=== PATIENT | male | born 1945 | race Caucasian/White ===

== ENCOUNTER 2016-09-07 13:23 | Inpatient (IN) | payer MEDICARE ==
[~2016-09-07] VITALS: Ht 188 cm; Wt 87.0 kg
[~2016-09-07 13:23] MED LIST: ADVAIR HFA [SP]12 GM INH; ASPIRIN325 MG PO; ATENOLOL25 MG PO; AXIRON30 MG/1.5 INJ; BENADRYL25 MG PO; CORDARONE200 MG PO; ENULOSE10 G/15 ML PO; FLAGYL500 MG PO; FORADIL12 MCG INH; HYTRIN1 MG PO; K-DUR20 MEQ PO; LASIX20 MG PO; LEVAQUIN500 MG PO; MORPHINE SULFAT30 MG PO; MS CONTIN100 MG PO; MUCINEX600 MG PO; MUCUS RELIEF400 MG PO; MULTI-DAY VITAM1 TAB PO; NEO-POLYCIN EY3.5 GM; NEURONTIN 300300 MG PO; PROAIR HFA8.5 GM INH; PROVENTIL/2.5 MG/3 M NEB; PROZAC20 MG PO; ROXICODONE5 MG PO; SPIRIVA18 MCG INH; STOOL SOFTENER240 MG PO; SYMBICORT 16010.2 GM INH; SYNTHROID88 MCG PO; TEGRETOL 200 M200 MG PO; TYLENOL 8 HOUR650 MG; XANAX1 MG PO; ZANTAC300 MG PO; ZOCOR40 MG PO
[2016-09-07 15:25] LABS: BASOPHILS 0.3 % (0.0-2.0); EOSINOPHILS 5.5 % (0-7); HEMATOCRIT 37.4 % (42.0-54.0); HEMOGLOBIN 12.4 g/dL (13.5-17.5); LYMPHOCYTES 24.2 % (15-50); MCH 33.9 pg (26.0-34.0); MCHC 33.2 g/dL (31.0-37.0); MCV 102.2 fL (80.0-100.0); MEAN PLATELET VOLUME 9.6 fL (7.4-10.4); MONOCYTES 14.6 % (2-11); NEUTROPHILS 55.4 % (40-80); PLATELET COUNT 199 10x3/uL (130-400); RBC 3.66 10x6/uL (4.20-6.10); RDW 15.1 % (11.5-14.5); WBC 3.4 10x3/uL (4.8-10.8)
[2016-09-07 16:06] LABS: TROPONIN-I 0.016 ng/mL (0.000-0.060)
[2016-09-07 18:08] LABS: % SATURATION 8 % (15-55); IRON 20 ug/dl (35-150); TOTAL IRON BIND CAPACITY 223 ug/dl (260-445); UNSAT IRON BIND CAPACITY 203 ug/dl (150-375)
[2016-09-07 19:00] VITALS: BP 144/84
[2016-09-07 19:30] LABS: CKMB 2.3 U/L (0.0-3.6); CREATINE KINASE 95 UL (21-232)
[2016-09-07 19:33] LABS: TROPONIN-I < 0.017 ng/mL (0.000-0.060)
--- NOTE | 2016-09-07 19:45 | NUR ---
PT RECIEVED TO UNIT, ADMISSION ASSESSMENT AND HX COMPLETE, PLEASE SEE FLOW SHEETS FOR DETAILS. VSS AT THIS TIME, WILL ATTACH TO TELEMETRY. COMPLAINING OF SEVERE PAIN, STATES IT IS CHRONIC AND IN EXTREMETIES. VISUAL SIGNS OF PAIN PRESENT, REDENNED FACE AND GRIMACING UPON MOVEMENT, AND GRUNTING OR CRYING OUT. BED LOW AND LOCKED, CALL LIGHT IN REACH. ARRIVED WITH HIS OWN WHITE TSHIRT, PAJAMA BOTTOMS AND UNDERPANTS, SOCKS AND BROWN LEATHER HOUSE SHOES. WILL CONTINUE TO MONITOR.
[2016-09-07 21:46] VITALS: BP 114/84; BMI 25.6
--- NOTE | 2016-09-07 23:36 | NUR ---
SPOKE WITH AMELIE DESAI AND RECIEVED NEW ORDERS.
[2016-09-07] MEDS ORDERED: CYMBALTA60 MG PO (23:50)
[2016-09-07] MEDS ORDERED: SYNTHROID100 MCG PO (23:51)
[2016-09-07] MEDS ORDERED: ZANAFLEX4 MG PO (23:52)
[2016-09-07] MEDS ORDERED: TENORMIN25 MG PO (23:52)
[2016-09-07] MEDS ORDERED: LYRICA75 MG PO (23:53)
[2016-09-08] VITALS: BP 147/80
[2016-09-08 00:14] LABS: CKMB 1.8 U/L (0.0-3.6); CREATINE KINASE 91 UL (21-232)
--- NOTE | 2016-09-08 00:17 | NUR ---
PT SLEEPING COMFORTABLEY, BED LOW AND LOCKED, CALL LIGHT IN REACH, WILL CONTINUE TO MONITOR.
[2016-09-08 00:21] LABS: TROPONIN-I < 0.017 ng/mL (0.000-0.060)
--- NOTE | 2016-09-08 02:50 | NUR ---
PT HR ON TELEMETRY AT 160, WENT TO CHECK ON PT. HE WAS AWAKE IN BED AND COMPLAINING OF PAIN AND NAUSEA. GAVE OXYCODONE AND ZOFRAN ORDERED. UPON REASSESSMENT HR DOWN TO 115, AND PT STATED HE WAS MORE COMFORTABLE. WILL CONTINUE TO MONITOR.
[2016-09-08 04:00] VITALS: BP 141/84
[2016-09-08 06:06] LABS: HEMATOCRIT 42.7 % (42.0-54.0); MCH 32.9 pg (26.0-34.0); MCHC 32.8 g/dL (31.0-37.0); MCV 100.5 fL (80.0-100.0); MEAN PLATELET VOLUME 9.8 fL (7.4-10.4); RBC 4.25 10x6/uL (4.20-6.10); RDW 14.9 % (11.5-14.5)
[2016-09-08 06:07] LABS: PLATELET COUNT 260 10x3/uL (130-400); WBC 1.9 10x3/uL (4.8-10.8)
[2016-09-08 06:21] LABS: CALC OSMOLALITY 279 mosm/kg (275-300); CALCIUM 8.8 mg/dL (8.5-10.1); CARBON DIOXIDE 34.4 mmol/L (21.0-32.0); CHLORIDE - SERUM 101 mmol/L (98-107); CKMB 1.5 U/L (0.0-3.6); CREATINE KINASE 71 UL (21-232); CREATININE - SERUM 0.9 mg/dL (0.6-1.3); GLUCOSE 127 mg/dL (74-106); POTASSIUM - SERUM 4.1 mmol/L (3.5-5.1); SODIUM 140 mmol/L (136-145); UREA NITROGEN 9 mg/dL (7-18); eGFR NON AFRICAN AMERICAN 88 mL/min (90-120)
[2016-09-08 06:23] LABS: TROPONIN-I < 0.017 ng/mL (0.000-0.060)
[2016-09-08 06:36] LABS: LYMPHOCYTES 14 % (15-50); MONOCYTES 4 % (2-11); NEUTROPHILS 82 % (40-80); PLATELET ESTIMATE NORMAL; ROULEAUX OCC
[2016-09-08 06:37] LABS: ANISOCYTOSIS OCC
[2016-09-08 07:39] VITALS: BP 131/83
[2016-09-08] MEDS ORDERED: MS CONTIN30 MG PO (09:04)
[2016-09-08 11:38] VITALS: BP 119/73
[2016-09-08 13:42] VITALS: Ht 188 cm; Wt 87.0 kg
[2016-09-08 15:25] VITALS: BP 136/85
--- NOTE | 2016-09-08 19:03 | NUR ---
SITTING UP IN BED, AAOX3, SKIN WARM AND DRY, RESP UNLABORED, IV PATENT TO LEFT FOREARM, O2@2LNC, MOOD PLEASANT, DENIES NEEDS
--- NOTE | 2016-09-08 19:06 | NUR ---
ALERT AND ORIENTED X4. SITTING UP IN BED. FAMILY AT BEDSIDE. PAIN MANAGEMENT CONTINUED FOR CHRONIC PAIN. O2 @ 2L FOR SOB. NO CHANGE. IV ANTIBIOTIC INFUSING ORDERED. CONTINUE PLAN OF CARE AND SAFETY PRECAUTION. PREPARE SHIFT CHANGE REPORT.
[2016-09-08 19:56] VITALS: BP 135/82
[2016-09-09] VITALS: BP 133/80
--- NOTE | 2016-09-09 01:31 | NUR ---
LYING IN BED, CALL LIGHT IN REACH. WILL CONTINUE WITH PLAN OF CARE.
[2016-09-09 04:00] VITALS: BP 135/90
--- NOTE | 2016-09-09 05:40 | NUR ---
RESTING QUIETLY IN BED, NO DISTRESS NOTED
[2016-09-09 05:59] LABS: BASOPHILS 0 % (0.0-2.0); EOSINOPHILS 0 % (0-7); HEMATOCRIT 40.6 % (42.0-54.0); HEMOGLOBIN 13.4 g/dL (13.5-17.5); IMMATURE GRANULOCYTES 0.1 % (0-5); LYMPHOCYTES 10.1 % (15-50); MCH 33.1 pg (26.0-34.0); MCV 100.2 fL (80.0-100.0); MONOCYTES 4.1 % (2-11); NEUTROPHILS 85.7 % (40-80); PLATELET COUNT 257 10x3/uL (130-400); RBC 4.05 10x6/uL (4.20-6.10)
[2016-09-09 06:02] LABS: WBC 6.8 10x3/uL (4.8-10.8)
[2016-09-09 06:32] LABS: CALC OSMOLALITY 283 mosm/kg (275-300); CARBON DIOXIDE 33.9 mmol/L (21.0-32.0); CHLORIDE - SERUM 102 mmol/L (98-107); CREATININE - SERUM 0.9 mg/dL (0.6-1.3); GLUCOSE 131 mg/dL (74-106); POTASSIUM - SERUM 4.1 mmol/L (3.5-5.1); SODIUM 141 mmol/L (136-145); UREA NITROGEN 15 mg/dL (7-18); eGFR NON AFRICAN AMERICAN 88 mL/min (90-120)
--- NOTE | 2016-09-09 07:18 | NUR ---
PT SITTING UP IN BED RECEIVING BREATHING TX. PT DENIES NEEDS WILL CONTINUE TO MONITOR.
[2016-09-09 08:00] VITALS: BP 137/77
[2016-09-09 09:19] LABS: FOLATE (FOLIC ACID) - SERUM 13.2 ng/mL (>3.0)
[2016-09-09 12:00] VITALS: BP 133/76
--- NOTE | 2016-09-09 12:41 | NUR ---
Patient Name: TREV JERRY Admission Status: ER Accout number: [id number] Admission Date: 09-07-2016 : 1945 Admission Diagnosis: Attending: OSCAR Current LOS: 2 Anticipated DC Date: 09-13-2016 Planned Disposition: Home Primary Insurance: [employer] MEDICARE ADV Discharge Planning Comments: CM MET WITH PATIENT REGARDING D/C NEEDS AND PLANS. PATIENT STATED HIS DAUGHTER (LOUISE) AND SON IN LAW LIVE WITH HIM AND THEY WILL DRIVE HIM HOME AT DISCHARGE. PATIENT STATED THERE ARE NO STEPS OR STAIRS AT HIS HOME. PATIENT STATED HE IS INDEPENDENT WITH HIS CARE WITH THE EXCEPTION OF MEDICATION MANAGEMENT. PATIENT HAS A WALKER, CANE, SHOWER CHAIR, BS COMMODE, O2, PORTABLE O2, AND NEBULIZER. OXYGEN IS SUPPLIED BY [employer]. PATIENTS PCP IS DR. OLIVIA ROCKWELL AND PHARMACY IS [facility]. PATIENT HAS NOT HAD HOME HEALTH BEFORE AND IS REFUSING IT AT THIS TIME. CM WILL CONTINUE TO FOLLOW PATIENT WITH D/C NEEDS AND PLANS. PCP DR. OLIVIA ROCKWELL [facility]- [phone] BIANCA JERRY (SON) [phone] LOUISE (DAUGHTER) DID NOT HAVE NUMBER Visitor Services Specialist: Janny Chávez Is the patient Alert and Oriented? Yes 0 * How many steps to enter\exit or inside your home? 0 0 * PCP DR. OLIVIA ROCKWELL 0 * Pharm[facility] 0 * Preadmission Environment Home with Family 0 * ADLs Partial Dependent 0 * Partial ADLs (Assistance needed) Medication Management 0 * Equipment Bedside Commode Cane Nebulizer Oxygen Shower Chair Walker 0 * Other Equipment PORTABLE O2 ([facility]) 0 * List name and contact numbers for known caregivers / representatives who currently or will assist patient after discharge: BIANCA JERRY (SON) [phone] 0 * Community resources currently utilized None 0 * Additional services required to return to the preadmission environment? Yes 0 * Can the patient safely return to the preadmission environment? Yes 0 * Has this patient been hospitalized within the prior 30 days at any hospital? No 0 Grand Total: 0
--- NOTE | 2016-09-09 12:41 | NUR ---
PYXIS IS BROKEN NEW ORDERS NOT GOING TO [facility]. HAD TO OVERRIDE CARDIZEM DRIP TO BE ABLE TO PULL MEDICATION.
--- NOTE | 2016-09-09 13:39 | NUR ---
PT SITTING UP IN BED DENIES NEEDS AT THIS TIME WILL CONT TO MONITOR.
[2016-09-09 16:00] VITALS: BP 120/84
--- NOTE | 2016-09-09 17:46 | NUR ---
PT SITTING UP IN BED DENIES NEEDS AT THIS TIME WILL CONTINUE TO MONITOR.
--- NOTE | 2016-09-09 20:00 | NUR ---
PT RESTING IN BED. REVIEWED THAT CURRENT BP IS RUNNING 97/49. PT IS A CHRONIC PAIN PT AND IS USED TO TAKING XANAX AND MS CONTIN. HE IS ALSO ON A CARDIZEM DRIP FOR HIS AFIB, WHICH IS CURRENTLY CONTROLLED. WILL ADMINISTER NORMAL HOME MEDS, MONITOR BP AND HOLD DRIP IF BP BECOMES TOO LOW. REVIEWED PLAN OF CARE WITH PT AND HE IS IN AGREEMENT BECAUSE HE DOES NOT WANT TO MISS HIS SCHEDULED PAIN MEDS. O2 @ 2L/NC. WILL MONITOR CLOSELY.
[2016-09-09 21:18] VITALS: BP 97/49
--- NOTE | 2016-09-09 23:52 | NUR ---
HS MEDS HAVE BEEN GIVEN. PT IS RESTING. BP MANUAL 132/60 SO HS PAIN MEDS GIVEN. CURRENTLY 94 CAF PER TELEMETRY. CARDIZEM AT 10ML/HR INFUSING. CPOC.
[2016-09-10 01:12] VITALS: BP 98/55
[2016-09-10 05:01] VITALS: BP 122/55
[2016-09-10 06:00] LABS: CALC OSMOLALITY 282 mosm/kg (275-300); CALCIUM 8.8 mg/dL (8.5-10.1); CARBON DIOXIDE 34.9 mmol/L (21.0-32.0); CHLORIDE - SERUM 100 mmol/L (98-107); GLUCOSE 129 mg/dL (74-106); MAGNESIUM - SERUM 2.2 mg/dL (1.8-2.4); PHOSPHOROUS 3.1 mg/dL (2.5-4.9); POTASSIUM - SERUM 4.5 mmol/L (3.5-5.1); SODIUM 140 mmol/L (136-145); UREA NITROGEN 17 mg/dL (7-18); eGFR NON AFRICAN AMERICAN 78 mL/min (90-120)
[2016-09-10 06:08] LABS: BASOPHILS 0 % (0.0-2.0); EOSINOPHILS 0 % (0-7); HEMATOCRIT 42.5 % (42.0-54.0); HEMOGLOBIN 13.8 g/dL (13.5-17.5); IMMATURE GRANULOCYTES 0.2 % (0-5); LYMPHOCYTES 10.9 % (15-50); MCH 32.9 pg (26.0-34.0); MCHC 32.5 g/dL (31.0-37.0); MCV 101.4 fL (80.0-100.0); MEAN PLATELET VOLUME 10.3 fL (7.4-10.4); MONOCYTES 2.2 % (2-11); NEUTROPHILS 86.7 % (40-80); PLATELET COUNT 270 10x3/uL (130-400); RBC 4.19 10x6/uL (4.20-6.10); RDW 15.3 % (11.5-14.5); WBC 5.4 10x3/uL (4.8-10.8)
--- NOTE | 2016-09-10 07:00 | NUR ---
PT SITTING UP IN BED WATCHING TV DENIES NEEDS WILL CONT TO MONITOR.
[2016-09-10 08:00] VITALS: BP 104/74
--- NOTE | 2016-09-10 10:19 | NUR ---
PT PIV INFILTRATED DC WITH CATHETER TIP INTACT. I ATTEMPTED TO RESITE PT X3 NO SUCCESS. JEANINE SITED PT TO LEFT HAND 22G X3 STICKS.
[2016-09-10 12:00] VITALS: BP 119/85
--- NOTE | 2016-09-10 13:58 | NUR ---
Nutrition follow-up: Diet: Low sodium PO intake 100% of meals Labs reviewed +BM Wt: 196# RDN following.
--- NOTE | 2016-09-10 14:57 | NUR ---
PT SITTING UP IN BED WATCHING TV DENIES NEEDS AT THIS TIME WILL CONT TO MONITOR.
[2016-09-10 16:00] VITALS: BP 109/65
[2016-09-10 20:25] VITALS: BP 118/67
[2016-09-11 00:45] VITALS: BP 126/70
[2016-09-11 05:48] VITALS: BP 120/70
[2016-09-11 06:34] LABS: BASOPHILS 0 % (0.0-2.0); EOSINOPHILS 0 % (0-7); HEMATOCRIT 40.8 % (42.0-54.0); HEMOGLOBIN 13.2 g/dL (13.5-17.5); IMMATURE GRANULOCYTES 0.1 % (0-5); LYMPHOCYTES 7.4 % (15-50); MCH 32.8 pg (26.0-34.0); MCHC 32.4 g/dL (31.0-37.0); MCV 101.5 fL (80.0-100.0); MEAN PLATELET VOLUME 10.3 fL (7.4-10.4); MONOCYTES 4.5 % (2-11); PLATELET COUNT 263 10x3/uL (130-400); RBC 4.02 10x6/uL (4.20-6.10); RDW 15.2 % (11.5-14.5); WBC 7.8 10x3/uL (4.8-10.8)
--- NOTE | 2016-09-11 07:00 | NUR ---
RECEIVED REPORT. ASSUMED CARE OF PATIENT. CALL LIGHT WITHIN REACH. ALERT/ORIENTED, SITTING UP IN BED WITH ATTENTION TOWARD TELEVISON. DENIES NEEDS. NO DISTRESS. RESP EVEN AND UNLABORED.
[2016-09-11 07:05] LABS: CALC OSMOLALITY 280 mosm/kg (275-300); CALCIUM 8.6 mg/dL (8.5-10.1); CARBON DIOXIDE 34.6 mmol/L (21.0-32.0); CHLORIDE - SERUM 100 mmol/L (98-107); CREATININE - SERUM 0.9 mg/dL (0.6-1.3); GLUCOSE 139 mg/dL (74-106); POTASSIUM - SERUM 4.3 mmol/L (3.5-5.1); SODIUM 139 mmol/L (136-145); UREA NITROGEN 15 mg/dL (7-18); eGFR NON AFRICAN AMERICAN 88 mL/min (90-120)
[2016-09-11 08:00] VITALS: BP 134/74
--- NOTE | 2016-09-11 11:16 | NUR ---
NEW NON SKID SOCKS PROVIDED TO PATIENT AT THIS TIME. RESTING IN BED WITH EYES OPEN. NO DISTRESS.
[2016-09-11 12:00] VITALS: BP 108/57
--- NOTE | 2016-09-11 13:46 | NUR ---
Spoke with AND RECEIVED NEW ORDERS FOR CARDIZEM 120 PO DAILY, D/C CARDIZEM DRIP AND PATIENT MAY GO HOME TODAY.
--- NOTE | 2016-09-11 14:07 | NUR ---
PATIENT SITTING IN BED. CALL LIGHT WITHIN REACH. INFORMED PATIENT THAT DR.TAUTH QUINTANA'D PATIENT DISCHARGE. PATIENT EXCITED TO GO HOME TODAY AND ANXIOUSLY AWAITING DISCHARGE.
[2016-09-11] MEDS ORDERED: CORDARONE200 MG PO (14:44)
[2016-09-11] MEDS ORDERED: DOXYCYCLINE HY100 M2 PO (14:48)
[2016-09-11] MEDS ORDERED: PREDNISONE10 MG PO (14:49)
[2016-09-11] MEDS ORDERED: CARDIZEM CD120 MG PO (14:49)
[2016-09-11 16:27] VITALS: BP 111/60
--- NOTE | 2016-09-11 18:25 | NUR ---
PATIENT SITTING IN BED. CONTINUING TO WAIT FOR HIS DISCHARGE PAPERWORK. DENIES NEEDS. CALL LIGHT WITHIN REACH. FRESH ICE WATER PROVIDED. NO DISTRESS.
--- NOTE | 2016-09-13 14:16 | EC ---
PATIENT:TREV JERRY DATE OF SERVICE: 09/07/16 SEX: M MEDICAL RECORD: [id number] DATE OF : [birth year] LOCATION:D.M2 D.212 AGE OF PATIENT: 71 ADMISSION DATE: 09/07/16 REFERRING PHYSICIAN: INTERPRETING PHYSICIAN: NETTE ESPINO MD ECHOCARDIOGRAM REPORT ECHO CHARGES 4 ECHO COMPLETE CLINICAL DIAGNOSIS: SOB/DYSPNEA ECHOCARDIOGRAPHIC MEASUREMENTS (adult normal given) AC root (d.<3.7cm) 4.0 LV Septum d (<1.2 cm> 1.5 Valve Excursion 2.4 LV Septum (systole) 2.1 Left Atria (s.<4.0cm> 3.6 LVPW d(<1.2cm) 1.4 RV (d.<2.3cm) 2.4 LVPW (sytole) 2.0 LV diastole(<5.6CM) 5.0 MV E-F(>70mm/sec) LV systole 3.0 LVOT Diameter 2.1 MV exc.(>10mm) Est.ejection fraction (50-75%) Pericardial Effusion N DOPPLER: LVIT A E 101 LA RVSP 65.0 LVOT 108 AOP1/2T Asc. Ao 125 RVOT 72.0 RA PA 109 AV Gradient Peak 6.2 AV Mean 3.5 AV Area 2.4 MV Gradient Peak 4.5 MV Mean 1.7 MV Area COMMENTS: Campaign Manager: Efra CHÁVEZOE Printing Press Operator Apprentice:Efra Espino TAPE# PACS DATE OF SERVICE: 09/08/2016 Echocardiogram FINDINGS: 1. Left ventricular chamber size is within normal limits. Left ventricular systolic function is normal. Overall ejection fraction estimated at 55%. 2. Left atrium, right atrium, and right ventricle chamber sizes are within normal limits. 3. Valvular structures have normal structure and motion. ECHOCARDIOGRAM REPORT [id number] TREV JERRY 4. Doppler interrogation reveals moderate tricuspid regurgitation, no other valvular insufficiency or stenosis. Pulmonary systolic pressure is elevated estimated 65 mmHg. 5. No evidence of pericardial effusion or left ventricular thrombus. TRANSINT:[id number] Voice Confirmation ID: [id number] DOCUMENT ID: [id number] NETTE ESPINO MD at 1416 CC: [id number] DICTATION DATE: 09/08/16 1303 READING COACH: 09/08/16 1347 DIS IN 09/11/16 [facility] [address] [place] [address]
--- NOTE | 2016-09-13 14:16 | CN ---
PATIENT NAME:TREV JERRY MEDICAL RECORD: [id number] : 43 LOCATION:D. D.2128 ADMIT DATE: 09/07/16 ACCOUNT: [id number] CONSULTING PHYSICIAN: NETTE MCCULLOUGH MD REFERRING PHYSICIAN: ODALYS MONTOYA MD DATE OF CONSULTATION: 09/08/2016 Consultation note DIAGNOSES: 1. Shortness of breath. 2. Chronic obstructive pulmonary disease. 3. Hypertension. HISTORY OF PRESENT ILLNESS: Mr. Jerry presents with shortness of breath. There is question of pulmonary edema, possible congestive heart failure. He has no history of congestive heart failure. He has an echocardiogram in the past with a normal ejection fraction and normal valvular structures have normal pulmonary pressures. He has no history of coronary artery disease. His troponin is negative. He has not had any chest pain. PHYSICAL EXAMINATION: GENERAL APPEARANCE: Well-nourished, well-developed, appears stated age. Level of distress, comfortable. PSYCHIATRIC: Mental status, alert, normal affect. Orientation, oriented to time, place and person. EYES: Lids and conjunctiva, noninjected. No discharge, no pallor. ENT: Lips, teeth, gums, normal dentition. Oropharynx, no cyanosis, no pallor. NECK: Carotid arteries, bilateral normal upstroke, no bruits, no thrills. JUGULAR VEINS: No jugular venous pressure or distention. CERVICAL LYMPH NODES: Nontender, nonenlarged. THYROID: Not enlarged. Nontender. No nodules. LUNGS: Respiratory effort, unlabored. CHEST: Normal curvature. No thoracic deformity. No chest wall tenderness. Percussion, resonant. Auscultation, clear. No wheezes, no rales, no rhonchi. CARDIOVASCULAR: Precordial exam, nondisplaced. No heaves or pericardial thrills. Rate and rhythm, regular. Heart sounds, normal S1, normal S2. No S3, no gallop, no rub. Systolic murmur, not heard. Diastolic murmur, not heard. EXTREMITIES: No cyanosis, no edema. Peripheral pulses, full and equal in all extremities, except as noted. No bruits appreciated. ABDOMEN: Soft, nondistended. Normal aorta. No bruit. Nontender. No masses. Liver, nontender, no hepatomegaly. Spleen, nontender, no splenomegaly. MUSCULOSKELETAL: No joint tenderness. No joint swelling. No erythema. NEUROLOGICAL: Normal gait, normal strength, normal tone. SKIN: Warm and dry. REVIEW OF SYSTEMS: The patient reports easy bruising but reports no swollen glands. The patient reports no fever, no night sweats, no significant weight gain, no significant weight loss. No significant exercise tolerance. The patient reports no dry eyes, no irritation, no vision change. Patient reports no difficulty hearing and no ear pain. Patient reports no frequent nose bleeds or nose and sinus problems. Patient reports on arm pain on exertion. No shortness of breath while lying down. No history of heart murmur. Patient reports no cough, no wheezing or coughing up blood. Patient reports no abdominal pain, no vomiting. Normal appetite. No diarrhea and not vomiting CONSULT REPORT [id number] TERV JERRY blood. No nausea and no constipation. Patient reports no incontinence. No difficulty urinating. No hematuria. No increased frequency. Patient reports no muscle aches. No weakness, no arthralgias, no back pain. No swelling of the extremities. Patient reports no abnormal mole, no jaundice, no rashes. Reports no loss of consciousness. No weakness and no numbness. No seizures, dizziness, or headaches. The patient reports no depression, no sleep disturbance, feeling safe in a relationship and no alcohol abuse. Patient reports on fatigue. Reports no runny nose or sinus pressure. No itching, no hives, and no frequent sneezing. OVERALL IMPRESSION: Doubtful that this is congestive heart failure. We will repeat echocardiogram to reevaluate the ejection fraction, but most likely this is chronic obstructive pulmonary disease exacerbation and no other cardiac workup treatment will be necessary other than the echo. TRANSINT:[id number] Voice Confirmation ID: [id number] DOCUMENT ID: [id number] NETTE MCCULLOUGH MD at 1416 CC: [id number] DICTATION DATE: 09/08/16813 ORGANIC SEARCH LEAD: 09/08/16840 DIS IN 09/11/16 [place] [id number] [place] [id number]
--- NOTE | 2016-11-12 12:12 | DS ---
PATIENT:TREV JERRY :43 MEDICAL RECORD: [id number] DISCHARGE SUMMARY ADMISSION DATE: 09/07/16 DISCHARGE DATE: 09/11/16 DATE OF ADMISSION: 09/07/2016 DATE OF DISCHARGE: 09/11/2016 DIAGNOSES: 1. Chronic obstructive pulmonary disease exacerbation. 2. Congestive heart failure. 3. Chronic pain with neuropathy. 4. Paroxysmal atrial fibrillation. 5. Hypertension. 6. Coronary artery disease. 7. Leukopenia. CONSULTS: 1. ____. 2. Dr. Vick. HOSPITAL COURSE: The full H&P is listed elsewhere in the chart for this patient, who was admitted with shortness of breath with questionable or possible congestive heart failure due to an elevated proBNP. The patient's troponins were negative. EKG was within normal limits. The repeat echocardiogram did reveal a normal LV function of 55% with normal valvular integrity. The patient did not have congestive heart failure. The patient does have pulmonary hypertension per the echo with PA pressure of 65 mmHg. ____ that the patient's symptomatology was due to COPD exacerbation and pulmonary hypertension. Dr. Vick did follow the patient for some transient leukopenia. It did resolve prior to discharge home. So, the patient was placed on some IV steroids and antibiotic therapy and clinical condition improved and the patient was thought to be stable for discharge, to follow up in the outpatient setting. See med rec. TRANSINT:[id number] Voice Confirmation ID: [id number] DOCUMENT ID: [id number] Dictated By: BENITA RUBY I have interviewed/examined the above patient and agree with these documented findings. ODALYS MONTOYA MD at 1212 at 0811 CC: [id number] DICTATION DATE: 11/11/16 0905 ASSISTANCE COORDINATOR: 11/12/16 0150 DIS IN 09/11/16 [place] [id number] [place] [address]
== END 2016-09-11 20:00 | disposition home or self-care (01) | DRG 191 ==
LOC: D.ER 13:23 → D.M2 17:10
PROVIDERS: Emergency Medicine; ADMIT Family Medicine
DX: J44.1 Chronic obstructive pulmonary disease with (acute) exacerbation (principal); F17.203 Nicotine dependence unspecified, with withdrawal; I50.22 Chronic systolic (congestive) heart failure; I25.10 Atherosclerotic heart disease of native coronary artery without angina pectoris; I48.0 Paroxysmal atrial fibrillation; D64.9 Anemia, unspecified; E78.5 Hyperlipidemia, unspecified; Z95.5 Presence of coronary angioplasty implant and graft; I48.2 Chronic atrial fibrillation; I11.0 Hypertensive heart disease with heart failure

== ENCOUNTER 2016-09-19 05:08 | Emergency (ER) | payer MEDICARE ==
[2016-09-08 13:42] VITALS: BMI 25.5
[~2016-09-19 05:08] MED LIST changes: +CARDIZEM CD120 MG PO; +CYMBALTA60 MG PO; +DOXYCYCLINE HY100 M2 PO; +LYRICA75 MG PO; +MS CONTIN30 MG PO; +PREDNISONE10 MG PO; +SYNTHROID100 MCG PO; +TENORMIN25 MG PO; +ZANAFLEX4 MG PO
== END 2016-09-19 06:09 | disposition home or self-care (01) ==
LOC: D.ER 05:08
DX: G62.9 Polyneuropathy, unspecified (principal); J44.9 Chronic obstructive pulmonary disease, unspecified; I50.9 Heart failure, unspecified; F17.200 Nicotine dependence, unspecified, uncomplicated

== ENCOUNTER 2016-09-23 11:11 | Inpatient (IN) | payer MEDICARE ==
[2016-09-23 12:43] LABS: UDS - AMPHET NEGATIVE QUAL (NEGATIVE); UDS - BARB NEGATIVE QUAL (NEGATIVE); UDS - BENZO POSITIVE QUAL (NEGATIVE); UDS - COCAINE NEGATIVE QUAL (NEGATIVE); UDS - METH NEGATIVE QUAL (NEGATIVE); UDS - OPIATE NEGATIVE QUAL (NEGATIVE); UDS - PCP NEGATIVE QUAL (NEGATIVE); UDS - THC NEGATIVE QUAL (NEGATIVE)
[2016-09-23 12:48] LABS: ALKALINE PHOSPHATASE 79 U/L (46-116); ALT (SGPT) 31 U/L (10-68); BILIRUBIN - TOTAL 0.53 mg/dL (0.2-1.3); CALC OSMOLALITY 284 mosm/kg (275-300); CALCIUM 8.7 mg/dL (8.5-10.1); CARBON DIOXIDE 34.1 mmol/L (21.0-32.0); CHLORIDE - SERUM 103 mmol/L (98-107); CREATININE - SERUM 0.9 mg/dL (0.6-1.3); GLUCOSE 107 mg/dL (74-106); POTASSIUM - SERUM 4.3 mmol/L (3.5-5.1); PROTEIN - SERUM 6.8 g/dL (6.4-8.2); SODIUM 141 mmol/L (136-145); UREA NITROGEN 24 mg/dL (7-18); eGFR NON AFRICAN AMERICAN 88 mL/min (90-120)
[2016-09-23 12:55] LABS: APPEARANCE CLEAR (CLEAR); COLOR YELLOW (YELLOW); GLUCOSE NEGATIVE (NEGATIVE); KETONE NEGATIVE (NEGATIVE); LEUKOCYTE ESTERASE NEGATIVE (NEGATIVE); NITRITE NEGATIVE (NEGATIVE); PROTEIN NEGATIVE (NEGATIVE); UROBILINOGEN NORMAL (NORMAL)
[2016-09-23 12:56] LABS: BACTERIA FEW /hpf (NONE SEEN); BILIRUBIN NEGATIVE (NEGATIVE); EPITHELIAL CELLS OCC /hpf (0-5); RED CELLS - URINE RARE /hpf (0-5); WHITE CELLS - URINE OCC /hpf (0-5)
[2016-09-23 13:17] LABS: BASOPHILS 0.1 % (0.0-2.0); EOSINOPHILS 1.9 % (0-7); HEMOGLOBIN 14.2 g/dL (13.5-17.5); IMMATURE GRANULOCYTES 0.3 % (0-5); LYMPHOCYTES 13.1 % (15-50); MCH 32.8 pg (26.0-34.0); MCHC 32.3 g/dL (31.0-37.0); MCV 101.6 fL (80.0-100.0); MEAN PLATELET VOLUME 10.8 fL (7.4-10.4); MONOCYTES 11.5 % (2-11); NEUTROPHILS 73.1 % (40-80); RBC 4.33 10x6/uL (4.20-6.10); WBC 10.2 10x3/uL (4.8-10.8)
[2016-09-23 13:18] LABS: PLATELET COUNT 205 10x3/uL (130-400)
--- NOTE | 2016-09-23 16:26 | NUR ---
Staff spoke with pee Reyes and he is agreement that patient needs to be here on our unit involuntarily.
--- NOTE | 2016-09-23 17:00 | NUR ---
RECEIVED PATIENT FROM ER ACCOMPANIED BY PHOTOCOPY OPERATOR FROM ER. ADMITTED TO ROOM 1131 WITH DIAGNOSIS OF S.I. AND AGGRESSION. PATIENT IS ADMITTED INVOLUNTARY PER DR WALKER. PATIENT ATTACKED STAFF IN THE ED. CURRENTLY SEDATED AND UNABLE TO PROVIDE HISTORY.
[2016-09-23] MEDS ORDERED: PROZAC20 MG PO (17:11)
[2016-09-23] MEDS ORDERED: PACERONE200 MG (17:12)
[2016-09-23] MEDS ORDERED: REMERON15 MG PO (17:13)
[2016-09-23] MEDS ORDERED: VITAMIN B-1000 MCG/M IM (17:14)
[2016-09-23] MEDS ORDERED: ENULOSE10 G/15 ML PO (17:16)
[2016-09-23] MEDS ORDERED: ZANTAC300 MG PO (17:16)
[2016-09-23] MEDS ORDERED: ZOCOR80 MG PO (17:16)
[2016-09-23] MEDS ORDERED: MULTIPLE VITAMI1 TA1 PO (17:16)
[2016-09-23] MEDS ORDERED: TERAZOSIN HCL2 MG PO (17:17)
[2016-09-23] MEDS ORDERED: SPIRIVA18 MCG INH (17:18)
[2016-09-23] MEDS ORDERED: IPRAT-ALBUT 0.5-3 ML UPD (17:18)
[2016-09-23] MEDS ORDERED: FORADIL12 MCG INH (17:20)
[2016-09-23] MEDS ORDERED: PROAIR HFA8.5 GM INH (17:21)
[2016-09-23] MEDS ORDERED: TESTOSTERON200 MG/ML IM (17:21)
[2016-09-23] MEDS ORDERED: COMBIVENT RESPIM4 GM INH (17:22)
[2016-09-23] MEDS ORDERED: SYNTHROID75 MCG PO (17:22)
[2016-09-23] MEDS ORDERED: FUROSEMIDE20 MG PO (17:22)
[2016-09-23 17:55] VITALS: BP 108/58; BMI 24.3
[2016-09-23 18:27] LABS: HEMOGLOBIN A1C 5.9 % (4.8-6.0)
[2016-09-23 18:33] LABS: CHOL - HDL RATIO 3.3 ratio (2.3-4.9); LDL-HDL RATIO 2.1 ratio (1.5-3.5); THYROID STIMULATING HORMONE 1.34 uIU/mL (0.36-3.74)
--- NOTE | 2016-09-24 02:33 | NUR ---
B) Recieved sleeping in his bed, patient had recieved Haldol 10 mg in the E.D. for combative behavior, patient woke up at 1999 and needed to go to the restroom, I) Administered perscribed medications, assisted patient back to ed, R) Medication compliant, patient returned to sleep, resting quietly respirations even and unlabored, P) Con tinue plan of care, continue to monitor.
[2016-09-24 08:55] VITALS: BP 133/71
[2016-09-24 10:40] VITALS: Wt 87.4 kg
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
[2016-09-24 19:30] VITALS: BP 99/48
--- NOTE | 2016-09-25 02:30 | NUR ---
Patient resting in dayroom with eyes close. O2 at 2L/min. Patient calm, nice and oreinted to person and place. Cooperative with medication. Continue plan of care, continue to monitor.
[2016-09-25 07:21] LABS: RAPID PLASMA REAGIN Non Reactive (Non Reactive)
[2016-09-25 09:03] VITALS: BP 102/58
[2016-09-25 10:12] LABS: FOLATE (FOLIC ACID) - SERUM 15.3 ng/mL (>3.0)
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
--- NOTE | 2016-09-25 15:51 | NUR ---
RECEIVED THIS AM SITTING IN CHAIR IN HALLWAY AT [facility]ES [facility].IS COOPERATIVE WITH STAFF ,COMPLIANT WITH MEDS.FOUL LANGUAGE SPOKEN AT TIMES.AMB PER SELF WITH SOMEWHAT UNSTEADY GAIT.WILL CONTINUE WITH PLAN OF CARE ,MONITOR FOR CHANGES AND SAFETY.
[2016-09-25 19:30] VITALS: BP 106/63
--- NOTE | 2016-09-25 21:40 | NUR ---
B) Recieved sitting in the day room alert and oriented, sitting on couch watching TV, calm an quiet, no outburst or aggression noted, I) Administered persribed medications, redirected and oriented as needed, R) Medication compliant, social with staff, P) Continue plan of care, continue to monitor.
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
--- NOTE | 2016-09-26 13:34 | NUR ---
Patient has asked "Where's the Dr.?" He says he wants to leave, he denies ever saying he wanted to kill himself, although, he has mentioned how [employer] has taken away all of his pain medications. Patient has tols another patient to be quiet, but he was redirected to appropriate behavior as they both began yelling. Patient says Anyone that knows me knows I'd never kill myself". Patient is speaking to another patient now, he is trying to buy his care from him.
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
--- NOTE | 2016-09-26 16:47 | NUR ---
PT'S DAUGHTER CONTACT NUMBER IS [phone] HER NAME IS MI.
[2016-09-26 19:30] VITALS: BP 119/58
--- NOTE | 2016-09-26 20:21 | NUR ---
RECEIVED IN DAYROOM. SETTING ON SOFA WITH PEER AT HIS SIDE. SOCIALIZING AT TIMES. CALM AND COOPERATIVE WITH CARE AND ASSESSMENT. 02 @ 2L/MIN. ALERT AND ORIENTED X3. NO SIGNS OF AGGRESSION. CONTINUES TO REST QUIETLY. CONTINUE PLAN OF CARE
[2016-09-27 06:44] LABS: ANION GAP 11.2 mmol/L (8-16); CALCIUM 8.9 mg/dL (8.5-10.1); CREATININE - SERUM 1.2 mg/dL (0.6-1.3); POTASSIUM - SERUM 4.2 mmol/L (3.5-5.1)
[2016-09-27 09:09] LABS: VITAMIN D 25 HYDROXY 13.2 ng/mL (30.0-100.0)
[2016-09-27 10:31] VITALS: BP 109/66
[2016-09-27] MEDS ORDERED: VISTARIL25 MG PO (12:15)
[2016-09-27] MEDS ORDERED: ATIVAN1 MG PO (12:15)
--- NOTE | 2016-09-27 13:39 | NUR ---
PT REFUSES REFERRAL TO OUTPATIENT THERAPY.
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
[2016-09-27 20:00] VITALS: BP 111/51
--- NOTE | 2016-09-27 20:15 | NUR ---
RECEIVED IN DAYROOM. SETTING ON SOFA WITH A PEER AT HIS SIDE. SOCILAIZING AT TIMES. REFUSES O2 AT THIS TIME. CALM AND COOPERATIVE WITH CARE AND ASSESSMENT. NO SIGNS OF AGGRESSION. IN GOOD SPIRITS ABOUT HIS UP COMING DISCHARGE TOMORROW. REMAINS QUIET WATCHING TV. CONTINUE PLAN OF CARE
[2016-09-28 08:40] VITALS: BP 103/64
--- NOTE | 2016-09-28 10:26 | NUR ---
Prescriptions called in to [facility], pharmacist
--- NOTE | 2016-09-28 10:30 | NUR ---
Alert and oriented times four, pleasant and cooperative with care. No suicial ideations. " I was just mad at the time about something going on with my grandaughter, I wouldnt hurt myself, I cant even stand to stump my toe." Contracted for safety. Verbalized positive coping measures, has family support system. Patient is anxious regarding discharge today. Safety maintained. Follow up appointment made with PCP, prescriptions called in to [facility]. Discharge instructions given, patient verblaized understanding. Continue with plan for discharge today.
--- NOTE | 2016-09-28 10:42 | NUR ---
Nutrition Follow Up: Chart reviewed. Pt is eating 78% meal avg on a Cardiac diet. +BM 09/25/16. Wt gain of 3# since admit. Labs noted. Meds noted including MV, Lasix, Remeron, Lactulose. Pt with good po intake at this time. Rec continue current diet. Will continue to send selective menus and honor food preferences. RD following.
--- NOTE | 2016-09-28 11:40 | NUR ---
Discharged home, with no incident... Patient brother here to pick him up. All belongings released with patient.
--- NOTE | 2016-10-05 10:22 | PN ---
PATIENT:TREV JERRY MEDICAL RECORD: [id number] LOCATION:[facility] ADMISSION DATE: 09/23/16 PROGRESS NOTE DATE OF SERVICE: 09/27/2016 SUBJECTIVE: The patient states he is anxious to go home. OBJECTIVE: Over the weekend, the patient denied suicidal ideation several times. However, he is extremely vocal and makes impulsive statements. For example, the patient had stated earlier that if the doctor did not arrive soon, he would "take matters into my own hands." The patient can be redirected; however. We are awaiting communication from the patient's family regarding whether or not they wish to pursue an involuntary hold. The patient has been too cooperative regarding taking medications. On approach this morning, the patient was cooperative. Mood was for the most part euthymic, although slightly irritable at times. Affect somewhat brittle. The patient was rather argumentative from time to time, but not belligerent. Content of thought, negative for suicidal ideation. The patient denies homicidal intent. Sensorium unchanged. ASSESSMENT: No change in diagnosis. PLAN: 1. We will maintain current medication plan. 2. Await further input from family and case management regarding disposition. TRANSINT:[id number] Voice Confirmation ID: [id number] DOCUMENT ID: [id number] EBENEZER WALKER III, MD at 1022 CC: [id number] DICTATION DATE: 09/27/16 1132 AUTOMATIC BUFFER: 09/27/16 1332 DIS IN 09/28/16 [facility] [address] [place] [address]
--- NOTE | 2016-10-05 10:22 | DS ---
PATIENT:TREV JERRY :43 MEDICAL RECORD: [id number] DISCHARGE SUMMARY ADMISSION DATE: 09/23/16 DISCHARGE DATE: 09/28/16 DATE OF ADMISSION: 09/23/2016 DATE OF DISCHARGE: 09/28/2016 HISTORY OF PRESENT ILLNESS: A 71-year-old white male admitted through the Emergency Department because of extreme anxiety and possible depression. The patient had been making suicidal statements. He had been upset by family situation and had also reduced the amount of pain medication he had been taking lately. For further details, please see previously dictated history. COURSE IN THE HOSPITAL: The patient was seen by Dr. Hathaway in consultation. Current medical problems included chronic pain syndrome, peripheral neuropathy, atrial fibrillation, coronary artery disease, hypertension, congestive heart failure, hyperlipidemia, chronic obstructive pulmonary disease, gastroesophageal reflux disease, and hypothyroidism. The patient was treated conservatively from a medication standpoint. He was maintained on all of his home medications. He was started on Remeron 15 mg h.s. for treatment of his depression as well as routine Ativan 1 mg t.i.d. The patient showed a good resolution of his extreme agitation. He had initially been placed on a hold. By the time of discharge, he had made no further suicidal statements and was calm and cooperative. FINAL DIAGNOSES: AXIS I: Depression -- resolving. AXIS II: No diagnosis. AXIS III: Chronic obstructive pulmonary disease, congestive heart failure, coronary artery disease, atrial fibrillation, neuropathy, hypertension, and hyperlipidemia. AXIS IV: Moderate. AXIS V: 40. PLAN: 1. The patient is discharged on current medication. 2. Follow up with primary care physician. 3. Diet and activities as tolerated. TRANSINT:[id number] Voice Confirmation ID: [id number] DOCUMENT ID: [id number] EBENEZER WALKER III, MD at 1022 CC: [id number] DICTATION DATE: 09/28/16 1159 SENIOR RESEARCH ANALYST: 09/29/16 0627 DIS IN 09/28/16 [place] [id number]
== END 2016-09-28 11:40 | disposition home or self-care (01) | DRG 881 ==
LOC: D.ER 11:11 → D.PSYCH 15:30
PROVIDERS: Emergency Medicine; Family Medicine; ADMIT Psychiatry & Neurology Psychiatry
DX: F32.9 Major depressive disorder, single episode, unspecified (principal); J44.9 Chronic obstructive pulmonary disease, unspecified; I11.0 Hypertensive heart disease with heart failure; I50.9 Heart failure, unspecified; I25.10 Atherosclerotic heart disease of native coronary artery without angina pectoris; Z95.5 Presence of coronary angioplasty implant and graft; I48.0 Paroxysmal atrial fibrillation; G62.9 Polyneuropathy, unspecified; E78.5 Hyperlipidemia, unspecified; G89.4 Chronic pain syndrome; K21.9 Gastro-esophageal reflux disease without esophagitis; Z91.81 History of falling; Z72.0 Tobacco use

== ENCOUNTER 2017-07-14 15:52 | Emergency (ER) | payer MEDICARE ==
[2016-09-24 10:40] VITALS: BMI 24.2
[~2017-07-14 15:52] MED LIST changes: +ATIVAN1 MG PO; +COMBIVENT RESPIM4 GM INH; +FUROSEMIDE20 MG PO; +IPRAT-ALBUT 0.5-3 ML UPD; +MULTIPLE VITAMI1 TA1 PO; +PACERONE200 MG; +REMERON15 MG PO; +SYNTHROID75 MCG PO; +TERAZOSIN HCL2 MG PO; +TESTOSTERON200 MG/ML IM; +VISTARIL25 MG PO; +VITAMIN B-1000 MCG/M IM; +ZOCOR80 MG PO
[2017-07-14 17:05] LABS: BASOPHILS 0.2 % (0-2); EOSINOPHILS 4.1 % (0-7); HEMATOCRIT 43.2 % (42.0-54.0); HEMOGLOBIN 14.4 g/dL (13.5-17.5); IMMATURE GRANULOCYTES 0.2 % (0-5); MCH 32.7 pg (26.0-34.0); MCHC 33.3 g/dL (31.0-37.0); MCV 98.2 fL (80.0-100.0); NEUTROPHILS 59.5 % (40-80); PLATELET COUNT 148 10x3/uL (130-400); RDW 16.7 % (11.5-14.5); WBC 4.9 10x3/uL (4.8-10.8)
[2017-07-14 17:20] LABS: ALBUMIN 3.2 g/dL (3.4-5.0); ALKALINE PHOSPHATASE 105 U/L (46-116); ALT (SGPT) 31 U/L (10-68); BILIRUBIN - TOTAL 0.65 mg/dL (0.2-1.3); CALC OSMOLALITY 270 mosm/kg (275-300); CALCIUM 8.1 mg/dL (8.5-10.1); CARBON DIOXIDE 34.2 mmol/L (21.0-32.0); CHLORIDE - SERUM 98 mmol/L (98-107); GLUCOSE 91 mg/dL (74-106); POTASSIUM - SERUM 3.1 mmol/L (3.5-5.1); PROTEIN - SERUM 6.9 g/dL (6.4-8.2); SODIUM 136 mmol/L (136-145); UREA NITROGEN 10 mg/dL (7-18); eGFR NON AFRICAN AMERICAN 78 mL/min (90-120)
[2017-07-14 17:27] LABS: PRO BNP 1002 pg/mL (0-125); TROPONIN-I < 0.017 ng/mL (0.000-0.060)
== END 2017-07-14 18:34 | disposition home or self-care (01) ==
LOC: D.ER 15:52
PROVIDERS: Emergency Medicine
DX: R60.0 Localized edema (principal); F17.200 Nicotine dependence, unspecified, uncomplicated; I48.91 Unspecified atrial fibrillation

== ENCOUNTER 2017-12-25 11:27 | Inpatient (IN) | payer MEDICARE ==
[~2017-12-25] VITALS: Ht 189.2 cm; Wt 99.5 kg
--- NOTE | ~2017-12-25 | CN ---
PATIENT NAME:TREV JERRY MEDICAL RECORD: [id number] : 43 LOCATION:D.MS [facility] ADMIT DATE: 12/25/17 ACCOUNT: [id number] CONSULTING PHYSICIAN: MARY FREDERICK MD REFERRING PHYSICIAN: KVNG BUENO MD DATE OF CONSULTATION: 12/26/2017 CONSULT REQUESTING PHYSICIAN: Kvng Bueon MD REASON FOR CONSULTATION: Acute hypoxic hypercapnic respiratory failure. HISTORY OF PRESENT ILLNESS: Mr. Jerry is a 72-year-old gentleman who was brought in yesterday to the hospital with worsening shortness of breath, orthopnea. He was coughing with yellow-green color sputum production. He was also having some chills. On evaluation in the ER, we found out that his ABG showed pH of 7.28, pCO2 was 77.3, pO2 was 148 on 50% BiPAP. Now, the patient is more awake and alert. Denies any chest pain. REVIEW OF THE SYSTEMS: Mainly in the history of present illness. PAST MEDICAL HISTORY: 1. Hypothyroidism. 2. Hypertension. 3. COPD. 4. Chronic hypoxic respiratory failure. 5. Anxiety, depression. 6. Coronary artery disease. PAST SURGICAL HISTORY: Back surgery and tubes in the ear. ALLERGIES: No known drug allergies. MEDICATIONS: Hypereight reviewed. PERSONAL AND SOCIAL HISTORY: The patient still continues to smoke. He is nondrinker. FAMILY HISTORY: Noncontributory. PHYSICAL EXAMINATION: GENERAL: Now, the patient is lying comfortably in bed. He is not in acute distress. VITAL SIGNS: The blood pressure is 101/65, pulse is 101, respiration 20, temperature is 97.7, SpO2 is 96% to 100% on 3 liters nasal cannula. HEENT: Conjunctivae are pink. Sclerae not icteric. NECK: Neck is supple. No JVD. CHEST: There are bilateral crackles and wheezes on forceful expiration. HEART: Rhythm regular. Normal sound. No murmur. ABDOMEN: Abdomen is soft. Bowel sounds present. No hepatosplenomegaly. RECTAL: Deferred. EXTREMITIES: No cyanosis. No clubbing. No pedal edema. SKIN: The skin is warm. Normal turgor. CENTRAL NERVOUS SYSTEM: The patient is awake and alert. There are no obvious intracranial abnormalities. CONSULT REPORT [id number] TREV JERRY CHEST RADIOGRAPH: There is increased interstitial marking. No infiltrate. LAB DATA: CBC; WBC is 9.8, hemoglobin 12.5, hematocrit 38.8, and platelet count 311. Chemistry; sodium 139, potassium 4.4, BUN is 28, creatinine 1.1. ABG on admission; pH was 7.27, pCO2 of 77.3, pO2 was 148, bicarb of 36.3. IMPRESSION: 1. Qtnwv-xt-zuarjvy hypoxic hypercapnic respiratory failure. 2. Noncompensatory metabolic alkalosis. 3. Respiratory acidosis. 4. Acute exacerbation of COPD. 5. Tobacco dependence syndrome. 6. Tracheobronchitis. 7. Elevated cardiac enzyme. 8. Congestive heart failure with elevated proBNP. Possible chronic systolic dysfunction. RECOMMENDATION: 1. Start IV Lasix. Continue Zithromax IV, methylprednisolone IV, albuterol/ipratropium nebulizer, Brovana and budesonide nebulizer. 2. The patient will need outpatient BiPAP to prevent the recurrent hypercapnic respiratory failure. I will also start him on Diamox. Dr. Bueno, thank you for involving me in the care of Mr. Jerry. TRANSINT:[id number] Voice Confirmation ID: [id number] DOCUMENT ID: [id number] MARY FREDERICK MD at 1208 CC: LEONA TANG [id number] DICTATION DATE: 12/26/17 1639 SALES TEAM MANAGER: 12/26/17 193 ADM IN [facility] [address] [place] [id number]
[2017-12-25 12:01] LABS: BASOPHILS 0.1 % (0-2); EOSINOPHILS 0.9 % (0-7); HEMATOCRIT 38.8 % (42.0-54.0); HEMOGLOBIN 12.5 g/dL (13.5-17.5); IMMATURE GRANULOCYTES 0.4 % (0-5); MCH 33.6 pg (26.0-34.0); MCHC 32.2 g/dL (31.0-37.0); MCV 104.3 fL (80.0-100.0); MEAN PLATELET VOLUME 9.7 fL (7.4-10.4); MONOCYTES 10.4 % (2-11); NEUTROPHILS 69.2 % (40-80); RBC 3.72 10x6/uL (4.20-6.10); WBC 9.8 10x3/uL (4.8-10.8)
[2017-12-25 12:04] LABS: PLATELET COUNT 311 10x3/uL (130-400)
[2017-12-25 12:17] LABS: ALBUMIN 2.9 g/dL (3.4-5.0); ANION GAP 9.7 mmol/L (8-16); BILIRUBIN - TOTAL 0.2 mg/dL (0.2-1.3); CALCIUM 8.2 mg/dL (8.5-10.1); CARBON DIOXIDE 33.7 mmol/L (21.0-32.0); CREATININE - SERUM 1.3 mg/dL (0.6-1.3); POTASSIUM - SERUM 4.4 mmol/L (3.5-5.1)
[2017-12-25 12:35] LABS: TROPONIN-I 0.108 ng/mL (0.000-0.060)
[2017-12-25 13:05] LABS: APTT 34.6 SECONDS (22.8-39.4); INR 1.14 (0.85-1.17); PROTIME 14.2 SECONDS (11.6-15.0)
[2017-12-25 13:06] LABS: D-DIMER-QUANTITATIVE 0.47 ug/mLFEU (0.20-0.54)
[2017-12-25 22:00] VITALS: BP 100/61; BP 114/73; BMI 27.8
[2017-12-25 23:00] VITALS: BP 106/73
[2017-12-26] VITALS (18 sets, daily range): BP systolic 89–127; BP diastolic 63–95; Ht 189.2 cm; Wt 99.5 kg
[2017-12-26 03:26] LABS: BASOPHILS 0 % (0-2); EOSINOPHILS 0 % (0-7); HEMATOCRIT 38.8 % (42.0-54.0); HEMOGLOBIN 12.7 g/dL (13.5-17.5); IMMATURE GRANULOCYTES 0.3 % (0-5); LYMPHOCYTES 11.5 % (15-50); MCH 33.6 pg (26.0-34.0); MCHC 32.7 g/dL (31.0-37.0); MCV 102.6 fL (80.0-100.0); MONOCYTES 1.2 % (2-11); PLATELET COUNT 296 10x3/uL (130-400); RBC 3.78 10x6/uL (4.20-6.10); RDW 14.7 % (11.5-14.5)
[2017-12-26 03:35] LABS: ANION GAP 9.2 mmol/L (8-16); CALCIUM 8.6 mg/dL (8.5-10.1); CARBON DIOXIDE 35.2 mmol/L (21.0-32.0); CREATININE - SERUM 1.1 mg/dL (0.6-1.3); POTASSIUM - SERUM 4.4 mmol/L (3.5-5.1); WBC 6.8 10x3/uL (4.8-10.8)
[2017-12-27 04:06] VITALS: BP 105/59
[2017-12-27 06:04] LABS: BASOPHILS 0 % (0-2); EOSINOPHILS 0 % (0-7); HEMOGLOBIN 13.9 g/dL (13.5-17.5); IMMATURE GRANULOCYTES 0.4 % (0-5); LYMPHOCYTES 4.6 % (15-50); MCH 33.7 pg (26.0-34.0); MCHC 33.1 g/dL (31.0-37.0); MCV 101.7 fL (80.0-100.0); MEAN PLATELET VOLUME 10.4 fL (7.4-10.4); MONOCYTES 2.4 % (2-11); NEUTROPHILS 92.6 % (40-80); RBC 4.13 10x6/uL (4.20-6.10); RDW 14.6 % (11.5-14.5)
[2017-12-27 06:10] LABS: PLATELET COUNT 365 10x3/uL (130-400)
[2017-12-27 06:21] LABS: ANION GAP 13.3 mmol/L (8-16); CALCIUM 8.9 mg/dL (8.5-10.1); CARBON DIOXIDE 30.3 mmol/L (21.0-32.0); CREATININE - SERUM 1.2 mg/dL (0.6-1.3)
[2017-12-27 06:26] LABS: POTASSIUM - SERUM 3.6 mmol/L (3.5-5.1)
[2017-12-27 09:02] VITALS: BP 115/73
[2017-12-27] MEDS ORDERED: MEDROL DOSE PACK4 MG PO (09:50)
[2017-12-27] MEDS ORDERED: ZITHROMAX250 MG PO (09:50)
[2017-12-27 13:15] VITALS: BP 104/58
== END 2017-12-27 14:16 | disposition home or self-care (01) | DRG 291 ==
LOC: D.ER 11:27 → D.MS 16:43 → D.ICU 16:43 → D.EDHOLD 16:43 → D.ICU 17:07 → D.EDHOLD 18:00 → D.ICU 22:08 → D.MS 12-26 17:55
PROVIDERS: Family Medicine; Internal Medicine Nephrology; Nurse Practitioner Family
DX: I11.0 Hypertensive heart disease with heart failure (principal); J96.21 Acute and chronic respiratory failure with hypoxia; J96.22 Acute and chronic respiratory failure with hypercapnia; J44.1 Chronic obstructive pulmonary disease with (acute) exacerbation; F17.203 Nicotine dependence unspecified, with withdrawal; E87.4 Mixed disorder of acid-base balance; I50.33 Acute on chronic diastolic (congestive) heart failure; I48.0 Paroxysmal atrial fibrillation; D75.89 Other specified diseases of blood and blood-forming organs; G89.29 Other chronic pain; E03.9 Hypothyroidism, unspecified; F32.9 Major depressive disorder, single episode, unspecified; I51.7 Cardiomegaly

== ENCOUNTER 2018-06-26 15:55 | Inpatient (IN) | payer MEDICARE ==
[~2018-06-26] VITALS: Ht 189.2 cm; Wt 105.0 kg
--- NOTE | ~2018-06-26 | EC ---
PATIENT:TREV JERRY DATE OF SERVICE: 06/26/18 SEX: M MEDICAL RECORD: [id number] DATE OF : 43 LOCATION:D.M3 D.121 AGE OF PATIENT: 73 ADMISSION DATE: 06/26/18 REFERRING PHYSICIAN: INTERPRETING PHYSICIAN: NETTE ESPINO MD ECHOCARDIOGRAM REPORT ECHO CHARGES 4 ECHO COMPLETE Date: 06/27/18 CLINICAL DIAGNOSIS: CHF ECHOCARDIOGRAPHIC MEASUREMENTS (adult normal given) AC root (d.<3.7cm) cm LV Septum d (<1.2 cm> 0.8 cm Valve Excursion cm LV Septum (systole) 0.9 cm Left Atria (s.<4.0cm> 4.0 cm LVPW d(<1.2cm) 0.6 cm RV (d.<2.3cm) 3.4 cm LVPW (sytole) 0.9 cm LV diastole(<5.6CM) 4.8 cm MV E-F(>70mm/sec) cm LV systole 3.5 cm LVOT Diameter 1.5 cm MV exc.(>10mm) cm Est.ejection fraction (50-75%) % DOPPLER: LVIT cm/sec A 26 cm/sec E 78 cm/sec LA cm/sec RVSP 21.0 mmHg LVOT 100 cm/sec AOP1/2T m/s Asc. Ao 138 cm/sec RVOT cm/sec RA cm/sec PA cm/sec AV Gradient Peak 7.6 mmHg AV Mean 3.4 mmHg AV Area 1.3 cm MV Gradient Peak 3.2 mmHg MV Mean 1.7 mmHg MV Area cm COMMENTS: Skate Hop: Padmini GOODMAN Filtering Machine Tender Helper: 1 Dr. Espino TAPE# PACS Pericardial Effusion N DATE OF SERVICE: 06/27/2018 ECHOCARDIOGRAM DATE OF SERVICE: 06/27/2018 FINDINGS: 1. Left ventricular chamber size is within normal limits. Left ventricular systolic function is normal. Overall ejection fraction estimated at 60%. 2. Left atrium, right atrium, right ventricle chamber size is within normal ECHOCARDIOGRAM REPORT [id number] TREV JERRY limits. 3. Valvular structures have normal structure and motion. 4. Doppler interrogation reveals mild tricuspid regurgitation, no other valvular insufficiency or stenosis. Pulmonary systolic pressure is estimated at 21 mmHg. 5. No evidence of pericardial effusion or left ventricular thrombus. TRANSINT:[id number] Voice Confirmation ID: [id number] DOCUMENT ID: [id number] NETTE ESPINO MD at 1256 CC: [id number] DICTATION DATE: 06/27/18 1027 METALLURGICAL TESTER: 06/27/18 1110 ADM IN [place] [id number] [place] [id number]
--- NOTE | ~2018-06-26 | MORECARE ---
CASE MANAGEMENT DISCHARGE SUMMARY PATIENT: TREV JERRY UNIT: [id number] ADM DATE: 06/26/18 AGE: 73 : 43 SEX: M ROOM/BED: D.1212 AUTHOR: ANDRIY NGUYEN PHYSICIAN: REFERRING PHYSICIAN: JOSESITO DENIS MD DATE OF SERVICE: 06/27/18 Discharge Plan Patient Name: TREV JERRY [facility] [facility] 1945 Planned Disposition: Home Anticipated Discharge Date: Discharge Date: Expected LOS: Initial Reviewer: [email or web address] Initial Review Date: 06/26/2018 Generated: 06/27/18 6:42 pm DCPIA - Discharge Planning Initial Assessment Updated by [email or web address]: Carol Olivares on 06/27/18 5:39 pm * Is the patient Alert and Oriented? Yes * How many steps to enter\exit or inside your home? * PCP Reece Lipscomb / Josesito Denis * Pharmacy [facility] [place] * Preadmission Environment Home with Family * ADLs Independent * Other Equipment 02 and portable, nebulizer, walker, cane * List name and contact numbers for known caregivers / representatives who currently or will assist patient after discharge: Autumn Reynolds daughter [phone] Mynor Jerry [phone] son * Verbal permission to speak to the caregivers and representatives has been obtained from the patient. N/A * Community resources currently utilized None * Additional services required to return to the preadmission environment? No * Can the patient safely return to the preadmission environment? Yes * Has this patient been hospitalized within the prior 30 days at any hospital? No Last DP export: 06/27/18 10:03 Patient Name: TREV JERRY Page [id number] at 1742 All edits/amendments must be made on the electronic document DICTATION DATE: 06/27/181740 TECHNICIAN TELECOMMUNICATION SYSTEMS: FAVIAN 06/27/181740 RPT#: [id number] DC DATE: STATUS: ADM IN [facility] [address] [place] [address] END OF REPORT
--- NOTE | ~2018-06-26 | MORECARE ---
CASE MANAGEMENT DISCHARGE SUMMARY PATIENT: TREV JERRY UNIT: [id number] ADM DATE: 06/26/18 AGE: 73 : 44 SEX: M ROOM/BED: D.1212 AUTHOR: WENDY,DOC PHYSICIAN: REFERRING PHYSICIAN: JOSESITO DENIS MD DATE OF SERVICE: 06/30/18 Discharge Plan Patient Name: TREV JERRY Facility: [facility]:[place] : 1945 Planned Disposition: Home Anticipated Discharge Date: Discharge Date: 06/30/2018 Expected LOS: Initial Reviewer: [email or web address] Initial Review Date: 06/26/2018 Generated: 06/30/18 5:20 pm Comments DCP- Discharge Planning Updated by [email or web address]: Carol Olivares on 06/30/18 9:[address] IMM explained and served 06/30/18 @ [facility]. Patient denies any discharge needs at this time. CM will continue to follow and assist as needed with discharge planning/ needs. DCP- Discharge Planning Updated by [email or web address]: Carol Olivares on 06/27/18 4:[address] Patient Name: TREV JERRY Admission Status: ER Accout number: [id number] Admission Date: 06-26-2018 : 1945 Admission Diagnosis: Attending: JOSESITO DENIS Current LOS: 1 Anticipated DC Date: Planned Disposition: Home Primary Insurance: [facility] MEDIC[facility] ADV Discharge Planning Comments: CM met with patient at bedside after obtaining verbal consent. Patient states he plans on returning home after discharge with his daughter. Patient states he will have family transport him home via private vehicle. Patient denies any discharge needs at this time. CM will continue to follow and assist as needed for discharge planning / needs. Director Of Sleep: Carol Olivares DCPIA - Discharge Planning Initial Assessment Updated by [email or web address]: Carol Olivares on 06/27/18 5:39 pm * Is the patient Alert and Oriented? Yes * How many steps to enter\exit or inside your home? * PCP Reece Lipscomb / Josesito Denis * Pharmacy [facility] * Preadmission Environment Home with Family * ADLs Independent * Other Equipment 02 and portable, nebulizer, walker, cane * List name and contact numbers for known caregivers / representatives who currently or will assist patient after discharge: Autumn Reynolds daughter [phone] Mynor Jerry [phone] son * Verbal permission to speak to the caregivers and representatives has been obtained from the patient. N/A * Community resources currently utilized None * Additional services required to return to the preadmission environment? No * Can the patient safely return to the preadmission environment? Yes * Has this patient been hospitalized within the prior 30 days at any hospital? No Coverage Notice Reviewer: [email or web address] Diana Olivares Notice Issued Date-Time: 06/30/2018 10:34 Notice Type: IM Discharge Notice Notice Delivered To: Patient Relationship to Patient: Self Clerical And Administrative Workers Name: Delivery Method: HAND - Hand Delivered Rosibel Days: Prior Verbal Notification: Recipient Understood Notice: Yes Recipient Signature: Yes Med Rec Note Co-signed by Attending: Coverage Notice Comment: Last DP export: 06/30/18 10:03 Patient Name: TREV JERRY Page [id number] at 1620 All edits/amendments must be made on the electronic document DICTATION DATE: 06/30/181618 RETAIL MERCHANDISING MANAGER: FAVIAN 06/30/181618 RPT#: [id number] DC DATE:06/30/18 STATUS: DIS IN [facility] [address] [place] [address] END OF REPORT
--- NOTE | ~2018-06-26 | MORECARE ---
CASE MANAGEMENT DISCHARGE SUMMARY PATIENT: TREV JERRY UNIT: [id number] ADM DATE: 06/26/18 AGE: 73 : 44 SEX: M ROOM/BED: D.1212 AUTHOR: ANDRIY NGUYEN PHYSICIAN: REFERRING PHYSICIAN: JOSESITO DENIS MD DATE OF SERVICE: 06/27/18 Discharge Plan Patient Name: TREV JERRY Facility: [facility]:[place] : 1945 Planned Disposition: Home Anticipated Discharge Date: Discharge Date: Expected LOS: Initial Reviewer: [email or web address] Initial Review Date: 06/26/2018 Generated: 06/27/18 6:50 pm Comments DCP- Discharge Planning Updated by [email or web address]: Carol Olivares on 06/27/18 4:[address] Patient Name: TREV JERRY Admission Status: ER Accout number: [id number] Admission Date: 06-26-2018 : 1945 Admission Diagnosis: Attending: JOSESITO DENIS Current LOS: 1 Anticipated DC Date: Planned Disposition: Home Primary Insurance: [employer] MEDICARE ADV Discharge Planning Comments: CM met with patient at bedside after obtaining verbal consent. Patient states he plans on returning home after discharge with his daughter. Patient states he will have family transport him home via private vehicle. Patient denies any discharge needs at this time. CM will continue to follow and assist as needed for discharge planning / needs. Corrective Therapy Aide Teacher: Carol Olivares DCPIA - Discharge Planning Initial Assessment Updated by [email or web address]: Carol Olivares on 06/27/18 5:39 pm * Is the patient Alert and Oriented? Yes * How many steps to enter\exit or inside your home? * PCP Reece Lipscomb / Josesito Denis * Pharmacy [facility] * Preadmission Environment Home with Family * ADLs Independent * Other Equipment 02 and portable, nebulizer, walker, cane * List name and contact numbers for known caregivers / representatives who currently or will assist patient after discharge: Autumn Reynolds daughter [phone] Mynor Jerry [phone] son * Verbal permission to speak to the caregivers and representatives has been obtained from the patient. N/A * Community resources currently utilized None * Additional services required to return to the preadmission environment? No * Can the patient safely return to the preadmission environment? Yes * Has this patient been hospitalized within the prior 30 days at any hospital? No Last DP export: 06/27/18 4:42 Patient Name: TREV JERRY Page [id number] at 1750 All edits/amendments must be made on the electronic document DICTATION DATE: 06/27/181748 COMPOUND MIXER: FAVIAN 06/27/181748 RPT#: [id number] DC DATE: STATUS: ADM IN [facility] [address] [place] [address] END OF REPORT
--- NOTE | ~2018-06-26 | MORECARE ---
CASE MANAGEMENT DISCHARGE SUMMARY PATIENT: TREV JERRY UNIT: [id number] ADM DATE: 06/26/18 AGE: 73 : 44 SEX: M ROOM/BED: D.1212 AUTHOR: WENDY,DOC PHYSICIAN: REFERRING PHYSICIAN: JOSESITO DENIS MD DATE OF SERVICE: 06/30/18 Discharge Plan Patient Name: TREV JERRY Facility: [facility]:[place] : 1945 Planned Disposition: Home Anticipated Discharge Date: Discharge Date: Expected LOS: Initial Reviewer: [email or web address] Initial Review Date: 06/26/2018 Generated: 06/30/18 12:03 pm Comments DCP- Discharge Planning Updated by [email or web address]: Carol Olivares on 06/30/18 9:[address] IMM explained and served 06/30/18 @ 1034. Patient denies any discharge needs at this time. CM will continue to follow and assist as needed with discharge planning/ needs. DCP- Discharge Planning Updated by [email or web address]: Carol Olivares on 06/27/18 4:[address] Patient Name: TREV JERRY Admission Status: ER Accout number: [id number] Admission Date: 06-26-2018 : 1945 Admission Diagnosis: Attending: JOSESITO DENIS Current LOS: 1 Anticipated DC Date: Planned Disposition: Home [facility] Discharge Planning Comments: CM met with patient at bedside after obtaining verbal consent. Patient states he plans on returning home after discharge with his daughter. Patient states he will have family transport him home via private vehicle. Patient denies any discharge needs at this time. CM will continue to follow and assist as needed for discharge planning / needs. Electrical Instrument Technician: Carol Olivares DCPIA - Discharge Planning Initial Assessment Updated by [email or web address]: Carol Olivares on 06/27/18 5:39 pm * Is the patient Alert and Oriented? Yes * How many steps to enter\exit or inside your home? * PCP Reece Lipscomb / Josesito Denis * Pharmacy [facility] * Preadmission Environment Home with Family * ADLs Independent * Other Equipment 02 and portable, nebulizer, walker, cane * List name and contact numbers for known caregivers / representatives who currently or will assist patient after discharge: Autumn Reynolds daughter [phone] Mynor Jerry [phone] son * Verbal permission to speak to the caregivers and representatives has been obtained from the patient. N/A * Community resources currently utilized None * Additional services required to return to the preadmission environment? No * Can the patient safely return to the preadmission environment? Yes * Has this patient been hospitalized within the prior 30 days at any hospital? No Coverage Notice Reviewer: [email or web address] Diana Olivares Notice Issued Date-Time: 06/30/2018 10:34 Notice Type: IM Discharge Notice Notice Delivered To: Patient Relationship to Patient: Self Erector Operator Name: Delivery Method: HAND - Hand Delivered Rosibel Days: Prior Verbal Notification: Recipient Understood Notice: Yes Recipient Signature: Yes Med Rec Note Co-signed by Attending: Coverage Notice Comment: Last DP export: 06/27/18 4:50 Patient Name: TREV JERRY Page 17906 at 1103 All edits/amendments must be made on the electronic document DICTATION DATE: 06/30/18 110 GERIATRIC NURSE ASSISTANT: FAVIAN 06/30/181101 RPT#: [id number] DC DATE: STATUS: ADM IN [facility] [address] [place] [address] END OF REPORT
--- NOTE | ~2018-06-26 | MORECARE ---
CASE MANAGEMENT DISCHARGE SUMMARY PATIENT: TREV JERRY UNIT: [id number] ADM DATE: 06/26/18 AGE: 73 : 44 SEX: M ROOM/BED: D.1212 AUTHOR: ANDRIY NGUYEN PHYSICIAN: REFERRING PHYSICIAN: SAMUEL NAVARRO MD DATE OF SERVICE: 06/27/18 Discharge Plan Patient Name: TREV JERRY [facility] [facility] 1945 Planned Disposition: Anticipated Discharge Date: Discharge Date: Expected LOS: Initial Reviewer: [email or web address] Initial Review Date: 06/26/2018 Generated: 06/27/18 12:03 pm Patient Name: TREV JERRY Page 44225 at 1103 All edits/amendments must be made on the electronic document DICTATION DATE: 06/27/18 110 BROILER CHEF OR COOK: FAVIAN 06/27/18 1102 RPT#: [id number] DC DATE: STATUS: ADM IN [facility] [address] [place] [address] END OF REPORT
--- NOTE | ~2018-06-26 | CN ---
PATIENT NAME:TREV JERRY MEDICAL RECORD: [id number] : 43 LOCATION:D. D.1212 ADMIT DATE: 06/26/18 ACCOUNT: [id number] CONSULTING PHYSICIAN: MARY FREDERICK MD REFERRING PHYSICIAN: JOSESITO DENIS MD DATE OF CONSULTATION: 06/27/2018 CONSULT REQUESTING PHYSICIAN: Dr. Josesito Denis. REASON FOR CONSULTATION: Acute exacerbation of chronic obstructive pulmonary disease, pulmonary edema. HISTORY OF PRESENT ILLNESS: Mr. Jerry is a 73-year-old gentleman, very well known to me, on account of the patient's worsening shortness of breath for the last few days, he has orthopnea. He has a PND. The patient came into the ER with elevated proBNP and elevated CO2. He still continues to smoke. He has cough with very little sputum production. Denies any chest pain. REVIEW OF SYSTEMS: As in history of present illness. PAST MEDICAL HISTORY: 1. Congestive heart failure, possible systolic dysfunction. 2. Chronic obstructive pulmonary disease. 3. Continued smoking, nicotine dependent. 4. Anxiety, depression. 5. Hypothyroidism. 6. Hypertension. 7. Chronic hypoxic respiratory failure, home oxygen dependent. PAST SURGICAL HISTORY: 1. He has a back surgery. 2. He has tubes in the ear a long time ago. ALLERGIES: No known drug allergy. MEDICATIONS: On Behance is reviewed. PERSONAL AND SOCIAL HISTORY: The patient still continues to smoke. He is a nondrinker. FAMILY HISTORY: Noncontributory. PHYSICAL EXAMINATION: GENERAL: Now, the patient is lying comfortably, but he is not in acute distress. VITAL SIGNS: The blood pressure is 119/72, pulse is 100, respirations 20, temperature is 98.2, and SpO2 93% on 3 liters nasal cannula. HEENT: Conjunctivae are pink. Sclerae are not icteric. NECK: Supple, no JVD. HEART: Rhythm regular, normal sound, no murmur. ABDOMEN: Soft, bowel sounds present. No hepatosplenomegaly. RECTAL: Deferred. CHEST: There are bilateral crackles. There are wheeze on forceful expiration. CENTRAL NERVOUS SYSTEM: The patient is awake and alert. There are no obvious cranial nerve abnormality. The gait was not tested. CONSULT REPORT [id number] TREV JERRY CHEST RADIOGRAPH: There are increased interstitial marking. No consolidation. The proBNP is 1300. OTHER LABORATORY DATA: CBC: The WBC is 7.1, hemoglobin 15.2, hematocrit is 45.3, the platelet count is 253. Chemistry: Sodium 138, potassium is 4.6, BUN is 221, creatinine is 1. ABG: The pH is 7.38, pCO2 56.5, the pO2 is 56, and bicarbonate is 33.8. IMPRESSION: 1. Acute hypoxic hypercapnic respiratory failure. 2. Acute exacerbation of chronic obstructive pulmonary disease. 3. Compensated metabolic alkalosis. 4. Congestive heart failure, possible chronic systolic dysfunction. 5. Tracheobronchitis. 6. Tobacco dependence syndrome. 7. Coronary artery disease. RECOMMENDATION: 1. Continue albuterol and ipratropium nebulizer, add Brovana and budesonide nebulizer. 2. Continue empiric Levaquin. 3. IV Lasix. 4. I will add Diamox. 5. Follow up labs and chest radiograph. 6. The patient was counseled to quit smoking. 7. Nicotine patch. Dr. Denis, thank you for involving me in the care of Mr. Jerry. TRANSINT:[id number] Voice Confirmation ID: [id number] DOCUMENT ID: [id number] MARY FREDERICK MD at 1711 CC: [id number] DICTATION DATE: 06/27/18 162 ETHYLENE COMPRESSOR OPERATOR: 06/27/181925 DIS IN 06/30/18 [id number] [place] [address]
[~2018-06-26 15:55] MED LIST changes: +CHRONULAC30 ML PO; +MEDROL DOSE PACK4 MG PO; +ZITHROMAX250 MG PO
[2018-06-26 17:02] LABS: BASOPHILS 0.3 % (0-2); HEMATOCRIT 42.1 % (42.0-54.0); HEMOGLOBIN 14.1 g/dL (13.5-17.5); IMMATURE GRANULOCYTES 0.1 % (0-5); LYMPHOCYTES 19.8 % (15-50); MCH 34.6 pg (26.0-34.0); MCHC 33.5 g/dL (31.0-37.0); MCV 103.2 fL (80.0-100.0); MEAN PLATELET VOLUME 10.4 fL (7.4-10.4); MONOCYTES 6.6 % (2-11); NEUTROPHILS 71.2 % (40-80); RBC 4.08 10x6/uL (4.20-6.10); RDW 16.5 % (11.5-14.5); WBC 7.5 10x3/uL (4.8-10.8)
[2018-06-26 17:06] LABS: APTT 35.9 SECONDS (22.8-39.4); INR 1.08 (0.85-1.17); PROTIME 13.6 SECONDS (11.6-15.0)
[2018-06-26 17:07] LABS: D-DIMER-QUANTITATIVE 0.59 ug/mLFEU (0.20-0.54); PLATELET COUNT 230 10x3/uL (130-400)
[2018-06-26 17:14] LABS: ALBUMIN 3.2 g/dL (3.4-5.0); ALKALINE PHOSPHATASE 92 U/L (46-116); ALT (SGPT) 21 U/L (10-68); BILIRUBIN - TOTAL 0.69 mg/dL (0.2-1.3); CALC OSMOLALITY 279 mosm/kg (275-300); CALCIUM 8.6 mg/dL (8.5-10.1); CHLORIDE - SERUM 100 mmol/L (98-107); GLUCOSE 121 mg/dL (74-106); POTASSIUM - SERUM 4.4 mmol/L (3.5-5.1); PROTEIN - SERUM 7.1 g/dL (6.4-8.2); SODIUM 138 mmol/L (136-145); UREA NITROGEN 20 mg/dL (7-18); eGFR NON AFRICAN AMERICAN 78 mL/min (90-120)
[2018-06-26 17:28] LABS: CKMB 3.4 U/L (0.0-3.6); CREATINE KINASE 219 UL (21-232); PRO BNP 1335 pg/mL (0-125)
[2018-06-26 17:46] LABS: TROPONIN-I < 0.017 ng/mL (0.000-0.060)
[2018-06-26 18:50] VITALS: BP 143/97
[2018-06-26 19:01] VITALS: BP 140/90
[2018-06-26 20:11] VITALS: BP 157/84
[2018-06-26 21:52] VITALS: BP 140/70; BMI 29.9
[2018-06-26 21:59] VITALS: BP 140/70
[2018-06-27 00:54] VITALS: BP 133/71
[2018-06-27 04:55] VITALS: BP 154/84
[2018-06-27 06:06] LABS: BASOPHILS 0 % (0-2); EOSINOPHILS 0 % (0-7); HEMATOCRIT 45.3 % (42.0-54.0); HEMOGLOBIN 15.2 g/dL (13.5-17.5); IMMATURE GRANULOCYTES 0.1 % (0-5); LYMPHOCYTES 10.4 % (15-50); MCH 34.5 pg (26.0-34.0); MCHC 33.6 g/dL (31.0-37.0); MCV 102.7 fL (80.0-100.0); MEAN PLATELET VOLUME 10.3 fL (7.4-10.4); MONOCYTES 0.6 % (2-11); NEUTROPHILS 88.9 % (40-80); PLATELET COUNT 253 10x3/uL (130-400); RBC 4.41 10x6/uL (4.20-6.10); RDW 16.3 % (11.5-14.5); WBC 7.1 10x3/uL (4.8-10.8)
[2018-06-27 06:22] LABS: ALBUMIN 3.1 g/dL (3.4-5.0); ALKALINE PHOSPHATASE 99 U/L (46-116); ALT (SGPT) 22 U/L (10-68); BILIRUBIN - TOTAL 0.44 mg/dL (0.2-1.3); CALC OSMOLALITY 281 mosm/kg (275-300); CALCIUM 8.7 mg/dL (8.5-10.1); CARBON DIOXIDE 34.1 mmol/L (21.0-32.0); CHLORIDE - SERUM 98 mmol/L (98-107); GLUCOSE 160 mg/dL (74-106); POTASSIUM - SERUM 4.6 mmol/L (3.5-5.1); PROTEIN - SERUM 7.5 g/dL (6.4-8.2); SODIUM 138 mmol/L (136-145); UREA NITROGEN 21 mg/dL (7-18); eGFR NON AFRICAN AMERICAN 78 mL/min (90-120)
[2018-06-27 07:40] VITALS: BP 147/81
[2018-06-27] MEDS ORDERED: XANAX1 MG PO (09:26)
[2018-06-27] MEDS ORDERED: SYMBICORT 16010.2 GM INH (09:28)
[2018-06-27] MEDS ORDERED: ZOSTRIX HP 0.0730 GM TOPICAL (09:29)
[2018-06-27] MEDS ORDERED: CYMBALTA60 MG PO (09:30)
[2018-06-27] MEDS ORDERED: CARDIZEM120 MG PO (09:30)
[2018-06-27] MEDS ORDERED: MOBIC7.5 MG PO (09:35)
[2018-06-27] MEDS ORDERED: LIDOCAINE50 GM TOPICAL (09:35)
[2018-06-27] MEDS ORDERED: MS CONTIN15 MG PO (09:38)
[2018-06-27] MEDS ORDERED: REMERON15 MG PO (09:38)
[2018-06-27] MEDS ORDERED: LYRICA100 MG PO (09:39)
[2018-06-27] MEDS ORDERED: NICORETTE2 MG PO (09:39)
[2018-06-27] MEDS ORDERED: ZANAFLEX4 MG PO (09:41)
[2018-06-27] MEDS ORDERED: ULTRAM50 MG PO (09:42)
[2018-06-27] MEDS ORDERED: ASPIRIN325 MG PO (09:43)
[2018-06-27 11:07] VITALS: BP 135/79
[2018-06-27 14:16] VITALS: Ht 189.2 cm; Wt 105.0 kg
[2018-06-27 15:24] VITALS: BP 119/72
[2018-06-27 19:15] VITALS: BP 119/63
[2018-06-28] VITALS: BP 116/63
[2018-06-28 04:44] VITALS: BP 118/74
[2018-06-28 06:04] LABS: BASOPHILS 0 % (0-2); EOSINOPHILS 0 % (0-7); HEMATOCRIT 45.5 % (42.0-54.0); HEMOGLOBIN 15.2 g/dL (13.5-17.5); IMMATURE GRANULOCYTES 0.2 % (0-5); LYMPHOCYTES 5.8 % (15-50); MCH 34.8 pg (26.0-34.0); MCHC 33.4 g/dL (31.0-37.0); MCV 104.1 fL (80.0-100.0); MEAN PLATELET VOLUME 10.7 fL (7.4-10.4); MONOCYTES 1.6 % (2-11); NEUTROPHILS 92.4 % (40-80); PLATELET COUNT 291 10x3/uL (130-400); RBC 4.37 10x6/uL (4.20-6.10); RDW 16.8 % (11.5-14.5)
[2018-06-28 06:30] LABS: ALBUMIN 3.1 g/dL (3.4-5.0); ANION GAP 8.8 mmol/L (8-16); BILIRUBIN - TOTAL 0.33 mg/dL (0.2-1.3); CARBON DIOXIDE 36.3 mmol/L (21.0-32.0); MAGNESIUM - SERUM 2.2 mg/dL (1.8-2.4); POTASSIUM - SERUM 4.1 mmol/L (3.5-5.1); PROTEIN - SERUM 7.1 g/dL (6.4-8.2)
[2018-06-28 06:35] LABS: CREATININE - SERUM 1.4 mg/dL (0.6-1.3)
[2018-06-28 06:39] LABS: WBC 16.4 10x3/uL (4.8-10.8)
[2018-06-28 08:18] VITALS: BP 128/77
[2018-06-28 11:39] VITALS: BP 118/74
[2018-06-28 17:06] VITALS: BP 117/73
[2018-06-28 19:59] VITALS: BP 126/68
[2018-06-29 00:26] VITALS: BP 112/67
[2018-06-29 04:25] VITALS: BP 107/76
[2018-06-29 06:55] LABS: BASOPHILS 0 % (0-2); EOSINOPHILS 0 % (0-7); HEMOGLOBIN 15.5 g/dL (13.5-17.5); IMMATURE GRANULOCYTES 0.4 % (0-5); LYMPHOCYTES 5.2 % (15-50); MCH 34.5 pg (26.0-34.0); MCHC 33.7 g/dL (31.0-37.0); MCV 102.4 fL (80.0-100.0); MEAN PLATELET VOLUME 10.5 fL (7.4-10.4); MONOCYTES 1.5 % (2-11); NEUTROPHILS 92.9 % (40-80); PLATELET COUNT 309 10x3/uL (130-400); RBC 4.49 10x6/uL (4.20-6.10); RDW 16.7 % (11.5-14.5); WBC 14.9 10x3/uL (4.8-10.8)
[2018-06-29 07:20] LABS: BILIRUBIN - TOTAL 0.47 mg/dL (0.2-1.3); CALCIUM 8.5 mg/dL (8.5-10.1); CARBON DIOXIDE 33.2 mmol/L (21.0-32.0); CREATININE - SERUM 1.6 mg/dL (0.6-1.3); MAGNESIUM - SERUM 2.3 mg/dL (1.8-2.4)
[2018-06-29 07:23] LABS: ANION GAP 9.9 mmol/L (8-16); POTASSIUM - SERUM 3.1 mmol/L (3.5-5.1)
[2018-06-29 07:30] VITALS: BP 101/77
[2018-06-29 11:08] VITALS: BP 130/71
[2018-06-29 15:39] VITALS: BP 111/67
[2018-06-29 20:15] VITALS: BP 104/67
[2018-06-30 05:25] LABS: BASOPHILS 0 % (0-2); EOSINOPHILS 0 % (0-7); HEMATOCRIT 46.7 % (42.0-54.0); HEMOGLOBIN 15.7 g/dL (13.5-17.5); IMMATURE GRANULOCYTES 0.2 % (0-5); LYMPHOCYTES 6.6 % (15-50); MCH 34.5 pg (26.0-34.0); MCHC 33.6 g/dL (31.0-37.0); MCV 102.6 fL (80.0-100.0); MEAN PLATELET VOLUME 10.7 fL (7.4-10.4); NEUTROPHILS 91.2 % (40-80); PLATELET COUNT 323 10x3/uL (130-400); RBC 4.55 10x6/uL (4.20-6.10); RDW 16.7 % (11.5-14.5); WBC 11.9 10x3/uL (4.8-10.8)
[2018-06-30 05:47] LABS: ALBUMIN 2.9 g/dL (3.4-5.0); BILIRUBIN - TOTAL 0.47 mg/dL (0.2-1.3); CALCIUM 8.4 mg/dL (8.5-10.1); CARBON DIOXIDE 31.9 mmol/L (21.0-32.0); CREATININE - SERUM 1.6 mg/dL (0.6-1.3); MAGNESIUM - SERUM 2.4 mg/dL (1.8-2.4); PROTEIN - SERUM 6.5 g/dL (6.4-8.2)
[2018-06-30 05:53] LABS: ANION GAP 9.9 mmol/L (8-16); POTASSIUM - SERUM 3.8 mmol/L (3.5-5.1)
[2018-06-30 06:00] VITALS: BP 114/74
[2018-06-30 08:10] VITALS: BP 114/81
[2018-06-30] MEDS ORDERED: LEVAQUIN750 MG PO (11:21)
[2018-06-30] MEDS ORDERED: BETAPACE 80 MG80 MG PO (11:21)
[2018-06-30] MEDS ORDERED: PREDNISONE10 MG PO (11:21)
== END 2018-06-30 12:43 | disposition home or self-care (01) | DRG 189 ==
LOC: D.ER 15:55 → D.EDHOLD 19:31 → D.M3 19:31
PROVIDERS: Emergency Medicine; Family Medicine
DX: J96.01 Acute respiratory failure with hypoxia (principal); J44.1 Chronic obstructive pulmonary disease with (acute) exacerbation; I50.22 Chronic systolic (congestive) heart failure; F17.213 Nicotine dependence, cigarettes, with withdrawal; E87.3 Alkalosis; J96.02 Acute respiratory failure with hypercapnia; I11.0 Hypertensive heart disease with heart failure; I25.10 Atherosclerotic heart disease of native coronary artery without angina pectoris; E78.5 Hyperlipidemia, unspecified; I48.2 Chronic atrial fibrillation; J40 Bronchitis, not specified as acute or chronic

== ENCOUNTER 2018-07-04 11:40 | Inpatient (IN) | payer MEDICARE ==
[2018-07-04] VITALS (8 sets, daily range): BP systolic 121–152; BP diastolic 76–92
[~2018-07-04] VITALS: Ht 189.2 cm; Wt 101.4 kg
--- NOTE | ~2018-07-04 | MORECARE ---
CASE MANAGEMENT DISCHARGE SUMMARY PATIENT: TREV JERRY UNIT: [id number] ADM DATE: 07/04/18 AGE: 73 : 44 SEX: M ROOM/BED: D.2201 AUTHOR: ANDRIY NGUYEN PHYSICIAN: REFERRING PHYSICIAN: KVNG WHTIE MD DATE OF SERVICE: 07/10/18 Discharge Plan Patient Name: TREV JERRY Facility: [facility]:[place] : 1945 Planned Disposition: Home Anticipated Discharge Date: Discharge Date: Expected LOS: Initial Reviewer: [email or web address] Initial Review Date: 07/04/2018 Generated: 07/10/18 2:09 pm Comments DCP- Discharge Planning Updated by [id number]: Kassandra Wadetheresa on 07/10/18 12:[address] Patient Name: TREV JERRY Encounter No: [id number] : 1945 Primary Insurance: [employer] MEDICARE ADV Anticipated DC Date: Planned Disposition: Home External Planned Provider: : DCP follow-up note: Patient and family in agreement with discharge plan. His daughter is in the room and will take him home. She and the patient decline home health services. I instructed them to let the [place] know if he changes his mind and he can go through the [place] for HHS. She states they get the oxygen from [facility], [facility]. I informed her that Dr. Denis ordered the oxygen and at the time, the patient wanted to use Dr. Denis and Jayy. She states that she will let [facility] know that Dr. Denis was the ordering physician and she will try and have it changed to the [facility] doctor. No changes to plan. Case management will follow and assist as needed. Kassandra Emmy DCP- Discharge Planning Updated by [id number]: Kassandra Wadetheresa on 07/10/18 11:[address] Patient Name: TREV JERRY Encounter No: [id number] : 1945 Primary Insurance: [employer] MEDICARE ADV Anticipated DC Date: Planned Disposition: Home External Planned Provider: : DCP follow-up note: Patient in agreement with discharge plan. States his daughter is coming to pick him up. States he [facility]. States he is unsure of the [employer] company that he received his nebulizer from. States the [facility]. He does have a portable oxygen. No changes to plan. Case management will follow and assist as needed. Kassandra Booth DCP- Discharge Planning Updated by [id number]: Autumn Brown on 07/05/18 2:[address] Patient Name: TREV JERRY Admission Status: ER Accout number: [id number] Admission Date: 07-04-2018 : 1945 Admission Diagnosis: Attending: KVNG WHITE Current LOS: 1 Anticipated DC Date: Planned Disposition: Home Primary Insurance: [employer] MEDICARE ADV Discharge Planning Comments: CM met with patient to assess discharge planning needs. Patient lives with his daughter Autumn where he plans to return at discharge. He stated that his daughter will be the one to drive him home at discharge. He has a Crutch, Nebulizer, Oxygen, and shower chair, walker at home. He is not current with home health and did not think that they will need any when he is discharged. He stated that his daughter helps him at times with bathing. CM will continue to follow and assist with DC planning Mud Engineer: Autumn Brown DCPIA - Discharge Planning Initial Assessment Updated by [email or web address]: Autumn Brown on 07/05/18 3:13 pm * Is the patient Alert and Oriented? Yes * How many steps to enter\exit or inside your home? * PCP DR SAMUEL LOVE * Pharmacy [place] OR [facility] * Preadmission Environment Home with Family * ADLs Partial Dependent * Partial ADLs (Assistance needed) Bathing * Equipment Crutch Nebulizer Oxygen Rolling Walker Shower Chair Walker * List name and contact numbers for known caregivers / representatives who currently or will assist patient after discharge: AUTUMN PARIHS (DAUGHTER) [phone] * Verbal permission to speak to the caregivers and representatives has been obtained from the patient. N/A * Community resources currently utilized None * Additional services required to return to the preadmission environment? No * Can the patient safely return to the preadmission environment? Yes * Has this patient been hospitalized within the prior 30 days at any hospital? Yes Coverage Notice Reviewer: [id number] - Kassandra Booth Notice Issued Date-Time: 07/10/2018 13:03 Notice Type: IM Discharge Notice Notice Delivered To: Patient Relationship to Patient: Self Communications Specialist Name: Delivery Method: HAND - Hand Delivered Rosibel Days: Prior Verbal Notification: Recipient Understood Notice: Yes Recipient Signature: Yes Med Rec Note Co-signed by Attending: Coverage Notice Comment: IMM explained, signed by his daughter per request, copy given and original placed in Mr. Boyer DP export: 07/10/18 11:07 Patient Name: TREV JERRY Page 08778 at 1309 All edits/amendments must be made on the electronic document DICTATION DATE: 07/10/18 1309 ATHLETIC GEAR CUSTODIAN: FAVIAN 07/10/18 1309 RPT#: [id number] DC DATE: STATUS: ADM IN [facility] [address] [place] [address] END OF REPORT
--- NOTE | ~2018-07-04 | MORECARE ---
CASE MANAGEMENT DISCHARGE SUMMARY PATIENT: TREV JERRY UNIT: [id number] ADM DATE: 07/04/18 AGE: 73 : 44 SEX: M ROOM/BED: D.2201 AUTHOR: ANDRIY NGUYEN PHYSICIAN: REFERRING PHYSICIAN: KVNG WHITE MD DATE OF SERVICE: 07/05/18 Discharge Plan Patient Name: TREV JERRY Facility: [facility]:[place] : 1945 Planned Disposition: Home Anticipated Discharge Date: Discharge Date: Expected LOS: Initial Reviewer: [email or web address] Initial Review Date: 07/04/2018 Generated: 07/05/18 4:11 pm Patient Name: TREV JERRY Page 37495 at 1511 All edits/amendments must be made on the electronic document DICTATION DATE: 07/05/18 151 IT HELP DESK TECHNICIAN: FAVAIN 07/05/18 1511 RPT#: [id number] [place] DATE: STATUS: ADM IN [facility] [address] [place] [address] END OF REPORT
--- NOTE | ~2018-07-04 | MORECARE ---
CASE MANAGEMENT DISCHARGE SUMMARY PATIENT: TREV JERRY UNIT: [id number] ADM DATE: 07/04/18 AGE: 73 : 44 SEX: M ROOM/BED: D.2201 AUTHOR: ANDRIY NGUYEN PHYSICIAN: REFERRING PHYSICIAN: KVNG WHITE MD DATE OF SERVICE: 07/10/18 Discharge Plan Patient Name: TREV JERRY Facility: [facility]:[place] : 1945 Planned Disposition: Home Anticipated Discharge Date: Discharge Date: Expected LOS: Initial Reviewer: [email or web address] Initial Review Date: 07/04/2018 Generated: 07/10/18 1:07 pm Comments DCP- Discharge Planning Updated by [email or web address]: Kassandra Booth on 07/10/18 11:[address] Patient Name: TREV JERRY Encounter No: [id number] : 1945 Primary Insurance: [employer] MEDICARE ADV Anticipated DC Date: Planned Disposition: Home External Planned Provider: : DCP follow-up note: Patient in agreement with discharge plan. States his daughter is coming to pick him up. States he gets his nebulizer medication through the [place]. States he is unsure of the [employer] company that he received his nebulizer from. [facility]. He does have a portable oxygen. No changes to plan. Case management will follow and assist as needed. Kassandra Booth DCP- Discharge Planning Updated by [id number]: Autumn Brown on 07/05/18 2:[address] Patient Name: TRVE JERRY Admission Status: ER Accout number: [id number] Admission Date: 07-04-2018 : 1945 Admission Diagnosis: Attending: KVNG WHITE Current LOS: 1 Anticipated DC Date: Planned Disposition: Home Primary Insurance: [employer] MEDICARE ADV Discharge Planning Comments: CM met with patient to assess discharge planning needs. Patient lives with his daughter Autumn where he plans to return at discharge. He stated that his daughter will be the one to drive him home at discharge. He has a Crutch, Nebulizer, Oxygen, and shower chair, walker at home. He is not current with home health and did not think that they will need any when he is discharged. He stated that his daughter helps him at times with bathing. CM will continue to follow and assist with DC planning Eligibility Analyst: Autumn Brown DCPIA - Discharge Planning Initial Assessment Updated by [email or web address]: Autumn Brown on 07/05/18 3:13 pm * Is the patient Alert and Oriented? Yes * How many steps to enter\exit or inside your home? * PCP DR SAMUEL LOVE * Pharmacy [place] OR [facility] * Preadmission Environment Home with Family * ADLs Partial Dependent * Partial ADLs (Assistance needed) Bathing * Equipment Crutch Nebulizer Oxygen Rolling Walker Shower Chair Walker * List name and contact numbers for known caregivers / representatives who currently or will assist patient after discharge: AUTUMN PARISH (DAUGHTER) [phone] * Verbal permission to speak to the caregivers and representatives has been obtained from the patient. N/A * Community resources currently utilized None * Additional services required to return to the preadmission environment? No * Can the patient safely return to the preadmission environment? Yes * Has this patient been hospitalized within the prior 30 days at any hospital? Yes Last DP export: 07/05/18 2:21 Patient Name: TREV JERRY Page 10239 at 1207 All edits/amendments must be made on the electronic document DICTATION DATE: 07/10/181206 JACKHAMMER SPLITTER OPERATOR: FAVIAN 07/10/181206 RPT#: [id number] DC DATE: STATUS: ADM IN [facility] [address] [place] [address] END OF REPORT
--- NOTE | ~2018-07-04 | MORECARE ---
CASE MANAGEMENT DISCHARGE SUMMARY PATIENT: TREV JERRY UNIT: [id number] ADM DATE: 07/04/18 AGE: 73 : 44 SEX: M ROOM/BED: D.2201 AUTHOR: WENDYDOC PHYSICIAN: REFERRING PHYSICIAN: KVNG WHITE MD DATE OF SERVICE: 07/05/18 Discharge Plan Patient Name: TREV JERRY Facility: [facility]:[place] : 1945 Planned Disposition: Home Anticipated Discharge Date: Discharge Date: Expected LOS: Initial Reviewer: [email or web address] Initial Review Date: 07/04/2018 Generated: 07/05/18 4:21 pm Comments DCP- Discharge Planning Updated by [email or web address]: Autumn Brown on 07/05/18 2:[address] Patient Name: TREV JERRY Admission Status: ER Accout number: [id number] Admission Date: 07-04-2018 : 1945 Admission Diagnosis: Attending: KVNG WHITE Current LOS: 1 Anticipated DC Date: Planned Disposition: Home Primary Insurance: [employer] MEDICARE ADV Discharge Planning Comments: CM met with patient to assess discharge planning needs. Patient lives with his daughter Autumn where he plans to return at discharge. He stated that his daughter will be the one to drive him home at discharge. He has a Crutch, Nebulizer, Oxygen, and shower chair, walker at home. He is not current with home health and did not think that they will need any when he is discharged. He stated that his daughter helps him at times with bathing. CM will continue to follow and assist with DC planning Adoption Coordinator: Autumn Brown DCPIA - Discharge Planning Initial Assessment Updated by [email or web address]: Autumn Brown on 07/05/18 3:13 pm * Is the patient Alert and Oriented? Yes * How many steps to enter\exit or inside your home? * PCP DR SAMUEL LOVE * Pharmacy [place] [facility] * Preadmission Environment Home with Family * ADLs Partial Dependent * Partial ADLs (Assistance needed) Bathing * Equipment Crutch Nebulizer Oxygen Rolling Walker Shower Chair Walker * List name and contact numbers for known caregivers / representatives who currently or will assist patient after discharge: [place]UM[place] PARISH (DAUGHTER) [phone] * Verbal permission to speak to the caregivers and representatives has been obtained from the patient. N/A * Community resources currently utilized None * Additional services required to return to the preadmission environment? No * Can the patient safely return to the preadmission environment? Yes * Has this patient been hospitalized within the prior 30 days at any hospital? Yes Last DP export: 07/05/18 2:11 Patient Name: TREV JERRY Page 02517 at 1521 All edits/amendments must be made on the electronic document DICTATION DATE: 07/05/18 152 BAR HOSTESS: FAVIAN 07/05/181520 RPT#: [id number] DC DATE: STATUS: ADM IN [facility] [address] [place] [address] END OF REPORT
--- NOTE | ~2018-07-04 | MORECARE ---
CASE MANAGEMENT DISCHARGE SUMMARY PATIENT: TREV JERRY UNIT: [id number] ADM DATE: 07/04/18 AGE: 73 : 44 SEX: M ROOM/BED: D.2201 AUTHOR: ANDRIY NGUYEN PHYSICIAN: REFERRING PHYSICIAN: KVNG WHITE MD DATE OF SERVICE: 07/10/18 Discharge Plan Patient Name: TREV JERRY Facility: [facility]:[place] : 1945 Planned Disposition: Home Anticipated Discharge Date: Discharge Date: 07/10/2018 Expected LOS: 0 Initial Reviewer: [email or web address] Initial Review Date: 07/04/2018 Generated: 07/10/18 6:07 pm Comments DCP- Discharge Planning Updated by [id number]: Kassandramady Booth on 07/10/18 12:[address] Patient Name: TREV JERRY Encounter No: [id number] : 1945 Primary Insurance: [employer] MEDICARE ADV Anticipated DC Date: Planned Disposition: Home External Planned Provider: : DCP follow-up note: Patient and family in agreement with discharge plan. His daughter is in the room and will take him home. She and the patient decline home health services. I instructed them to let the [place] know if he changes his mind and he can go through the [place] for H[place]. She states they get the oxygen from [facility], but would like it changed to the [place]. I informed her that Dr. Denis ordered the oxygen and at the time, the patient wanted to use Dr. Denis and Jayy. She states that she will let [facility] know that Dr. Denis was the ordering physician and she will try and have it changed to the [facility] doctor. No changes to plan. Case management will follow and assist as needed. Kassandra Booth DCP- Discharge Planning Updated by [id number]: Kassandra Booth on 07/10/18 11:[address] Patient Name: TREV JERRY Encounter No: [id number] : 1945 Primary Insurance: [employer] MEDICARE ADV Anticipated DC Date: Planned Disposition: Home External Planned Provider: : DCP follow-up note: Patient in agreement with discharge plan. States his daughter is coming to pick him up. States he gets his [facility]. States he is unsure of the [employer] company that he received his nebulizer from. States the [facility]. He does have a portable oxygen. No changes to plan. Case management will follow and assist as needed. Kassandra Booth DCP- Discharge Planning Updated by [email or web address]: Autumn Brown on 07/05/18 2:[address] Patient Name: TREV JERRY Admission Status: ER Accout number: [id number] Admission Date: 07-04-2018 : 1945 Admission Diagnosis: Attending: KVNG WHITE Current LOS: 1 Anticipated DC Date: Planned Disposition: Home Primary Insurance: [employer] MEDICARE ADV Discharge Planning Comments: CM met with patient to assess discharge planning needs. Patient lives with his daughter Autumn where he plans to return at discharge. He stated that his daughter will be the one to drive him home at discharge. He has a Crutch, Nebulizer, Oxygen, and shower chair, walker at home. He is not current with home health and did not think that they will need any when he is discharged. He stated that his daughter helps him at times with bathing. CM will continue to follow and assist with DC planning [employer]ora Operations Consultant: Autumn Brown DCPIA - Discharge Planning Initial Assessment Updated by [email or web address]: Autumn Brown on 07/05/18 3:13 pm * Is the patient Alert and Oriented? Yes * How many steps to enter\exit or inside your home? * PCP DR SAMUEL LOVE * Pharmacy [place] OR [facility] * Preadmission Environment Home with Family * ADLs Partial Dependent * Partial ADLs (Assistance needed) Bathing * Equipment Crutch Nebulizer Oxygen Rolling Walker Shower Chair Walker * List name and contact numbers for known caregivers / representatives who currently or will assist patient after discharge: [place] PAR[place] (DAUGHTER) [phone] * Verbal permission to speak to the caregivers and representatives has been obtained from the patient. N/A * Community resources currently utilized None * Additional services required to return to the preadmission environment? No * Can the patient safely return to the preadmission environment? Yes * Has this patient been hospitalized within the prior 30 days at any hospital? Yes Coverage Notice Reviewer: [id number] - Kassandra Booth Notice Issued Date-Time: 07/10/2018 13:03 Notice Type: IM Discharge Notice Notice Delivered To: Patient Relationship to Patient: Self Sole Layer Name: Delivery Method: HAND - Hand Delivered Rosibel Days: Prior Verbal Notification: Recipient Understood Notice: Yes Recipient Signature: Yes Med Rec Note Co-signed by Attending: Coverage Notice Comment: IMM explained, signed by his daughter per request, copy given and original placed in MrJed Boyer DP export: 07/10/18 12:09 Patient Name: TREV JERRY Page 53268 at 1708 All edits/amendments must be made on the electronic document DICTATION DATE: 07/10/181706 SCHOOL YEAR NANNY: FAVIAN 07/10/181706 RPT#: [id number] DC DATE:07/10/18 STATUS: DIS IN [facility] [address] [place] [address] END OF REPORT
[~2018-07-04 11:40] MED LIST changes: +BETAPACE 80 MG80 MG PO; +CARDIZEM120 MG PO; +LEVAQUIN750 MG PO; +LIDOCAINE50 GM TOPICAL; +LYRICA100 MG PO; +MOBIC7.5 MG PO; +MS CONTIN15 MG PO; +NICORETTE2 MG PO; +ULTRAM50 MG PO; +ZOSTRIX HP 0.0730 GM TOPICAL
[2018-07-04] MEDS ORDERED: TRAMADOL HCL E100 M1 PO (12:29)
[2018-07-04 12:30] LABS: BASOPHILS 0.1 % (0-2); HEMATOCRIT 48.4 % (42.0-54.0); HEMOGLOBIN 16.4 g/dL (13.5-17.5); IMMATURE GRANULOCYTES 0.7 % (0-5); LYMPHOCYTES 12.5 % (15-50); MCH 34.8 pg (26.0-34.0); MCHC 33.9 g/dL (31.0-37.0); MCV 102.8 fL (80.0-100.0); MEAN PLATELET VOLUME 10.7 fL (7.4-10.4); NEUTROPHILS 77.7 % (40-80); PLATELET COUNT 279 10x3/uL (130-400); RBC 4.71 10x6/uL (4.20-6.10); RDW 16.4 % (11.5-14.5); WBC 13.1 10x3/uL (4.8-10.8)
[2018-07-04 12:47] LABS: APTT 28.5 SECONDS (22.8-39.4); INR 1.05 (0.85-1.17); PROTIME 13.4 SECONDS (11.6-15.0)
[2018-07-04 12:53] LABS: ALKALINE PHOSPHATASE 69 U/L (46-116); ALT (SGPT) 43 U/L (10-68); BILIRUBIN - TOTAL 0.55 mg/dL (0.2-1.3); CALC OSMOLALITY 288 mosm/kg (275-300); CARBON DIOXIDE 34.1 mmol/L (21.0-32.0); CHLORIDE - SERUM 104 mmol/L (98-107); CKMB 2.7 U/L (0.0-3.6); CREATINE KINASE 57 UL (21-232); CREATININE - SERUM 0.9 mg/dL (0.6-1.3); MAGNESIUM - SERUM 2.3 mg/dL (1.8-2.4); POTASSIUM - SERUM 3.3 mmol/L (3.5-5.1); PROTEIN - SERUM 6.7 g/dL (6.4-8.2); SODIUM 142 mmol/L (136-145); THYROID STIMULATING HORMONE 5.31 uIU/mL (0.36-3.74); TROPONIN-I < 0.017 ng/mL (0.000-0.060); UREA NITROGEN 31 mg/dL (7-18); eGFR NON AFRICAN AMERICAN 88 mL/min (90-120)
[2018-07-04 12:54] LABS: GLUCOSE 88 mg/dL (74-106)
[2018-07-05] VITALS (7 sets, daily range): BP systolic 113–177; BP diastolic 74–96; Ht 189.2 cm; Wt 101.4 kg
[2018-07-05 05:39] LABS: BASOPHILS 0 % (0-2); EOSINOPHILS 0.2 % (0-7); HEMATOCRIT 50.8 % (42.0-54.0); HEMOGLOBIN 16.8 g/dL (13.5-17.5); IMMATURE GRANULOCYTES 0.7 % (0-5); LYMPHOCYTES 4.2 % (15-50); MCH 34.6 pg (26.0-34.0); MCHC 33.1 g/dL (31.0-37.0); MCV 104.7 fL (80.0-100.0); MEAN PLATELET VOLUME 10.9 fL (7.4-10.4); MONOCYTES 1.3 % (2-11); NEUTROPHILS 93.6 % (40-80); PLATELET COUNT 296 10x3/uL (130-400); RBC 4.85 10x6/uL (4.20-6.10); RDW 16.7 % (11.5-14.5); WBC 12.8 10x3/uL (4.8-10.8)
[2018-07-05 06:03] LABS: ALBUMIN 3.2 g/dL (3.4-5.0); ALKALINE PHOSPHATASE 77 U/L (46-116); ALT (SGPT) 43 U/L (10-68); BILIRUBIN - TOTAL 0.75 mg/dL (0.2-1.3); CALC OSMOLALITY 290 mosm/kg (275-300); CALCIUM 8.2 mg/dL (8.5-10.1); CHLORIDE - SERUM 102 mmol/L (98-107); CREATININE - SERUM 0.9 mg/dL (0.6-1.3); GLUCOSE 122 mg/dL (74-106); PROTEIN - SERUM 6.7 g/dL (6.4-8.2); SODIUM 143 mmol/L (136-145); UREA NITROGEN 27 mg/dL (7-18); eGFR NON AFRICAN AMERICAN 88 mL/min (90-120)
[2018-07-05 06:49] LABS: POTASSIUM - SERUM 3.8 mmol/L (3.5-5.1)
[2018-07-05 14:04] LABS: UDS - AMPHET NEGATIVE QUAL (NEGATIVE); UDS - BARB NEGATIVE QUAL (NEGATIVE); UDS - BENZO POSITIVE QUAL (NEGATIVE); UDS - COCAINE NEGATIVE QUAL (NEGATIVE); UDS - OPIATE POSITIVE QUAL (NEGATIVE); UDS - PCP NEGATIVE QUAL (NEGATIVE); UDS - THC NEGATIVE QUAL (NEGATIVE)
[2018-07-05 14:27] LABS: APPEARANCE CLEAR (CLEAR); BILIRUBIN NEGATIVE (NEGATIVE); COLOR YELLOW (YELLOW); GLUCOSE 1000 mg/dL (NEGATIVE); KETONE NEGATIVE (NEGATIVE); NITRITE NEGATIVE (NEGATIVE); PROTEIN NEGATIVE (NEGATIVE); SPECIFIC GRAVITY 1.015 (1.005-1.020)
[2018-07-06] VITALS (8 sets, daily range): BP systolic 136–154; BP diastolic 76–106
[2018-07-06 05:21] LABS: BASOPHILS 0 % (0-2); EOSINOPHILS 0 % (0-7); HEMATOCRIT 43.7 % (42.0-54.0); HEMOGLOBIN 14.7 g/dL (13.5-17.5); IMMATURE GRANULOCYTES 0.5 % (0-5); LYMPHOCYTES 4.2 % (15-50); MCH 34.3 pg (26.0-34.0); MCHC 33.6 g/dL (31.0-37.0); MEAN PLATELET VOLUME 10.7 fL (7.4-10.4); MONOCYTES 1.7 % (2-11); NEUTROPHILS 93.6 % (40-80); PLATELET COUNT 270 10x3/uL (130-400); RBC 4.28 10x6/uL (4.20-6.10); RDW 16.4 % (11.5-14.5); WBC 14.3 10x3/uL (4.8-10.8)
[2018-07-06 05:37] LABS: MCV 102.1 fL (80.0-100.0)
[2018-07-06 05:44] LABS: CALC OSMOLALITY 289 mosm/kg (275-300); CALCIUM 7.9 mg/dL (8.5-10.1); CARBON DIOXIDE 37.3 mmol/L (21.0-32.0); CHLORIDE - SERUM 103 mmol/L (98-107); CREATININE - SERUM 0.9 mg/dL (0.6-1.3); GLUCOSE 151 mg/dL (74-106); POTASSIUM - SERUM 3.9 mmol/L (3.5-5.1); SODIUM 142 mmol/L (136-145); UREA NITROGEN 25 mg/dL (7-18); eGFR NON AFRICAN AMERICAN 88 mL/min (90-120)
[2018-07-07 04:00] VITALS: BP 99/54
[2018-07-07 04:12] LABS: BASOPHILS 0.1 % (0-2); EOSINOPHILS 0 % (0-7); HEMATOCRIT 45.5 % (42.0-54.0); HEMOGLOBIN 15.5 g/dL (13.5-17.5); IMMATURE GRANULOCYTES 0.6 % (0-5); LYMPHOCYTES 4.6 % (15-50); MCH 34.7 pg (26.0-34.0); MCHC 34.1 g/dL (31.0-37.0); MCV 101.8 fL (80.0-100.0); MEAN PLATELET VOLUME 10.6 fL (7.4-10.4); MONOCYTES 1.3 % (2-11); NEUTROPHILS 93.4 % (40-80); PLATELET COUNT 279 10x3/uL (130-400); RBC 4.47 10x6/uL (4.20-6.10); RDW 16.3 % (11.5-14.5); WBC 16.7 10x3/uL (4.8-10.8)
[2018-07-07 04:22] LABS: CALC OSMOLALITY 287 mosm/kg (275-300); CALCIUM 8.3 mg/dL (8.5-10.1); CARBON DIOXIDE 39.2 mmol/L (21.0-32.0); CHLORIDE - SERUM 102 mmol/L (98-107); GLUCOSE 150 mg/dL (74-106); POTASSIUM - SERUM 3.8 mmol/L (3.5-5.1); SODIUM 141 mmol/L (136-145); UREA NITROGEN 25 mg/dL (7-18); eGFR NON AFRICAN AMERICAN 78 mL/min (90-120)
[2018-07-07 08:27] VITALS: BP 163/100
[2018-07-07 12:36] VITALS: BP 150/93
[2018-07-07 16:32] VITALS: BP 146/103
[2018-07-07 19:55] VITALS: BP 142/88
[2018-07-08] VITALS: BP 136/84
[2018-07-08 04:00] VITALS: BP 162/86
[2018-07-08 05:39] LABS: BASOPHILS 0.1 % (0-2); EOSINOPHILS 0 % (0-7); HEMATOCRIT 46.1 % (42.0-54.0); HEMOGLOBIN 15.5 g/dL (13.5-17.5); IMMATURE GRANULOCYTES 0.5 % (0-5); LYMPHOCYTES 3.7 % (15-50); MCH 34.2 pg (26.0-34.0); MCHC 33.6 g/dL (31.0-37.0); MCV 101.8 fL (80.0-100.0); MEAN PLATELET VOLUME 10.8 fL (7.4-10.4); MONOCYTES 3.7 % (2-11); PLATELET COUNT 258 10x3/uL (130-400); RBC 4.53 10x6/uL (4.20-6.10); RDW 16.4 % (11.5-14.5); WBC 16.4 10x3/uL (4.8-10.8)
[2018-07-08 05:57] LABS: CALC OSMOLALITY 288 mosm/kg (275-300); CARBON DIOXIDE 38.7 mmol/L (21.0-32.0); CHLORIDE - SERUM 101 mmol/L (98-107); CREATININE - SERUM 0.9 mg/dL (0.6-1.3); GLUCOSE 189 mg/dL (74-106); POTASSIUM - SERUM 3.4 mmol/L (3.5-5.1); SODIUM 141 mmol/L (136-145); UREA NITROGEN 22 mg/dL (7-18); eGFR NON AFRICAN AMERICAN 88 mL/min (90-120)
[2018-07-08 08:48] VITALS: BP 159/100
[2018-07-08 13:06] VITALS: BP 153/95
[2018-07-08 16:00] VITALS: BP 133/85
[2018-07-08 20:30] VITALS: BP 125/73
[2018-07-09 00:30] VITALS: BP 157/87
[2018-07-09 04:30] VITALS: BP 142/87
[2018-07-09 05:55] LABS: BASOPHILS 0 % (0-2); EOSINOPHILS 0 % (0-7); HEMATOCRIT 45.9 % (42.0-54.0); HEMOGLOBIN 15.6 g/dL (13.5-17.5); IMMATURE GRANULOCYTES 0.5 % (0-5); LYMPHOCYTES 4.4 % (15-50); MCH 34.4 pg (26.0-34.0); MCV 101.3 fL (80.0-100.0); MEAN PLATELET VOLUME 10.7 fL (7.4-10.4); MONOCYTES 2.5 % (2-11); NEUTROPHILS 92.6 % (40-80); PLATELET COUNT 223 10x3/uL (130-400); RBC 4.53 10x6/uL (4.20-6.10); WBC 15.3 10x3/uL (4.8-10.8)
[2018-07-09 06:08] LABS: CALCIUM 7.7 mg/dL (8.5-10.1); CREATININE - SERUM 1.1 mg/dL (0.6-1.3)
[2018-07-09 06:09] LABS: ANION GAP -0.8 mmol/L (8-16); POTASSIUM - SERUM 4.1 mmol/L (3.5-5.1)
[2018-07-09 06:10] LABS: CARBON DIOXIDE 42.9 mmol/L (21.0-32.0)
[2018-07-09 08:35] VITALS: BP 146/106
[2018-07-09 15:05] VITALS: BP 140/95
[2018-07-09 16:06] VITALS: BP 165/98
[2018-07-09 20:00] VITALS: BP 136/67
[2018-07-10] VITALS: BP 127/81
[2018-07-10 04:30] LABS: BASOPHILS 0.1 % (0-2); EOSINOPHILS 0 % (0-7); HEMOGLOBIN 14.9 g/dL (13.5-17.5); IMMATURE GRANULOCYTES 0.5 % (0-5); LYMPHOCYTES 4.3 % (15-50); MCH 34.5 pg (26.0-34.0); MCHC 33.9 g/dL (31.0-37.0); MCV 101.9 fL (80.0-100.0); MEAN PLATELET VOLUME 10.5 fL (7.4-10.4); NEUTROPHILS 93.1 % (40-80); PLATELET COUNT 210 10x3/uL (130-400); RBC 4.32 10x6/uL (4.20-6.10); RDW 15.8 % (11.5-14.5); WBC 13.2 10x3/uL (4.8-10.8)
[2018-07-10 04:40] LABS: CALC OSMOLALITY 285 mosm/kg (275-300); CALCIUM 8.1 mg/dL (8.5-10.1); CHLORIDE - SERUM 101 mmol/L (98-107); GLUCOSE 161 mg/dL (74-106); POTASSIUM - SERUM 4.4 mmol/L (3.5-5.1); SODIUM 140 mmol/L (136-145); UREA NITROGEN 23 mg/dL (7-18); eGFR NON AFRICAN AMERICAN 78 mL/min (90-120)
[2018-07-10 04:41] LABS: CARBON DIOXIDE 42.7 mmol/L (21.0-32.0)
[2018-07-10 05:00] VITALS: BP 130/86
[2018-07-10 08:01] VITALS: BP 143/89
[2018-07-10 08:08] LABS: IMMUNOGLOBULIN E 18 IU/mL (0-100)
[2018-07-10] MEDS ORDERED: VIBRAMYCIN 100100 MG PO (11:28)
[2018-07-10] MEDS ORDERED: SINGULAIR10 MG PO (11:28)
[2018-07-10] MEDS ORDERED: MUCINEX DM ER1 EAC1 PO (11:28)
[2018-07-10] MEDS ORDERED: FLORAJEN3 CAPS460 MG PO (11:28)
[2018-07-10] MEDS ORDERED: PROTONIX40 MG PO (11:28)
[2018-07-10] MEDS ORDERED: PREDNISONE10 MG PO (11:30)
[2018-07-10] MEDS ORDERED: OMNICEF300 MG PO (11:30)
[2018-07-10] MEDS ORDERED: PULMICORT0.5 MG/21 UPD (11:31)
[2018-07-10] MEDS ORDERED: FLUTICASONE PRO16 GM NASAL (11:31)
[2018-07-10 12:32] VITALS: BP 151/96
== END 2018-07-10 13:25 | disposition home or self-care (01) | DRG 193 ==
LOC: D.ER 11:40 → D.MS 14:37 → D.EDHOLD 14:37 → D.MS 17:23
PROVIDERS: Family Medicine; Internal Medicine Nephrology; Internal Medicine Pulmonary Disease
DX: J18.9 Pneumonia, unspecified organism (principal); I50.31 Acute diastolic (congestive) heart failure; J96.22 Acute and chronic respiratory failure with hypercapnia; J96.21 Acute and chronic respiratory failure with hypoxia; J44.0 Chronic obstructive pulmonary disease with (acute) lower respiratory infection; I11.0 Hypertensive heart disease with heart failure; I48.91 Unspecified atrial fibrillation; E87.6 Hypokalemia; I25.10 Atherosclerotic heart disease of native coronary artery without angina pectoris; G62.9 Polyneuropathy, unspecified; F32.9 Major depressive disorder, single episode, unspecified

== ENCOUNTER 2019-01-03 15:28 | Inpatient (IN) | payer MEDICARE ==
[~2019-01-03 15:28] MED LIST changes: +ASPIRIN81 MG PO; +BROVANA15 MCG/2 M INH; +CARDIZEM CD180 MG PO; +CARDIZEM LA120 MG PO; +FLORAJEN3 CAPS460 MG PO; +FLUTICASONE PRO16 GM NASAL; +HYDROCODON-ACE1 EAC2 PO; +MECLIZINE HCL25 MG PO; +MORPHINE IMMEDI15 MG PO; +MUCINEX DM ER1 EAC1 PO; +OMNICEF300 MG PO; +PLAVIX75 MG PO; +PREDNISONE20 MG PO; +PROTONIX40 MG PO; +PULMICORT0.5 MG/21 INH; +PULMICORT0.5 MG/21 UPD; +SINGULAIR10 MG PO; +STERAPRED DS 1210 MG PO; +SULFAMETHOXAZOL1 TA3 PO; +TESSALON PERLE100 MG PO; +TIAZAC/CARDIZE240 M1 PO; +TRAMADOL HCL E100 M1 PO; +VIBRAMYCIN 100100 MG PO; +XARELTO10 MG PO
[2019-01-03 17:11] LABS: BASOPHILS 0.3 % (0-2); EOSINOPHILS 7.3 % (0-7); HEMATOCRIT 34.4 % (42.0-54.0); HEMOGLOBIN 11.2 g/dL (13.5-17.5); IMMATURE GRANULOCYTES 0.5 % (0-5); LYMPHOCYTES 19.8 % (15-50); MCH 33.1 pg (26.0-34.0); MCHC 32.6 g/dL (31.0-37.0); MCV 101.8 fL (80.0-100.0); MEAN PLATELET VOLUME 9.9 fL (7.4-10.4); MONOCYTES 10.8 % (2-11); NEUTROPHILS 61.3 % (40-80); RBC 3.38 10x6/uL (4.20-6.10); RDW 15.3 % (11.5-14.5); WBC 6.6 10x3/uL (4.8-10.8)
[2019-01-03 17:20] LABS: PLATELET COUNT 303 10x3/uL (130-400)
[2019-01-03 17:22] LABS: APTT 30.1 SECONDS (22.8-39.4); INR 1.05 (0.85-1.17); PROTIME 13.2 SECONDS (11.6-15.0)
[2019-01-03 17:26] LABS: ALKALINE PHOSPHATASE 122 U/L (46-116); ALT (SGPT) 20 U/L (10-68); BILIRUBIN - TOTAL 0.29 mg/dL (0.2-1.3); CALC OSMOLALITY 278 mosm/kg (275-300); CALCIUM 8.5 mg/dL (8.5-10.1); CARBON DIOXIDE 31.8 mmol/L (21.0-32.0); CHLORIDE - SERUM 101 mmol/L (98-107); CREATININE - SERUM 0.9 mg/dL (0.6-1.3); POTASSIUM - SERUM 4.1 mmol/L (3.5-5.1); SODIUM 140 mmol/L (136-145); UREA NITROGEN 16 mg/dL (7-18); eGFR NON AFRICAN AMERICAN 88 mL/min (90-120)
[2019-01-03 17:35] LABS: GLUCOSE 86 mg/dL (74-106); MAGNESIUM - SERUM 2.2 mg/dL (1.8-2.4); PRO BNP 1712 pg/mL (0-125); THYROID STIMULATING HORMONE 5.23 uIU/mL (0.36-3.74); TROPONIN-I 0.021 ng/mL (0.000-0.060)
--- NOTE | 2019-01-03 18:58 | NUR ---
REPORT TO PATRICIA WEIR
[2019-01-03 21:23] VITALS: BP 117/60; BMI 29.2
--- NOTE | 2019-01-04 00:12 | NUR ---
resting in bed resprations even and unlabored call light in reach no s/s of distress
[2019-01-04 00:43] LABS: APPEARANCE CLEAR (CLEAR); BILIRUBIN NEGATIVE (NEGATIVE); COLOR YELLOW (YELLOW); GLUCOSE NEGATIVE (NEGATIVE); KETONE NEGATIVE (NEGATIVE); NITRITE NEGATIVE (NEGATIVE); PROTEIN NEGATIVE (NEGATIVE); SPECIFIC GRAVITY 1.015 (1.005-1.020)
[2019-01-04 01:35] VITALS: BP 132/63
--- NOTE | 2019-01-04 02:05 | NUR ---
PATIENT O2 DROPPING TO 82-85 INCREASED 02 TO 3L. ENCOURAGED PATIENT TO DEEP BREATH O2 INCREASED TO 93% . BUT HAS DROPED X2 . RESPIRATORY TO COME AND CHECK PT.
--- NOTE | 2019-01-04 02:15 | NUR ---
was called by nurse to assess patient. at this time patient is sleeping comfortably and o2 sats are 99%. nurse says his says patients sats periodically drop. possibly sleep apnea. will continue to monitor. pt is on 3L NC.
[2019-01-04 05:25] VITALS: BP 109/62
--- NOTE | 2019-01-04 06:29 | NUR ---
O2 has remained 95-100 % able to decrease o2 back to 2l via n/c . no needs noted at this time resting
[2019-01-04 08:26] LABS: BASOPHILS 0.4 % (0-2); EOSINOPHILS 9.9 % (0-7); HEMATOCRIT 33.1 % (42.0-54.0); HEMOGLOBIN 10.5 g/dL (13.5-17.5); IMMATURE GRANULOCYTES 0.2 % (0-5); LYMPHOCYTES 23.8 % (15-50); MCH 32.5 pg (26.0-34.0); MCHC 31.7 g/dL (31.0-37.0); MCV 102.5 fL (80.0-100.0); MEAN PLATELET VOLUME 9.8 fL (7.4-10.4); MONOCYTES 10.7 % (2-11); RBC 3.23 10x6/uL (4.20-6.10); RDW 15.7 % (11.5-14.5)
[2019-01-04 08:31] LABS: CALC OSMOLALITY 284 mosm/kg (275-300); CALCIUM 8.1 mg/dL (8.5-10.1); CARBON DIOXIDE 34.1 mmol/L (21.0-32.0); CHLORIDE - SERUM 104 mmol/L (98-107); CREATININE - SERUM 0.9 mg/dL (0.6-1.3); GLUCOSE 91 mg/dL (74-106); POTASSIUM - SERUM 3.7 mmol/L (3.5-5.1); SODIUM 142 mmol/L (136-145); UREA NITROGEN 17 mg/dL (7-18); eGFR NON AFRICAN AMERICAN 88 mL/min (90-120)
[2019-01-04 08:34] LABS: PLATELET COUNT 386 10x3/uL (130-400); WBC 4.8 10x3/uL (4.8-10.8)
[2019-01-04 08:42] VITALS: BP 145/79
--- NOTE | 2019-01-04 09:45 | NUR ---
MORNING ASSESSMENT COMPLETE. SEE ASSESSMENT FLOWSHEET FOR FURTHER DETIALS. PT LYING IN BED AAO X4 TO PERSON, PLACE, TIME, AND SITUATION. R SHOULDER EXTERNAL FIXATION PRISON OUT OF SKIN FROM PREVIOUS FALL AT HOME. GIVEN PAIN MED FOR PAIN OF 8 (0-10). DENIES FURTHER NEEDS AT THIS TIME. CL IN REACH. SIDE RAILS UP X3 FOR PT SAFETY. BED IN LOWEST POSITION. FALL PRECAUTIONS IN PLACE.
--- NOTE | 2019-01-04 10:55 | NUR ---
PT C/O SEVERE PAIN IN R SHOULDER. CALLED MARC[facility] ROSARIO AND INITIATED DILAUDID PICA.
--- NOTE | 2019-01-04 12:09 | NUR ---
PT YELLING. STATES HE IS GOING TO SMOKE AND HE IS LEAVING THIS PLACE. CALLED MARCOS LOPES AND GOT VERBAL ORDER FOR ATIVAN AND NICOTINE PATCH.
--- NOTE | 2019-01-04 12:28 | NUR ---
PT RIPPED OUT PIV TO L AC. RESITED TO L WRIST 22G PIV. FLUSHES WELL. PT TOLERATED WELL.
[2019-01-04 13:07] VITALS: BP 155/85
[2019-01-04 13:48] VITALS: BMI 29.1
[2019-01-04 14:45] LABS: % SATURATION 14 % (15-55); IRON 35 ug/dl (35-150); TOTAL IRON BIND CAPACITY 250 ug/dl (260-445); UNSAT IRON BIND CAPACITY 215 ug/dl (150-375)
[2019-01-04 17:18] VITALS: BP 115/74
[2019-01-04 21:43] VITALS: BP 124/77
[2019-01-05 03:05] VITALS: BP 112/64
--- NOTE | 2019-01-05 03:42 | NUR ---
I have reviewed this patient and I concur with the Shift Assessment completed by the Licensed Practical Nurse today this shift.
[2019-01-05 06:13] VITALS: BP 110/60
[2019-01-05 07:19] LABS: BASOPHILS 0.4 % (0-2); EOSINOPHILS 5.4 % (0-7); HEMATOCRIT 29.4 % (42.0-54.0); HEMOGLOBIN 9.3 g/dL (13.5-17.5); IMMATURE GRANULOCYTES 0.2 % (0-5); LYMPHOCYTES 17.6 % (15-50); MCH 32.2 pg (26.0-34.0); MCHC 31.6 g/dL (31.0-37.0); MCV 101.7 fL (80.0-100.0); MEAN PLATELET VOLUME 9.8 fL (7.4-10.4); MONOCYTES 12.9 % (2-11); NEUTROPHILS 63.5 % (40-80); PLATELET COUNT 390 10x3/uL (130-400); RBC 2.89 10x6/uL (4.20-6.10); RDW 15.6 % (11.5-14.5); WBC 5.5 10x3/uL (4.8-10.8)
[2019-01-05 07:29] LABS: CALC OSMOLALITY 280 mosm/kg (275-300); CALCIUM 8.1 mg/dL (8.5-10.1); CARBON DIOXIDE 30.2 mmol/L (21.0-32.0); CHLORIDE - SERUM 105 mmol/L (98-107); CREATININE - SERUM 0.9 mg/dL (0.6-1.3); GLUCOSE 82 mg/dL (74-106); SODIUM 141 mmol/L (136-145); UREA NITROGEN 15 mg/dL (7-18); eGFR NON AFRICAN AMERICAN 88 mL/min (90-120)
[2019-01-05 07:34] LABS: POTASSIUM - SERUM 4.3 mmol/L (3.5-5.1)
[2019-01-05] MEDS ORDERED: VIBRAMYCIN 100100 MG PO (07:46)
[2019-01-05] MEDS ORDERED: OMNICEF300 MG PO (07:46)
[2019-01-05] MEDS ORDERED: ELIQUIS2.5 MG PO (07:46)
[2019-01-05 09:05] VITALS: BP 125/76
--- NOTE | 2019-01-05 09:39 | MORECARE ---
CASE MANAGEMENT DISCHARGE SUMMARY PATIENT: TREV JERRY UNIT: [id number] ADM DATE: 01/03/19 AGE: 73 : 44 SEX: M ROOM/BED: D.2232 AUTHOR: ANDRIY NGUYEN PHYSICIAN: REFERRING PHYSICIAN: KVNG WHITE MD DATE OF SERVICE: 01/05/19 Discharge Plan Patient Name: TREV JERRY Facility: [facility]:[place] : 1945 Planned Disposition: Home Anticipated Discharge Date: 01/05/19 Discharge Date: Expected LOS: 2 Initial Reviewer: [email or web address] Initial Review Date: 01/05/2019 Generated: 01/05/19 10:39 am DCP- Discharge Planning Updated by [email or web address]: Deborah Vasquez on 01/03/19 3:[address] CM met with patient to discuss dc plans/needs. Patient is in agreement to proceed with assessment with daughterRodolfo present. Patient is alert/oriented, gives permission to complete CM assessment. Does patient have steps/stairs into home/inside? PCP: Has not established PCP as yet. Has an appointment w/ortho January 09. Has not been to follow-up appointment with Dr. Couch as yet. Pharmacy: [facility]. Emergency contact: Autumn Reynolds #[phone]. Independent/Partial ADL's: Daughter assist patient with bathing, dressing, ambulating, medications. HHS: No, refuses at this time. Patient states daughter is with him at all times. DME: Walker, uses a urinal, O2, Updraft machine, C-pap (does not use). WOULD BENEFIT USE OF A WHEELCHAIR. Denies additional services at this time and feels safe returning to previous environment. Refuses HHS, Rehab, Nsg/rehab services at this time. [facility] Hospitalized in past 30 days: Yes. 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 [facility] (last visit 3 weeks ago). Transportation at time of discharge: Daughter, Autumn Reynolds. Patient Name: TREV JERRY Page [id number] at 0939 All edits/amendments must be made on the electronic document DICTATION DATE: 01/05/19938 NEONATAL NURSE PRACTITIONER: FAVIAN 01/05/19938 RPT#: [id number] DC DATE: STATUS: ADM IN [facility] [address] [place] [address] END OF REPORT
--- NOTE | 2019-01-05 09:46 | MORECARE ---
CASE MANAGEMENT DISCHARGE SUMMARY PATIENT: TREV JERRY UNIT: [id number] ADM DATE: 01/03/19 AGE: 73 : 44 SEX: M ROOM/BED: D.2232 AUTHOR: WENDYDOC PHYSICIAN: REFERRING PHYSICIAN: KVNG WHITE MD DATE OF SERVICE: 01/05/19 Discharge Plan Patient Name: TREV JERRY Facility: [facility]:[place] : 1945 Planned Disposition: Home Anticipated Discharge Date: 01/05/19 Discharge Date: Expected LOS: 2 Initial Reviewer: [email or web address] Initial Review Date: 01/05/2019 Generated: 01/05/19 10:45 am Comments DCP- Discharge Planning Updated by [id number]: Kassandra Booth on 01/05/19 8:[address] Patient Name: TREV JERRY Admission Status: ER Accout number: [id number] Admission Date: 01-03-2019 : 1945 Admission Diagnosis: Attending: KVNG WHITE Current LOS: 2 Anticipated DC Date: 01-05-2019 Planned Disposition: Home Primary Insurance: [employer]ARE ADV Discharge Planning Comments: Received discharge orders. I informed the patient that Dr. Delgado has ordered home health. He refuses. I told him they could come out and help strengthen him to keep him from falling. He states "I don't want home health, I have Sarah to help me." I encouraged him again, but her refuses. I gave him the HERMINIA form to sign refusal and he aponte an X. He states he has a walker and cane at home. States he has oxygen that he uses at night. Denies any other needs. Family at bedside to take him home. CM will continue to follow and assist with discharge planning/needs. Rolloff Driver: Kassandra Booth DCP- Discharge Planning Updated by [email or web address]: Deborah Vasquez on 01/03/19 3:[address] CM met with patient to discuss dc plans/needs. Patient is in agreement to proceed with assessment with daughterRodolfo present. Patient is alert/oriented, gives permission to complete CM assessment. Does patient have steps/stairs into home/inside? PCP: Has not established PCP as yet. Has an appointment w/ortho January 09. Has not been to follow-up appointment with Dr. Couch as yet. Pharmacy: [facility]. Emergency contact: Autumn Reynolds #[phone]. Independent/Partial ADL's: Daughter assist patient with bathing, dressing, ambulating, medications. HHS: No, refuses at this time. Patient states daughter is with him at all times. DME: Walker, uses a urinal, O2, Updraft machine, C-pap (does not use). WOULD BENEFIT USE OF A WHEELCHAIR. Denies additional services at this time and feels safe returning to previous environment. Refuses HHS, Rehab, Nsg/rehab services at this time. Refuses transfer to [place]. Hospitalized in past 30 days: Yes. 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 [facility] [place] [facility] (last visit 3 weeks ago). Transportation at time of discharge: Daughter, Autumn Reynolds. Coverage Notice Reviewer: [id number] Diana Booth Notice Issued Date-Time: 01/05/2019 9:42 Notice Type: Patient Choice Letter Notice Delivered To: Patient Relationship to Patient: Self Learning And Development Analyst Name: Delivery Method: HAND - Hand Delivered Rosibel Days: Prior Verbal Notification: Recipient Understood Notice: Yes Recipient Signature: Yes Med Rec Note Co-signed by Attending: Coverage Notice Comment: Signed a refusal for home health, marked with an X. Last DP export: 01/05/19 8:39 a Patient Name: TREV JERRY Page [phone] at 0946 All edits/amendments must be made on the electronic document DICTATION DATE: 01/05/19944 INSPECTOR PACKAGER: FAVIAN 01/05/19944 RPT#: [id number] DC DATE: STATUS: ADM IN [facility] [address] [place] [address] END OF REPORT
--- NOTE | 2019-01-05 10:40 | NUR ---
MORNING ASSESSMENT COMPLETE. SEE ASSESSMENT FLOWSHEET FOR FURTHER DETIALS. PT LYING IN BED AAO X4 TO PERSON, PLACE, TIME, AND SIUTATION. WORKING ON D/C AT THE MOMENT. DENIES FURTHER NEEDS AT THIS TIME. CL IN REACH. SIDE RAILS UP X3 FOR PT SAEFTY. BED IN LOWEST POSITION.
--- NOTE | 2019-01-06 09:41 | OP ---
PATIENT NAME: TREV JERRY MEDICAL RECORD: [id number] :43 LOCATION:D.MS [id number] ADMISSION DATE:01/03/19 SURGEON: CARL CHAVEZ MD DATE OF OPERATION: 01/04/2019 PREOPERATIVE DIAGNOSIS: Failed external fixator for right humerus fracture. POSTOPERATIVE DIAGNOSIS: Failed external fixator for right humerus fracture. PROCEDURE: 1. Removal of external fixator. 2. Application of a humeral stabilization (Arriola brace). SURGEON: Carl Chavez MD ANESTHESIA: TIVA. INTRAOPERATIVE COMPLICATIONS: Essentially none. SUMMARY OF PATHOLOGIC FINDINGS: The patient did have excoriation of the pin tracts. The superior pin was completely out of the skin. The next superior pin was completely out of the bone. The 2 inferior pins while they were in bone, they were removed. Again, the pin sites were in relatively good condition with the exception of the most proximal. INDICATIONS: Mr. Jerry is a gentleman who has been plagued with a humerus fracture, initial fracture fixation was done with internal fixation with excellent results by Dr. Reinaldo Crespo. The patient fell and this resulted in further comminution. Again, this was internally fixed. Unfortunately, the patient fell again resulting in substantial comminution. He was taken back to the operating room where the wound was irrigated and antibiotic beads were placed. He was placed in an external fixator. Again, this had excellent alignment and fixation. Unfortunately, this has failed. The mechanism is unsure according to the daughter and the patient who presented to the ER with the proximal apex pin out of the skin. He was thusly placed on antibiotics and admitted to the hospital and set up for further stabilization. At this point, I made the decision to remove the external fixator and put him in a Arriola brace in hopes that we can get some soft tissue healing as he does appear to have substantial swelling of the upper extremities and hopefully this will result in a manner in which the patient can be taken care of without further damage. I had a long talk with the patient's daughter regarding this patient's need for post-hospitalization inpatient rehabilitation versus convalescence. OPERATIVE SUMMARY IN DETAIL: After obtaining the appropriate preoperative orthopedic surgery consent as well as anesthetic consultation, evaluation and clearance, the patient was brought to the operating room and placed on the operating table in supine position. After TIVA anesthesia was administered, serial and sequential removal of the ex-fix was done. The pin sites were not close. They were cleansed copiously. The entire arm itself was cleansed copiously under TIVA including the incision, which did appear to be in excellent overall condition. No sutures were removed. Both pin sites as well as incision was then covered with Xeroform, 4 x 4s, cast padding. At this point, the Arriola brace was applied tightly and while the patient still had TIVA anesthesia, he was placed in a sling. I made the decision not to mobilize him as he has been very intolerant of most restrictive bundling in the past. Having OPERATIVE REPORT [id number] TREV JERRY completed this, the patient was awakened and taken to the recovery room in stable condition. All final needle and sponge counts were correct. TRANSINT:[id number] Voice Confirmation ID: [id number] DOCUMENT ID: [id number] KATHY LO, CARL DELGADILLO at 0941 CC: [id number] DICTATION DATE: 01/05/19644 CANDY VENDOR: 01/05/19 1125 DIS IN 01/05/19 [facility] [address] [place] [address]
[2019-01-06 12:09] LABS: FOLATE (FOLIC ACID) - SERUM 3.6 ng/mL (>3.0)
--- NOTE | 2019-01-06 15:37 | MORECARE ---
CASE MANAGEMENT DISCHARGE SUMMARY PATIENT: TREV JERRY UNIT: [id number] ADM DATE: 01/03/19 AGE: 73 : 44 SEX: M ROOM/BED: D.2232 AUTHOR: WENDYDOC PHYSICIAN: REFERRING PHYSICIAN: KVNG WHITE MD DATE OF SERVICE: 01/06/19 Discharge Plan Patient Name: TREV JERRY Facility: [facility]:[place] : 1945 Planned Disposition: Home Anticipated Discharge Date: 01/05/19 Discharge Date: 01/05/2019 Expected LOS: 2 Initial Reviewer: [email or web address] Initial Review Date: 01/05/2019 Generated: 01/06/19 4:36 pm Comments DCP- Discharge Planning Updated by [id number]: Kassandra Booth on 01/05/19 8:[address] Patient Name: TREV JERRY Admission Status: ER Accout number: [id number] Admission Date: 01-03-2019 : 1945 Admission Diagnosis: Attending: KVNG WHITE Current LOS: 2 Anticipated DC Date: 01-05-2019 Planned Disposition: Home Primary Insurance: [employer] MEDICARE ADV Discharge Planning Comments: Received discharge orders. I informed the patient that Dr. Delgado has ordered home health. He refuses. I told him they could come out and help strengthen him to keep him from falling. He states "I don't want home health, I have Sarah to help me." I encouraged him again, but her refuses. I gave him the HERMINIA form to sign refusal and he aponte an X. He states he has a walker and cane at home. States he has oxygen that he uses at night. Denies any other needs. Family at bedside to take him home. CM will continue to follow and assist with discharge planning/needs. Fur Grader: Kassandra Booth DCP- Discharge Planning Updated by [email or web address]: Deborah Vasquez on 01/03/19 3:[address] CM met with patient to discuss dc plans/needs. Patient is in agreement to proceed with assessment with daughterRodolfo present. Patient is alert/oriented, gives permission to complete CM assessment. Does patient have steps/stairs into home/inside? PCP: Has not established PCP as yet. Has an appointment w/ortho January 09. Has not been to follow-up appointment with Dr. Couch as yet. Pharmacy: [facility]. Emergency contact: Autumn Reynolds #[phone]. Independent/Partial ADL's: Daughter assist patient with bathing, dressing, ambulating, medications. HHS: No, refuses at this time. Patient states daughter is with him at all times. DME: Walker, uses a urinal, O2, Updraft machine, C-pap (does not use). WOULD BENEFIT USE OF A WHEELCHAIR. Denies additional services at this time and feels safe returning to previous environment. Refuses HHS, Rehab, Nsg/rehab services at this time. [facility] to [facility]. Hospitalized in past 30 days: Yes. Denies use of community resources DERMATOLOGIST AND DERMATOPATHOLOGIST. [facility] (last visit 3 weeks ago). Transportation at time of discharge: Daughter, Autumn Reynolds. Coverage Notice Reviewer: [id number] Diana Booth Notice Issued Date-Time: 01/05/2019 9:42 Notice Type: Patient Choice Letter Notice Delivered To: Patient Relationship to Patient: Self Ceo & Board Director Name: Delivery Method: HAND - Hand Delivered Rosibel Days: Prior Verbal Notification: Recipient Understood Notice: Yes Recipient Signature: Yes Med Rec Note Co-signed by Attending: Coverage Notice Comment: Signed a refusal for home health, marked with an X. Last DP export: 01/05/19 8:45 a Patient Name: TREV JERRY Page [phone] at 1537 All edits/amendments must be made on the electronic document DICTATION DATE: 01/06/196 HAND STONECUTTER: FAVIAN 01/06/19 153 RPT#: [id number] DC DATE:01/05/19 STATUS: DIS IN [place] [place] [id number] [place] [address] END OF REPORT
== END 2019-01-05 12:56 | disposition home or self-care (01) | DRG 560 ==
LOC: D.ER 15:28 → D.MS 19:24
PROVIDERS: Family Medicine; Orthopaedic Surgery; ADMIT Internal Medicine Nephrology; ATTEND Internal Medicine Nephrology
PROC: 2W38X3Z Immobilization of Right Upper Extremity using Brace (ICD-10-PCS; 2019-01-04)
PROC: 2W5 Placement, Anatomical Regions, Removal (ICD-10-PCS; principal; 2019-01-04 17:45)
DX: T84.9XXA Unspecified complication of internal orthopedic prosthetic device, implant and graft, initial encounter (principal); S42.301A Unspecified fracture of shaft of humerus, right arm, initial encounter for closed fracture; I25.10 Atherosclerotic heart disease of native coronary artery without angina pectoris; I10 Essential (primary) hypertension; E78.5 Hyperlipidemia, unspecified; I48.91 Unspecified atrial fibrillation; J44.9 Chronic obstructive pulmonary disease, unspecified

== ENCOUNTER 2019-05-05 03:19 | Emergency (ER) | payer MEDICARE, MEDICAID ==
[~2019-05-05] VITALS: Ht 189.2 cm; Wt 90.9 kg
[~2019-05-05 03:19] MED LIST changes: +ELIQUIS2.5 MG PO
[2019-05-05 03:20] VITALS: Ht 189.2 cm; Wt 90.9 kg
[2019-05-05] MEDS ORDERED: PROPRANOLOL HCL20 MG PO (03:28)
[2019-05-05 05:15] VITALS: BP 147/85
== END 2019-05-05 05:15 | disposition home or self-care (01) ==
LOC: D.ER 03:19
DX: S01.112A Laceration without foreign body of left eyelid and periocular area, initial encounter (principal); Y09 Assault by unspecified means; S09.90XA Unspecified injury of head, initial encounter; S43.201A Unspecified subluxation of right sternoclavicular joint, initial encounter

== ENCOUNTER 2019-05-08 02:45 | Inpatient (IN) | payer MEDICARE, MEDICAID ==
[~2019-05-08] VITALS: Ht 189.2 cm; Wt 100.0 kg
[~2019-05-08 02:45] MED LIST changes: +PROPRANOLOL HCL20 MG PO
[2019-05-08 03:31] LABS: BASOPHILS 0.1 % (0-2); EOSINOPHILS 4.2 % (0-7); HEMATOCRIT 42.5 % (42.0-54.0); HEMOGLOBIN 14.1 g/dL (13.5-17.5); IMMATURE GRANULOCYTES 0.4 % (0-5); LYMPHOCYTES 18.9 % (15-50); MCH 30.7 pg (26.0-34.0); MCHC 33.2 g/dL (31.0-37.0); MCV 92.6 fL (80.0-100.0); MEAN PLATELET VOLUME 10.8 fL (7.4-10.4); NEUTROPHILS 63.4 % (40-80); RBC 4.59 10x6/uL (4.20-6.10); RDW 16.6 % (11.5-14.5); WBC 7.4 10x3/uL (4.8-10.8)
[2019-05-08 03:38] LABS: PLATELET COUNT 216 10x3/uL (130-400)
[2019-05-08 03:58] LABS: INR 1.1 (0.85-1.17); PROTIME 13.7 SECONDS (11.6-15.0)
[2019-05-08 03:59] LABS: APTT 33.8 SECONDS (22.8-39.4)
[2019-05-08 04:00] LABS: ALBUMIN 3.3 g/dL (3.4-5.0); ALKALINE PHOSPHATASE 125 U/L (46-116); ALT (SGPT) 19 U/L (10-68); BILIRUBIN - TOTAL 0.71 mg/dL (0.2-1.3); CALC OSMOLALITY 280 mosm/kg (275-300); CALCIUM 8.5 mg/dL (8.5-10.1); CARBON DIOXIDE 37.1 mmol/L (21.0-32.0); CHLORIDE - SERUM 100 mmol/L (98-107); GLUCOSE 101 mg/dL (74-106); MAGNESIUM - SERUM 2.1 mg/dL (1.8-2.4); POTASSIUM - SERUM 4.2 mmol/L (3.5-5.1); PROTEIN - SERUM 7.2 g/dL (6.4-8.2); SODIUM 140 mmol/L (136-145); UREA NITROGEN 18 mg/dL (7-18); eGFR NON AFRICAN AMERICAN 78 mL/min (90-120)
--- NOTE | 2019-05-08 04:30 | NUR ---
RESTING QUITLY IN ROOM AT THIS TIME. RESP EVEN AND UNLABORED CALL LIGHT IN REACH
[2019-05-08 05:30] VITALS: BP 134/87
--- NOTE | 2019-05-08 05:31 | NUR ---
RESTING IN ROOM QUIETLY AT THIS TIME RESP EVEN AND UNLABORED CALL LIGHT IN REACH
--- NOTE | 2019-05-08 06:43 | NUR ---
I have reviewed this patient and I concur with the Shift Assessment completed by the Licensed Practical Nurse today this shift.
--- NOTE | 2019-05-08 07:30 | NUR ---
PT RESTING IN BED WITH EYES CLOSED, CURRENTLY ON BIPAP. IV LOCATED TO LEFT AC CURRENTLY SALINE LOCKED. VERY LETHARGIC WITH MINIMAL RESPONSE TO SPEECH AND STIMULI. SPOKE WITH MARCOS LEE ABOUT HIS CURRENT STATE, SHE WENT IN AND SAW HIM HE WAS ABLE TO TELL HER HIS NAME AND THEN WENT BACK TO SLEEP, ORDERS HAVE BEEN PUT IN FOR AN ABG. VITALS ARE CURRENTLY STABLE. WILL CONT TO MONITOR.
[2019-05-08 10:39] VITALS: BP 153/86; Ht 189.2 cm; Wt 100.0 kg
--- NOTE | 2019-05-08 11:00 | NUR ---
PT RESTING IN BED WITH EYES CLOSED, RT AT THE BEDSIDE DRAWING ABGS. ALERT AND ORIENTED TO PERSON AND PLACE. RT REMOVED BIPAP SO I COULD TRY AND FINISH ADMISSION ASSESSMENT AND HEALTH HX, HE ANSWERS THE MAJORITY OF THE QUESTIONS ASKED AFTER ASKING HIM A COUPLE OF TIME. SPEECH IS SLIGHTLY SLURRED AND GARBLED AND VERY QUIET, HX AND PHYSICAL COMPLETED TO THE BEST OF MY ABILITY AT THE TIME. DENIES NEEDS AND PAIN AT THIS TIME, WILL CONT TO MONITOR.
[2019-05-08 13:01] LABS: CKMB 0.6 U/L (0.0-3.6); CREATINE KINASE 59 UL (21-232); TROPONIN-I < 0.017 ng/mL (0.000-0.060)
[2019-05-08 13:30] VITALS: BP 156/90
[2019-05-08 18:24] VITALS: BP 123/84
[2019-05-08 18:51] LABS: CREATINE KINASE 69 UL (21-232); TROPONIN-I < 0.017 ng/mL (0.000-0.060)
[2019-05-08 21:28] VITALS: BP 123/75
--- NOTE | 2019-05-09 | NUR ---
REC'D WALKING ROUNDS CHGE OF SHIFT SUPINE POSITION IN BED.EYES CLOSED RESP. DEEP AND EVEN.BIPAP ON AT PRESENT TIME. WILL CONTINUE TO MONITOR FOR ANY CHGES IN NEURO AND NEUROVASCULAR STATUS TO RIGHT SHOULDER AND FOLLOW CURRENT PLAN OF CARE
[2019-05-09 01:00] LABS: CKMB 0.7 U/L (0.0-3.6); CREATINE KINASE 52 UL (21-232); TROPONIN-I < 0.017 ng/mL (0.000-0.060)
[2019-05-09 01:13] VITALS: BP 117/67
--- NOTE | 2019-05-09 03:57 | NUR ---
I have reviewed this patient and I concur with the Shift Assessment completed by the Licensed Practical Nurse today this shift.
[2019-05-09 05:45] VITALS: BP 122/72
[2019-05-09 06:35] LABS: BASOPHILS 0.4 % (0-2); EOSINOPHILS 3.6 % (0-7); HEMATOCRIT 38.9 % (42.0-54.0); HEMOGLOBIN 12.8 g/dL (13.5-17.5); IMMATURE GRANULOCYTES 0.1 % (0-5); LYMPHOCYTES 19.3 % (15-50); MCH 30.1 pg (26.0-34.0); MCHC 32.9 g/dL (31.0-37.0); MCV 91.5 fL (80.0-100.0); MEAN PLATELET VOLUME 11.4 fL (7.4-10.4); MONOCYTES 11.3 % (2-11); NEUTROPHILS 65.3 % (40-80); PLATELET COUNT 183 10x3/uL (130-400); RBC 4.25 10x6/uL (4.20-6.10); RDW 16.5 % (11.5-14.5); WBC 7.1 10x3/uL (4.8-10.8)
[2019-05-09 06:58] LABS: CALC OSMOLALITY 280 mosm/kg (275-300); CALCIUM 8.1 mg/dL (8.5-10.1); CARBON DIOXIDE 33.9 mmol/L (21.0-32.0); CHLORIDE - SERUM 101 mmol/L (98-107); CREATININE - SERUM 0.9 mg/dL (0.6-1.3); GLUCOSE 75 mg/dL (74-106); SODIUM 139 mmol/L (136-145); eGFR NON AFRICAN AMERICAN 88 mL/min (90-120)
[2019-05-09 06:59] LABS: UREA NITROGEN 24 mg/dL (7-18)
[2019-05-09 08:11] VITALS: BP 119/91
--- NOTE | 2019-05-09 10:32 | NUR ---
PT ALERT X 4. COURSE EXPIRATORY WHEEZES TO ALL SAXENA. BRUISING TO FACE, 4L O2 PER NC. IV TO LEFT AC, PATENT, DRESSING CDI. PT REPORTING PAIN OF 10/10, MEDICATED PER ORDERS, WILL MONITOR. BED LOW, CALL LIGHT IN REACH. NO OTHER NEEDS AT THIS TIME.
[2019-05-09] MEDS ORDERED: LEVOFLOXACIN500 MG PO (11:57)
[2019-05-09] MEDS ORDERED: DALIRESP500 MCG PO (11:57)
[2019-05-09] MEDS ORDERED: PREDNISONE10 MG PO (11:59)
--- NOTE | 2019-05-09 12:53 | NUR ---
DISCHARGE PAPERWORK SIGNED, ALL QUESTIONS ANSWERED. IV TO LEFT AC DC'D, TIP INTACT. ESCORTED OUT BY WHEELCHAIR.
--- NOTE | 2019-05-09 13:19 | MORECARE ---
CASE MANAGEMENT DISCHARGE SUMMARY PATIENT: TREV JERRY UNIT: [id number] ADM DATE: 05/08/19 AGE: 73 : 44 SEX: M ROOM/BED: D.2203 AUTHOR: ANDRIY NGUYEN PHYSICIAN: REFERRING PHYSICIAN: KVNG WHITE MD DATE OF SERVICE: 05/09/19 Discharge Plan Patient Name: TREV JERRY [facility] [facility] 1945 Planned Disposition: Anticipated Discharge Date: Discharge Date: Expected LOS: Initial Reviewer: [id number] Initial Review Date: 05/08/2019 Generated: 05/09/19 2:18 pm Comments DCP- Discharge Planning Updated by [email or web address]: Autumn Brown on 05/09/19 12:[address] attempted to see patient prior to dc, but patient had already left. nurse stated he had to cigar packer and picker grandchild from [place] [facility] Patient Name: TREV JERRY Page [phone] at 1319 All edits/amendments must be made on the electronic document DICTATION DATE: 05/09/19 1318 CV/CVN CV TSC SYSTEM OPERATOR: FAVIAN 05/09/19 1318 RPT#: [id number] DC DATE: STATUS: ADM IN [facility] [address] [place] [address] END OF REPORT
[2019-05-09 13:38] VITALS: BP 134/88
--- NOTE | 2019-05-10 13:42 | MORECARE ---
CASE MANAGEMENT DISCHARGE SUMMARY PATIENT: TREV JERRY UNIT: [id number] ADM DATE: 05/08/19 AGE: 73 : 44 SEX: M ROOM/BED: D.2203 AUTHOR: ANDRIY NGUYEN PHYSICIAN: REFERRING PHYSICIAN: KVNG WHITE MD DATE OF SERVICE: 05/10/19 Discharge Plan Patient Name: TREV JERRY [facility] : 1945 Planned Disposition: Anticipated Discharge Date: Discharge Date: 05/09/2019 Expected LOS: Initial Reviewer: [id number] Initial Review Date: 05/08/2019 Generated: 05/10/19 2:42 pm Comments DCP- Discharge Planning Updated by [email or web address]: Autumn Brown on 05/09/19 12:[address] attempted to see patient prior to dc, but patient had already left. nurse stated [facility] Last DP export: 05/09/19 12:19 p Patient Name: TREV JERRY Page [phone] at 1342 All edits/amendments must be made on the electronic document DICTATION DATE: 05/10/19 1341 THREAD LASTER: FAVIAN 05/10/19 1341 RPT#: [id number] DC DATE:05/09/19 STATUS: DIS IN [facility] [address] [place] [address] END OF REPORT
== END 2019-05-09 13:45 | disposition home or self-care (01) | DRG 189 ==
LOC: D.ER 02:45 → D.MS 04:05
PROVIDERS: Emergency Medicine; ADMIT Internal Medicine Nephrology; ATTEND Internal Medicine Nephrology
DX: J96.22 Acute and chronic respiratory failure with hypercapnia (principal); G93.41 Metabolic encephalopathy; E87.2 Acidosis; J44.1 Chronic obstructive pulmonary disease with (acute) exacerbation; F17.213 Nicotine dependence, cigarettes, with withdrawal; J98.11 Atelectasis; I50.32 Chronic diastolic (congestive) heart failure; I25.10 Atherosclerotic heart disease of native coronary artery without angina pectoris; I48.2 Chronic atrial fibrillation; K59.09 Other constipation; F41.9 Anxiety disorder, unspecified; S00.83XA Contusion of other part of head, initial encounter; Y04.2XXA Assault by strike against or bumped into by another person, initial encounter; I11.0 Hypertensive heart disease with heart failure

== ENCOUNTER 2019-05-23 17:03 | Inpatient (IN) | payer MEDICARE, MEDICAID ==
[~2019-05-23] VITALS: Ht 189.2 cm; Wt 97.2 kg
[~2019-05-23 17:03] MED LIST changes: +DALIRESP500 MCG PO; +LEVOFLOXACIN500 MG PO
[2019-05-23 17:41] VITALS: BP 112/53
[2019-05-23 18:20] LABS: BASOPHILS 0.1 % (0-2); EOSINOPHILS 0 % (0-7); HEMATOCRIT 41.6 % (42.0-54.0); HEMOGLOBIN 13.5 g/dL (13.5-17.5); IMMATURE GRANULOCYTES 0.3 % (0-5); LYMPHOCYTES 2.3 % (15-50); MCH 31.4 pg (26.0-34.0); MCHC 32.5 g/dL (31.0-37.0); MCV 96.7 fL (80.0-100.0); MEAN PLATELET VOLUME 10.3 fL (7.4-10.4); MONOCYTES 6.1 % (2-11); NEUTROPHILS 91.2 % (40-80); RDW 18.5 % (11.5-14.5); WBC 19.2 10x3/uL (4.8-10.8)
[2019-05-23 18:24] LABS: APTT 32.5 SECONDS (22.8-39.4); INR 1.33 (0.85-1.17); PROTIME 15.9 SECONDS (11.6-15.0)
[2019-05-23 18:37] VITALS: BP 124/64
[2019-05-23 18:45] LABS: ALBUMIN 3.3 g/dL (3.4-5.0); ALKALINE PHOSPHATASE 158 U/L (46-116); ALT (SGPT) 24 U/L (10-68); BILIRUBIN - TOTAL 1.71 mg/dL (0.2-1.3); CALC OSMOLALITY 286 mosm/kg (275-300); CALCIUM 8.7 mg/dL (8.5-10.1); CARBON DIOXIDE 37.7 mmol/L (21.0-32.0); CHLORIDE - SERUM 98 mmol/L (98-107); GLUCOSE 91 mg/dL (74-106); POTASSIUM - SERUM 4.4 mmol/L (3.5-5.1); PROTEIN - SERUM 6.9 g/dL (6.4-8.2); SODIUM 142 mmol/L (136-145); UREA NITROGEN 23 mg/dL (7-18); eGFR NON AFRICAN AMERICAN 78 mL/min (90-120)
[2019-05-23 18:47] LABS: CKMB 0.7 U/L (0.0-3.6); CREATINE KINASE 25 UL (21-232); TROPONIN-I < 0.017 ng/mL (0.000-0.060)
[2019-05-23 18:53] LABS: PLATELET COUNT 278 10x3/uL (130-400)
[2019-05-23 19:03] LABS: APPEARANCE CLEAR (CLEAR); BILIRUBIN NEGATIVE (NEGATIVE); COLOR YELLOW (YELLOW); GLUCOSE NEGATIVE (NEGATIVE); KETONE MODERATE mg/dL (NEGATIVE); NITRITE NEGATIVE (NEGATIVE); PROTEIN NEGATIVE (NEGATIVE); UROBILINOGEN NORMAL (NORMAL)
--- NOTE | 2019-05-23 21:00 | NUR ---
PT ARRIVED ESCORTED BY HOSPITAL STAFF TO ICU FROM ER. PT AAOX4, VITALS STABLE, RT HAND PIV INFUSING, LT AC PIV INFUSING, SEE IV FLOWSHEET. PT ON 2L O2 VIA NC, NO ACUTE DISTRESS NOTED.
[2019-05-23 21:30] VITALS: BP 127/65
[2019-05-23 21:37] VITALS: BP 127/65; BMI 26.5
[2019-05-23 22:00] VITALS: BP 119/84
[2019-05-23 23:00] VITALS: BP 139/77
--- NOTE | 2019-05-23 23:00 | NUR ---
PT RESTING IN BED, NO ACUTE DISTRESS NOTED.
[2019-05-24] VITALS (16 sets, daily range): BP systolic 95–130; BP diastolic 47–75; Ht 189.2 cm; Wt 97.2 kg
--- NOTE | 2019-05-24 01:00 | NUR ---
PT RESTING IN BED, NO ACUTE DISTRESS NOTED. WILL CONTINUE TO MONITOR.
[2019-05-24 04:39] LABS: BASOPHILS 0.1 % (0-2); EOSINOPHILS 0.7 % (0-7); HEMATOCRIT 36.5 % (42.0-54.0); HEMOGLOBIN 11.7 g/dL (13.5-17.5); IMMATURE GRANULOCYTES 0.2 % (0-5); LYMPHOCYTES 6.6 % (15-50); MCH 30.9 pg (26.0-34.0); MCHC 32.1 g/dL (31.0-37.0); MCV 96.3 fL (80.0-100.0); MEAN PLATELET VOLUME 10.2 fL (7.4-10.4); MONOCYTES 6.8 % (2-11); NEUTROPHILS 85.6 % (40-80); PLATELET COUNT 237 10x3/uL (130-400); RBC 3.79 10x6/uL (4.20-6.10); RDW 18.6 % (11.5-14.5); WBC 15.7 10x3/uL (4.8-10.8)
[2019-05-24 05:14] LABS: ALBUMIN 2.5 g/dL (3.4-5.0); ALKALINE PHOSPHATASE 122 U/L (46-116); BILIRUBIN - TOTAL 1.35 mg/dL (0.2-1.3); CALC OSMOLALITY 287 mosm/kg (275-300); CALCIUM 7.8 mg/dL (8.5-10.1); CHLORIDE - SERUM 101 mmol/L (98-107); CREATININE - SERUM 0.8 mg/dL (0.6-1.3); GLUCOSE 120 mg/dL (74-106); MAGNESIUM - SERUM 2.1 mg/dL (1.8-2.4); PHOSPHOROUS 3.1 mg/dL (2.5-4.9); PRO BNP 590 pg/mL (0-125); PROTEIN - SERUM 5.6 g/dL (6.4-8.2); SODIUM 143 mmol/L (136-145); UREA NITROGEN 19 mg/dL (7-18); eGFR NON AFRICAN AMERICAN > 90 mL/min (90-120)
--- NOTE | 2019-05-24 05:25 | NUR ---
PT AAOX4, NO ACUTE DISTRESS NOTED.
[2019-05-24 05:26] LABS: POTASSIUM - SERUM 3.4 mmol/L (3.5-5.1)
[2019-05-24 05:27] LABS: ALT (SGPT) 16 U/L (10-68); CARBON DIOXIDE 41.7 mmol/L (21.0-32.0)
--- NOTE | 2019-05-24 07:15 | NUR ---
PT RESTING IN BED, SHIFT ASSESSMENT PERFORMED. DURBIN CATHETER PRESENT DRAINING DARK URINE FREELY VIA GRAVITY, CARDIZEM GTT INFUSING AT 10ML/HR TO RIGHT HAND PIV. 1/2 NS INFUSING TO LEFT AC PIV. NO SIGNS OF INFILTRATION NOTED TO BOTH PIV. BED IN LOWEST POSTION. CALL LIGHT WITHIN REACH. YELLOW GOWN ON AND STAR IS ON PT DOOR. BED ALARM TURNED ON. PT HAS SOME THICK YELLOW SPUTUM IN A CUP ON HIS BEDSIDE TABLE. DENIES ANY NEEDS AT THIS TIME, WILL CONT TO FOLLOW POC
--- NOTE | 2019-05-24 09:00 | NUR ---
PT RESTING IN BED, O2 AT 2L NC. CALL LIGHT WITHIN REACH. DENIES ANY NEEDS AT THIS TIME, WILL CONT TO FOLLOW POC
--- NOTE | 2019-05-24 11:00 | NUR ---
PT RESTING IN BED, DURBIN CATHETER DRAINING BOYD TINGED URINE FREELY VIA GRAVITY. CALL LIGHT WITHIN REACH. BED ALARM ON AND TESTED. SCDS IN PLACE. PT STATES HE HAD A BATH THIS MORNING AND DOES NOT WANT ANOTHER BATH AT THIS TIME, WILL CONT TO FOLLOW POC
--- NOTE | 2019-05-24 11:40 | NUR ---
PT HAS YEAST TO GROIN. SPOKE WITH AND NEW ORDER RECIEVED TO START NYSTATIN POWDER.
--- NOTE | 2019-05-24 13:50 | NUR ---
PHYSICAL THERAPY HERE WITH PT. PER PHYSICAL THERAPY PT IS A ONE PERSON MIN ASSIST.
--- NOTE | 2019-05-24 15:19 | NUR ---
PATIENT ARRIVED TO THE ROOM VIA WHEELCHAIR. O2 NOTED AT 2LPM. IV TO THE RIGHT HAND IS SALINE LOCKED AND IV TO THE LEFT AC IS SALINE LOCKED WELL. PATIENT ASSISSED TO THE BED FROMTHE CHAIR AND DURBIN IS NOTED. BED IS IN LOW POSITION AND CALL LIGHT IS IN REACH. PATIENT JAMIE ANY PAIN AT THIS TIME. DENIES NEEDS WELL. WILL CONTINUE TO MONITOR
--- NOTE | 2019-05-24 18:55 | NUR ---
EVENING ROUNDS COMPLETE. PT LAYING IN BED. NO SIGNS OF DISTRESS. AAOX4, VSS. PT DENIES ANY NEEDS AT THIS TIME. CL IN REACH, BED IN LOWEST POSITION.
[2019-05-25] VITALS (7 sets, daily range): BP systolic 103–126; BP diastolic 57–78
[2019-05-25 05:41] LABS: BASOPHILS 0.1 % (0-2); EOSINOPHILS 3.8 % (0-7); HEMATOCRIT 36.1 % (42.0-54.0); HEMOGLOBIN 11.7 g/dL (13.5-17.5); IMMATURE GRANULOCYTES 0.1 % (0-5); LYMPHOCYTES 11.4 % (15-50); MCH 31.3 pg (26.0-34.0); MCHC 32.4 g/dL (31.0-37.0); MCV 96.5 fL (80.0-100.0); MEAN PLATELET VOLUME 10.6 fL (7.4-10.4); MONOCYTES 11.7 % (2-11); NEUTROPHILS 72.9 % (40-80); PLATELET COUNT 247 10x3/uL (130-400); RBC 3.74 10x6/uL (4.20-6.10); RDW 18.9 % (11.5-14.5)
[2019-05-25 05:45] LABS: WBC 8.6 10x3/uL (4.8-10.8)
[2019-05-25 06:13] LABS: CALC OSMOLALITY 285 mosm/kg (275-300); CALCIUM 7.9 mg/dL (8.5-10.1); CARBON DIOXIDE 35.4 mmol/L (21.0-32.0); CHLORIDE - SERUM 103 mmol/L (98-107); CREATININE - SERUM 0.9 mg/dL (0.6-1.3); GLUCOSE 99 mg/dL (74-106); MAGNESIUM - SERUM 2.1 mg/dL (1.8-2.4); POTASSIUM - SERUM 3.4 mmol/L (3.5-5.1); SODIUM 142 mmol/L (136-145); UREA NITROGEN 22 mg/dL (7-18); VANCOMYCIN - TROUGH 14.7 ug/mL (10.0-20.0); eGFR NON AFRICAN AMERICAN 88 mL/min (90-120)
[2019-05-25 06:14] LABS: PHOSPHOROUS 2.1 mg/dL (2.5-4.9)
--- NOTE | 2019-05-25 06:53 | NUR ---
REPORT RECEIVED. HE IS LYING SUPINE IN BED. ALERT AND OFFERS NO C/O. RESP EVEN WITHOUT LABOR O2 ON AT 3 L/M PER N/C. CL IN REACH BED IN LOWEST POSITION AND LOCKED CAREPLAN REVIEW DONE WITH SAFETY PRECAUTIONS IN PLACE. F/C PATENT WITH YELLOW URINE DRAINING. FACIAL BRUISING IS FADING.
--- NOTE | 2019-05-25 10:02 | NUR ---
DURBIN CATH D/C AFTER BALLOON DEFLATED, VEE WELL. HE HAD 600CC OF YELLOW URINE NOTED IN F/C BAG. HE HAS NO ISSUES WITH URINATION AT HOME. WILL MONITOR FOR EFFECTIVE VOIDING. NO C/O CL IN REACH.
--- NOTE | 2019-05-25 16:25 | NUR ---
HE HAS VOIDED 3 TIMES SINCE REMOVAL OF F/C. SITTING UP ON SIDE OF BED WITH NO C/O. O2 IS ON.
--- NOTE | 2019-05-25 19:43 | NUR ---
RECEIVED REPORT, WILL ASSUME CARE OF PT, PT IS SLEEPING, NO DISTRESS NOTICED AT THIS TIME, BED IS LOW, SRX2, CALL LIGHT IN REACH, WILL CONTINUE PLAN OF CARE
--- NOTE | 2019-05-26 01:08 | NUR ---
I have reviewed this patient and I concur with the Shift Assessment completed by the Licensed Practical Nurse today this shift.
[2019-05-26 05:35] LABS: BASOPHILS 0 % (0-2); EOSINOPHILS 0 % (0-7); HEMATOCRIT 36.3 % (42.0-54.0); HEMOGLOBIN 11.8 g/dL (13.5-17.5); IMMATURE GRANULOCYTES 0.1 % (0-5); LYMPHOCYTES 5.4 % (15-50); MCH 30.9 pg (26.0-34.0); MCHC 32.5 g/dL (31.0-37.0); MEAN PLATELET VOLUME 10.7 fL (7.4-10.4); MONOCYTES 2.1 % (2-11); NEUTROPHILS 92.4 % (40-80); PLATELET COUNT 274 10x3/uL (130-400); RBC 3.82 10x6/uL (4.20-6.10); RDW 17.9 % (11.5-14.5); WBC 7.8 10x3/uL (4.8-10.8)
[2019-05-26 05:57] LABS: CALC OSMOLALITY 280 mosm/kg (275-300); CALCIUM 8.6 mg/dL (8.5-10.1); CARBON DIOXIDE 34.5 mmol/L (21.0-32.0); CHLORIDE - SERUM 103 mmol/L (98-107); CREATININE - SERUM 0.7 mg/dL (0.6-1.3); GLUCOSE 138 mg/dL (74-106); MAGNESIUM - SERUM 1.9 mg/dL (1.8-2.4); PHOSPHOROUS 2.5 mg/dL (2.5-4.9); POTASSIUM - SERUM 4.1 mmol/L (3.5-5.1); SODIUM 139 mmol/L (136-145); eGFR NON AFRICAN AMERICAN > 90 mL/min (90-120)
[2019-05-26 05:58] LABS: UREA NITROGEN 15 mg/dL (7-18)
--- NOTE | 2019-05-26 07:56 | NUR ---
PATIENT IS RESTING ON HIS BACK IN BED NOW AND HEART RATE IS BACK IN THE 130S. HE HAS BEEN JUMPING TO THE 160S , AND STARTED AROUND 0330 LAS NIGHT WHEN HE WOULD GET UP TO THE BATHROOM. HE PULLED OUT THE IV IN HIS LEFT AC, CATHETER INTACT. HIS BED WAS WET AND HE WAS STANDING AT BEDSIDE. CHANGED HIS LINEN, AND TUCKED HIM BACK IN BED. CHECKED THE IV IN HIS RIGHT HAND, AND IT WAS ALSO DISLODGED. WILL INFORM DR BELL OF THE HEART RATE CHANGES.
[2019-05-26 08:00] VITALS: BP 139/65
--- NOTE | 2019-05-26 11:40 | NUR ---
NEW IV PLACED IN RIGHT HAND. 22 G ONE STICK. OLD IV HAD BEEN REMOVED THIS MORNING BECAUSE IT WAS DISLODGED. CATHETER INTACT.
[2019-05-26 12:00] VITALS: BP 119/75
--- NOTE | 2019-05-26 14:39 | NUR ---
PATIENT IS RESTING ON HIS BACK IN BED. IV IN LEFT HAND IS INTACT, DRESSING CLEAN DRY AND INTACT. PATIENT DENIES ANY NEEDS AT THIS TIME.
[2019-05-26 16:00] VITALS: BP 124/76
[2019-05-26 20:35] VITALS: BP 137/65
--- NOTE | 2019-05-26 23:17 | NUR ---
INITAIL ROUNDS COMPLETED AT 1915 HRS. PT WATCHING TV. NO DISTRESS NOTED. ASSESSMENT COMPLETED AT 2010 HRS. VSS. CAF PER CM HR 98. ALERT AND ORIENTED TO PERSON,PLACE AND TIME. GEORGE. BRUISES NOTED TO FACE AND BILAT ARMS. IMPAIRED ROM NOTED TOR ARM. O2 2LNC. IV TO R HAND WITH NS AT 15CC/HR. IV PATENT. LUNGS DIMINISHED IN BASES BILAT. PM MEDS GIVEN. PT CURRENTLY RESTING WITH EYES CLOSED. RESP EVEN AND REGULAR. SR UP X2,CALL LIGHT WITHIN REACH.
[2019-05-26 23:52] VITALS: BP 116/72
--- NOTE | 2019-05-27 00:35 | NUR ---
PT RESTING WITH EYES CLOSED. RESP EVEN AND REGULAR. SR UP X2, CALL LIGHT WITHIN REACH.
--- NOTE | 2019-05-27 02:25 | NUR ---
PT RESTING WITH EYES CLOSED. RESP EVEN AND REGULAR. SR UP X2,CALL LIGHT WITHIN REACH.
[2019-05-27 04:02] VITALS: BP 141/85
--- NOTE | 2019-05-27 04:19 | NUR ---
PT RESTING WITH EYES CLOSED. RESP EVEN AND REGULAR. SR UP X2, CALL LIGHT WITHIN REACH.
[2019-05-27 04:55] LABS: BASOPHILS 0 % (0-2); EOSINOPHILS 0 % (0-7); HEMATOCRIT 37.7 % (42.0-54.0); HEMOGLOBIN 12.1 g/dL (13.5-17.5); IMMATURE GRANULOCYTES 0.2 % (0-5); LYMPHOCYTES 6.2 % (15-50); MCH 30.7 pg (26.0-34.0); MCHC 32.1 g/dL (31.0-37.0); MCV 95.7 fL (80.0-100.0); MEAN PLATELET VOLUME 10.4 fL (7.4-10.4); MONOCYTES 2.1 % (2-11); NEUTROPHILS 91.5 % (40-80); PLATELET COUNT 285 10x3/uL (130-400); RBC 3.94 10x6/uL (4.20-6.10); RDW 18.4 % (11.5-14.5); WBC 8.6 10x3/uL (4.8-10.8)
[2019-05-27 05:13] LABS: CALC OSMOLALITY 286 mosm/kg (275-300); CALCIUM 8.7 mg/dL (8.5-10.1); CARBON DIOXIDE 32.2 mmol/L (21.0-32.0); CHLORIDE - SERUM 105 mmol/L (98-107); CREATININE - SERUM 0.7 mg/dL (0.6-1.3); GLUCOSE 134 mg/dL (74-106); POTASSIUM - SERUM 4.2 mmol/L (3.5-5.1); SODIUM 142 mmol/L (136-145); VANCOMYCIN - TROUGH 15.9 ug/mL (10.0-20.0); eGFR NON AFRICAN AMERICAN > 90 mL/min (90-120)
[2019-05-27 05:17] LABS: UREA NITROGEN 19 mg/dL (7-18)
--- NOTE | 2019-05-27 07:16 | NUR ---
VSS THROUGHOUT NIGHT. CAF PER CM. PT STATED ZANAFLEX CONTROLLED HIS CHRONIC PAIN. NEEDS MET;WILL CONTINUE TO MONITOR.
--- NOTE | 2019-05-27 07:34 | NUR ---
PATIENT IS AWAKE AND ALERT. DENIES ANY NEEDS AT THIS TIME.
[2019-05-27 08:47] VITALS: BP 148/76
[2019-05-27 13:04] VITALS: BP 126/82
--- NOTE | 2019-05-27 15:42 | NUR ---
rehab prescreen: thank you for this eval. this patient has [employer] insurance and will require a prior auth before being admitted to IRF. will follow til hear back from insurance company. teja grant lpn clinical liasion
[2019-05-27 17:47] VITALS: BP 125/72
--- NOTE | 2019-05-27 19:34 | NUR ---
INITIAL ROUNDS COMPLETED. PT DENIED ANY DISCOMFORT. CALL LIGHT WITHIN REACH.
[2019-05-27 20:32] VITALS: BP 124/79
--- NOTE | 2019-05-27 22:32 | NUR ---
ASSESSMENT COMPLETED AT 1940 HRS. VSS. CAF PER CM HR 90. ALERT AND ORIENTED TO PERSON, PLACE AND TIME. GEORGE. BRUISES NOTED TO FACE AND BILAT ARMS. R ARM WITH DEFORMITY. O2 2LNC. LUNGS DIMINISHED IN BASES BILAT. IV TO R HAND WITH NS AT 15CC/HR. IV PATENT. PM MEDS GIVEN. PT CURRENTLY RESTING WITH EYES CLOSED. RESP EVEN AND REGULAR. SR UP X2,CALL LIGHT WITHIN REACH.
[2019-05-27 23:51] VITALS: BP 132/81
--- NOTE | 2019-05-28 00:04 | NUR ---
PT RESTING WITH EYES CLOSED. RESP EVEN AND REGULAR. SR UP X2, CALL LIGHT WITHIN REACH.
--- NOTE | 2019-05-28 02:10 | NUR ---
PT RESTING WITH EYES CLOSED. RESP EVEN AND REGULAR. SR UP X2, CALL LIGHT WITHIN REACH.
--- NOTE | 2019-05-28 04:20 | NUR ---
PT RESTING WTIH EYES CLOSED. RESP EVEN AND REGULAR. CALL LIGHT WITHIN REACH.
[2019-05-28 04:30] VITALS: BP 132/95
[2019-05-28 06:10] LABS: BASOPHILS 0 % (0-2); EOSINOPHILS 0 % (0-7); HEMATOCRIT 38.1 % (42.0-54.0); HEMOGLOBIN 12.4 g/dL (13.5-17.5); IMMATURE GRANULOCYTES 0.2 % (0-5); LYMPHOCYTES 5.4 % (15-50); MCH 31.2 pg (26.0-34.0); MCHC 32.5 g/dL (31.0-37.0); MEAN PLATELET VOLUME 10.5 fL (7.4-10.4); MONOCYTES 3.5 % (2-11); NEUTROPHILS 90.9 % (40-80); PLATELET COUNT 299 10x3/uL (130-400); RBC 3.97 10x6/uL (4.20-6.10); RDW 18.5 % (11.5-14.5); WBC 10.7 10x3/uL (4.8-10.8)
[2019-05-28 06:32] LABS: CALC OSMOLALITY 295 mosm/kg (275-300); CALCIUM 8.9 mg/dL (8.5-10.1); CARBON DIOXIDE 35.8 mmol/L (21.0-32.0); CHLORIDE - SERUM 105 mmol/L (98-107); CREATININE - SERUM 0.8 mg/dL (0.6-1.3); GLUCOSE 128 mg/dL (74-106); POTASSIUM - SERUM 4.3 mmol/L (3.5-5.1); SODIUM 145 mmol/L (136-145); UREA NITROGEN 26 mg/dL (7-18); eGFR NON AFRICAN AMERICAN > 90 mL/min (90-120)
--- NOTE | 2019-05-28 06:47 | NUR ---
VSS THEOUGHOUT NIGHT. CAF PER CM. PT STATES ZANAFLEX CONTROLLED PAIN. NEEDS MET; WILL CONTINUE TO MONITOR.
[2019-05-28 09:13] VITALS: BP 152/78
--- NOTE | 2019-05-28 09:47 | NUR ---
PATIENT IS ALERT AND ORIENTED, HE REPORTS THAT HE SHOULD BE GOING HOME. WE ARE WAITING FOR THE DISCHARGE ORDERS.
--- NOTE | 2019-05-28 11:10 | EC ---
PATIENT:TREV JERRY DATE OF SERVICE: 05/23/19 SEX: M MEDICAL RECORD: [id number] DATE OF : 43 LOCATION:D. D.213 AGE OF PATIENT: 73 ADMISSION DATE: 05/23/19 REFERRING PHYSICIAN: INTERPRETING PHYSICIAN: NETTE ESPINO MD ECHOCARDIOGRAM REPORT ECHO CHARGES 5 ECHO LIMITED Date: 05/24/19 1 DOPPLER ECHO COLOR FLOW 2 DOPPLER ECHO PULSE CLINICAL DIAGNOSIS: A-FIB ECHOCARDIOGRAPHIC MEASUREMENTS (adult normal given) AC root (d.<3.7cm) 0 cm LV Septum d (<1.2 cm> 0 cm Valve Excursion 0 cm LV Septum (systole) 0 cm Left Atria (s.<4.0cm> 0 cm LVPW d(<1.2cm) 0 cm RV (d.<2.3cm) 2.7 cm LVPW (sytole) 0 cm LV diastole(<5.6CM) 0 cm MV E-F(>70mm/sec) 0 cm LV systole 0 cm LVOT Diameter 2.1 cm MV exc.(>10mm) 0 cm Est.ejection fraction (50-75%) % DOPPLER: LVIT 0 cm/sec A 0 cm/sec E 0 cm/sec LA 0 cm/sec RVSP 40.1 mmHg LVOT 0 cm/sec AOP1/2T 0 m/s Asc. Ao 0 cm/sec RVOT 0 cm/sec RA 0 cm/sec PA 0 cm/sec AV Gradient Peak 0 mmHg AV Mean 0 mmHg AV Area 0 cm MV Gradient Peak 0 mmHg MV Mean 0 mmHg MV Area 0 cm COMMENTS: LIMITED STUDY (2-D,COLOR,DOPPLER) COMPLETE ECHO DONE ON 05/08/19 Brush Worker: Efra CHÁVEZOE Restaurant Management Internship: 1 Dr. Espino TAPE# PACS Pericardial Effusion N DATE OF SERVICE: PROCEDURE: Echocardiogram. FINDINGS: 1. Left ventricular chamber size is within normal limits. Left ventricular systolic function is normal. Overall ejection fraction estimated at 55%. 2. Left atrium, right atrium and right ventricular chamber sizes are mildly dilated. 3. Valvular structures have normal structure and motion. ECHOCARDIOGRAM REPORT [id number] TREV JERRY 4. Doppler interrogation reveals only mild tricuspid regurgitation, no other valvular insufficiency or stenosis. Pulmonary systolic pressure is estimated at 40 mmHg. 5. No evidence of pericardial effusion or left ventricular thrombus. TRANSINT:[id number] Voice Confirmation ID: [id number] DOCUMENT ID: [id number] NETTE ESPINO MD at 1110 CC: [id number] DICTATION DATE: 05/25/19940 SUPERVISOR TYPESETTING: 05/25/19 1049 ADM IN [facility] [address] [place] [place] [id number]
--- NOTE | 2019-05-28 11:10 | CN ---
PATIENT NAME:TREV JERRY MEDICAL RECORD: [id number] : 43 LOCATION:[facility] D.2130 ADMIT DATE: 05/23/19 ACCOUNT: [id number] CONSULTING PHYSICIAN: NETTE MCCULLOUGH MD REFERRING PHYSICIAN: KVNG WHITE MD DATE OF CONSULTATION: 05/24/2019 CARDIOLOGY CONSULTATION DIAGNOSES: 1. Atrial fibrillation, chronic. 2. Shortness of breath, dyspnea on exertion. 3. Pneumonia. 4. Chronic obstructive pulmonary disease. 5. Smoking history. 6. Coronary artery disease. 7. Previous cardiac stenting. HISTORY OF PRESENT ILLNESS: Mr. Jerry presents with mental status changes, shortness of breath, pneumonia, found to be with atrial fibrillation with rapid response, heart rates in the 150s. He was previously on diltiazem and propranolol. His compliance is questionable then days prior to admission secondary to the pneumonia and mental status changes. He was placed on a Cardizem drip. His heart rate is in the 70s and 60s now with the chronic atrial fibrillation. He did have ST-T abnormalities with the EKG initially obtained, but he had no chest pain and no chest discomfort and has not had any chest pain or angina since. PHYSICAL EXAMINATION: CONSTITUTIONAL/GENERAL APPEARANCE: Well nourished, well developed, appears stated age. EYES: Lids and conjunctivae noninjected. No discharge. No pallor. ENT: Lips within normal limit. No cyanosis. No pallor. NECK: Carotid arteries, bilateral normal upstroke. No bruits. No thrills. No jugular venous pressure or distention. CERVICAL LYMPH NODES: Nontender. Nonenlarged. THYROID: Not enlarged. No nodules. CARDIOVASCULAR: Irregularly irregular, controlled rate of atrial fibrillation. RESPIRATORY: Respiratory effort, unlabored. Normal curvature. No thoracic deformity. No chest wall tenderness. Percussion, resonant. Auscultation, clear. No wheezes, no rales, no rhonchi. ABDOMEN: Soft, nondistended, nontender. No abdominal pain, no vomiting and normal appetite. MUSCULOSKELETAL: No joint tenderness, normal gait, normal tone. SKIN: Warm and dry. OVERALL IMPRESSION: Atrial fibrillation, chronic. Initially tachycardic, most likely secondary to medical noncompliance prior to admission with the diltiazem and propranolol. He is now on a Cardizem drip and has good rate control. We will discontinue the Cardizem drip restarting his oral diltiazem and propranolol, no other cardiac workup or treatment is necessary. TRANSINT:[id number] Voice Confirmation ID: [id number] DOCUMENT ID: [id number] CONSULT REPORT [id number] TREV JERRY, NETTE LO at 1110 CC: [id number] DICTATION DATE: 05/24/19 1411 ADULT CARE MANAGER: 05/24/19 2230 ADM IN [place] [id number] [place] [id number]
[2019-05-28] MEDS ORDERED: LEVOFLOXACIN500 MG PO (11:24)
[2019-05-28] MEDS ORDERED: MUCINEX600 MG PO (11:25)
[2019-05-28] MEDS ORDERED: FLUTICASONE PRO16 GM NASAL (11:26)
--- NOTE | 2019-05-28 12:19 | NUR ---
Rehab Note- The patient is too high level for acute inpatient rehab, has been signed off by PT at this time. THank you for this referral! Angelika Faustin RN Clinical Liaison, [facility] Rehab
--- NOTE | 2019-05-28 14:07 | NUR ---
BEEP INTO AMELIE DESAI APN FOR DISCHARGE ORDERS PATIENT'S FAMILY MEMBER STATES HE WAS SUPPOSE TO BE DISCHARGED 8 HOURS AGO. AMELIE TO CALL BACK AND TELL ME THAT SHE WAS FIXING HIS DISCHARGE MEDS AND THEN WOULD PLACE ORDERS.
--- NOTE | 2019-05-28 14:32 | MORECARE ---
CASE MANAGEMENT DISCHARGE SUMMARY PATIENT: TREV JERRY UNIT: [id number] ADM DATE: 05/23/19 AGE: 73 : 44 SEX: M ROOM/BED: D.2130 AUTHOR: WENDY,DOC PHYSICIAN: REFERRING PHYSICIAN: KVNG WHITE MD DATE OF SERVICE: 05/28/19 Discharge Plan Patient Name: TREV JERRY Facility: [facility]:[place] : 1945 Planned Disposition: Home Anticipated Discharge Date: 05/28/19 Discharge Date: Expected LOS: 5 Initial Reviewer: [email or web address] Initial Review Date: 05/28/2019 Generated: 05/28/19 3:32 pm DCPIA - Discharge Planning Initial Assessment Updated by MARÍA ELENA: Roby Licona on 05/28/19 2:28 pm * Is the patient Alert and Oriented? Yes * How many steps to enter\exit or inside your home? NONE * PCP [place] [facility] * [facility] [place] [facility]. * Preadmission Environment Home with Family * ADLs Partial Dependent * Partial ADLs (Assistance needed) Medication Management * Equipment CPAP Nebulizer Oxygen Shower Chair Wheelchair * Other Equipment DOES NOT USE CPAP HOME AND PORTABLE OXYGEN PROVIDED BY [facility] * List name and contact numbers for known caregivers / representatives who currently or will assist patient after discharge: LOUISE PARISH DTR, * Verbal permission to speak to the caregivers and representatives has been obtained from the patient. N/A * Community resources currently utilized None * Please name any agencies selected above. NONE * Additional services required to return to the preadmission environment? No * Can the patient safely return to the preadmission environment? Yes * Has this patient been hospitalized within the prior 30 days at any hospital? No Coverage Notice Reviewer: [email or web address] - Roby Licona Notice Issued Date-Time: 05/28/2019 14:15 Notice Type: IM Discharge Notice Notice Delivered To: Patient Relationship to Patient: Ink Jet Operator Name: Delivery Method: HAND - Hand Delivered Rosibel Days: Prior Verbal Notification: Recipient Understood Notice: Yes Recipient Signature: Yes Med Rec Note Co-signed by Attending: Coverage Notice Comment: Patient Name: TREV JERRY Page [phone] at 1432 All edits/amendments must be made on the electronic document DICTATION DATE: 05/28/191431 REELING MACHINE SETUP OPERATOR: FAVIAN 05/28/191431 RPT#: [id number] DC DATE: STATUS: ADM IN [facility] [address] [place] [address] END OF REPORT
--- NOTE | 2019-05-28 14:51 | MORECARE ---
CASE MANAGEMENT DISCHARGE SUMMARY PATIENT: TREV JERRY UNIT: [id number] ADM DATE: 05/23/19 AGE: 73 : 44 SEX: M ROOM/BED: D.2130 AUTHOR: WENDYDOC PHYSICIAN: REFERRING PHYSICIAN: KVNG WHITE MD DATE OF SERVICE: 05/28/19 Discharge Plan Patient Name: TREV JERRY Facility: [facility]:[place] : 1945 Planned Disposition: Home Anticipated Discharge Date: 05/28/19 Discharge Date: Expected LOS: 5 Initial Reviewer: [email or web address] Initial Review Date: 05/28/2019 Generated: 05/28/19 3:51 pm Comments DCP- Discharge Planning Updated by MARAÍ ELENA: Roby Licona on 05/28/19 1:[address] Patient Name: TREV JERRY Admission Status: ER Accout number: [id number] Admission Date: 05-23-2019 : 1945 Admission Diagnosis: Attending: KVNG WHITE Current LOS: 5 Anticipated DC Date: 05-28-2019 Planned Disposition: Home Primary Insurance: [employer] MEDICARE ADV Discharge Planning Comments: CM RECEIVED ORDER FOR INPATIENT REHAB PRESCREENING. CM MET WITH PT IN ROOM TO DISCUSS DISCHARGE PLANNING AND NEEDS. PT REPORTS LIVING AT HOME DEPENDENTLY ON ADULT DAUGHTER. PT HASCPAP, Nebulizer, Oxygen (HOME AND PORTABLE), Shower Chair, AND Wheelchair PROVIDED BY [facility]. PT HAS NO OUTSIDE SERVICES ASSISTING IN THE HOME. CM DISCUSSED AVAILABILITY OF HOME HEALTH, REHAB SERVICES AND MEDICAL EQUIPMENT. PT DENIES DISCHARGE NEEDS, DENIES NEED OF REHAB SERVICES, HOME HEALTH OR FURTHER MEDICAL EQUIPMENT. PT REPORTS HIS DAUGHTER WILL PICK HIM UP FOR DISCHARGE HOME. IMPORTANT MESSAGE FROM MEDICARE PROVIDED AND EXPLAINED. Specialist Icu: Roby Licona DCPIA - Discharge Planning Initial Assessment Updated by [email or web address]: Roby Licona on 05/28/19 2:28 pm * Is the patient Alert and Oriented? Yes * How many steps to enter\exit or inside your home? NONE * [facility]CP [facility] * [facility]. * Preadmission Environment Home with Family * ADLs Partial Dependent * Partial ADLs (Assistance needed) Medication Management * Equipment CPAP Nebulizer Oxygen Shower Chair Wheelchair * Other Equipment DOES NOT USE CPAP HOME AND PORTABLE OXYGEN [facility] * List name and contact numbers for known caregivers / representatives who currently or will assist patient after discharge: LOUISE PARISH DTR, * Verbal permission to speak to the caregivers and representatives has been obtained from the patient. N/A * Community resources currently utilized None * Please name any agencies selected above. NONE * Additional services required to return to the preadmission environment? No * Can the patient safely return to the preadmission environment? Yes * Has this patient been hospitalized within the prior 30 days at any hospital? No Coverage Notice Reviewer: [email or web address] Diana Lciona Notice Issued Date-Time: 05/28/2019 14:15 Notice Type: IM Discharge Notice Notice Delivered To: Patient Relationship to Patient: Personal Banking Officer Name: Delivery Method: HAND - Hand Delivered Rosibel Days: Prior Verbal Notification: Recipient Understood Notice: Yes Recipient Signature: Yes Med Rec Note Co-signed by Attending: Coverage Notice Comment: Last DP export: 05/28/19 1:32 Patient Name: TREV JERRY Page [phone] at 1451 All edits/amendments must be made on the electronic document DICTATION DATE: 05/28/191450 LAW SECRETARY: FAVIAN 05/28/191450 RPT#: [id number] DC DATE: STATUS: ADM IN [facility] [address] [place] [address] END OF REPORT
[2019-05-28] MEDS ORDERED: PREDNISONE20 MG PO (14:52)
--- NOTE | 2019-05-28 15:02 | NUR ---
PER PATIENT REQUEST, I CALLED RACHANA AT [facility]. PATIENT WILL NOT RECEIVE FLU SHOT HE WAS IN WITH PNEUMONIA AND GOING HOME ON ANTIBIOTCS.
--- NOTE | 2019-05-28 15:56 | NUR ---
DISCHARGED PATIENT. REMOVED IV FROM RIGHT WRIST CATHETER INTACT. DISCHARGE TEACHING DONE PAPERS SIGNED. PATIENT REMOVED ALL HIS BELONGINGS FROM THE ROOM. HE WENT DOWNSTAIRS BY WHEELCHAIR, AND IS GOING HOME WITH A FAMILY MEMBER.
== END 2019-05-28 15:58 | disposition home or self-care (01) | DRG 871 ==
LOC: D.ER 17:03 → D.ICU 20:36 → D.M2 20:36
PROVIDERS: Family Medicine; ADMIT Internal Medicine Nephrology; ATTEND Internal Medicine Nephrology
DX: A41.9 Sepsis, unspecified organism (principal); J18.9 Pneumonia, unspecified organism; G93.41 Metabolic encephalopathy; J96.22 Acute and chronic respiratory failure with hypercapnia; J96.21 Acute and chronic respiratory failure with hypoxia; I50.30 Unspecified diastolic (congestive) heart failure; F17.213 Nicotine dependence, cigarettes, with withdrawal; J98.11 Atelectasis; I13.0 Hypertensive heart and chronic kidney disease with heart failure and stage 1 through stage 4 chronic kidney disease, or unspecified chronic kidney disease; J43.9 Emphysema, unspecified; I48.91 Unspecified atrial fibrillation; I25.10 Atherosclerotic heart disease of native coronary artery without angina pectoris; S00.83XA Contusion of other part of head, initial encounter; S20.212A Contusion of left front wall of thorax, initial encounter; Y04.0XXA Assault by unarmed brawl or fight, initial encounter; R55 Syncope and collapse; E87.6 Hypokalemia; N18.9 Chronic kidney disease, unspecified; D63.1 Anemia in chronic kidney disease

== ENCOUNTER 2019-06-22 10:04 | Inpatient (IN) | payer MEDICARE ==
[~2019-06-22] VITALS: Ht 189.2 cm; Wt 96.7 kg
[2019-06-22 12:52] LABS: BASOPHILS 0.2 % (0-2); EOSINOPHILS 1.3 % (0-7); HEMATOCRIT 42.1 % (42.0-54.0); HEMOGLOBIN 14.1 g/dL (13.5-17.5); IMMATURE GRANULOCYTES 0.5 % (0-5); LYMPHOCYTES 14.9 % (15-50); MCH 32.5 pg (26.0-34.0); MCHC 33.5 g/dL (31.0-37.0); MEAN PLATELET VOLUME 10.8 fL (7.4-10.4); MONOCYTES 8.2 % (2-11); NEUTROPHILS 74.9 % (40-80); RBC 4.34 10x6/uL (4.20-6.10); RDW 16.1 % (11.5-14.5); WBC 6.3 10x3/uL (4.8-10.8)
[2019-06-22 12:58] LABS: PLATELET COUNT 212 10x3/uL (130-400)
[2019-06-22 13:00] LABS: CALC OSMOLALITY 269 mosm/kg (275-300); CARBON DIOXIDE 37.8 mmol/L (21.0-32.0); CHLORIDE - SERUM 98 mmol/L (98-107); CREATININE - SERUM 0.8 mg/dL (0.6-1.3); GLUCOSE 98 mg/dL (74-106); POTASSIUM - SERUM 4.1 mmol/L (3.5-5.1); SODIUM 134 mmol/L (136-145); UREA NITROGEN 18 mg/dL (7-18); eGFR NON AFRICAN AMERICAN > 90 mL/min (90-120)
[2019-06-22 13:18] LABS: ALBUMIN 3.4 g/dL (3.4-5.0); ALKALINE PHOSPHATASE 147 U/L (46-116); ALT (SGPT) 29 U/L (10-68); APTT 29.6 SECONDS (22.8-39.4); BILIRUBIN - TOTAL 1.12 mg/dL (0.2-1.3); CKMB 2.1 U/L (0.0-3.6); CREATINE KINASE 120 UL (21-232); INR 1.09 (0.85-1.17); PRO BNP 3193 pg/mL (0-450); PROTEIN - SERUM 7.2 g/dL (6.4-8.2); PROTIME 13.6 SECONDS (11.6-15.0); TROPONIN-I < 0.017 ng/mL (0.000-0.060)
[2019-06-22 14:11] VITALS: BP 164/74
[2019-06-22 14:24] LABS: CKMB 2.3 U/L (0.0-3.6); CREATINE KINASE 139 UL (21-232)
[2019-06-22 14:25] LABS: TROPONIN-I < 0.017 ng/mL (0.000-0.060)
--- NOTE | 2019-06-22 15:40 | NUR ---
PT SITTING UP IN BED. RESPIRATIONS ARE EVEN AND UNLABORED. NO IDSTRESS NOTED. ADVISED PT ON DELAY OF CARE AND PLAN OF CARE.
[2019-06-22 16:34] VITALS: BMI 25.3
--- NOTE | 2019-06-22 17:44 | MORECARE ---
CASE MANAGEMENT DISCHARGE SUMMARY PATIENT: TREV JERRY UNIT: [id number] ADM DATE: 06/22/19 AGE: 74 : 44 SEX: M ROOM/BED: D.2114 AUTHOR: ANDRIY NGUYEN PHYSICIAN: REFERRING PHYSICIAN: KVNG WHITE MD DATE OF SERVICE: 06/22/19 Discharge Plan Patient Name: TREV JERRY Facility: [facility]:[place] : 1945 Planned Disposition: Home Anticipated Discharge Date: 06/23/19 Discharge Date: Expected LOS: 1 Initial Reviewer: [email or web address] Initial Review Date: 06/22/2019 Generated: 06/22/19 6:44 pm DCP- Discharge Planning Updated by [id number]: Emily Mcfarland on 06/22/19 4:[address] DC PLAN: Return home vs geripsych ANTICIPATED DC NEEDS: New onset confusion, hallucinations, and behavior issues according to dtr. CM met with patient and his daughter to complete initial dc planning assessment. CM educated them on the CM role and verbal consent given by patient's daughter to complete assessment. CM verified patient's address, phone number, and emergency contact phone numbers. Patients daughter reports for the past few days patient has had new onset confusion, hallucinations, and behavior issues. She said he has never have these behaviors in the past. Patient lives at home with his daughter, Autumn. At discharge Autumn stated he will return home with her or he may require geripsych if the AMS dose not clear up. CM discussed availability of home health, rehab services, and medical equipment. Unsure what dc needs at this time will be. Transportation provider at discharge will be Autumn if he dc to home . CM will continue to follow and will assist as needed with dc plans/needs. Emily Mcfarland RN, CCM DCPIA - Discharge Planning Initial Assessment Updated by [id number]: Emily Mcfarland on 06/22/19 5:35 pm * Is the patient Alert and Oriented? No * [facility] * Preadmission Environment Home with Family * ADLs Partial Dependent * Partial ADLs (Assistance needed) Medication Management * Equipment Cane Nebulizer Oxygen Rolling Walker Wheelchair * Other Equipment CPAP - [facility] * List name and contact numbers for known caregivers / representatives who currently or will assist patient after discharge: Autumn Reynolds - maurisio - [phone] * Verbal permission to speak to the caregivers and representatives has been obtained from the patient. Yes * Community resources currently utilized None * Additional services required to return to the preadmission environment? Yes * Can the patient safely return to the preadmission environment? Yes * Has this patient been hospitalized within the prior 30 days at any hospital? Yes Patient Name: TREV JERRY Page [phone] at 1744 All edits/amendments must be made on the electronic document DICTATION DATE: 06/22/191743 RESOLUTION EXPERT: FAVIAN 06/22/191743 RPT#: [id number] [place] DATE: STATUS: ADM IN [facility] [address] [place] [address] END OF REPORT
--- NOTE | 2019-06-22 19:22 | NUR ---
RECIEVED LAYING IN BED YELLING OUT. TALKING WITH NO ONE IN THE ROOM. IV TO LEFT FA. WILL START CARTIZEM WHEN ARRIVES. ALERT AND ORIENTED TO PERSON ONLY. TRIES TO CLIMB OUT OF THE BED. EASILY REDIRECTED BACK TO BED.
[2019-06-22 19:57] LABS: CKMB 1.5 U/L (0.0-3.6); CREATINE KINASE 144 UL (21-232); TROPONIN-I 0.025 ng/mL (0.000-0.060)
[2019-06-22 20:00] VITALS: BP 131/102
--- NOTE | 2019-06-22 20:01 | NUR ---
CONT TO TRY AND GET OUT OF BED. REDIRECTED SEVERAL TIMES. CARDIZEM INFUSING AT 5CC/HR ORDERED. CONT TO BE CONFUSED.
[2019-06-23] VITALS: BP 122/73
--- NOTE | 2019-06-23 00:19 | NUR ---
PULLED OUT IV X2. RESTARTED X2 IN LEFT WRIST THEN THE LEFT HAND. CARDIZEM INFUSING AT10CC/HR. REMAINS IN UCAF. ALSO, HAS HAD 2 INCONTINENT EPISODES.
[2019-06-23 02:15] LABS: BASOPHILS 0.3 % (0-2); EOSINOPHILS 2.2 % (0-7); HEMATOCRIT 39.9 % (42.0-54.0); HEMOGLOBIN 13.4 g/dL (13.5-17.5); IMMATURE GRANULOCYTES 0.6 % (0-5); LYMPHOCYTES 18.6 % (15-50); MCH 32.3 pg (26.0-34.0); MCHC 33.6 g/dL (31.0-37.0); MCV 96.1 fL (80.0-100.0); MEAN PLATELET VOLUME 10.6 fL (7.4-10.4); MONOCYTES 12.3 % (2-11); PLATELET COUNT 218 10x3/uL (130-400); RBC 4.15 10x6/uL (4.20-6.10); RDW 16.2 % (11.5-14.5); WBC 6.5 10x3/uL (4.8-10.8)
[2019-06-23 02:19] LABS: APTT 35.4 SECONDS (22.8-39.4); INR 1.16 (0.85-1.17); PROTIME 14.3 SECONDS (11.6-15.0)
[2019-06-23 02:35] LABS: CALC OSMOLALITY 275 mosm/kg (275-300); CALCIUM 8.7 mg/dL (8.5-10.1); CARBON DIOXIDE 38.3 mmol/L (21.0-32.0); CHLORIDE - SERUM 100 mmol/L (98-107); CKMB 1.3 U/L (0.0-3.6); CREATINE KINASE 148 UL (21-232); CREATININE - SERUM 0.9 mg/dL (0.6-1.3); GLUCOSE 97 mg/dL (74-106); MAGNESIUM - SERUM 1.8 mg/dL (1.8-2.4); PHOSPHOROUS 3.6 mg/dL (2.5-4.9); PRO BNP 1822 pg/mL (0-450); SODIUM 137 mmol/L (136-145); THYROID STIMULATING HORMONE 3.67 uIU/mL (0.36-3.74); TROPONIN-I < 0.017 ng/mL (0.000-0.060); UREA NITROGEN 17 mg/dL (7-18); eGFR NON AFRICAN AMERICAN 87 mL/min (90-120)
[2019-06-23 02:36] LABS: POTASSIUM - SERUM 3.4 mmol/L (3.5-5.1)
[2019-06-23 03:21] LABS: APPEARANCE CLEAR (CLEAR); BILIRUBIN NEGATIVE (NEGATIVE); COLOR YELLOW (YELLOW); GLUCOSE NEGATIVE (NEGATIVE); KETONE NEGATIVE (NEGATIVE); NITRITE NEGATIVE (NEGATIVE); PROTEIN NEGATIVE (NEGATIVE); SPECIFIC GRAVITY 1.005 (1.005-1.020); UROBILINOGEN NORMAL (NORMAL)
[2019-06-23 04:30] VITALS: BP 135/86
--- NOTE | 2019-06-23 07:15 | NUR ---
RECEIVED PT IN BED EYES CLOSED RESP UNLABORED NAD NOTED
[2019-06-23 08:06] VITALS: BP 133/78
[2019-06-23 08:28] VITALS: Ht 189.2 cm; Wt 96.7 kg
[2019-06-23 11:43] VITALS: BP 132/71
[2019-06-23 12:57] LABS: % SATURATION 18 % (15-55); IRON 50 ug/dl (35-150); TOTAL IRON BIND CAPACITY 275 ug/dl (260-445); UNSAT IRON BIND CAPACITY 225 ug/dl (150-375)
[2019-06-23 13:23] LABS: FERRITIN 175 ng/mL (3-244)
[2019-06-23 15:58] VITALS: BP 114/69
--- NOTE | 2019-06-23 19:07 | NUR ---
RECIEVED BEDSIDE SHIFT REPORT. LYING IN BED WITH EYES CLOSED. EASILY AROUSES WITH VERBAL STIMULI. ORIENTED X4. CALM AND COOPERATIVE . NO BEHAVIORS REPORTED. RIGHT ARM RESERVED D/T MALFORMATION. IV TO LEFT HAND WITH CARDIZEM AT 10CC/HR. FALL PRECAUTIONS IN PLACE. SCABS TO LEFT ELBOW AND RIGHT KNEE. DENIES FALLING AT HOME. DENIES ANY NEEDS AT THIS TIME.
[2019-06-23 20:00] VITALS: BP 112/61
[2019-06-24] VITALS (7 sets, daily range): BP systolic 107–129; BP diastolic 64–79
[2019-06-24 04:48] LABS: BASOPHILS 0.2 % (0-2); EOSINOPHILS 3.3 % (0-7); HEMATOCRIT 40.7 % (42.0-54.0); HEMOGLOBIN 13.3 g/dL (13.5-17.5); IMMATURE GRANULOCYTES 0.5 % (0-5); LYMPHOCYTES 23.9 % (15-50); MCH 32.2 pg (26.0-34.0); MCHC 32.7 g/dL (31.0-37.0); MEAN PLATELET VOLUME 10.8 fL (7.4-10.4); MONOCYTES 11.8 % (2-11); NEUTROPHILS 60.3 % (40-80); PLATELET COUNT 229 10x3/uL (130-400); RBC 4.13 10x6/uL (4.20-6.10); RDW 17.1 % (11.5-14.5); WBC 6.3 10x3/uL (4.8-10.8)
[2019-06-24 04:50] LABS: MCV 98.5 fL (80.0-100.0)
[2019-06-24 05:11] LABS: CALC OSMOLALITY 284 mosm/kg (275-300); CALCIUM 8.5 mg/dL (8.5-10.1); CARBON DIOXIDE 35.2 mmol/L (21.0-32.0); CHLORIDE - SERUM 102 mmol/L (98-107); GLUCOSE 95 mg/dL (74-106); MAGNESIUM - SERUM 1.9 mg/dL (1.8-2.4); PHOSPHOROUS 3.2 mg/dL (2.5-4.9); POTASSIUM - SERUM 3.2 mmol/L (3.5-5.1); SODIUM 142 mmol/L (136-145); UREA NITROGEN 18 mg/dL (7-18); eGFR NON AFRICAN AMERICAN 77 mL/min (90-120)
--- NOTE | 2019-06-24 09:29 | NUR ---
TELEMETRY UCAF. HR 110. RESP UL ON 02 3L NC. CARDIAEM GTT INFUSING. ASSISTED UP SOB TO URINATE. REFUSES PT AT THIS TIME. BED ALARM ON. WILL CONT. PLAN OF CARE.
[2019-06-24 16:32] LABS: ERYTHROCYTE SEDIMENTATION RATE 5 mm/hr (0-20)
--- NOTE | 2019-06-24 19:08 | NUR ---
RECIEVED UP IN BED WITH EYES CLOSED. EASILY AROUSES WITH VERBAL STIMULI. ORIENTED X4. UP TO BEDSIDE WITH ASSIST. O2@ 3 LITERS PER N/C IN PLACE. IV TO LEFT HAND SL.. RIGHT ARM RESERVED. BED ALARM IN PLACE. DENIES ANY NEEDS AT THIS TIME.
--- NOTE | 2019-06-24 19:22 | NUR ---
RECIEVED BEDSIDE SHIFT REPORT. ALERT AND ORIENTED X4. UP WITH ASSIST. IV TO LEFT HAND. CARDIZEM INFUSING AT 10CC/HR. TELEMETRY IN PLACE. SCABS TO ELBOW AND KNEE. DENIES ANY NEEDS AT THIS TIME.
[2019-06-25 04:00] VITALS: BP 123/66
[2019-06-25 06:15] LABS: BASOPHILS 0.1 % (0-2); HEMATOCRIT 41.3 % (42.0-54.0); HEMOGLOBIN 13.4 g/dL (13.5-17.5); IMMATURE GRANULOCYTES 0.2 % (0-5); LYMPHOCYTES 14.4 % (15-50); MCH 32.3 pg (26.0-34.0); MCHC 32.4 g/dL (31.0-37.0); MCV 99.5 fL (80.0-100.0); MEAN PLATELET VOLUME 11.1 fL (7.4-10.4); MONOCYTES 7.4 % (2-11); NEUTROPHILS 75.9 % (40-80); PLATELET COUNT 255 10x3/uL (130-400); RBC 4.15 10x6/uL (4.20-6.10); RDW 17.4 % (11.5-14.5)
[2019-06-25 06:22] LABS: WBC 8.8 10x3/uL (4.8-10.8)
[2019-06-25 06:31] LABS: CALC OSMOLALITY 289 mosm/kg (275-300); CALCIUM 8.7 mg/dL (8.5-10.1); CARBON DIOXIDE 34.7 mmol/L (21.0-32.0); CHLORIDE - SERUM 102 mmol/L (98-107); GLUCOSE 99 mg/dL (74-106); PHOSPHOROUS 2.6 mg/dL (2.5-4.9); POTASSIUM - SERUM 3.8 mmol/L (3.5-5.1); SODIUM 144 mmol/L (136-145); UREA NITROGEN 22 mg/dL (7-18); eGFR NON AFRICAN AMERICAN 77 mL/min (90-120)
--- NOTE | 2019-06-25 07:50 | NUR ---
RECEIVED PT IN BED AAOX4 RESP UNLABORED SKIN W/D COLOR WNL PT DENIES ANY PAIN OR NEEDS AT THIS TIME
[2019-06-25 09:00] VITALS: BP 114/73
--- NOTE | 2019-06-25 09:29 | NUR ---
DR BELL NOTIFIED OF PT HEART RATE UP TO 200 UNCAF UPON EXERTION RATE IS STAYING ABOVE 110 AT REST
--- NOTE | 2019-06-25 11:23 | NUR ---
spoke with carson in metallurg[employer] laboratory technician stated she would relay to dr mazariegos pt's heart rate systaining ucaf 150s-160s
[2019-06-25 11:46] VITALS: BP 94/60
--- NOTE | 2019-06-25 15:09 | NUR ---
OT NOTE: PT COMPLETED BED MOB, EOB SITTING, AND SIT TO STAND WITH SBA. PT COMPLETED FACE/HAND WASHING WITH SET UP AT EOB. THANK YOU,ANTONIA DURÁN
[2019-06-25 16:16] VITALS: BP 124/59
[2019-06-25 20:00] VITALS: BP 126/64
[2019-06-26 00:30] VITALS: BP 132/63
[2019-06-26 04:00] VITALS: BP 117/64
[2019-06-26 05:08] LABS: BASOPHILS 0.1 % (0-2); EOSINOPHILS 2.6 % (0-7); HEMATOCRIT 38.6 % (42.0-54.0); HEMOGLOBIN 12.4 g/dL (13.5-17.5); IMMATURE GRANULOCYTES 0.3 % (0-5); LYMPHOCYTES 18.2 % (15-50); MCHC 32.1 g/dL (31.0-37.0); MCV 99.7 fL (80.0-100.0); MEAN PLATELET VOLUME 10.7 fL (7.4-10.4); MONOCYTES 9.1 % (2-11); NEUTROPHILS 69.7 % (40-80); PLATELET COUNT 239 10x3/uL (130-400); RBC 3.87 10x6/uL (4.20-6.10); RDW 17.2 % (11.5-14.5)
[2019-06-26 05:31] LABS: CALC OSMOLALITY 287 mosm/kg (275-300); CALCIUM 8.2 mg/dL (8.5-10.1); CARBON DIOXIDE 33.3 mmol/L (21.0-32.0); CHLORIDE - SERUM 104 mmol/L (98-107); CREATININE - SERUM 0.9 mg/dL (0.6-1.3); GLUCOSE 90 mg/dL (74-106); MAGNESIUM - SERUM 1.9 mg/dL (1.8-2.4); PHOSPHOROUS 3.2 mg/dL (2.5-4.9); POTASSIUM - SERUM 3.3 mmol/L (3.5-5.1); SODIUM 143 mmol/L (136-145); UREA NITROGEN 20 mg/dL (7-18); eGFR NON AFRICAN AMERICAN 87 mL/min (90-120)
--- NOTE | 2019-06-26 07:15 | NUR ---
RECEIVED PT IN BED AAOX4 RESP UNLABORED SKIN W/D COLOR WNL DENIES ANP NEEDS OR DISCOMFORT AT THIS TIME
[2019-06-26 08:51] VITALS: BP 118/61
[2019-06-26 12:02] VITALS: BP 146/71
--- NOTE | 2019-06-26 13:48 | NUR ---
Nutrition Follow-up: Pt reports good appetite/PO intake. Eating lunch at time of visit and reports 100% of breakfast eaten this AM. Noted ST signed off. Diet: NPO (per chart) PO intake: 75-100% Wt: 192# Last BM: 06/26 Labs noted: K+ 3.3 Meds noted: Lasix, KDur, Remeron -Rec resume cardiac diet if medically feasible -RD following.
[2019-06-26 16:00] VITALS: BP 140/82
--- NOTE | 2019-06-26 16:18 | NUR ---
OT NOTE: PT COMPLETED ADL MOB WITH CGA. PT COMPLETED SIT TO STAND WITH CGA. PT COMPLETED UB HYGIENE TASKS WITH SETUP. PT EXHIBITS POOR SAFETY AWARENESS. THANK YOU, ANTONIA DURÁN
--- NOTE | 2019-06-26 19:13 | NUR ---
RECEIVED BEDSIDE REPORT. PATIENT IS ALERT AND ORIENTED. SITTING UP IN CHAIR. RESPIRATIONS ARE EVEN AND UNLABORED. PATIENT IS CURRENTLY RECEIVING A SCHEDULED BREATHING TREATMENT. NO NEEDS AT THIS TIME. NO S/S OF DISTRESS. NO C/O PAIN. CALL LIGHT WITHIN REACH. WILL CPOC.
[2019-06-26 20:00] VITALS: BP 138/66
[2019-06-27] VITALS (10 sets, daily range): BP systolic 92–144; BP diastolic 49–67
[2019-06-27 05:06] LABS: BASOPHILS 0.1 % (0-2); EOSINOPHILS 3.1 % (0-7); HEMATOCRIT 36.1 % (42.0-54.0); HEMOGLOBIN 11.5 g/dL (13.5-17.5); IMMATURE GRANULOCYTES 0.4 % (0-5); LYMPHOCYTES 18.7 % (15-50); MCH 31.9 pg (26.0-34.0); MCHC 31.9 g/dL (31.0-37.0); MCV 100.3 fL (80.0-100.0); MEAN PLATELET VOLUME 10.9 fL (7.4-10.4); MONOCYTES 11.5 % (2-11); NEUTROPHILS 66.2 % (40-80); PLATELET COUNT 257 10x3/uL (130-400); RDW 17.3 % (11.5-14.5); WBC 6.7 10x3/uL (4.8-10.8)
[2019-06-27 05:26] LABS: CALC OSMOLALITY 283 mosm/kg (275-300); CALCIUM 8.4 mg/dL (8.5-10.1); CARBON DIOXIDE 34.3 mmol/L (21.0-32.0); CHLORIDE - SERUM 103 mmol/L (98-107); CREATININE - SERUM 0.8 mg/dL (0.6-1.3); GLUCOSE 90 mg/dL (74-106); MAGNESIUM - SERUM 1.9 mg/dL (1.8-2.4); PHOSPHOROUS 3.6 mg/dL (2.5-4.9); SODIUM 141 mmol/L (136-145); UREA NITROGEN 20 mg/dL (7-18); eGFR NON AFRICAN AMERICAN > 90 mL/min (90-120)
[2019-06-27 05:32] LABS: POTASSIUM - SERUM 3.8 mmol/L (3.5-5.1)
--- NOTE | 2019-06-27 07:56 | NUR ---
OT NOTE(LATE ENTRY FOR 06/26): PT REMAINS CONFUSED AND AGITATED. ATTEMPTS MADE TO APPLY ARM BRACE BUT PT CONTINUED TO REFUSE. PT VERY UNSAFE WITH IN ROOM AMBULATION. BALANCE IS POOR AND PT VERY IMPULSIVE. HIGH FALL RISK. CARRI EVANS, OTR/L
--- NOTE | 2019-06-27 10:50 | NUR ---
PRE-OPS GIVEN. TO OR LAB BED.
[2019-06-27 13:40] LABS: BASOPHILS 0.2 % (0-2); HEMATOCRIT 32.2 % (42.0-54.0); HEMOGLOBIN 10.2 g/dL (13.5-17.5); IMMATURE GRANULOCYTES 0.8 % (0-5); LYMPHOCYTES 15.1 % (15-50); MCH 32.1 pg (26.0-34.0); MCHC 31.7 g/dL (31.0-37.0); MCV 101.3 fL (80.0-100.0); MEAN PLATELET VOLUME 10.6 fL (7.4-10.4); MONOCYTES 10.2 % (2-11); NEUTROPHILS 71.7 % (40-80); RBC 3.18 10x6/uL (4.20-6.10); RDW 17.4 % (11.5-14.5); WBC 6.5 10x3/uL (4.8-10.8)
[2019-06-27 13:45] LABS: PLATELET COUNT 202 10x3/uL (130-400)
[2019-06-27 14:54] LABS: BASOPHILS 0.1 % (0-2); HEMATOCRIT 32.8 % (42.0-54.0); HEMOGLOBIN 10.5 g/dL (13.5-17.5); IMMATURE GRANULOCYTES 0.6 % (0-5); LYMPHOCYTES 7.4 % (15-50); MCH 32.2 pg (26.0-34.0); MCV 100.6 fL (80.0-100.0); MEAN PLATELET VOLUME 10.8 fL (7.4-10.4); MONOCYTES 3.6 % (2-11); NEUTROPHILS 87.3 % (40-80); RBC 3.26 10x6/uL (4.20-6.10); RDW 17.4 % (11.5-14.5)
[2019-06-27 14:56] LABS: PLATELET COUNT 271 10x3/uL (130-400); WBC 9.1 10x3/uL (4.8-10.8)
--- NOTE | 2019-06-27 16:31 | NUR ---
BACK FROM OR. RIGHT SHOULDER DRSG CDI WITH TAYLOR DRAIN NOTED. VS STABLE. WILL CONT. PLAN OF CARE.
[2019-06-27 17:38] LABS: HEMATOCRIT 30.8 % (42.0-54.0); HEMOGLOBIN 9.4 g/dL (13.5-17.5)
--- NOTE | 2019-06-27 19:17 | NUR ---
BARTOLOME FULTON APN ON FLOOR HAD HIM CHECK PATIENT. BP CONTINUE TO BE LOW. ORDERS FOR TO LOWER CARDIZEM TO 5 AND H&H TO BE CHECKED AT MIDNIGHT.
--- NOTE | 2019-06-27 20:50 | NUR ---
CALLED TO PATIENT ROOM FOR RAPID RESPONSE AT 2039 UPON ENTERING ROOM PATIENT PATIENT WAS LYING SUPINE WITH HOB ELEVATED. BP WAS 75/48 (57) PATIENT C/O DIZZINESS. LUNGS CTA RESPIRATIONS UNLABORED BUT PATIENT DOES HAVE PURSED LIP BREATHING. HEART TONES IRREG RHYTHM AUSC. LEGS ARE MOTTLED AND COOL. R UPPER ARM WITH BANDAGE AND SLING IN PLACE. SMALL AREA OF BLOOD NOTED ON SLING, AREA WAS MARKED AND WILL CONTINUE TO MONITOR. NO BLOOD NOTED DOWN IN SLING AT THIS TIME. DR. ARROYO NOTIFED OF PATIENT CONDITION AND NEW ORDERS RECEIVED. TRANSFUSE 2 UNITS OF PRBC'S STAT AND DRAW H AND H AFTER TRANSFUSION COMPLETE. DAVOL DRAIN COMPRESSED FLAT AT THIS TIME. NO BLOOD WAS NOTED IN DAVOL DRAIN AT THIS TIME.
--- NOTE | 2019-06-27 21:30 | NUR ---
SPOKE WITH MARCOS CH FOR INDIRA AND HOLD MILENA FOR NIGHAT.
--- NOTE | 2019-06-27 21:37 | NUR ---
SPOKE WITH BARTOLOME LOUISE APN NEW ORDERS RECEIVED, DO ABG NOW AND HOLD REMERON FOR TONIGHT.
--- NOTE | 2019-06-27 21:45 | NUR ---
PT RECIEVED VIA BED, A/OX4, LUNGS CLEAR, O2 @ 8L VIA N/C, LEFT ARM PIV X3 INTACT WITH NS BOLUS INFUSING, RIGHT ARM IN SLING WITH DRESSING TO RIGHT UPPER ARM, DAVOL DRAIN INTACT AND COMPRESSED, PULSES PRESENT, NO DISTRESS NOTED
--- NOTE | 2019-06-27 22:10 | NUR ---
BLOOD TRANSFUSION BEGAN VIA LEFT PIV, VITALS STABLE, ABG'S DRAWN BY RT
--- NOTE | 2019-06-27 22:25 | NUR ---
PAGED DR LION FOR CONSULT, DR LION CALLED BACK AND WAS GIVEN SITUATION AND ABG RESULTS, RECIEVED ORDERS TO PLACE PT ON BIPAP
[2019-06-28] VITALS (46 sets, daily range): BP systolic 99–160; BP diastolic 36–107
--- NOTE | 2019-06-28 00:30 | NUR ---
PT REMAINS AWAKE, ON BIPAP, ASKING IF HE CAN TAKE OFF BIPAP, INSTRUCTED PT THAT DR LION WANTED HIM ON BIPAP UNTIL THE AM, PT AGREEABLE
--- NOTE | 2019-06-28 01:30 | NUR ---
TRANSFUSION COMPLETED, PT REMAINS AWAKE WATCHING TV , BIPAP IN USE
--- NOTE | 2019-06-28 01:57 | NUR ---
BEGAN 2ND UNIT PRBC TRANSFUSION, PLACED WARM BLANKET OVER PT, ENCOURAGED PT TO GO TO SLEEP
--- NOTE | 2019-06-28 03:20 | NUR ---
PT AWAKE, PULLING AT WIRES AND BIPAP MASK, PT ASKED WHAT HAPPENED LAST NIGHT, NOTED MILD CONFUSION, FOLLOWS COMMANDS, WILL CONT TO MONITOR
[2019-06-28 06:44] LABS: ANION GAP 10.2 mmol/L (8-16); CALCIUM 7.2 mg/dL (8.5-10.1); CARBON DIOXIDE 29.3 mmol/L (21.0-32.0); CREATININE - SERUM 1.7 mg/dL (0.6-1.3); POTASSIUM - SERUM 5.5 mmol/L (3.5-5.1)
--- NOTE | 2019-06-28 07:15 | NUR ---
REPORT RECIEVED. ASSESSMENT COMPLETE PER FLOW SHEET. VSS. PT RESTING COMFORTABLY WILL CONTINUE TO MONITOR
[2019-06-28 07:47] LABS: HEMATOCRIT 31.9 % (42.0-54.0); HEMOGLOBIN 10.3 g/dL (13.5-17.5)
--- NOTE | 2019-06-28 08:25 | NUR ---
PT ASSISTED TO BEDSIDE FOR BREAKFAST ATE 100%. GIVEN AM MEDICATIONS.
--- NOTE | 2019-06-28 09:10 | NUR ---
PT DAUGHTER AT BEDSIDE. DAUGHTER UPSET NO ONE NOTIFIED HER OR BIANCA OF PT BEING MOVED TO ICU. KAREN WIGGINS RN NOTIFIED OF DAUGHTERS COMPLAINT.
--- NOTE | 2019-06-28 11:00 | NUR ---
REASSESSMENT COMPLETE PER FLOW SHEET. VSS. DR CH AT BEDSIDE NEW ORDERS RECIEVED DSG CHANGE ADM.
--- NOTE | 2019-06-28 13:00 | NUR ---
GIVEN LUNCH TRAY ATE 100%
--- NOTE | 2019-06-28 15:00 | NUR ---
REASSESSMENT COMPLETE PER FLOW SHEET. VSS. NO NEW CHANGES WILL CONTINUE TO MONITOR
--- NOTE | 2019-06-28 17:00 | NUR ---
PT RESTING COMFORTABLY WILL CONTINUE TO MONITOR
--- NOTE | 2019-06-28 19:30 | NUR ---
PT A/OX4, WATCHING TV WITH NO C/O, DRESSING INTACT TO RIGHT SHOULDER AND UPPER ARM, SLING TO RIGHT ARM, LEFT PIV INTACT WITH NS @ KVO, URINAL IN REACH AT BEDSIDE, DAVOL DRAIN INTACT TO RIGHT ARM, VITALS STABLE, WILL CONT TO MONITOR
--- NOTE | 2019-06-28 21:15 | NUR ---
PT SITS UP ON SIDE OF BED WITH ASSIST, TAKES PO MEDS WITHOUT DIFFICULTY, CONT TO WATCH TV WITH NO C/O
--- NOTE | 2019-06-28 22:52 | NUR ---
DR. MCCULLOUGH NOTIFIED OF A FLUTTER RATE 144, NEW ORDERS REC'D.
[2019-06-29] VITALS (12 sets, daily range): BP systolic 108–162; BP diastolic 57–81
--- NOTE | 2019-06-29 01:00 | NUR ---
PT RESTING QUIETLY WITH BIPAP IN USE, VITALS STABLE, NO DISTRESS NOTED
--- NOTE | 2019-06-29 03:31 | NUR ---
PT AWAKE, O2 @ 6L VIA N/C, WATCHING TV WITH NO C/O, RIGHT ARM REMAINS IMMOBLE WITH SLING IN USE
[2019-06-29 04:17] LABS: BASOPHILS 0.1 % (0-2); EOSINOPHILS 0 % (0-7); IMMATURE GRANULOCYTES 1.3 % (0-5); LYMPHOCYTES 6.8 % (15-50); MCHC 33.6 g/dL (31.0-37.0); MEAN PLATELET VOLUME 11.1 fL (7.4-10.4); MONOCYTES 4.8 % (2-11); PLATELET COUNT 219 10x3/uL (130-400); RBC 2.67 10x6/uL (4.20-6.10); RDW 19.6 % (11.5-14.5)
[2019-06-29 04:18] LABS: HEMATOCRIT 23.8 % (42.0-54.0); MCV 89.1 fL (80.0-100.0)
[2019-06-29 04:21] LABS: ALBUMIN 2.6 g/dL (3.4-5.0); ANION GAP 9.6 mmol/L (8-16); BILIRUBIN - TOTAL 0.4 mg/dL (0.2-1.3); CALCIUM 7.8 mg/dL (8.5-10.1); CREATININE - SERUM 1.8 mg/dL (0.6-1.3); MAGNESIUM - SERUM 1.8 mg/dL (1.8-2.4); PHOSPHOROUS 3.1 mg/dL (2.5-4.9); POTASSIUM - SERUM 5.6 mmol/L (3.5-5.1); PROTEIN - SERUM 5.6 g/dL (6.4-8.2)
--- NOTE | 2019-06-29 05:30 | NUR ---
pt up in chair, linens changed, pt refused bath, states daughter will be in to help with bath, no c/o at this time
--- NOTE | 2019-06-29 07:15 | NUR ---
REPORT RECEIVED. ASSESSMENT COMPMLETE PER FLOW SHEET. VSS. NO NEW CHANGES WILL CONTINUE TO MONITOR
--- NOTE | 2019-06-29 09:50 | NUR ---
NUTRITION F/U CHART REVIEWED, PT VISIT. PT REPORTS TOLERATING REG DIET WITH DOUBLE PORTIONS. NO COMPLAINTS. RD FOLLOWING
--- NOTE | 2019-06-29 13:42 | NUR ---
REPORT CALLED TO KRISTEL ON FLOOR. PT BEING TRANFERED VIA WHEELCHAIR
--- NOTE | 2019-06-29 20:48 | NUR ---
PT C/O RIGHT SHOULDER PAIN 10/10. GAVE MORPHINE 2MG IV PUSH. COMPLETE ASSESSMENT PER FLOW-SHEET. NO OTHER NEEDS. WILL REASSESS AND CONTINUE TO MONITOR.
[2019-06-30 01:13] VITALS: BP 140/62
[2019-06-30 04:37] VITALS: BP 169/71
[2019-06-30 06:36] LABS: CALC OSMOLALITY 288 mosm/kg (275-300); CALCIUM 7.7 mg/dL (8.5-10.1); CARBON DIOXIDE 31.2 mmol/L (21.0-32.0); CHLORIDE - SERUM 104 mmol/L (98-107); GLUCOSE 154 mg/dL (74-106); MAGNESIUM - SERUM 1.9 mg/dL (1.8-2.4); PHOSPHOROUS 2.1 mg/dL (2.5-4.9); POTASSIUM - SERUM 4.2 mmol/L (3.5-5.1); SODIUM 140 mmol/L (136-145); UREA NITROGEN 33 mg/dL (7-18); eGFR NON AFRICAN AMERICAN 77 mL/min (90-120)
[2019-06-30 07:03] LABS: HEMATOCRIT 20.6 % (42.0-54.0); MCH 29.9 pg (26.0-34.0); MEAN PLATELET VOLUME 11.2 fL (7.4-10.4); RBC 2.21 10x6/uL (4.20-6.10); RDW 19.3 % (11.5-14.5); WBC 14.9 10x3/uL (4.8-10.8)
[2019-06-30 07:06] LABS: HEMOGLOBIN 6.6 g/dL (13.5-17.5); MCV 93.2 fL (80.0-100.0); PLATELET COUNT 277 10x3/uL (130-400)
[2019-06-30 08:12] LABS: HEMATOCRIT 23.6 % (42.0-54.0); HEMOGLOBIN 7.6 g/dL (13.5-17.5)
[2019-06-30 08:22] VITALS: BP 123/56
[2019-06-30 08:37] LABS: HYPOCHROMASIA 2+; LYMPHOCYTES 11 % (15-50); MONOCYTES 7 % (2-11); NEUTROPHILS 81 % (40-80); PLATELET ESTIMATE NORMAL
[2019-06-30 08:38] LABS: HYPER SEGMENTED NEUTROPHILS 1+; TOXIC GRANULATION 1+
[2019-06-30 12:57] VITALS: BP 141/87
--- NOTE | 2019-06-30 16:07 | NUR ---
PT SITIING UP IN CHAIR RECEIVING SECOND UNIT OF BLOOD, PT ASLEEP NO S/S OF DISTRESS, CL IN REACH CONTINUE WITH PLAN OF CARE
--- NOTE | 2019-06-30 19:15 | NUR ---
ALERT AND ORIENTED WHEN ENTERING THE ROOM. DAVOL DRAIN SITTING AT BEDSIDE TABLE. PATIENT STATES HE WAS SITTING IN THE CHAIR AND ATTEMPTED TO GET UP AND DRAIN PULLED OUT. DAY SHIFT BRENDA LOGAN PAGED DR. CHAVEZ AND INFORMED. DR. CHAVEZ STATED TO PLACE DRESSING OVER INSERTION SITE AND MONITOR. PATIENT RIGHT ARM IN SLING WITH BANDAGE TO RIGHT SHOULDER. WEARING TELE MONITOR. WEARS 4 L NC. DENIES FURTHER NEEDS AT THIS TIME. CALL LIGHT IN REACH. CPOC.
[2019-06-30 19:30] VITALS: BP 148/71
--- NOTE | 2019-06-30 20:17 | NUR ---
PATIENT EXPRESSING ANGER WHEN BRYSON ALARM GOES OFF. PATIENT IRRITATED BECAUSE HE HAS TO STAND UP TO VOID INTO URINAL. EVERY TIME HE STANDS UP BRYSON ALARM SOUNDS. EXPLAINED TO PATIENT IMPORTANCE OF BRYSON ALARM. PATIENT STATES ON PREVIOUS VISITS HES REFUSED IT. SPOKE WITH PATIENT ABOUT REFUSAL FORM. EDUCATED PATIENT ON RISKS OF INJURY WITHOUT BRYSON ALARM. PATIENT STATED "I KNOW ANDRE DONE THIS BEFORE I DONT WANT IT. I UNDERSTAND." PATIENT SIGNED BRYSON ALARM REFUSAL FORM AND IT IS IN CHART. PATIENT HAD RECENT SURGERY ON RIGHT HAND WHICH IS HIS DOMINANT AND WRITING HAND. ISABEL TONG RN WITNESSED SIGNATURE SINCE PATIENT HAD TO USE LEFT HAND.
[2019-07-01 00:30] VITALS: BP 140/86
--- NOTE | 2019-07-01 03:00 | NUR ---
I have reviewed this patient and I concur with the Shift Assessment completed by the Licensed Practical Nurse today this shift.
[2019-07-01 04:30] VITALS: BP 136/74
[2019-07-01 06:25] LABS: BASOPHILS 0.9 % (0-2); EOSINOPHILS 0 % (0-7); HEMOGLOBIN 9.4 g/dL (13.5-17.5); IMMATURE GRANULOCYTES 12.9 % (0-5); LYMPHOCYTES 11.3 % (15-50); MCH 29.7 pg (26.0-34.0); MCHC 32.4 g/dL (31.0-37.0); MCV 91.8 fL (80.0-100.0); MEAN PLATELET VOLUME 11.4 fL (7.4-10.4); MONOCYTES 10.7 % (2-11); NEUTROPHILS 64.2 % (40-80); PLATELET COUNT 312 10x3/uL (130-400); RBC 3.16 10x6/uL (4.20-6.10); RDW 18.9 % (11.5-14.5); WBC 20.3 10x3/uL (4.8-10.8)
[2019-07-01 06:49] LABS: ALBUMIN 2.8 g/dL (3.4-5.0); ALKALINE PHOSPHATASE 99 U/L (46-116); ALT (SGPT) 119 U/L (10-68); BILIRUBIN - TOTAL 0.47 mg/dL (0.2-1.3); CALC OSMOLALITY 287 mosm/kg (275-300); CALCIUM 8.2 mg/dL (8.5-10.1); CARBON DIOXIDE 28.9 mmol/L (21.0-32.0); CHLORIDE - SERUM 104 mmol/L (98-107); GLUCOSE 131 mg/dL (74-106); POTASSIUM - SERUM 3.7 mmol/L (3.5-5.1); PROTEIN - SERUM 6.3 g/dL (6.4-8.2); SODIUM 141 mmol/L (136-145); UREA NITROGEN 26 mg/dL (7-18); eGFR NON AFRICAN AMERICAN 77 mL/min (90-120)
[2019-07-01 07:46] VITALS: BP 148/87
--- NOTE | 2019-07-01 09:13 | NUR ---
PT WBC ELEVATED TO 20.[address] CHAVEZ, PER DR CHAVEZ CALL MEDICAL AND RELAY WBC RESULTS, HAD RAIL SIGNAL WORKER PAGED, WILL CONTINUE WITH PLAN OF CARE
--- NOTE | 2019-07-01 09:19 | NUR ---
RECEIVED CALL BACK FROM MARCOS DESAI, RELAYED LAB RESULTS, CONTINUE WITH PLAN OF CARE
--- NOTE | 2019-07-01 10:40 | NUR ---
I have reviewed this patient and I concur with the Shift Assessment completed by the Licensed Practical Nurse today this shift.
[2019-07-01 12:08] VITALS: BP 104/58
[2019-07-01 16:31] VITALS: BP 127/58
--- NOTE | 2019-07-01 19:15 | NUR ---
PATIENT ALERT AND ORIENTED. WEARING 4 L NASAL CANNULA. HAS LEFT HAND IV THAT IS SALINE LOCKED. HAS RIGHT SHOULDER SLING WITH BANDAGE TO INCISION FROM RECENT SHOULDER SURGERY. DRESSING CLEAN AND DRY. WEARING TELE MONITOR. PATIENT STATES PAIN IS TOLERABLE AT THIS TIME. ASKED PATIENT IF HE WOULD LIKE A SHOWER. PATIENT DECLINED. STATES HE IS TIRED THIS EVENING. ASKED IF HE WOULD LIKE ONE IN THE MORNING AND HE DENIED STATING HE WOULD BE GOING HOME TOMORROW. PATIENT DENIES FURTHER NEEDS AT THIS TIME. CALL LIGHT IN REACH OF PATIENT. CPOC.
[2019-07-01 20:01] VITALS: BP 139/61
[2019-07-02 00:30] VITALS: BP 131/71
--- NOTE | 2019-07-02 03:45 | NUR ---
I have reviewed this patient and I concur with the Shift Assessment completed by the Licensed Practical Nurse today this shift.
[2019-07-02 05:00] VITALS: BP 142/89
[2019-07-02 06:46] LABS: HEMATOCRIT 32.5 % (42.0-54.0); HEMOGLOBIN 10.4 g/dL (13.5-17.5); MCH 29.9 pg (26.0-34.0); MCV 93.4 fL (80.0-100.0); PLATELET COUNT 299 10x3/uL (130-400); RBC 3.48 10x6/uL (4.20-6.10); RDW 19.3 % (11.5-14.5); WBC 18.2 10x3/uL (4.8-10.8)
[2019-07-02 06:47] LABS: ALKALINE PHOSPHATASE 101 U/L (46-116); ALT (SGPT) 105 U/L (10-68); BILIRUBIN - TOTAL 0.48 mg/dL (0.2-1.3); CALC OSMOLALITY 288 mosm/kg (275-300); CALCIUM 8.3 mg/dL (8.5-10.1); CHLORIDE - SERUM 105 mmol/L (98-107); CREATININE - SERUM 0.9 mg/dL (0.6-1.3); GLUCOSE 84 mg/dL (74-106); MAGNESIUM - SERUM 2.1 mg/dL (1.8-2.4); PHOSPHOROUS 2.5 mg/dL (2.5-4.9); POTASSIUM - SERUM 4.2 mmol/L (3.5-5.1); PROTEIN - SERUM 6.2 g/dL (6.4-8.2); SODIUM 144 mmol/L (136-145); UREA NITROGEN 22 mg/dL (7-18); eGFR NON AFRICAN AMERICAN 87 mL/min (90-120)
[2019-07-02 06:50] LABS: CARBON DIOXIDE 36.5 mmol/L (21.0-32.0)
[2019-07-02 08:33] VITALS: BP 139/84
[2019-07-02 08:53] LABS: ANISOCYTOSIS OCC; LYMPHOCYTES 18 % (15-50); MONOCYTES 14 % (2-11); NEUTROPHILS 51 % (40-80); PLATELET ESTIMATE NORMAL; POLYCHROMASIA OCC
[2019-07-02 12:24] LABS: % SATURATION 16 % (15-55); IRON 54 ug/dl (35-150); TOTAL IRON BIND CAPACITY 318 ug/dl (260-445); UNSAT IRON BIND CAPACITY 264 ug/dl (150-375)
[2019-07-02 13:34] VITALS: BP 124/84
[2019-07-02 17:51] VITALS: BP 102/51; BP 144/72
--- NOTE | 2019-07-02 18:08 | NUR ---
OT NOTE: PT COMPLETED RUE HAND FLEX/EXT EXERCISES. PT COMPLETED RUE POSITIONING TO DECREASE PAIN WITH MIN A. PT COMPLETED HYGIENE TASKS WITH MIN A. THANK YOU, ANTONIA DURÁN
--- NOTE | 2019-07-02 19:35 | NUR ---
PT ALERT AND ORIENTED. NO SIGNS OF DISTRESS. BREATHING EVEN AND UNLABORED. PT STATES NO PROBLEMS AT THIS TIME. RT SHOULDER SLING AND BRUISES PRESENT. LUNG SOUNDS DIMINISHED. BOWEL SOUNDS ACTIVE. TELE ON. 101 UNCONTROLLED A-FIB. WILL CONTINUE PLAN OF CARE. CALL LIGHT IN REACH. BED LOWERED AND LOCKED. BED RAILS UPX2. BRYSON ALARM ON.
[2019-07-02 20:00] VITALS: BP 133/46
[2019-07-03 00:39] VITALS: BP 126/50
--- NOTE | 2019-07-03 02:59 | NUR ---
I have reviewed this patient and I concur with the Shift Assessment completed by the Licensed Practical Nurse today this shift.
[2019-07-03 04:00] VITALS: BP 127/65
[2019-07-03 07:52] LABS: ALBUMIN 2.6 g/dL (3.4-5.0); ANION GAP 8.3 mmol/L (8-16); BILIRUBIN - TOTAL 0.36 mg/dL (0.2-1.3); CALCIUM 8.1 mg/dL (8.5-10.1); CARBON DIOXIDE 31.8 mmol/L (21.0-32.0); POTASSIUM - SERUM 4.1 mmol/L (3.5-5.1); PROTEIN - SERUM 5.3 g/dL (6.4-8.2)
[2019-07-03 07:53] LABS: BASOPHILS 0.3 % (0-2); CREATININE - SERUM 1.2 mg/dL (0.6-1.3); EOSINOPHILS 0.6 % (0-7); HEMATOCRIT 28.3 % (42.0-54.0); HEMOGLOBIN 8.9 g/dL (13.5-17.5); LYMPHOCYTES 16.8 % (15-50); MCH 29.8 pg (26.0-34.0); MCHC 31.4 g/dL (31.0-37.0); MCV 94.6 fL (80.0-100.0); MEAN PLATELET VOLUME 10.6 fL (7.4-10.4); MONOCYTES 9.8 % (2-11); NEUTROPHILS 61.5 % (40-80); PLATELET COUNT 340 10x3/uL (130-400); RBC 2.99 10x6/uL (4.20-6.10); RDW 19.5 % (11.5-14.5)
[2019-07-03 07:54] VITALS: BP 110/75
[2019-07-03 07:59] LABS: WBC 11.2 10x3/uL (4.8-10.8)
--- NOTE | 2019-07-03 09:36 | NUR ---
PATIENT HAS ABX RUNNING, ADVISED I WILL SL WHEN ABX ARE COMPLETED, PT LYING IN BED HR 170 WHEN UP WITH PT, CONTINUE TO MONITOR
[2019-07-03 11:35] VITALS: BP 144/71
--- NOTE | 2019-07-03 11:53 | NUR ---
OT NOTE: PT DOING WELL; STATES THAT HE IS HAVING PAIN BUT ABLE TO TOLERATE IT. INDEP WITH SUPINE TO SIT; SIT TO STAND WITH SBA AND CGA FOR STANDING TO PERFORM PENDULUM EXS WITH R UE. PERFORMED 2 SETS OF 10 WITH CONT CUES FOR PASSIVE MOVEMENT. ELBOW, WRIST, AND FINGER FLEX/EXT EXS WHILE SLING WAS REMOVED. NURSING IN TO CHANGE DRESSING WHILE SLING WAS REMOVED. INCREASED DRAINAGE FROM AREA APPROX 2.5 INCHES AT DISTAL END OF INCISION. RE APPLIED SLING AND ASSISTED PT BACK TO BED. MIN ASSIST WITH BED MOB INCLUDING SCOOTING UP IN BED. INDEP WITH SUPINE TO SIT. CARRI EVANS, OTR/L
--- NOTE | 2019-07-03 12:54 | NUR ---
PT C/O ARM PAIN AFTER EXERCISES COMPLETED, ADMINISTERED PRN PAIN MEDS CONTINUE WITH PLAN OF CARE
[2019-07-03 16:53] VITALS: BP 119/99
--- NOTE | 2019-07-03 18:08 | NUR ---
PT SITTING UP IN BED EATING DINNER, NO COMPLAINTS AND NO NEEDS VOICED, WILLL CONTINUE WITH PLAN OF CARE - RN NOTE
--- NOTE | 2019-07-03 19:36 | NUR ---
OT NOTE: PT COMPLETED UB HYGIENE TASKS WITH CGA/MIN A. THANK YOU,ANTONIA DURÁN
[2019-07-03 20:00] VITALS: BP 137/66
[2019-07-04] VITALS: BP 130/73
--- NOTE | 2019-07-04 02:48 | NUR ---
PT RESTING IN BED. EYES CLOSED. NO SIGNS OF DISTRESS. BREATHING EVEN AND UNLABORED. IV SITE LT UPPER ARM DRESSING CLEAN DRY AND INTACT. NO SIGNS OF INFECTION. 4LO2 NASAL CANNULA. BOWEL SOUNDS ACTIVE. TELE MONITOR ON 82 CONTROLLED A-FIB. RT ARM DRESSING CLEAN DRY AND INTACT. RT ARM SLING. WILL CONTINUE PLAN OF CARE. CALL LIGHT IN REACH. BED LOWERED AND LOCKED. BED RAILS UP X2.
--- NOTE | 2019-07-04 04:24 | NUR ---
I have reviewed this patient and I concur with the Shift Assessment completed by the Licensed Practical Nurse today this shift.
[2019-07-04 04:30] VITALS: BP 126/68
[2019-07-04 06:33] LABS: BASOPHILS 0.2 % (0-2); EOSINOPHILS 1.3 % (0-7); HEMATOCRIT 30.5 % (42.0-54.0); HEMOGLOBIN 9.4 g/dL (13.5-17.5); IMMATURE GRANULOCYTES 7.6 % (0-5); LYMPHOCYTES 20.4 % (15-50); MCH 29.9 pg (26.0-34.0); MCHC 30.8 g/dL (31.0-37.0); MEAN PLATELET VOLUME 10.6 fL (7.4-10.4); MONOCYTES 7.8 % (2-11); NEUTROPHILS 62.7 % (40-80); PLATELET COUNT 373 10x3/uL (130-400); RBC 3.14 10x6/uL (4.20-6.10); RDW 20.1 % (11.5-14.5); WBC 9.9 10x3/uL (4.8-10.8)
[2019-07-04 06:35] LABS: ALBUMIN 2.7 g/dL (3.4-5.0); ALKALINE PHOSPHATASE 87 U/L (46-116); ALT (SGPT) 70 U/L (10-68); BILIRUBIN - TOTAL 0.44 mg/dL (0.2-1.3); CALC OSMOLALITY 285 mosm/kg (275-300); CALCIUM 8.4 mg/dL (8.5-10.1); CARBON DIOXIDE 32.6 mmol/L (21.0-32.0); CHLORIDE - SERUM 104 mmol/L (98-107); CREATININE - SERUM 0.9 mg/dL (0.6-1.3); GLUCOSE 80 mg/dL (74-106); POTASSIUM - SERUM 3.9 mmol/L (3.5-5.1); PROTEIN - SERUM 5.9 g/dL (6.4-8.2); SODIUM 141 mmol/L (136-145); UREA NITROGEN 29 mg/dL (7-18); eGFR NON AFRICAN AMERICAN 87 mL/min (90-120)
[2019-07-04 06:47] LABS: MCV 97.1 fL (80.0-100.0)
[2019-07-04 09:00] VITALS: BP 138/77
--- NOTE | 2019-07-04 09:26 | NUR ---
Per monitor station patient is 132 uncontrolled DAVID, Holden WEIR and Joe RODRÍGUEZ notified
--- NOTE | 2019-07-04 10:28 | NUR ---
DR MCCULLOUGH PAGED AT THIS TIME TO NOTIFY OF HEART RATE 132
[2019-07-04 11:47] VITALS: BP 132/76
--- NOTE | 2019-07-04 12:19 | NUR ---
NUTRITION F/U PT WITH 100% INTAKE MEALS. NO COMPLAINTS. STATES "THE FOOD HERE IS ALWAYS GOOD". WILL CONTINUE TO HONOR FOOD PREFERENCES, MONITOR PO INTAKE. RD FOLLOWING
--- NOTE | 2019-07-04 15:21 | NUR ---
OT NOTE: PT C/O 03/24 PAIN IN R SHOULDER. NURSING NOTIFIED. BED MOB WITH MIN ASSIST; EOB SITTING WITH GOOD BALANCE; PENDULUM EXS WITH MIN ASSIST FOR STANDING BALANCE. ELBOW, WRIST, AND FINGER FLEX/EXT EXS. AROM EXS WITH L UE ALSO. BACK TO BED WITH SBA BUT MOD ASSIST TO SCOOT TO TOP OF BED TO REPOSITION. CARRI EVANS, OTR/L
[2019-07-04 15:38] LABS: THYROID STIMULATING HORMONE 14.39 uIU/mL (0.36-3.74)
--- NOTE | 2019-07-04 15:46 | NUR ---
OT NOTE: PT COMPLETED PENDULUM EXERCISES, ELBOW FLEXION/EXT, AND HAND EXERCISES. PT COMPLETED EOB SITTING WIT SBA. PT COMPLETED HYGIENE TASK WITH MIN A. THANK YOU, ANTONIA DURÁN
[2019-07-04 16:19] VITALS: BP 132/74
--- NOTE | 2019-07-04 18:45 | NUR ---
PATIENT IN BED WITH IV INTACT. TELE AT 86 ON HR. NO COMPLAINTS OR SIGNS OF DISTRESS. RECIEVED METOPROLOL 5 MG IVP EARLIER PER DR. MARTELL ORDERS. DRESSING TO SHOULDER INTACT. CALL LIGHT WITHIN REACH.
[2019-07-04 20:00] VITALS: BP 120/63
--- NOTE | 2019-07-04 22:33 | NUR ---
A/O WITH NO SIGNS OF ACUTE DISTRESS. IV TO THE LT UPPER ARM WITH NO REDNESS OR SWELLING NOTED. 4L VIA NC HIGH FLOW. RT ARM IN SLING WITH CLEAN DRESSING TO THE SHOULDER. ARM IS WARM WITH PULSE PALP. DENIES PAIN OR OTHER NEEDS AT THIS TIME. CONTINUE PLAN OF CARE.
[2019-07-05] VITALS: BP 158/78
[2019-07-05 04:00] VITALS: BP 127/70
[2019-07-05 06:29] LABS: BASOPHILS 0 % (0-2); EOSINOPHILS 0.7 % (0-7); HEMATOCRIT 32.4 % (42.0-54.0); HEMOGLOBIN 10.1 g/dL (13.5-17.5); IMMATURE GRANULOCYTES 2.3 % (0-5); LYMPHOCYTES 12.4 % (15-50); MCH 29.9 pg (26.0-34.0); MCHC 31.2 g/dL (31.0-37.0); MCV 95.9 fL (80.0-100.0); MEAN PLATELET VOLUME 10.7 fL (7.4-10.4); MONOCYTES 7.1 % (2-11); NEUTROPHILS 77.5 % (40-80); PLATELET COUNT 390 10x3/uL (130-400); RBC 3.38 10x6/uL (4.20-6.10); RDW 19.8 % (11.5-14.5); WBC 10.5 10x3/uL (4.8-10.8)
[2019-07-05 06:46] LABS: ALBUMIN 2.7 g/dL (3.4-5.0); ALKALINE PHOSPHATASE 94 U/L (46-116); ALT (SGPT) 61 U/L (10-68); BILIRUBIN - TOTAL 0.44 mg/dL (0.2-1.3); CALC OSMOLALITY 282 mosm/kg (275-300); CALCIUM 8.6 mg/dL (8.5-10.1); CARBON DIOXIDE 32.5 mmol/L (21.0-32.0); CHLORIDE - SERUM 103 mmol/L (98-107); CREATININE - SERUM 0.8 mg/dL (0.6-1.3); GLUCOSE 83 mg/dL (74-106); POTASSIUM - SERUM 3.9 mmol/L (3.5-5.1); PROTEIN - SERUM 5.9 g/dL (6.4-8.2); SODIUM 140 mmol/L (136-145); UREA NITROGEN 26 mg/dL (7-18); VANCOMYCIN - TROUGH 12.5 ug/mL (10.0-20.0); eGFR NON AFRICAN AMERICAN > 90 mL/min (90-120)
--- NOTE | 2019-07-05 07:56 | NUR ---
ALERT AND ORIENTED. LUNGS CLEAR BILATERALLY. HEART SOUNDS S1 AND S2 HEARD IN ALL [place]. BOWEL SOUNDS ACTIVE X 4. DRSG IN PLACE TO RIGHT SHOULDER C/D/I. SLING IN PLACE. SKIN OTHERWISE INTACT WITHOUT REDNESS. IV TO EARNEST SL PATENT WITHOUT REDNESS. O2 IN PLACE AT 4L. TELEMETRY IN PLACE RUNNING 108 SINUS TACH. BED LOW. FALL PRECAUTIONS IN PLACE. CALL PONCE AND PERSONAL ITEMS IN REACH. WILL CONTINUE TO MONITOR.
[2019-07-05 08:42] VITALS: BP 134/66
[2019-07-05 13:23] VITALS: BP 143/56
--- NOTE | 2019-07-05 14:52 | NUR ---
RESTING IN BED. DENIES NEEDS. WILL CONTINUE TO MONITOR.
--- NOTE | 2019-07-05 15:01 | NUR ---
OT NOTE: HOLD SECONDARY TO INCREASED HEART RATE. CARRI EVANS, OTR/L
--- NOTE | 2019-07-05 15:04 | NUR ---
MARCOS STEPHEN NOTIFIED PATIENT'S TSH 13.2.
[2019-07-05] MEDS ORDERED: PREDNISONE10 MG PO (15:25)
[2019-07-05] MEDS ORDERED: SYNTHROID50 MCG PO (15:27)
[2019-07-05] MEDS ORDERED: ALBUTEROL SULF8.5 GM INH (15:28)
[2019-07-05] MEDS ORDERED: CARDIZEM120 MG PO (15:32)
--- NOTE | 2019-07-05 16:25 | MORECARE ---
CASE MANAGEMENT DISCHARGE SUMMARY PATIENT: TREV JERRY UNIT: [id number] ADM DATE: 06/22/19 AGE: 74 : 44 SEX: M ROOM/BED: D.2218 AUTHOR: WENDYDOC PHYSICIAN: REFERRING PHYSICIAN: KVNG WHITE MD DATE OF SERVICE: 07/05/19 Discharge Plan Patient Name: TREV JERRY Facility: [facility]:[place] : 1945 Planned Disposition: Home Anticipated Discharge Date: 06/23/19 Discharge Date: Expected LOS: 1 Initial Reviewer: [email or web address] Initial Review Date: 06/22/2019 Generated: 07/05/19 5:24 pm Comments DCP- Discharge Planning Updated by [id number]: Autumn Brown on 07/05/19 3:[address] PATIENT TO BE DISCHARGING HOME TODAY, HE LIVES WITH HIS DAUGHTER AND SHE WILL BE HIS TRANSPORT HOME. IMM SERVED AND EXPLAINED. HE STATED HE HAD ALL DME AND I ASKED HIM IF HE NEEDED HOME HEALTH AND HE ASKED ME TO CALL HIS DAUGHTER. I CALLED HER AND SHE DID WANT HIM TO HOME HEALTH WITH [facility]ARE [facility]. WILL SEND REFERRAL OVER FOR HOME HEALTH. CM TO FOLLOW AND ASSIST NEEED DCP- Discharge Planning Updated by [id number]: Emily Mcfarland on 06/22/19 4:[address] DC PLAN: Return home vs geripsych ANTICIPATED DC NEEDS: New onset confusion, hallucinations, and behavior issues according to dtr. CM met with patient and his daughter to complete initial dc planning assessment. CM educated them on the CM role and verbal consent given by patient's daughter to complete assessment. CM verified patient's address, phone number, and emergency contact phone numbers. Patients daughter reports for the past few days patient has had new onset confusion, hallucinations, and behavior issues. She said he has never have these behaviors in the past. Patient lives at home with his daughter, Autumn. At discharge Autumn stated he will return home with her or he may require geripsych if the AMS dose not clear up. CM discussed availability of home health, rehab services, and medical equipment. Unsure what dc needs at this time will be. Transportation provider at discharge will be Autumn if he dc to home . CM will continue to follow and will assist as needed with dc plans/needs. Emily Mcfarland RN, [facility] DCPIA - Discharge Planning Initial Assessment Updated by [id number]: Emily Mcfarland on 06/22/19 5:35 pm * Is the patient Alert and Oriented? No * [facility] * Preadmission Environment Home with Family * ADLs Partial Dependent * Partial ADLs (Assistance needed) Medication Management * Equipment Cane Nebulizer Oxygen Rolling Walker Wheelchair * Other Equipment CPAP - [facility] * List name and contact numbers for known caregivers / representatives who currently or will assist patient after discharge: Autumn Reynolds - daughter - [phone] * Verbal permission to speak to the caregivers and representatives has been obtained from the patient. Yes * Community resources currently utilized None * Additional services required to return to the preadmission environment? Yes * Can the patient safely return to the preadmission environment? Yes * Has this patient been hospitalized within the prior 30 days at any hospital? Yes Coverage Notice Reviewer: [email or web address] Diana Brown Notice Issued Date-Time: 07/05/2019 16:00 Notice Type: IM Discharge Notice Notice Delivered To: Patient Relationship to Patient: Insert Cutter Name: Delivery Method: HAND - Hand Delivered Rosibel Days: Prior Verbal Notification: Recipient Understood Notice: Yes Recipient Signature: Yes Med Rec Note Co-signed by Attending: Coverage Notice Comment: Reviewer: [email or web address] Diana Brown Notice Issued Date-Time: 07/05/2019 16:00 Notice Type: Patient Choice Letter Notice Delivered To: Family Member Relationship to Patient: Daughter Insert Cutter Name: AUTUMN Delivery Method: PHONE - Phone Rosibel Days: Prior Verbal Notification: Recipient Understood Notice: Yes Recipient Signature: Med Rec Note Co-signed by Attending: Coverage Notice Comment: CARE IV HERMINIA OVER PHONE, PATIENT WANTED THE DAUGHTER (WHO IS HIS FALL INTERN) TO MAKE THAT DECISION Last DP export: 06/22/19 4:44 p Patient Name: TREV JERRY Page [id number] at 2454 All edits/amendments must be made on the electronic document DICTATION DATE: 07/05/191623 MOTION PICTURES CARTOONIST: FAVIAN 07/05/191623 RPT#: [id number] DC DATE: STATUS: ADM IN [facility] [address] [place] [address] END OF REPORT
--- NOTE | 2019-07-05 16:33 | MORECARE ---
CASE MANAGEMENT DISCHARGE SUMMARY PATIENT: TREV JERRY UNIT: [id number] ADM DATE: 06/22/19 AGE: 74 : 44 SEX: M ROOM/BED: D.2218 AUTHOR: WENDYDOC PHYSICIAN: REFERRING PHYSICIAN: KVNG WHITE MD DATE OF SERVICE: 07/05/19 Discharge Plan Patient Name: TREV JERRY Facility: [facility]:[place] : 1945 Planned Disposition: Home Anticipated Discharge Date: 06/23/19 Discharge Date: Expected LOS: 1 Initial Reviewer: [email or web address] Initial Review Date: 06/22/2019 Generated: 07/05/19 5:33 pm Comments DCP- Discharge Planning Updated by [email or web address]: Autumn Brown on 07/05/19 3:[address] PATIENT TO BE DISCHARGING HOME TODAY, HE LIVES WITH HIS DAUGHTER AND SHE WILL BE HIS TRANSPORT HOME. IMM SERVED AND EXPLAINED. HE STATED HE HAD ALL DME AND I ASKED HIM IF HE NEEDED HOME HEALTH AND HE ASKED ME TO CALL HIS DAUGHTER. I CALLED HER AND SHE DID WANT HIM TO HOME HEALTH WITH CARE IV. WILL SEND REFERRAL OVER FOR HOME HEALTH. CM TO FOLLOW AND ASSIST NEEED DCP- Discharge Planning Updated by [id number]: Emily Mcfarland on 06/22/19 4:[address] DC PLAN: Return home vs geripsych ANTICIPATED DC NEEDS: New onset confusion, hallucinations, and behavior issues according to dtr. CM met with patient and his daughter to complete initial dc planning assessment. CM educated them on the CM role and verbal consent given by patient's daughter to complete assessment. CM verified patient's address, phone number, and emergency contact phone numbers. Patients daughter reports for the past few days patient has had new onset confusion, hallucinations, and behavior issues. She said he has never have these behaviors in the past. Patient lives at home with his daughter, Autumn. At discharge Autumn stated he will return home with her or he may require geripsych if the AMS dose not clear up. CM discussed availability of home health, rehab services, and medical equipment. Unsure what dc needs at this time will be. Transportation provider at discharge will be Autumn if he dc to home . CM will continue to follow and will assist as needed with dc plans/needs. Emily Mcfarland RN, [facility] DCPIA - Discharge Planning Initial Assessment Updated by [id number]: Emily Mcfarland on 06/22/19 5:35 pm * Is the patient Alert and Oriented? No * [facility] * Preadmission Environment Home with Family * ADLs Partial Dependent * Partial ADLs (Assistance needed) Medication Management * Equipment Cane Nebulizer Oxygen Rolling Walker Wheelchair * Other Equipment CPAP - [facility] * List name and contact numbers for known caregivers / representatives who currently or will assist patient after discharge: Autumn Reynolds - daughter - [phone] * Verbal permission to speak to the caregivers and representatives has been obtained from the patient. Yes * Community resources currently utilized None * Additional services required to return to the preadmission environment? Yes * Can the patient safely return to the preadmission environment? Yes * Has this patient been hospitalized within the prior 30 days at any hospital? Yes External Providers External Provider: [facility] Next Contact Date: Service Request Date: Service Type: Resolution: Reviewer: Comments: Coverage Notice Reviewer: [email or web address] Diana Brown Notice Issued Date-Time: 07/05/2019 16:00 Notice Type: IM Discharge Notice Notice Delivered To: Patient Relationship to Patient: Management Coordinator Name: Delivery Method: HAND - Hand Delivered Rosibel Days: Prior Verbal Notification: Recipient Understood Notice: Yes Recipient Signature: Yes Med Rec Note Co-signed by Attending: Coverage Notice Comment: Reviewer: [id number] Diana Brown Notice Issued Date-Time: 07/05/2019 16:00 Notice Type: Patient Choice Letter Notice Delivered To: Family Member Relationship to Patient: Daughter Management Coordinator Name: AUTUMN Delivery Method: PHONE - Phone Rosibel Days: Prior Verbal Notification: Recipient Understood Notice: Yes Recipient Signature: Med Rec Note Co-signed by Attending: Coverage Notice Comment: CARE IV HERMINIA OVER PHONE, PATIENT WANTED THE DAUGHTER (WHO IS HIS MVA STILL OPERATOR) TO MAKE THAT DECISION Last DP export: 07/05/19 3:25 Patient Name: TREV JERRY Page 12516 at 1633 All edits/amendments must be made on the electronic document DICTATION DATE: 07/05/19 1633 COAL MINE INSPECTOR: DM 07/05/19 1633 RPT#: [id number] DC DATE: STATUS: ADM IN [facility] [address] [place] [address] END OF REPORT
--- NOTE | 2019-07-05 16:42 | NUR ---
DISCHARGE EDUCATION PROVIDED BOTH WRITTEN AND VERBAL. VERBALIZED UNDERSTANDING. DENIES FURTHER QUESTIONS. IV REMOVED FROM LEFT AC WITH TIP INTACT. PATIENT DISCHARGED HOME WITH DAUGHTER WITH ALL BELONGINGS.
[2019-07-05 16:45] VITALS: BP 113/57
--- NOTE | 2019-07-05 17:05 | MORECARE ---
CASE MANAGEMENT DISCHARGE SUMMARY PATIENT: TREV JERRY UNIT: [id number] ADM DATE: 06/22/19 AGE: 74 : 44 SEX: M ROOM/BED: D.2218 AUTHOR: WENDYDOC PHYSICIAN: REFERRING PHYSICIAN: KVNG WHITE MD DATE OF SERVICE: 07/05/19 Discharge Plan Patient Name: TREV JERRY Facility: [facility]:[place] : 1945 Planned Disposition: Home Anticipated Discharge Date: 06/23/19 Discharge Date: 07/05/2019 Expected LOS: 1 Initial Reviewer: [email or web address] Initial Review Date: 06/22/2019 Generated: 07/05/19 6:05 pm Comments DCP- Discharge Planning Updated by [email or web address]: Autumn Brown on 07/05/19 4:[address] [facility] CALLED BACK AND STATED THEY ARE OUT OF NETWORK, I ATTEMPTED TO CALL THE DAUGHTER BUT DID NOT GET AN ANSWER DCP- Discharge Planning Updated by [id number]: Autumn Brown on 07/05/19 3:[address] PATIENT TO BE DISCHARGING HOME TODAY, HE LIVES WITH HIS DAUGHTER AND SHE WILL BE HIS TRANSPORT HOME. IMM SERVED AND EXPLAINED. HE STATED HE HAD ALL DME AND I ASKED HIM IF HE NEEDED HOME HEALTH AND HE ASKED ME TO CALL HIS DAUGHTER. I CALLED HER AND SHE DID WANT HIM TO HOME HEALTH WITH CARE IV. WILL SEND REFERRAL OVER FOR HOME HEALTH. CM TO FOLLOW AND ASSIST NEEED DCP- Discharge Planning Updated by [id number]: Emily Mcfarland on 06/22/19 4:[address] DC PLAN: Return home vs geripsych ANTICIPATED DC NEEDS: New onset confusion, hallucinations, and behavior issues according to dtr. CM met with patient and his daughter to complete initial dc planning assessment. CM educated them on the CM role and verbal consent given by patient's daughter to complete assessment. CM verified patient's address, phone number, and emergency contact phone numbers. Patients daughter reports for the past few days patient has had new onset confusion, hallucinations, and behavior issues. She said he has never have these behaviors in the past. Patient lives at home with his daughter, Autumn. At discharge Autumn stated he will return home with her or he may require geripsych if the AMS dose not clear up. CM discussed availability of home health, rehab services, and medical equipment. Unsure what dc needs at this time will be. Transportation provider at discharge will be Autumn if he dc to home . CM will continue to follow and will assist as needed with dc plans/needs. Emily Mcfarland RN, [facility] DCPIA - Discharge Planning Initial Assessment Updated by [id number]: Emily Mcfarland on 06/22/19 5:35 pm * Is the patient Alert and Oriented? No * [facility] * Preadmission Environment Home with Family * ADLs Partial Dependent * Partial ADLs (Assistance needed) Medication Management * Equipment Cane Nebulizer Oxygen Rolling Walker Wheelchair * Other Equipment CPAP - [facility] * List name and contact numbers for known caregivers / representatives who currently or will assist patient after discharge: Autumn Reynolds - daughter - [phone] * Verbal permission to speak to the caregivers and representatives has been obtained from the patient. Yes * Community resources currently utilized None * Additional services required to return to the preadmission environment? Yes * Can the patient safely return to the preadmission environment? Yes * Has this patient been hospitalized within the prior 30 days at any hospital? Yes Coverage Notice Reviewer: [email or web address] Diana Brown Notice Issued Date-Time: 07/05/2019 16:00 Notice Type: IM Discharge Notice Notice Delivered To: Patient Relationship to Patient: Mailroom Supervisor Name: Delivery Method: HAND - Hand Delivered Rosibel Days: Prior Verbal Notification: Recipient Understood Notice: Yes Recipient Signature: Yes Med Rec Note Co-signed by Attending: Coverage Notice Comment: Reviewer: [id number] Diana Brown Notice Issued Date-Time: 07/05/2019 16:00 Notice Type: Patient Choice Letter Notice Delivered To: Family Member Relationship to Patient: Daughter Mailroom Supervisor Name: AUTUMN Delivery Method: PHONE - Phone Rosibel Days: Prior Verbal Notification: Recipient Understood Notice: Yes Recipient Signature: Med Rec Note Co-signed by Attending: Coverage Notice Comment: CARE IV HERMINIA OVER PHONE, PATIENT WANTED THE DAUGHTER (WHO IS HIS INBOUND SALES MANAGER) TO MAKE THAT DECISION Last DP export: 07/05/19 3:33 Patient Name: TREV JERRY Page [phone] at 1705 All edits/amendments must be made on the electronic document DICTATION DATE: 07/05/191704 TECTONOPHYSICIST: FAVIAN 07/05/191704 RPT#: [id number] DC DATE:07/05/19 STATUS: DIS IN [facility] [address] [place] [address] END OF REPORT
--- NOTE | 2019-07-05 17:13 | MORECARE ---
CASE MANAGEMENT DISCHARGE SUMMARY PATIENT: TREV JERRY UNIT: [id number] ADM DATE: 06/22/19 AGE: 74 : 44 SEX: M ROOM/BED: D.2218 AUTHOR: WENDYDOC PHYSICIAN: REFERRING PHYSICIAN: KVNG WHITE MD DATE OF SERVICE: 07/05/19 Discharge Plan Patient Name: TREV JERRY Facility: [facility]:[place] : 1945 Planned Disposition: Home Anticipated Discharge Date: 06/23/19 Discharge Date: 07/05/2019 Expected LOS: 1 Initial Reviewer: [email or web address] Initial Review Date: 06/22/2019 Generated: 07/05/19 6:13 pm Comments DCP- Discharge Planning Updated by [id number]: Autumn Brown on 07/05/19 4:[address] I WILL ATTEMPT TO CALL THEM IN AM TO SEE WHAT THEIR 2ND CHOICE WILL BE DCP- Discharge Planning Updated by [email or web address]: Autumn Brown on 07/05/19 4:[address] [facility] CALLED BACK AND STATED THEY ARE OUT OF NETWORK, I ATTEMPTED TO CALL THE DAUGHTER BUT DID NOT GET AN ANSWER DCP- Discharge Planning Updated by [email or web address]: Autumn Brown on 07/05/19 3:[address] PATIENT TO BE DISCHARGING HOME TODAY, HE LIVES WITH HIS DAUGHTER AND SHE WILL BE HIS TRANSPORT HOME. IMM SERVED AND EXPLAINED. HE STATED HE HAD ALL DME AND I ASKED HIM IF HE NEEDED HOME HEALTH AND HE ASKED ME TO CALL HIS DAUGHTER. I CALLED HER AND SHE DID WANT HIM TO HOME HEALTH WITH [facility]. WILL SEND REFERRAL OVER FOR HOME HEALTH. CM TO FOLLOW AND ASSIST NEEED DCP- Discharge Planning Updated by [email or web address]: Emily Mcfarland on 06/22/19 4:[address] DC PLAN: Return home vs geripsych ANTICIPATED DC NEEDS: New onset confusion, hallucinations, and behavior issues according to dtr. CM met with patient and his daughter to complete initial dc planning assessment. CM educated them on the CM role and verbal consent given by patient's daughter to complete assessment. CM verified patient's address, phone number, and emergency contact phone numbers. Patients daughter reports for the past few days patient has had new onset confusion, hallucinations, and behavior issues. She said he has never have these behaviors in the past. Patient lives at home with his daughter, Autumn. At discharge Autumn stated he will return home with her or he may require geripsych if the AMS dose not clear up. CM discussed availability of home health, rehab services, and medical equipment. Unsure what dc needs at this time will be. Transportation provider at discharge will be Autumn if he dc to home . CM will continue to follow and will assist as needed with dc plans/needs. Emily Mcfarland RN, [facility] DCPIA - Discharge Planning Initial Assessment Updated by [email or web address]: Emily Mcfarland on 06/22/19 5:35 pm * Is the patient Alert and Oriented? No * [facility] * Preadmission Environment Home with Family * ADLs Partial Dependent * Partial ADLs (Assistance needed) Medication Management * Equipment Cane Nebulizer Oxygen Rolling Walker Wheelchair * Other Equipment CPAP - [facility] is [facility] * List name and contact numbers for known caregivers / representatives who currently or will assist patient after discharge: Autumn Reynolds - maurisio - [phone] * Verbal permission to speak to the caregivers and representatives has been obtained from the patient. Yes * Community resources currently utilized None * Additional services required to return to the preadmission environment? Yes * Can the patient safely return to the preadmission environment? Yes * Has this patient been hospitalized within the prior 30 days at any hospital? Yes Coverage Notice Reviewer: [email or web address] Diana Brown Notice Issued Date-Time: 07/05/2019 16:00 Notice Type: IM Discharge Notice Notice Delivered To: Patient Relationship to Patient: Laundry Supervisor Name: Delivery Method: HAND - Hand Delivered Rosibel Days: Prior Verbal Notification: Recipient Understood Notice: Yes Recipient Signature: Yes Med Rec Note Co-signed by Attending: Coverage Notice Comment: Reviewer: [email or web address] Diana Brown Notice Issued Date-Time: 07/05/2019 16:00 Notice Type: Patient Choice Letter Notice Delivered To: Family Member Relationship to Patient: Daughter Laundry Supervisor Name: AUTUMN Delivery Method: PHONE - Phone Rosibel Days: Prior Verbal Notification: Recipient Understood Notice: Yes Recipient Signature: Med Rec Note Co-signed by Attending: Coverage Notice Comment: [facility]ARE IV HERMINIA OVER PHONE, PATIENT WANTED THE DAUGHTER (WHO IS HIS CASH REGISTER OPERATOR) TO MAKE THAT DECISION Last DP export: 11/21/19 4:05 Patient Name: TREV JERRY Page [id number] at 1713 All edits/amendments must be made on the electronic document DICTATION DATE: 07/05/191712 HARVESTER OPERATOR: FAVIAN 07/05/191712 RPT#: [id number] DC DATE:07/05/19 STATUS: DIS IN [facility] [address] [place] [address] END OF REPORT
--- NOTE | 2019-07-06 08:06 | MORECARE ---
CASE MANAGEMENT DISCHARGE SUMMARY PATIENT: TREV JERRY UNIT: [id number] ADM DATE: 06/22/19 AGE: 74 : 44 SEX: M ROOM/BED: D.2218 AUTHOR: WENDYDOC PHYSICIAN: REFERRING PHYSICIAN: KVNG WHITE MD DATE OF SERVICE: 07/06/19 Discharge Plan Patient Name: TREV JERRY Facility: [facility]:[place] : 1945 Planned Disposition: Home Anticipated Discharge Date: 06/23/19 Discharge Date: 07/05/2019 Expected LOS: 1 Initial Reviewer: [email or web address] Initial Review Date: 06/22/2019 Generated: 07/06/19 9:05 am Comments DCP- Discharge Planning Updated by [email or web address]: Autumn Brown on 07/05/19 4:[address] I WILL ATTEMPT TO CALL THEM IN AM TO SEE WHAT THEIR 2ND CHOICE WILL BE DCP- Discharge Planning Updated by [email or web address]: Autumn Brown on 07/05/19 4:[address] [facility] CALLED BACK AND STATED THEY ARE OUT OF NETWORK, I ATTEMPTED TO CALL THE DAUGHTER BUT DID NOT GET AN ANSWER DCP- Discharge Planning Updated by [email or web address]: Autumn Kevin on 07/05/19 3:[address] PATIENT TO BE DISCHARGING HOME TODAY, HE LIVES WITH HIS DAUGHTER AND SHE WILL BE HIS TRANSPORT HOME. IMM SERVED AND EXPLAINED. HE STATED HE HAD ALL DME AND I ASKED HIM IF HE NEEDED HOME HEALTH AND HE ASKED ME TO CALL HIS DAUGHTER. I CALLED HER AND SHE DID WANT HIM TO HOME HEALTH WITH [facility]. WILL SEND REFERRAL OVER FOR HOME HEALTH. CM TO FOLLOW AND ASSIST NEEED DCP- Discharge Planning Updated by [email or web address]: Emily Mcfarland on 06/22/19 4:[address] DC PLAN: Return home vs geripsych ANTICIPATED DC NEEDS: New onset confusion, hallucinations, and behavior issues according to dtr. CM met with patient and his daughter to complete initial dc planning assessment. CM educated them on the CM role and verbal consent given by patient's daughter to complete assessment. CM verified patient's address, phone number, and emergency contact phone numbers. Patients daughter reports for the past few days patient has had new onset confusion, hallucinations, and behavior issues. She said he has never have these behaviors in the past. Patient lives at home with his daughter, Autumn. At discharge Autumn stated he will return home with her or he may require geripsych if the AMS dose not clear up. CM discussed availability of home health, rehab services, and medical equipment. Unsure what dc needs at this time will be. Transportation provider at discharge will be Autumn if he dc to home . CM will continue to follow and will assist as needed with dc plans/needs. Emily Mcfarland RN, [facility] DCPIA - Discharge Planning Initial Assessment Updated by [email or web address]: Emily Mcfarland on 06/22/19 5:35 pm * Is the patient Alert and Oriented? No * [facility] * Preadmission Environment Home with Family * ADLs Partial Dependent * Partial ADLs (Assistance needed) Medication Management * Equipment Cane Nebulizer Oxygen Rolling Walker Wheelchair * Other Equipment CPAP - [facility] * List name and contact numbers for known caregivers / representatives who currently or will assist patient after discharge: Autumn Reynolds - maurisio - [phone] * Verbal permission to speak to the caregivers and representatives has been obtained from the patient. Yes * Community resources currently utilized None * Additional services required to return to the preadmission environment? Yes * Can the patient safely return to the preadmission environment? Yes * Has this patient been hospitalized within the prior 30 days at any hospital? Yes External Providers [facility] Next Contact Date: Service Request Date: Service Type: Resolution: Reviewer: Comments: Coverage Notice Reviewer: [id number] Diana Brown Notice Issued Date-Time: 07/05/2019 16:00 Notice Type: IM Discharge Notice Notice Delivered To: Patient Relationship to Patient: Microwave Supervisor Name: Delivery Method: HAND - Hand Delivered Rosibel Days: Prior Verbal Notification: Recipient Understood Notice: Yes Recipient Signature: Yes Med Rec Note Co-signed by Attending: Coverage Notice Comment: Reviewer: [id number] Diana Brown Notice Issued Date-Time: 07/05/2019 16:00 Notice Type: Patient Choice Letter Notice Delivered To: Family Member Relationship to Patient: Daughter Microwave Supervisor Name: AUTUMN Delivery Method: PHONE - Phone Rosibel Days: Prior Verbal Notification: Recipient Understood Notice: Yes Recipient Signature: Med Rec Note Co-signed by Attending: Coverage Notice Comment: CARE IV HERMINIA OVER PHONE, PATIENT WANTED THE DAUGHTER (WHO IS HIS BARK GRINDER) TO MAKE THAT DECISION Last DP export: 07/05/19 4:13 Patient Name: TREV JERRY Page [id number] at 0806 All edits/amendments must be made on the electronic document DICTATION DATE: 07/06/19804 DIRECTOR CONSTRUCTION SERVICES: FAVIAN 07/06/19804 RPT#: [id number] DC DATE:07/05/19 STATUS: DIS IN [facility] [address] [place] [address] END OF REPORT
--- NOTE | 2019-07-06 08:12 | MORECARE ---
CASE MANAGEMENT DISCHARGE SUMMARY PATIENT: TREV JERRY UNIT: [id number] ADM DATE: 06/22/19 AGE: 74 : 44 SEX: M ROOM/BED: D.2218 AUTHOR: WENDYDOC PHYSICIAN: REFERRING PHYSICIAN: KVNG WHITE MD DATE OF SERVICE: 07/06/19 Discharge Plan Patient Name: TREV JERRY Facility: [facility]:[place] : 1945 Planned Disposition: Home Anticipated Discharge Date: 06/23/19 Discharge Date: 07/05/2019 Expected LOS: 1 Initial Reviewer: [id number] Initial Review Date: 06/22/2019 Generated: 07/06/19 9:12 am Comments DCP- Discharge Planning Updated by [id number]: Autumn Brown on 07/06/19 7:[address] CALLED AUTUMN (DAUGHTER) TO SEE WHO HER SECOND CHOICE WAS AND SHE DID NOT HAVE A PREFERENCE, REFERRAL SENT TO [facility] DCP- Discharge Planning Updated by [email or web address]: Autumn Webbken on 07/05/19 4:[address] I WILL ATTEMPT TO CALL THEM IN AM TO SEE WHAT THEIR 2ND CHOICE WILL BE DCP- Discharge Planning Updated by [id number]: Autumn Webbken on 07/05/19 4:[address] [facility] CALLED BACK AND STATED THEY ARE OUT OF NETWORK, I ATTEMPTED TO CALL THE DAUGHTER BUT DID NOT GET AN ANSWER DCP- Discharge Planning Updated by [email or web address]: Autumn Webbken on 07/05/19 3:[address] PATIENT TO BE DISCHARGING HOME TODAY, HE LIVES WITH HIS DAUGHTER AND SHE WILL BE HIS TRANSPORT HOME. IMM SERVED AND EXPLAINED. HE STATED HE HAD ALL DME AND I ASKED HIM IF HE NEEDED HOME HEALTH AND HE ASKED ME TO CALL HIS DAUGHTER. I CALLED HER AND SHE DID WANT HIM TO HOME HEALTH WITH [facility]. WILL SEND REFERRAL OVER FOR HOME HEALTH. CM TO FOLLOW AND ASSIST NEJACKELYN DCP- Discharge Planning Updated by [id number]: Emily Mcfarland on 06/22/19 4:[address] DC PLAN: Return home vs geripsych ANTICIPATED DC NEEDS: New onset confusion, hallucinations, and behavior issues according to dtr. CM met with patient and his daughter to complete initial dc planning assessment. CM educated them on the CM role and verbal consent given by patient's daughter to complete assessment. CM verified patient's address, phone number, and emergency contact phone numbers. Patients daughter reports for the past few days patient has had new onset confusion, hallucinations, and behavior issues. She said he has never have these behaviors in the past. Patient lives at home with his daughter, Autumn. At discharge Autumn stated he will return home with her or he may require geripsych if the AMS dose not clear up. CM discussed availability of home health, rehab services, and medical equipment. Unsure what dc needs at this time will be. Transportation provider at discharge will be Autumn if he dc to home . CM will continue to follow and will assist as needed with dc plans/needs. Emily Mcfarland RN, [facility] DCPIA - Discharge Planning Initial Assessment Updated by [email or web address]: Emily Mcfarland on 06/22/19 5:35 pm * Is the patient Alert and Oriented? No * [facility] * Preadmission Environment Home with Family * ADLs Partial Dependent * Partial ADLs (Assistance needed) Medication Management * Equipment Cane Nebulizer Oxygen Rolling Walker Wheelchair * Other Equipment CPAP - [facility] * List name and contact numbers for known caregivers / representatives who currently or will assist patient after discharge: Autumn Reynolds - daughter - [phone] * Verbal permission to speak to the caregivers and representatives has been obtained from the patient. Yes * Community resources currently utilized None * Additional services required to return to the preadmission environment? Yes * Can the patient safely return to the preadmission environment? Yes * Has this patient been hospitalized within the prior 30 days at any hospital? Yes Coverage Notice Reviewer: [id number] Diana Brown Notice Issued Date-Time: 07/05/2019 16:00 Notice Type: IM Discharge Notice Notice Delivered To: Patient Relationship to Patient: Mission Support Specialist Name: Delivery Method: HAND - Hand Delivered Rosibel Days: Prior Verbal Notification: Recipient Understood Notice: Yes Recipient Signature: Yes Med Rec Note Co-signed by Attending: Coverage Notice Comment: Reviewer: [id number] Diana Brown Notice Issued Date-Time: 07/05/2019 16:00 Notice Type: Patient Choice Letter Notice Delivered To: Family Member Relationship to Patient: Daughter Mission Support Specialist Name: AUTUMN Delivery Method: PHONE - Phone Rosibel Days: Prior Verbal Notification: Recipient Understood Notice: Yes Recipient Signature: Med Rec Note Co-signed by Attending: Coverage Notice Comment: CARE IV HERMINIA OVER PHONE, PATIENT WANTED THE DAUGHTER (WHO IS HIS ELECTRIC METER READER) TO MAKE THAT DECISION Last DP export: 07/06/19 7:06 Patient Name: TREV JERRY Page [phone] at 0812 All edits/amendments must be made on the electronic document DICTATION DATE: 07/06/19811 TREE WORKER: FAVIAN 07/06/19811 RPT#: [id number] DC DATE:07/05/19 STATUS: DIS IN [facility] [address] [place] [address] END OF REPORT
--- NOTE | 2019-07-06 08:45 | MORECARE ---
CASE MANAGEMENT DISCHARGE SUMMARY PATIENT: TREV JERRY UNIT: [id number] ADM DATE: 06/22/19 AGE: 74 : 44 SEX: M ROOM/BED: D.2218 AUTHOR: WENDYDOC PHYSICIAN: REFERRING PHYSICIAN: KVNG WHITE MD DATE OF SERVICE: 07/06/19 Discharge Plan Patient Name: TREV JERRY Facility: [facility]:[place] : 1945 Planned Disposition: Home Anticipated Discharge Date: 06/23/19 Discharge Date: 07/05/2019 Expected LOS: 1 Initial Reviewer: [email or web address] Initial Review Date: 06/22/2019 Generated: 07/06/19 9:45 am DCP- Discharge Planning Updated by [email or web address]: Autumn Brown on 07/06/19 7:[address] [facility]OX CALLED INTO [facility] 600 MG PO BID X 14 DAYS THE COST IS 3.40 I SPOKE WITH DAR BILLY CAME OVER AND ASKED THAT THIS BE CALLED IN I SPOKE WITH AUTUMN AND LET HER KNOW THE ABOVE SHE WAS GOING TO PICK IT UP AND ALSO STOP BY MD OFFICE FOR A PAIN SCRIPT FOR HER DAD. DCP- Discharge Planning Updated by [email or web address]: Autumn Brown on 07/06/19 7:[address] CALLED AUTUMN (DAUGHTER) TO SEE WHO HER SECOND CHOICE WAS AND SHE DID NOT HAVE A PREFERENCE, REFERRAL SENT TO [facility] DCP- Discharge Planning Updated by [email or web address]: Autumn Brown on 07/05/19 4:[address] I WILL ATTEMPT TO CALL THEM IN AM TO SEE WHAT THEIR 2ND CHOICE WILL BE DCP- Discharge Planning Updated by [id number]: Autumn Brown on 07/05/19 4:[address] [facility] CALLED BACK AND STATED THEY ARE OUT OF NETWORK, I ATTEMPTED TO CALL THE DAUGHTER BUT DID NOT GET AN ANSWER DCP- Discharge Planning Updated by [id number]: Autumn Brown on 07/05/19 3:[address] PATIENT TO BE DISCHARGING HOME TODAY, HE LIVES WITH HIS DAUGHTER AND SHE WILL BE HIS TRANSPORT HOME. IMM SERVED AND EXPLAINED. HE STATED HE HAD ALL DME AND I ASKED HIM IF HE NEEDED HOME HEALTH AND HE ASKED ME TO CALL HIS DAUGHTER. I CALLED HER AND SHE DID WANT HIM TO HOME HEALTH WITH [facility]. WILL SEND REFERRAL OVER FOR HOME HEALTH. CM TO FOLLOW AND ASSIST MEI DCP- Discharge Planning Updated by [email or web address]: Emily Mcfarland on 06/22/19 4:[address] DC PLAN: Return home vs geripsych ANTICIPATED DC NEEDS: New onset confusion, hallucinations, and behavior issues according to dtr. CM met with patient and his daughter to complete initial dc planning assessment. CM educated them on the CM role and verbal consent given by patient's daughter to complete assessment. CM verified patient's address, phone number, and emergency contact phone numbers. Patients daughter reports for the past few days patient has had new onset confusion, hallucinations, and behavior issues. She said he has never have these behaviors in the past. Patient lives at home with his daughter, Autumn. At discharge Autumn stated he will return home with her or he may require geripsych if the AMS dose not clear up. CM discussed availability of home health, rehab services, and medical equipment. Unsure what dc needs at this time will be. Transportation provider at discharge will be Autumn if he dc to home . CM will continue to follow and will assist as needed with dc plans/needs. Emily Mcfarland RN, [facility] DCPIA - Discharge Planning Initial Assessment Updated by [email or web address]: Emily Mcfarland on 06/22/19 5:35 pm * Is the patient Alert and Oriented? No * [facility] * Preadmission Environment Home with Family * ADLs Partial Dependent * Partial ADLs (Assistance needed) Medication Management * Equipment Cane Nebulizer Oxygen Rolling Walker Wheelchair * Other Equipment CPAP - [facility] * List name and contact numbers for known caregivers / representatives who currently or will assist patient after discharge: Autumn Reynolds - daughter - [phone] * Verbal permission to speak to the caregivers and representatives has been obtained from the patient. Yes * Community resources currently utilized None * Additional services required to return to the preadmission environment? Yes * Can the patient safely return to the preadmission environment? Yes * Has this patient been hospitalized within the prior 30 days at any hospital? Yes Coverage Notice Reviewer: [email or web address] - Autumn Brown Notice Issued Date-Time: 07/05/2019 16:00 Notice Type: IM Discharge Notice Notice Delivered To: Patient Relationship to Patient: Break Up Worker Name: Delivery Method: HAND - Hand Delivered Rosibel Days: Prior Verbal Notification: Recipient Understood Notice: Yes Recipient Signature: Yes Med Rec Note Co-signed by Attending: Coverage Notice Comment: Reviewer: [id number] - Autumn Brown Notice Issued Date-Time: 07/05/2019 16:00 Notice Type: Patient Choice Letter Notice Delivered To: Family Member Relationship to Patient: Daughter Break Up Worker Name: AUTUMN Delivery Method: PHONE - Phone Rosibel Days: Prior Verbal Notification: Recipient Understood Notice: Yes Recipient Signature: Med Rec Note Co-signed by Attending: Coverage Notice Comment: CARE IV HERMINIA OVER PHONE, PATIENT WANTED THE DAUGHTER (WHO IS HIS PROVIDER RELATIONS SPECIALIST) TO MAKE THAT DECISION Last DP export: 07/06/19 7:12 Patient Name: TREV JERRY Page [id number] at 0845 All edits/amendments must be made on the electronic document DICTATION DATE: 07/06/1945 FIVE PIECE EXPANSION MAKER HAND: FAVIAN 07/06/19 0845 RPT#: [id number] DC DATE:07/05/19 STATUS: DIS IN [facility] [address] [place] [address] END OF REPORT
--- NOTE | 2019-07-06 15:46 | MORECARE ---
CASE MANAGEMENT DISCHARGE SUMMARY PATIENT: TREV JERRY UNIT: [id number] ADM DATE: 06/22/19 AGE: 74 : 44 SEX: M ROOM/BED: D.2218 AUTHOR: WENDYDOC PHYSICIAN: REFERRING PHYSICIAN: KVNG WHITE MD DATE OF SERVICE: 07/06/19 Discharge Plan Patient Name: TREV JERRY Facility: [facility]:[place] : 1945 Planned Disposition: Home Anticipated Discharge Date: 06/23/19 Discharge Date: 07/05/2019 Expected LOS: 1 Initial Reviewer: [email or web address] Initial Review Date: 06/22/2019 Generated: 07/06/19 4:46 pm DCP- Discharge Planning Updated by [email or web address]: Autumn Brown on 07/06/19 7:[address] ZYVOX CALLED INTO [facility] 600 MG PO BID X 14 DAYS THE COST IS 3.40 I SPOKE WITH DAR BILLY CAME OVER AND ASKED THAT THIS BE CALLED IN I SPOKE WITH AUTUMN AND LET HER KNOW THE ABOVE SHE WAS GOING TO PICK IT UP AND ALSO STOP BY MD OFFICE FOR A PAIN SCRIPT FOR HER DAD. DCP- Discharge Planning Updated by [email or web address]: Autumn Brown on 07/06/19 7:[address] CALLED AUTUMN (DAUGHTER) TO SEE WHO HER SECOND CHOICE WAS AND SHE DID NOT HAVE A PREFERENCE, REFERRAL SENT TO [facility] DCP- Discharge Planning Updated by [email or web address]: Autumn Brown on 07/05/19 4:[address] I WILL ATTEMPT TO CALL THEM IN AM TO SEE WHAT THEIR 2ND CHOICE WILL BE DCP- Discharge Planning Updated by [email or web address]: Autumn Brown on 07/05/19 4:[address] [facility] CALLED BACK AND STATED THEY ARE OUT OF NETWORK, I ATTEMPTED TO CALL THE DAUGHTER BUT DID NOT GET AN ANSWER DCP- Discharge Planning Updated by [email or web address]: Autumn Brown on 07/05/19 3:[address] PATIENT TO BE DISCHARGING HOME TODAY, HE LIVES WITH HIS DAUGHTER AND SHE WILL BE HIS TRANSPORT HOME. IMM SERVED AND EXPLAINED. HE STATED HE HAD ALL DME AND I ASKED HIM IF HE NEEDED HOME HEALTH AND HE ASKED ME TO CALL HIS DAUGHTER. I CALLED HER AND SHE DID WANT HIM TO HOME HEALTH WITH [facility]. WILL SEND REFERRAL OVER FOR HOME HEALTH. CM TO FOLLOW AND ASSIST MEI DCP- Discharge Planning Updated by [email or web address]: Emily Mcfarland on 06/22/19 4:[address] DC PLAN: Return home vs geripsych ANTICIPATED DC NEEDS: New onset confusion, hallucinations, and behavior issues according to dtr. CM met with patient and his daughter to complete initial dc planning assessment. CM educated them on the CM role and verbal consent given by patient's daughter to complete assessment. CM verified patient's address, phone number, and emergency contact phone numbers. Patients daughter reports for the past few days patient has had new onset confusion, hallucinations, and behavior issues. She said he has never have these behaviors in the past. Patient lives at home with his daughter, Autumn. At discharge Autumn stated he will return home with her or he may require geripsych if the AMS dose not clear up. CM discussed availability of home health, rehab services, and medical equipment. Unsure what dc needs at this time will be. Transportation provider at discharge will be Autumn if he dc to home . CM will continue to follow and will assist as needed with dc plans/needs. Emily Mcfarland RN, [facility] [place] DCPIA - Discharge Planning Initial Assessment Updated by [email or web address]: Emily Mcfarland on 06/22/19 5:35 pm * Is the patient Alert and Oriented? No * [facility] * Preadmission Environment Home with Family * ADLs Partial Dependent * Partial ADLs (Assistance needed) Medication Management * Equipment Cane Nebulizer Oxygen Rolling Walker Wheelchair * Other Equipment CPAP - [facility] is D[facility] * List name and contact numbers for known caregivers / representatives who currently or will assist patient after discharge: Autumn Reynolds - daughter - [phone] * Verbal permission to speak to the caregivers and representatives has been obtained from the patient. Yes * Community resources currently utilized None * Additional services required to return to the preadmission environment? Yes * Can the patient safely return to the preadmission environment? Yes * Has this patient been hospitalized within the prior 30 days at any hospital? Yes Coverage Notice Reviewer: [id number] - Autumn Brown Notice Issued Date-Time: 07/05/2019 16:00 Notice Type: IM Discharge Notice Notice Delivered To: Patient Relationship to Patient: Cutter And Edge Trimmer Name: Delivery Method: HAND - Hand Delivered Rosibel Days: Prior Verbal Notification: Recipient Understood Notice: Yes Recipient Signature: Yes Med Rec Note Co-signed by Attending: Coverage Notice Comment: Reviewer: [email or web address] - Autumn Brown Notice Issued Date-Time: 07/05/2019 16:00 Notice Type: Patient Choice Letter Notice Delivered To: Family Member Relationship to Patient: Daughter Cutter And Edge Trimmer Name: AUTUMN Delivery Method: PHONE - Phone Rosibel Days: Prior Verbal Notification: Recipient Understood Notice: Yes Recipient Signature: Med Rec Note Co-signed by Attending: Coverage Notice Comment: [facility] HERMINIA OVER PHONE, PATIENT WANTED THE DAUGHTER (WHO IS HIS SENIOR COURT OFFICE ASSISTANT) TO MAKE THAT DECISION Last DP export: 07/06/19 7:45 Patient Name: TREV JERRY Page [phone] at 1546 All edits/amendments must be made on the electronic document DICTATION DATE: 07/06/19 1546 HEADING REPAIRER: FAVIAN 07/06/19 1546 RPT#: [id number] DC DATE:07/05/19 STATUS: DIS IN [facility] [address] [place] [address] END OF REPORT
== END 2019-07-05 16:50 | disposition home health service (06) | DRG 492 ==
LOC: D.ER 10:04 → D.ICU 14:19 → D.MS 14:19 → D.M2 14:19 → D.ICU 06-27 21:57 → D.MS 06-29 13:42
PROVIDERS: Anesthesiology; Family Medicine; Internal Medicine Pulmonary Disease; Orthopaedic Surgery; ADMIT Internal Medicine Nephrology; ATTEND Internal Medicine Nephrology
PROC: 5A09457 Assistance with Respiratory Ventilation, 24-96 Consecutive Hours, Continuous Positive Airway Pressure (ICD-10-PCS; 2019-06-27)
PROC: 0PSF06Z Reposition Right Humeral Shaft with Intramedullary Internal Fixation Device, Open Approach (ICD-10-PCS; principal; 2019-06-27 09:45)
DX: S42.301A Unspecified fracture of shaft of humerus, right arm, initial encounter for closed fracture (principal); G93.41 Metabolic encephalopathy; J96.02 Acute respiratory failure with hypercapnia; I50.33 Acute on chronic diastolic (congestive) heart failure; N17.0 Acute kidney failure with tubular necrosis; J44.1 Chronic obstructive pulmonary disease with (acute) exacerbation; E87.1 Hypo-osmolality and hyponatremia; J98.11 Atelectasis; I11.0 Hypertensive heart disease with heart failure; I48.91 Unspecified atrial fibrillation; D64.9 Anemia, unspecified; E87.6 Hypokalemia; I25.10 Atherosclerotic heart disease of native coronary artery without angina pectoris; E78.5 Hyperlipidemia, unspecified; F41.8 Other specified anxiety disorders; R04.0 Epistaxis

== ENCOUNTER 2019-07-13 09:24 | Inpatient (IN) | payer MEDICARE ==
[~2019-07-13] VITALS: Ht 189.2 cm; Wt 103.0 kg
--- NOTE | ~2019-07-13 | CN ---
PATIENT NAME:TREV JERRY MEDICAL RECORD: [id number] : 43 LOCATION:D.MS [address] ADMIT DATE: 07/13/19 ACCOUNT: [id number] CONSULTING PHYSICIAN: NETTE MCCULLOUGH MD REFERRING PHYSICIAN: JACQUES ESTRADA MD DATE OF CONSULTATION: 07/15/2019 CARDIOLOGY CONSULTATION DIAGNOSES: 1. Atrial fibrillation. 2. Tachycardia. 3. Coronary artery disease. 4. Previous PTCA and stent. 5. Chronic obstructive pulmonary disease. 6. Smoking history. 7. Postop shoulder surgery. HISTORY OF PRESENT ILLNESS: Mr. Jerry presented with bleeding from incision site. He is approximately 1 week status post shoulder surgery. He has now had a repeat operation today. He was on Inderal and Cardizem. It appears that he got these all, but today. Before the surgery, his heart rate was in the 80s. After the surgery, heart rate increased to the 130s. He is not in any distress. No chest pain, chest discomfort. No EKG changes or ST-T changes with the tachycardia. PHYSICAL EXAMINATION: CONSTITUTIONAL/GENERAL APPEARANCE: Well nourished, well developed, appears stated age. EYES: Lids and conjunctivae noninjected. No discharge. No pallor. ENT: Lips within normal limit. No cyanosis. No pallor. NECK: Carotid arteries, bilateral normal upstroke. No bruits. No thrills. No jugular venous pressure or distention. CERVICAL LYMPH NODES: Nontender. Nonenlarged. THYROID: Not enlarged. No nodules. CARDIOVASCULAR: Heart is irregular irregular, tachycardic with atrial fibrillation. RESPIRATORY: Respiratory effort, unlabored. Normal curvature. No thoracic deformity. No chest wall tenderness. Percussion, resonant. Auscultation, clear. No wheezes, no rales, no rhonchi. ABDOMEN: Soft, nondistended, nontender. No abdominal pain, no vomiting and normal appetite. MUSCULOSKELETAL: No joint tenderness, normal gait, normal tone. SKIN: Warm and dry. OVERALL IMPRESSION: Tachycardia associated with atrial fibrillation. This is just secondary to him not getting his medications today. We will give him an IV Cardizem bolus, restarting his oral medications as soon as he is able to take p.o. again. At this time, no other cardiac workup or treatment is necessary. TRANSINT:[id number] Voice Confirmation ID: [id number] DOCUMENT ID: [id number] CONSULT REPORT [id number] TREV JERRY JEFFREY MD CC: [id number] DICTATION DATE: 07/15/19 120 CHEMICAL SALES REPRESENTATIVE: 07/15/19 1223 ADM IN [facility] [address] [place] [id number]
[~2019-07-13 09:24] MED LIST changes: +ALBUTEROL SULF8.5 GM INH; +SYNTHROID50 MCG PO
[2019-07-13 09:57] LABS: BASOPHILS 0.1 % (0-2); EOSINOPHILS 1.3 % (0-7); HEMATOCRIT 33.3 % (42.0-54.0); HEMOGLOBIN 10.1 g/dL (13.5-17.5); IMMATURE GRANULOCYTES 0.2 % (0-5); LYMPHOCYTES 11.1 % (15-50); MCH 30.8 pg (26.0-34.0); MCHC 30.3 g/dL (31.0-37.0); MCV 101.5 fL (80.0-100.0); MEAN PLATELET VOLUME 9.8 fL (7.4-10.4); MONOCYTES 10.6 % (2-11); NEUTROPHILS 76.7 % (40-80); PLATELET COUNT 415 10x3/uL (130-400); RBC 3.28 10x6/uL (4.20-6.10); RDW 19.3 % (11.5-14.5); WBC 11.2 10x3/uL (4.8-10.8)
[2019-07-13 10:03] LABS: CALC OSMOLALITY 294 mosm/kg (275-300); CALCIUM 8.9 mg/dL (8.5-10.1); CARBON DIOXIDE 36.8 mmol/L (21.0-32.0); CHLORIDE - SERUM 104 mmol/L (98-107); POTASSIUM - SERUM 4.1 mmol/L (3.5-5.1); SODIUM 144 mmol/L (136-145); UREA NITROGEN 29 mg/dL (7-18); eGFR NON AFRICAN AMERICAN 77 mL/min (90-120)
[2019-07-13 10:04] LABS: APTT 32.1 SECONDS (22.8-39.4); INR 1.06 (0.85-1.17); PROTIME 13.3 SECONDS (11.6-15.0)
[2019-07-13 10:08] LABS: GLUCOSE 128 mg/dL (74-106)
[2019-07-13 10:09] LABS: ALKALINE PHOSPHATASE 212 U/L (46-116); ALT (SGPT) 40 U/L (10-68); BILIRUBIN - TOTAL 0.82 mg/dL (0.2-1.3); PROTEIN - SERUM 6.6 g/dL (6.4-8.2)
[2019-07-13 10:27] VITALS: BP 96/60
--- NOTE | 2019-07-13 10:28 | NUR ---
bp 96/60 (map 72)
[2019-07-13 11:03] VITALS: BP 110/65
--- NOTE | 2019-07-13 11:42 | NUR ---
REPORT CALLED TO CARMELLA JARRETT
[2019-07-13 11:52] VITALS: BP 123/75
--- NOTE | 2019-07-13 12:42 | NUR ---
REC'D TO ROOM 2238 AT THIS TIME VIA STRETCHER AWAKE AND ALERT. RESP EVEN AND UNLABORED WITH NO DISTRESS NOTED. CAN EXPRESS NEEDS AND WANTS. NO C/O NOTED OR VOICED. IV NOTED OR LEFT FOREARM WITH MVI BAG INFUSING AT 125. ASSESSMENT COMPLETED. FALL PRECAUTION STATED. C/L IN REACH AT BEDSIDE.
--- NOTE | 2019-07-13 16:00 | NUR ---
IV THERAPY RESTARTED IN LEFT FOREARM. 22G. 1 ATTEMPT.
[2019-07-13 16:13] VITALS: BP 133/70; BMI 28.8
--- NOTE | 2019-07-13 17:30 | NUR ---
CONSENTS SIGNED FOR I&D OF RIGHT HUMORUS WITH WOUND VAC APPLICATION. PATIENT A/O COULD ONLY PLACE AN X HE IS RIGHT HANDED. CL IN REACH. NO FURTHER NEEDS AT THIS TIME.
--- NOTE | 2019-07-13 19:00 | NUR ---
BEDSIDE REPORT RECEIVED AND CARE OF PT ASSUMED. PT SITTING UP ON SIDE OF BED AT THIS TIME. IV TO LEFT FA PATENT WITH MVI INFUSING AT 125 ML/HR. TELEMETRY IN PLACE AND READING A FIB AT THIS ASSESSMENT. WILL MONITOR FOR NEEDS.
[2019-07-13 20:00] VITALS: BP 100/59
[2019-07-14] VITALS: BP 108/61
[2019-07-14 04:00] VITALS: BP 134/61
[2019-07-14 07:06] LABS: BASOPHILS 0.1 % (0-2); EOSINOPHILS 1.2 % (0-7); HEMATOCRIT 31.8 % (42.0-54.0); HEMOGLOBIN 9.7 g/dL (13.5-17.5); IMMATURE GRANULOCYTES 0.2 % (0-5); LYMPHOCYTES 9.3 % (15-50); MCH 31.2 pg (26.0-34.0); MCHC 30.5 g/dL (31.0-37.0); MCV 102.3 fL (80.0-100.0); MEAN PLATELET VOLUME 9.7 fL (7.4-10.4); MONOCYTES 9.5 % (2-11); NEUTROPHILS 79.7 % (40-80); RBC 3.11 10x6/uL (4.20-6.10)
[2019-07-14 07:10] LABS: PLATELET COUNT 327 10x3/uL (130-400)
--- NOTE | 2019-07-14 07:22 | NUR ---
PT LYING IN BED ASLEEP. EVEN RISE AND FALL OF CHEST NO S/SX OF DISTRESS, CL IN REACH ASSUME PT CARE
[2019-07-14 07:28] LABS: ALBUMIN 2.6 g/dL (3.4-5.0); ANION GAP 14.1 mmol/L (8-16); BILIRUBIN - TOTAL 0.61 mg/dL (0.2-1.3); CALCIUM 8.2 mg/dL (8.5-10.1); CARBON DIOXIDE 32.7 mmol/L (21.0-32.0); CREATININE - SERUM 1.2 mg/dL (0.6-1.3); PROTEIN - SERUM 6.3 g/dL (6.4-8.2)
[2019-07-14 07:30] LABS: POTASSIUM - SERUM 2.8 mmol/L (3.5-5.1)
--- NOTE | 2019-07-14 07:58 | NUR ---
PT STATED HE DOES NOT FEEL RIGHT, PT TOOK A BIT TO WAKE UP FALLS BACK TO SLEEP, CALLED MONITORS AND PT IS RUNNING 96 AFIB, O2 WAS 85 AT 1L TURNED PT UP TO 2.5L AND PAGED ONCALL. PER AMELIE HAVE CXR AND LACTIC ACID RUN. CONTINUE TO MONITOR PT
[2019-07-14 08:26] VITALS: BP 144/72
--- NOTE | 2019-07-14 11:51 | NUR ---
PT HAD A BOTTLE OF NARCOTICS IN PANTS POCLET AND ANOTHER UNLABLED BOTTLE IN HAND. BAGGED UP BOTTLES TO TAKE TO PHARMACY. PT STATED HE HAD NOT TAKEN ANY HOME MEDICATIONS BUT PT IS VERY SLEEPY TODAY, DC MANAGER STUDENT SERVICES WELL WILL CONTINUE WITH PT CARE
[2019-07-14 12:33] VITALS: BMI 28.7
[2019-07-14 12:43] VITALS: BP 138/84
--- NOTE | 2019-07-14 14:42 | NUR ---
PT RESTING IN BED WITH EYES CLOSED, CURRENTLY ON BIPAP. NO S/S OF DISTRESS AT THIS TIME, WILL CONT TO MONITOR.
--- NOTE | 2019-07-14 15:26 | NUR ---
REMOVED PTS BIPAP TO TAKE MEDS, EASILY AROUSED TO SPEECH AND TOUCH. NOW EATING LUNCH. WILL CONT TO MONITOR CLOSELY WHILE EATING.
[2019-07-14 16:23] VITALS: BP 114/63
[2019-07-14 20:00] VITALS: BP 127/64
[2019-07-15] VITALS: BP 124/63
--- NOTE | 2019-07-15 02:17 | NUR ---
RESTING IN BED WITH NO S/S OF ACUTE DISTRESS. IV TO THE LT FORARM WITH NO REDNESS OR SWELLING NOTED. NC @2L AND BRYSON ALARM ON. INCISION WITH MARC NOTED TO THE RT ARM, PULSE PALP. ASSISTED WIT BIPAP PLACEMENT. DENIES NO NEEDS. CONTINUE PLAN OF CARE.
[2019-07-15 05:47] LABS: BASOPHILS 0.1 % (0-2); EOSINOPHILS 2.5 % (0-7); HEMOGLOBIN 9.5 g/dL (13.5-17.5); IMMATURE GRANULOCYTES 0.1 % (0-5); LYMPHOCYTES 14.3 % (15-50); MCH 30.7 pg (26.0-34.0); MCHC 29.7 g/dL (31.0-37.0); MCV 103.6 fL (80.0-100.0); MEAN PLATELET VOLUME 9.7 fL (7.4-10.4); MONOCYTES 14.1 % (2-11); NEUTROPHILS 68.9 % (40-80); PLATELET COUNT 272 10x3/uL (130-400); RBC 3.09 10x6/uL (4.20-6.10); RDW 20.2 % (11.5-14.5); WBC 7.5 10x3/uL (4.8-10.8)
[2019-07-15 05:54] LABS: ALBUMIN 2.4 g/dL (3.4-5.0); ALKALINE PHOSPHATASE 164 U/L (46-116); ALT (SGPT) 24 U/L (10-68); BILIRUBIN - TOTAL 0.54 mg/dL (0.2-1.3); CALCIUM 8.2 mg/dL (8.5-10.1); CARBON DIOXIDE 35.6 mmol/L (21.0-32.0); CHLORIDE - SERUM 109 mmol/L (98-107); CREATININE - SERUM 0.9 mg/dL (0.6-1.3); PROTEIN - SERUM 5.6 g/dL (6.4-8.2); SODIUM 148 mmol/L (136-145); eGFR NON AFRICAN AMERICAN 87 mL/min (90-120)
[2019-07-15 05:56] LABS: CALC OSMOLALITY 295 mosm/kg (275-300); GLUCOSE 90 mg/dL (74-106); UREA NITROGEN 17 mg/dL (7-18)
[2019-07-15 05:57] LABS: POTASSIUM - SERUM 2.9 mmol/L (3.5-5.1)
--- NOTE | 2019-07-15 07:37 | NUR ---
RECEIVED CALL FROM LAB ABOUT CRITICAL POTASSIUM. IV TREATMENT STARTED. WILL MONITOR.
[2019-07-15 07:57] VITALS: BP 128/73
--- NOTE | 2019-07-15 10:09 | NUR ---
ROMULO PO GIVEN. REGLAN AND PEPCID IV SENT WITH PATIENT TO OR. OR STAFF NOTIFIED OF HARD STICK/NO IV. THEY WILL START IV IN OR. PATIENT ON WAY TO OR AT THIS TIME. KASI REMOVED FROM CED THIS AM.
--- NOTE | 2019-07-15 11:42 | NUR ---
PT IN UNCONTROLLED AFIB @145BPM. OBTAINED ORDERS TO CONSULT CARDIOLOGY. INTERIOR PANELER AND NEW ORDERS OBTAINED. CARDIZEM IV PUSH BOLUS GIVEN ORDERED. CALLED PHARMACY WAITING ON CARDIZEM DRIP. WILL CTM.
[2019-07-15 12:03] VITALS: Ht 189.2 cm; Wt 103.0 kg
--- NOTE | 2019-07-15 12:27 | NUR ---
BACK FROM SURGERY. HAS WOUND VAC TO R ARM NOW. RESP EVEN AND UNLABORED AT THIS TIME. VSS.
--- NOTE | 2019-07-15 14:14 | NUR ---
VISITOR AT . PATIENT ALERT AND EATING LATE LUNCH. HAD SURGERY TODAY ON R SHOULDER. SAYS HE IS GOING HOME TODAY. I TOLD HIM HE PROBABLY WASN'T BUT HE SAYS HE IS LEAVING TODAY.
[2019-07-15 14:51] LABS: % SATURATION 13 % (15-55); IRON 33 ug/dl (35-150); TOTAL IRON BIND CAPACITY 250 ug/dl (260-445); UNSAT IRON BIND CAPACITY 217 ug/dl (150-375)
--- NOTE | 2019-07-15 14:57 | MORECARE ---
CASE MANAGEMENT DISCHARGE SUMMARY PATIENT: TREV JERRY UNIT: [id number] ADM DATE: 07/13/19 AGE: 74 : 44 SEX: M ROOM/BED: D.2238 AUTHOR: ANDRIY NGUYEN PHYSICIAN: REFERRING PHYSICIAN: JACQUES ESTRADA MD DATE OF SERVICE: 07/15/19 Discharge Plan Patient Name: TREV JERRY [facility] [facility] 1945 Planned Disposition: Anticipated Discharge Date: Discharge Date: Expected LOS: Initial Reviewer: [email or web address] Initial Review Date: 07/15/2019 Generated: 07/15/19 3:57 pm DCPIA - Discharge Planning Initial Assessment Updated by [id number]: Britany Stone on 07/15/19 2:56 pm * Is the patient Alert and Oriented? Yes * [facility] * Preadmission Environment Home with Family * Other Equipment CANE NEB O2 RW, WC, CPAP * List name and contact numbers for known caregivers / representatives who currently or will assist patient after discharge: LOUISE PARISH, DAUGHTER, * Community resources currently utilized Home Health * Please name any agencies selected above. DOESN'T REMEMBER NAME * Additional services required to return to the preadmission environment? No * Can the patient safely return to the preadmission environment? Yes * Has this patient been hospitalized within the prior 30 days at any hospital? Yes Patient Name: TREV JERRY Page [phone] at 1457 All edits/amendments must be made on the electronic document DICTATION DATE: 07/15/191456 CREDIT RELATIONSHIP MANAGER: FAVIAN 07/15/191456 RPT#: [id number] DC DATE: STATUS: ADM IN [facility] [address] [place] [address] END OF REPORT
--- NOTE | 2019-07-15 15:04 | MORECARE ---
CASE MANAGEMENT DISCHARGE SUMMARY PATIENT: TREV JERRY UNIT: [id number] ADM DATE: 07/13/19 AGE: 74 : 44 SEX: M ROOM/BED: D.2238 AUTHOR: WENDYDOC PHYSICIAN: REFERRING PHYSICIAN: JACQUES ESTRADA MD DATE OF SERVICE: 07/15/19 Discharge Plan Patient Name: TREV JERRY Facility: [facility]:[place] : 1945 Planned Disposition: Anticipated Discharge Date: Discharge Date: Expected LOS: Initial Reviewer: [email or web address] Initial Review Date: 07/15/2019 Generated: 07/15/19 4:04 pm Comments DCP- Discharge Planning Updated by [email or web address]: Britany Stone on 07/15/19 2:[address] Patient Name: TREV JERRY Admission Status: ER Accout number: [id number] Admission Date: 07-13-2019 : 1945 Admission Diagnosis: Attending: SHELL Current LOS: 2 Anticipated DC Date: Planned Disposition: Primary Insurance: [employer]ARE ADV Discharge Planning Comments: CM met with patient at bedside after explaining CM role and obtaining verbal consent. CM discussed availability / needs of home health, REHAB and medical equipment. PATIENT HAS EQUIPMENT AT HOME AND HIS DAUGHTER TAKES CARE OF HIM. HAS HH BUT DOESN'T REMEBER THE NAME, HIS DAUGHTER LOUISE KNOWS. DOES NOT WANT REHAB. WANTS TO GO HOME WITH DAUGHTER. I NOTICED HE DOES HAVE A WOUND VAC IN PLACE. CM TO FOLLOW AND ASSIST. Healthcare Social Worker: Britany Stone DCPIA - Discharge Planning Initial Assessment Updated by [id number]: Britany Stone on 07/15/19 2:56 pm * Is the patient Alert and Oriented? Yes * [facility] * Preadmission Environment Home with Family * Other Equipment CANE NEB O2 RW, WC, CPAP * List name and contact numbers for known caregivers / representatives who currently or will assist patient after discharge: LOUISE PARISH, DAUGHTER, * Community resources currently utilized Home Health * Please name any agencies selected above. DOESN'T REMEMBER NAME * Additional services required to return to the preadmission environment? No * Can the patient safely return to the preadmission environment? Yes * Has this patient been hospitalized within the prior 30 days at any hospital? Yes Last DP export: 07/15/19 1:57 p Patient Name: TREV JERRY Page [phone] at 1504 All edits/amendments must be made on the electronic document DICTATION DATE: 07/15/191503 ACETYLENE OPERATOR: FAVIAN 07/15/191503 RPT#: [id number] DC DATE: STATUS: ADM IN [facility] [address] [place] [address] END OF REPORT
[2019-07-15 16:19] VITALS: BP 117/60
--- NOTE | 2019-07-15 16:58 | NUR ---
NO CHANGE IN ASSESSMENT. REPOSITIONED UP IN BED. BED ALARM ON. KEEPS SAYING HE IS GOING HOME TODAY. FAMILY HERE AT THIS TIME.
--- NOTE | 2019-07-15 19:00 | NUR ---
BEDSIDE REPORT RECEIVED AND CARE OF PT ASSUMED. PT LYING IN LOW MCCABE'S POSITION WATCHING TV. IV TO LEFT THUMB PATENT WITH NS INFUSING AT KVO, AND POTASSIUM RIDER INFUSING AT 100 ML/HR. INCREASED NS TO 50 AND DECREASED POTASSIUM TO 50 PT C/O IV BURNING. TELEMETRY IN PLACE AND READING 90 CONT A-FIB AT THIS ASSESSMENT. WOUND VAC IN PLACE ON RIGHT ARM WELL COMPRESSED WITH NO LEAKAGE ALARMS. O2 IN USE VIA NC AT 2.5 L. WILL MONITOR FOR NEEDS.
--- NOTE | 2019-07-15 20:26 | NUR ---
HS MEDICATIONS GIVEN TO INCLUDE NORCO PER REQUEST FOR PAIN. WILL CONTINUE TO MONITOR FOR NEEDS.
[2019-07-15 20:52] VITALS: BP 110/60
--- NOTE | 2019-07-15 22:00 | NUR ---
PT PULLED OUT IV TO LEFT THUMB AND SLUNG BLOOD ALL OVER ROOM. CATHETER TIP INTACT. RE-SITED TO LEFT WRIST USING 22 GUAGE CATHETER IN ONE STICK. IV FLUIDS RE-STARTED.
[2019-07-16 01:21] VITALS: BP 130/60
--- NOTE | 2019-07-16 02:15 | NUR ---
PT RESTING QUIETLY AT THIS TIME WITH BIPAP IN USE.
[2019-07-16 05:45] VITALS: BP 140/71
[2019-07-16 06:40] LABS: BASOPHILS 0.3 % (0-2); EOSINOPHILS 2.5 % (0-7); IMMATURE GRANULOCYTES 0.1 % (0-5); LYMPHOCYTES 16.1 % (15-50); MCH 31.3 pg (26.0-34.0); MCV 104.2 fL (80.0-100.0); MEAN PLATELET VOLUME 9.3 fL (7.4-10.4); MONOCYTES 10.5 % (2-11); NEUTROPHILS 70.5 % (40-80); PLATELET COUNT 258 10x3/uL (130-400); RBC 2.88 10x6/uL (4.20-6.10); RDW 19.7 % (11.5-14.5); WBC 7.6 10x3/uL (4.8-10.8)
[2019-07-16 06:49] LABS: ALBUMIN 2.4 g/dL (3.4-5.0); ALKALINE PHOSPHATASE 175 U/L (46-116); ALT (SGPT) 27 U/L (10-68); BILIRUBIN - TOTAL 0.57 mg/dL (0.2-1.3); CALC OSMOLALITY 286 mosm/kg (275-300); CALCIUM 8.1 mg/dL (8.5-10.1); CARBON DIOXIDE 36.3 mmol/L (21.0-32.0); CHLORIDE - SERUM 106 mmol/L (98-107); CREATININE - SERUM 0.7 mg/dL (0.6-1.3); GLUCOSE 98 mg/dL (74-106); PROTEIN - SERUM 5.8 g/dL (6.4-8.2); SODIUM 144 mmol/L (136-145); UREA NITROGEN 13 mg/dL (7-18); VANCOMYCIN - RANDOM 10.8 ug/mL (10.0-20.0); eGFR NON AFRICAN AMERICAN > 90 mL/min (90-120)
[2019-07-16 06:50] LABS: POTASSIUM - SERUM 3.4 mmol/L (3.5-5.1)
[2019-07-16 08:38] VITALS: BP 123/68
--- NOTE | 2019-07-16 11:00 | NUR ---
PT SITTING UP ON SIDE OF BED. PT O2 OFF AT THIS TIME. O2 SAT 97%. PT CONTINUES TO COMPLAIN OF PAIN TO RIGHT SHOULDER. DENIES FURTHER NEEDS AT THIS TIME. CL WITHIN REACH.
--- NOTE | 2019-07-16 11:20 | NUR ---
PT FOUND SITTING IN FLOOR RESTING AGAINST BED. PT REPORTS THAT HE HAD STOOD TO VOID IN URINAL AND LOST BALANCE. NO BRUISING, NO REDNESS NOTED TO EXTREMITIES. DENIES FURTHER PAIN IN JOINTS OR OTHER EXTREMITIES. MARC REMAIN INTACT TO RIGHT SHOULDER. WOUND VAC DRESSING INTACT TO RIGHT UPPER EXTREMITY. ASSISTED PT TO BED. NOTIFIED COSTUME DRAPER, GAYATHRI RODRÍGUEZ. NO FURTHER ORDERS NOTED AT THIS TIME.
--- NOTE | 2019-07-16 11:27 | OP ---
PATIENT NAME: TREV JERRY MEDICAL RECORD: [id number] :43 LOCATION:D.MS [address]38 ADMISSION DATE:07/13/19 SURGEON: CARL CHAVEZ MD DATE OF OPERATION: 07/15/2019 PREOPERATIVE DIAGNOSIS: Wound dehiscence with hematoma, right arm, status post intramedullary rodding for chronic nonhealing fracture. POSTOPERATIVE DIAGNOSIS: Wound dehiscence with hematoma, right arm, status post intramedullary rodding for chronic nonhealing fracture. PROCEDURES: 1. Excisional debridement of hematoma as well as nonviable tissue to include skin, subcutaneous tissue, portions of fat, fascia, muscle and bone. 2. Placement of negative pressure device -- wound VAC 18 x 6 x 6 cm. No undermining. SURGEON: Carl Chavez MD COMPUTER SECURITY SPECIALIST: Oziel Solomon. INTRAOPERATIVE COMPLICATIONS: None. SUMMARY OF PATHOLOGIC FINDINGS: A portion of the patient's wound did not only dehisced. He had a very large cavity of hematoma as well as nonviable tissue. This was removed using curettage, rongeur as well as a scalpel. OPERATIVE SUMMARY IN DETAIL: After obtaining the appropriate preoperative orthopedic surgery consent as well as anesthetic consultation, evaluation and clearance, the patient was brought to the operating room and placed on operating table in supine position. After adequate general laryngeal mask airway was administered, the patient was placed in a beach chair position. All pressure points were well padded. He was held firmly to the operating table using the vacuum pack suction system. Right upper extremity and shoulder were then prepped and draped in routine sterile fashion. The incisions about the proximal aspect of the shoulder were healing. No nicanor were left in place. The nicanor over the dehiscence were taken down. The incision was elongated as there was undermining hematoma. Serial and sequential curettage, rongeur as well as sharp dissection was utilized to remove portions of skin, subcutaneous tissue, portions of fat, fascia and free floating bone. After copious pulsatile lavage irrigation had been carried out, a wound VAC was applied with double layer and then put on 125 mm of continuous medium pressure. Good suction was achieved. The patient was then awakened and taken to the recovery room in stable condition. All final needle and sponge counts were correct. TRANSINT:[id number] Voice Confirmation ID: [id number] DOCUMENT ID: [id number] OPERATIVE REPORT [id number] TREV JERRY MD, CARL DELGADILLO at 1127 CC: [id number] DICTATION DATE: 07/16/1951 CARRIAGE FEEDER: 07/16/19 0949 ADM IN [facility] [address] [id number]
--- NOTE | 2019-07-16 11:29 | NUR ---
Rehab Prescreening Consult recieved and the chart has been reviewed. He is [facility] managed Medicare and will require a preauthorization for the inpatient rehab unit. According to the CM note 07/15/19 the patient has declined coming to the rehab, and wants to go home with his daughter. If he has changed his mind he will need a PT and OT eval before submitting information to [facility]. Lacie Oscar RN Clinical Liaison, Rehab
--- NOTE | 2019-07-16 12:35 | MORECARE ---
CASE MANAGEMENT DISCHARGE SUMMARY PATIENT: TREV JERRY UNIT: [id number] ADM DATE: 07/13/19 AGE: 74 : 43 SEX: M ROOM/BED: D.2238 AUTHOR: WENDYDOC PHYSICIAN: REFERRING PHYSICIAN: JACQUES ESTRADA MD DATE OF SERVICE: 07/16/19 Discharge Plan Patient Name: TREV JERRY Facility: [facility]:[place] : 1945 Planned Disposition: Anticipated Discharge Date: Discharge Date: Expected LOS: Initial Reviewer: [email or web address] Initial Review Date: 07/15/2019 Generated: 07/16/19 1:35 pm Comments DCP- Discharge Planning Updated by [email or web address]: Britany Stone on 07/15/19 2:[address] Patient Name: TREV JERRY Admission Status: ER Accout number: [id number] Admission Date: 07-13-2019 : 1945 Admission Diagnosis: Attending: SHELL Current LOS: 2 Anticipated DC Date: Planned Disposition: Primary Insurance: [employer] MEDICARE ADV Discharge Planning Comments: CM met with patient at bedside after explaining CM role and obtaining verbal consent. CM discussed availability / needs of home health, REHAB and medical equipment. PATIENT HAS EQUIPMENT AT HOME AND HIS DAUGHTER TAKES CARE OF HIM. HAS HH BUT DOESN'T REMEBER THE NAME, HIS DAUGHTER LOUISE KNOWS. DOES NOT WANT REHAB. WANTS TO GO HOME WITH DAUGHTER. I NOTICED HE DOES HAVE A WOUND VAC IN PLACE. CM TO FOLLOW AND ASSIST. Optical Glass Wet Inspector: Britany Stone DCPIA - Discharge Planning Initial Assessment Updated by [email or web address]: Britany Stone on 07/15/19 2:56 pm * Is the patient Alert and Oriented? Yes * [facility] * Preadmission Environment Home with Family * Other Equipment CANE NEB O2 RW, WC, CPAP * List name and contact numbers for known caregivers / representatives who currently or will assist patient after discharge: LOUISE PARISH, DAUGHTER, * Community resources currently utilized Home Health * Please name any agencies selected above. DOESN'T REMEMBER NAME * Additional services required to return to the preadmission environment? No * Can the patient safely return to the preadmission environment? Yes * Has this patient been hospitalized within the prior 30 days at any hospital? Yes External Providers External Provider: [facility] Next Contact Date: Service Request Date: Service Type: Resolution: Reviewer: Comments: Last DP export: 07/15/19 2:04 p Patient Name: TREV JERRY Page [phone] at 1235 All edits/amendments must be made on the electronic document DICTATION DATE: 07/16/19 1235 TEARER: FAVIAN 07/16/19 1235 RPT#: [id number] DC DATE: STATUS: ADM IN [facility] [address] [place] [address] END OF REPORT
[2019-07-16 12:48] VITALS: BP 96/54
--- NOTE | 2019-07-16 12:55 | MORECARE ---
CASE MANAGEMENT DISCHARGE SUMMARY PATIENT: TREV JERRY UNIT: [id number] ADM DATE: 07/13/19 AGE: 74 : 44 SEX: M ROOM/BED: D.2238 AUTHOR: ANDRIY NGUYEN PHYSICIAN: REFERRING PHYSICIAN: JACQUES ESTRADA MD DATE OF SERVICE: 07/16/19 Discharge Plan Patient Name: TREV JERRY Facility: [facility]:[place] : 1945 Planned Disposition: Anticipated Discharge Date: Discharge Date: Expected LOS: Initial Reviewer: [email or web address] Initial Review Date: 07/15/2019 Generated: 07/16/19 1:54 pm Comments DCP- Discharge Planning Updated by [id number]: Kassandra Emmy on 07/16/19 11:[address] Lacie with inpatient rehab called and states that the patient does not have a qualifying diagnosis for inpatient rehab. I then received a call from Janice and she states Dr. Crespo would like the patient transferred to [facility] to infectious disease. I called hillary Wallacern house supervisor and she said OK. I called Luc with [facility] and faxed a face sheet. I informed Luc Brewster as well. I spoke with the patient and explained and he is agreeable to transfer to [facility]. I called his daughter, Autumn, and she agrees with transfer as well. CM will continue to follow and assist with discharge planning/needs. DCP- Discharge Planning Updated by [email or web address]: Britany Stone on 07/15/19 2:[address] Patient Name: TREV JERRY Admission Status: ER Accout number: [id number] Admission Date: 07-13-2019 : 1945 Admission Diagnosis: Attending: SHELL Current LOS: 2 Anticipated DC Date: Planned Disposition: Primary Insurance: WELL[employer] MEDICARE ADV Discharge Planning Comments: CM met with patient at bedside after explaining CM role and obtaining verbal consent. CM discussed availability / needs of home health, REHAB and medical equipment. PATIENT HAS EQUIPMENT AT HOME AND HIS DAUGHTER TAKES CARE OF HIM. HAS HH BUT DOESN'T REMEBER THE NAME, HIS DAUGHTER AUTUMN KNOWS. DOES NOT WANT REHAB. WANTS TO GO HOME WITH DAUGHTER. I NOTICED HE DOES HAVE A WOUND VAC IN PLACE. CM TO FOLLOW AND ASSIST. Studio Potter: Britany Bertha DCPIA - Discharge Planning Initial Assessment Updated by [id number]: Britany Bertha on 07/15/19 2:56 pm * Is the patient Alert and Oriented? Yes [facility] * Preadmission Environment Home with Family * Other Equipment CANE NEB O2 RW, WC, CPAP * List name and contact numbers for known caregivers / representatives who currently or will assist patient after discharge: AUTUMN PARISH, DAUGHTER, * Community resources currently utilized Home Health * Please name any agencies selected above. DOESN'T REMEMBER NAME * Additional services required to return to the preadmission environment? No * Can the patient safely return to the preadmission environment? Yes * Has this patient been hospitalized within the prior 30 days at any hospital? Yes Last DP export: 07/16/19 11:35 a Patient Name: TREV JERRY Page 66089 at 1255 All edits/amendments must be made on the electronic document DICTATION DATE: 07/16/19 1254 CHEF ASSISTANT: FAVIAN 07/16/19 1254 RPT#: [id number] IA DATE: STATUS: ADM IN [facility] [address] [place] [address] END OF REPORT
--- NOTE | 2019-07-16 14:09 | MORECARE ---
CASE MANAGEMENT DISCHARGE SUMMARY PATIENT: TREV JERRY UNIT: [id number] ADM DATE: 07/13/19 AGE: 74 : 44 SEX: M ROOM/BED: D.2238 AUTHOR: ANDRIY NGUYEN PHYSICIAN: REFERRING PHYSICIAN: JACQUES ESTRADA MD DATE OF SERVICE: 07/16/19 Discharge Plan Patient Name: TREV JERRY Facility: [facility]:[place] : 1945 Planned Disposition: Anticipated Discharge Date: Discharge Date: Expected LOS: Initial Reviewer: [email or web address] Initial Review Date: 07/15/2019 Generated: 07/16/19 3:08 pm Comments DCP- Discharge Planning Updated by [email or web address]: Kassandra Emmy on 07/16/19 11:49 am CONNOR [place] with inpatient rehab called and states that the patient does not have a qualifying diagnosis for inpatient rehab. I then received a call from Janice and she states Dr. Crespo would like the patient transferred to [facility] to infectious disease. I called hillary Wallacemix house operator and she said OK. I called Luc with [facility] and faxed a face sheet. I informed Luc Brewster as well. I spoke with the patient and explained and he is agreeable to transfer to [facility]. I called his daughter, Autumn, and she agrees with transfer as well. CM will continue to follow and assist with discharge planning/needs. DCP- Discharge Planning Updated by [id number]: Britany Stone on 07/15/19 2:[address] Patient Name: TREV JERRY Admission Status: ER Accout number: [id number] Admission Date: 07-13-2019 : 1945 Admission Diagnosis: Attending: SHELL Current LOS: 2 Anticipated DC Date: Planned Disposition: Primary Insurance: WELLCARE MEDICARE ADV Discharge Planning Comments: CM met with patient at bedside after explaining CM role and obtaining verbal consent. CM discussed availability / needs of home health, REHAB and medical equipment. PATIENT HAS EQUIPMENT AT HOME AND HIS DAUGHTER TAKES CARE OF HIM. HAS HH BUT DOESN'T REMEBER THE NAME, HIS DAUGHTER AUTUMN KNOWS. DOES NOT WANT REHAB. WANTS TO GO HOME WITH DAUGHTER. I NOTICED HE DOES HAVE A WOUND VAC IN PLACE. CM TO FOLLOW AND ASSIST. Computer Programming Manager: Britany Bertha DCPIA - Discharge Planning Initial Assessment Updated by [id number]: Britany Stone on 07/15/19 2:56 pm * Is the patient Alert and Oriented? Yes * [facility] * Preadmission Environment Home with Family * Other Equipment CANE NEB O2 RW, WC, CPAP * List name and contact numbers for known caregivers / representatives who currently or will assist patient after discharge: [place], DAUGHTER, * Community resources currently utilized Home Health * Please name any agencies selected above. DOESN'T REMEMBER NAME * Additional services required to return to the preadmission environment? No * Can the patient safely return to the preadmission environment? Yes * Has this patient been hospitalized within the prior 30 days at any hospital? Yes External Providers External Provider: OTHER-OTHER Next Contact Date: Service Request Date: Service Type: Resolution: Reviewer: Comments: Last DP export: 07/16/19 11:55 a Patient Name: TREV JERRY Page 59954 at 1409 All edits/amendments must be made on the electronic document DICTATION DATE: 07/16/191407 POWERHOUSE ELECTRICIAN: FAVIAN 07/16/191407 RPT#: [id number] MS DATE: STATUS: ADM IN [facility] [address] [place] [address] END OF REPORT
[2019-07-16] MEDS ORDERED: LYRICA75 MG PO (14:16)
[2019-07-16] MEDS ORDERED: ZOSYN 3.3753.375 G1 IV (14:17)
[2019-07-16] MEDS ORDERED: LIBRIUM25 MG PO (14:17)
[2019-07-16] MEDS ORDERED: VANCOMYCIN 1 GM/1 G1 IV (14:17)
[2019-07-16] MEDS ORDERED: ATROVENT 0.02%2.5 ML UPD (14:18)
[2019-07-16] MEDS ORDERED: BROVANA15 MCG/2 M INH (14:18)
[2019-07-16 16:43] VITALS: BP 98/66
--- NOTE | 2019-07-16 16:55 | NUR ---
PT REPORT CALL TO [phone] SPOKE WITH DIONTE TO PROVIDE PT REPORT.
--- NOTE | 2019-07-16 17:10 | MORECARE ---
CASE MANAGEMENT DISCHARGE SUMMARY PATIENT: TREV JERRY UNIT: [id number] ADM DATE: 07/13/19 AGE: 74 : 44 SEX: M ROOM/BED: D.2238 AUTHOR: ANDRIY NGUYEN PHYSICIAN: REFERRING PHYSICIAN: JACQUES ESTRADA MD DATE OF SERVICE: 07/16/19 Discharge Plan Patient Name: TREV JERRY Facility: [facility]:[place] : 1945 Planned Disposition: Anticipated Discharge Date: Discharge Date: Expected LOS: Initial Reviewer: [email or web address] Initial Review Date: 07/15/2019 Generated: 07/16/19 6:10 pm Comments DCP- Discharge Planning Updated by [id number]: Kassandra Booth on 07/16/19 4:[address] I CALLED PATIENT'S DAUGHTER, AUTUMN, AND INFORMED THAT PATIENT WOULD BE TRANSFERRED IN 30 MINUTES TO [facility] VIA AMBULANCE. [place] GO [place]. HE SAID "[place]." DECLINATION TO THE [place] HAS BEEN SIGNED AND [facility] TO [facility]. HE WILL GO TO ROOM 915 AT [facility] AND DAUGHTER INFORMED. TRANSFERRING TO [facility] FOR ID CONSULTATION. DCP- Discharge Planning Updated by [email or web address]: Kassandra Booth on 07/16/19 11:[address] Lacie with inpatient rehab called and states that the patient does not have a qualifying diagnosis for inpatient rehab. I then received a call from Janice and she states Dr. Crespo would like the patient transferred to [facility] to infectious disease. I called hillary Wallacehouse furnishings supervisor and she said OK. I called Luc with [facility] and faxed a face sheet. I informed Luc Brewster as well. I spoke with the patient and explained and he is agreeable to transfer to [facility]. I called his daughter, Autumn, and she agrees with transfer as well. CM will continue to follow and assist with discharge planning/needs. DCP- Discharge Planning Updated by [id number]: Britany Stone on 07/15/19 2:[address] Patient Name: TREV JERRY Admission Status: ER Accout number: [id number] Admission Date: 07-13-2019 : 1945 Admission Diagnosis: Attending: SHELL Current LOS: 2 Anticipated DC Date: Planned Disposition: Primary Insurance: WELLCARE MEDICARE ADV Discharge Planning Comments: CM met with patient at bedside after explaining CM role and obtaining verbal consent. CM discussed availability / needs of home health, REHAB and medical equipment. PATIENT HAS EQUIPMENT AT HOME AND HIS DAUGHTER TAKES CARE OF HIM. HAS HH BUT DOESN'T REMEBER THE NAME, HIS DAUGHTER AUTUMN KNOWS. DOES NOT WANT REHAB. WANTS TO GO HOME WITH DAUGHTER. I NOTICED HE DOES HAVE A WOUND VAC IN PLACE. CM TO FOLLOW AND ASSIST. Supervisor Fitting: Britany Stone DCPIA - Discharge Planning Initial Assessment Updated by [email or web address]: Britany Stone on 07/15/19 2:56 pm * Is the patient Alert and Oriented? Yes * [facility] [place] [facility] * Preadmission Environment Home with Family * Other Equipment CANE NEB O2 RW, WC, CPAP * List name and contact numbers for known caregivers / representatives who currently or will assist patient after discharge: [place], DAUGHTER, * Community resources currently utilized Home Health * Please name any agencies selected above. DOESN'T REMEMBER NAME * Additional services required to return to the preadmission environment? No * Can the patient safely return to the preadmission environment? Yes * Has this patient been hospitalized within the prior 30 days at any hospital? Yes Coverage Notice Reviewer: [id number] Diana Booth Notice Issued Date-Time: 07/16/2019 17:07 Notice Type: IM Discharge Notice Notice Delivered To: Patient Relationship to Patient: Self Vp Patient Name: Delivery Method: HAND - Hand Delivered Rosibel Days: Prior Verbal Notification: Recipient Understood Notice: Yes Recipient Signature: Yes Med Rec Note Co-signed by Attending: Coverage Notice Comment: IMM EXPLAINED, SIGNED, GIVEN, COPY PLACED IN MR Last DP export: 07/16/19 1:09 p Patient Name: TREV JERRY Page [id number] at 1710 All edits/amendments must be made on the electronic document DICTATION DATE: 07/16/191709 SECURITY AMBASSADOR: FAVIAN 07/16/191709 RPT#: [id number] DC DATE: STATUS: ADM IN [facility] [address] [place] [address] END OF REPORT
--- NOTE | 2019-07-16 17:35 | NUR ---
EMS HERE TO TRANSFER TO [facility] VIA AMBULANCE. SALINE INTACT TO LEFT WRIST. O2 @ 2L NC IN PLACE. WOUND VAC DRESSING INTACT TO RIGHT SHOULDER, AND CLAMPED. ALL PERSONAL BELONGINGS SENT WITH PT
--- NOTE | 2019-07-16 20:32 | NUR ---
OT NOTE: PT UPRIGHT IN BED . PT COMPLETED POSITIONING WITH MIN A. PT COMPLETED HYGIENE TASKS WITH MIN A. PT EXHIBITED DECREASED SAFETY AWARENESS. THANK YOU,ANTONIA DURÁN
--- NOTE | 2019-07-17 15:53 | MORECARE ---
CASE MANAGEMENT DISCHARGE SUMMARY PATIENT: TREV JERRY UNIT: [id number] ADM DATE: 07/13/19 AGE: 74 : 44 SEX: M ROOM/BED: D.2238 AUTHOR: ANDRIY NGUYEN PHYSICIAN: REFERRING PHYSICIAN: JACQUES ESTRADA MD DATE OF SERVICE: 07/17/19 Discharge Plan Patient Name: TREV JERRY Facility: [facility]:[place] : 1945 Planned Disposition: Home Anticipated Discharge Date: Discharge Date: 07/16/2019 Expected LOS: 0 Initial Reviewer: [email or web address] Initial Review Date: 07/15/2019 Generated: 07/17/19 4:52 pm Comments DCP- Discharge Planning Updated by [id number]: Kassandra Booth on 07/16/19 4:[address] I CALLED PATIENT'S DAUGHTER, AUTUMN, AND INFORMED THAT PATIENT WOULD BE TRANSFERRED IN 30 MINUTES TO [facility] VIA AMBULANCE. [place]. [place] SAID "[place] TO THE [place] HAS BEEN SIGNED AND FAXED TO THE [place] EX[place]. HE WILL GO TO ROOM 915 AT [facility] AND DAUGHTER INFORMED. TRANSFERRING TO [facility] FOR ID CONSULTATION. DCP- Discharge Planning Updated by [id number]: Kassandra Booth on 07/16/19 11:[address] Lacie with inpatient rehab called and states that the patient does not have a qualifying diagnosis for inpatient rehab. I then received a call from Janice and she states Dr. Crespo would like the patient transferred to [facility] to infectious disease. I called hillary Wallaceassistant housekeeping manager and she said OK. I called Luc with [facility] and faxed a face sheet. I informed Luc Brewster as well. I spoke with the patient and explained and he is agreeable to transfer to [facility]. I called his daughter, Autumn, and she agrees with transfer as well. CM will continue to follow and assist with discharge planning/needs. DCP- Discharge Planning Updated by [email or web address]: Britany Stone on 07/15/19 2:[address] Patient Name: TREV JERRY Admission Status: ER Accout number: [id number] Admission Date: 07-13-2019 : 1945 Admission Diagnosis: Attending: SHELL Current LOS: 2 Anticipated DC Date: Planned Disposition: Primary Insurance: WELLCARE MEDICARE ADV Discharge Planning Comments: CM met with patient at bedside after explaining CM role and obtaining verbal consent. CM discussed availability / needs of home health, REHAB and medical equipment. PATIENT HAS EQUIPMENT AT HOME AND HIS DAUGHTER TAKES CARE OF HIM. HAS HH BUT DOESN'T REMEBER THE NAME, HIS DAUGHTER AUTUMN KNOWS. DOES NOT WANT REHAB. WANTS TO GO HOME WITH DAUGHTER. I NOTICED HE DOES HAVE A WOUND VAC IN PLACE. CM TO FOLLOW AND ASSIST. Business Reporter: Britany Stone DCPIA - Discharge Planning Initial Assessment Updated by [id number]: Britany Stone on 07/15/19 2:56 pm * Is the patient Alert and Oriented? Yes * [facility] [place] [facility] * Preadmission Environment Home with Family * Other Equipment CANE NEB O2 RW, WC, CPAP * List name and contact numbers for known caregivers / representatives who currently or will assist patient after discharge: [place] PAR[place], DAUGHTER, * Community resources currently utilized Home Health * Please name any agencies selected above. DOESN'T REMEMBER NAME * Additional services required to return to the preadmission environment? No * Can the patient safely return to the preadmission environment? Yes * Has this patient been hospitalized within the prior 30 days at any hospital? Yes Coverage Notice Reviewer: [email or web address] Diana Booth Notice Issued Date-Time: 07/16/2019 17:07 Notice Type: IM Discharge Notice Notice Delivered To: Patient Relationship to Patient: Self Fuel Cell Engineer Name: Delivery Method: HAND - Hand Delivered Rosibel Days: Prior Verbal Notification: Recipient Understood Notice: Yes Recipient Signature: Yes Med Rec Note Co-signed by Attending: Coverage Notice Comment: IMM EXPLAINED, SIGNED, GIVEN, COPY PLACED IN MR Last DP export: 07/16/19 4:10 p Patient Name: TREV JERRY Page 61074 at 1553 All edits/amendments must be made on the electronic document DICTATION DATE: 07/17/191551 GHOST WRITER: FVAIAN 07/17/191551 RPT#: [id number] DC DATE:07/16/19 STATUS: DIS IN [facility] [address] [place] [address] END OF REPORT
== END 2019-07-16 17:37 | disposition short-term general hospital (02) | DRG 901 ==
LOC: D.ER 09:24 → D.MS 11:58
PROVIDERS: Family Medicine; Internal Medicine Nephrology; Orthopaedic Surgery; ADMIT Family Medicine; ATTEND Family Medicine
PROC: 0JBD0ZZ Excision of Right Upper Arm Subcutaneous Tissue and Fascia, Open Approach (ICD-10-PCS; principal; 2019-07-15 09:30)
DX: T81.31XA Disruption of external operation (surgical) wound, not elsewhere classified, initial encounter (principal); I50.33 Acute on chronic diastolic (congestive) heart failure; J96.22 Acute and chronic respiratory failure with hypercapnia; J96.21 Acute and chronic respiratory failure with hypoxia; G93.41 Metabolic encephalopathy; M96.840 Postprocedural hematoma of a musculoskeletal structure following a musculoskeletal system procedure; D62 Acute posthemorrhagic anemia; E87.0 Hyperosmolality and hypernatremia; I11.0 Hypertensive heart disease with heart failure; I48.91 Unspecified atrial fibrillation; E03.9 Hypothyroidism, unspecified; M54.9 Dorsalgia, unspecified; I25.10 Atherosclerotic heart disease of native coronary artery without angina pectoris; F41.8 Other specified anxiety disorders; J44.9 Chronic obstructive pulmonary disease, unspecified; M19.90 Unspecified osteoarthritis, unspecified site

== ENCOUNTER → 2019-07-24 11:14 | Outpatient (CLI) | payer MEDICARE ==
[2019-07-15 12:03] VITALS: BMI 28.7
[~2019-07-24 11:14] MED LIST changes: +ATROVENT 0.02%2.5 ML UPD; +LIBRIUM25 MG PO; +VANCOMYCIN 1 GM/1 G1 IV; +ZOSYN 3.3753.375 G1 IV
[2019-07-24 13:10] LABS: BASOPHILS 0.1 % (0-2); HEMATOCRIT 29.9 % (42.0-54.0); HEMOGLOBIN 9.1 g/dL (13.5-17.5); IMMATURE GRANULOCYTES 0.1 % (0-5); LYMPHOCYTES 14.2 % (15-50); MCHC 30.4 g/dL (31.0-37.0); MCV 101.7 fL (80.0-100.0); MEAN PLATELET VOLUME 10.3 fL (7.4-10.4); MONOCYTES 10.7 % (2-11); NEUTROPHILS 65.9 % (40-80); RBC 2.94 10x6/uL (4.20-6.10); RDW 18.3 % (11.5-14.5); WBC 7.1 10x3/uL (4.8-10.8)
[2019-07-24 13:11] LABS: PLATELET COUNT 479 10x3/uL (130-400)
[2019-07-24 13:19] LABS: VANCOMYCIN - TROUGH 12.8 ug/mL (10.0-20.0)
== END | disposition home or self-care (01) ==
LOC: D.LABREF 11:14
DX: S41.101A Unspecified open wound of right upper arm, initial encounter (principal)

== ENCOUNTER → 2019-07-31 11:38 | Outpatient (CLI) | payer MEDICARE ==
[2019-07-15 12:03] VITALS: BMI 28.7
[~2019-07-31 11:38] MED LIST changes: +MORPHINE SULFAT15 M4 PO; +PERCOCET 5-3251 TAB PO; +ROCEPHIN 1 GM/D51 G1 IVP
[2019-07-31 11:49] LABS: BASOPHILS 0.1 % (0-2); EOSINOPHILS 4.3 % (0-7); HEMATOCRIT 33.1 % (42.0-54.0); HEMOGLOBIN 9.6 g/dL (13.5-17.5); IMMATURE GRANULOCYTES 0.3 % (0-5); LYMPHOCYTES 13.3 % (15-50); MCH 29.9 pg (26.0-34.0); MCV 103.1 fL (80.0-100.0); MEAN PLATELET VOLUME 9.6 fL (7.4-10.4); MONOCYTES 12.4 % (2-11); NEUTROPHILS 69.6 % (40-80); PLATELET COUNT 492 10x3/uL (130-400); RBC 3.21 10x6/uL (4.20-6.10); RDW 17.9 % (11.5-14.5); WBC 7.7 10x3/uL (4.8-10.8)
[2019-07-31 12:09] LABS: CREATININE - SERUM 0.7 mg/dL (0.6-1.3); VANCOMYCIN - TROUGH 18.1 ug/mL (10.0-20.0)
== END | disposition home or self-care (01) ==
LOC: D.LABREF 11:38
PROVIDERS: ATTEND Internal Medicine Infectious Disease
DX: S41.101A Unspecified open wound of right upper arm, initial encounter (principal)

== ENCOUNTER 2019-08-02 13:20 | Outpatient (CLI) | payer MEDICARE ==
[2019-07-15 12:03] VITALS: BMI 28.7
[~2019-08-02 13:20] MED LIST changes: -MORPHINE SULFAT15 M4 PO; -PERCOCET 5-3251 TAB PO; -ROCEPHIN 1 GM/D51 G1 IVP
[2019-08-02 14:38] LABS: BASOPHILS 0.4 % (0-2); EOSINOPHILS 4.1 % (0-7); HEMATOCRIT 29.3 % (42.0-54.0); HEMOGLOBIN 8.8 g/dL (13.5-17.5); IMMATURE GRANULOCYTES 0.3 % (0-5); LYMPHOCYTES 11.8 % (15-50); MCH 30.3 pg (26.0-34.0); MEAN PLATELET VOLUME 9.3 fL (7.4-10.4); MONOCYTES 8.6 % (2-11); NEUTROPHILS 74.8 % (40-80); PLATELET COUNT 424 10x3/uL (130-400); RDW 17.3 % (11.5-14.5)
--- NOTE | 2019-08-02 15:41 | NUR ---
PT AND FAMILY LEFT RIGHT AFTER CHEST X-RAY (TO ENSURE ACCURATE PICC LINE PLACEMENT). I INFORMED THEM THAT THEY NEEDED TO STAY UNTIL THE X-RAY RESULTS WERE IN TO MAKE SURE THE PICC LINE PLACEMENT WAS ACCURATE. THE WOMAN WHO WAS W/ PT STATES "NO WE CANNOT WAIT ANY LONGER. CALL IF IT'S NOT IN THE RIGHT PLACE." PT AND WOMAN COULD NOT BE CONVINCED TO STAY.
== END 2019-08-02 15:41 | disposition home or self-care (01) ==
LOC: D.OPS 13:20 → D.SP 14:00 → D.OPS 15:41
PROVIDERS: Orthopaedic Surgery; ATTEND Clinical Nurse Specialist Family Health
DX: Z79.2 Long term (current) use of antibiotics (principal)

== ENCOUNTER → 2019-08-07 12:43 | Outpatient (CLI) | payer MEDICARE ==
[2019-07-15 12:03] VITALS: BMI 28.7
[~2019-08-07 12:43] MED LIST changes: +MORPHINE SULFAT15 M4 PO; +PERCOCET 5-3251 TAB PO; +ROCEPHIN 1 GM/D51 G1 IVP
[2019-08-07 13:28] LABS: BASOPHILS 0.2 % (0-2); EOSINOPHILS 2.5 % (0-7); HEMATOCRIT 34.1 % (42.0-54.0); HEMOGLOBIN 9.8 g/dL (13.5-17.5); IMMATURE GRANULOCYTES 0.2 % (0-5); MCH 29.8 pg (26.0-34.0); MCHC 28.7 g/dL (31.0-37.0); MCV 103.6 fL (80.0-100.0); MONOCYTES 10.9 % (2-11); NEUTROPHILS 73.2 % (40-80); PLATELET COUNT 397 10x3/uL (130-400); RBC 3.29 10x6/uL (4.20-6.10); RDW 17.4 % (11.5-14.5); WBC 8.6 10x3/uL (4.8-10.8)
[2019-08-07 14:09] LABS: CREATININE - SERUM 0.8 mg/dL (0.6-1.3); VANCOMYCIN - TROUGH 19.6 ug/mL (10.0-20.0)
== END | disposition home or self-care (01) ==
LOC: D.LABREF 12:43
PROVIDERS: ATTEND Internal Medicine Infectious Disease
DX: T84.59XD Infection and inflammatory reaction due to other internal joint prosthesis, subsequent encounter (principal)

== ENCOUNTER 2019-08-07 14:28 | Inpatient (IN) | payer MEDICARE, MEDICAID ==
[2019-08-07] VITALS (23 sets, daily range): BP systolic 122–170; BP diastolic 58–99; BMI 28.3
[~2019-08-07] VITALS: Ht 189.2 cm; Wt 99.0 kg
[~2019-08-07 14:28] MED LIST changes: -MORPHINE SULFAT15 M4 PO; -PERCOCET 5-3251 TAB PO; -ROCEPHIN 1 GM/D51 G1 IVP
--- NOTE | 2019-08-07 14:34 | NUR ---
GLUCOSE 107
[2019-08-07 15:26] LABS: CALC OSMOLALITY 289 mosm/kg (275-300); CALCIUM 8.6 mg/dL (8.5-10.1); CARBON DIOXIDE 38.9 mmol/L (21.0-32.0); CHLORIDE - SERUM 102 mmol/L (98-107); CREATININE - SERUM 0.9 mg/dL (0.6-1.3); GLUCOSE 116 mg/dL (74-106); POTASSIUM - SERUM 3.8 mmol/L (3.5-5.1); SODIUM 145 mmol/L (136-145); UREA NITROGEN 13 mg/dL (7-18); eGFR NON AFRICAN AMERICAN 87 mL/min (90-120)
[2019-08-07 15:26] LABS: BASOPHILS 0.1 % (0-2); EOSINOPHILS 1.2 % (0-7); HEMATOCRIT 34.8 % (42.0-54.0); IMMATURE GRANULOCYTES 0.2 % (0-5); LYMPHOCYTES 8.3 % (15-50); MCH 29.4 pg (26.0-34.0); MCHC 28.7 g/dL (31.0-37.0); MCV 102.4 fL (80.0-100.0); MEAN PLATELET VOLUME 9.6 fL (7.4-10.4); MONOCYTES 8.9 % (2-11); NEUTROPHILS 81.3 % (40-80); PLATELET COUNT 360 10x3/uL (130-400); RDW 17.1 % (11.5-14.5); WBC 10.2 10x3/uL (4.8-10.8)
[2019-08-07 15:43] LABS: ALBUMIN 2.7 g/dL (3.4-5.0); ALKALINE PHOSPHATASE 505 U/L (46-116); ALT (SGPT) 13 U/L (10-68); APTT 30.2 SECONDS (22.8-39.4); CKMB 1.1 U/L (0.0-3.6); CREATINE KINASE 112 UL (21-232); INR 1.12 (0.85-1.17); MAGNESIUM - SERUM 2.1 mg/dL (1.8-2.4); PROTEIN - SERUM 7.2 g/dL (6.4-8.2); PROTIME 13.9 SECONDS (11.6-15.0); THYROID STIMULATING HORMONE 2.76 uIU/mL (0.36-3.74)
[2019-08-07 15:44] LABS: TROPONIN-I < 0.017 ng/mL (0.000-0.060)
--- NOTE | 2019-08-07 17:10 | NUR ---
PATIENT RECEIVED TO ROOM VIA STRETCHER FROM ER. PATIENT OBTUNDED AND LETHARGIC STATES THE YEAR IS 1919 AND IS IN A BUILDING BUT UNABLE TO STATE THAT IT IS A HOSPITAL, IS ABLE TO RECALL HE IS IN [place], HIS . DOUBLE LUMEN PICC TO LEFT UPPER ARM FLUSHES EASILY BUT NO BLOOD RETURN, CARDIZEM INFUSING AT 10 MG/HR, NS AT TKO 10 ML/HR FOR ANTIBIOTIC ADMINISTRATION. DURBIN CATH INSERTED WITH YELLOW CLEAR URINE RETURN. UA SENT TO LAB. SCD PLACED. BBS CLEAR BUT DIMINISHED. ON NC AT 7 LPM WITH SPO2 - 99%. HEAD TO TOE ASSESSMENT COMPLETED.
[2019-08-07 17:29] LABS: APPEARANCE CLEAR (CLEAR); BILIRUBIN NEGATIVE (NEGATIVE); COLOR STRAW (YELLOW); GLUCOSE NEGATIVE (NEGATIVE); KETONE NEGATIVE (NEGATIVE); NITRITE NEGATIVE (NEGATIVE); PROTEIN NEGATIVE (NEGATIVE); UROBILINOGEN NORMAL (NORMAL)
[2019-08-07 17:35] LABS: UDS - AMPHET NEGATIVE QUAL (NEGATIVE); UDS - BARB NEGATIVE QUAL (NEGATIVE); UDS - BENZO POSITIVE QUAL (NEGATIVE); UDS - COCAINE NEGATIVE QUAL (NEGATIVE); UDS - OPIATE NEGATIVE QUAL (NEGATIVE); UDS - PCP NEGATIVE QUAL (NEGATIVE); UDS - THC NEGATIVE QUAL (NEGATIVE)
[2019-08-07] MEDS ORDERED: MORPHINE SULFAT15 M4 PO (18:05)
[2019-08-07] MEDS ORDERED: XANAX1 MG PO (18:06)
[2019-08-07] MEDS ORDERED: ROCEPHIN 1 GM/D51 G1 IVP (18:07)
--- NOTE | 2019-08-07 18:10 | NUR ---
SPOKE TO PATIENTS DAUGHTER LOUISE PARISH WHO IS PATIENTS CAREGIVER AND WHO HE RESIDES WITH [facility] CALL IN SET UP "AXLE". UPDATED AND QUESTIONS ANSWERED.
--- NOTE | 2019-08-07 18:16 | NUR ---
PATIENT TO CT ON PORTABLE MONITOR AND O2 AT 6LPM. VSS.
--- NOTE | 2019-08-07 18:35 | NUR ---
PATIENT BACK FROM CT, VSS, TOLERATED WELL.
--- NOTE | 2019-08-07 19:25 | NUR ---
REC'D TO CARE, BS REPORT COMPLETE. SEE CLIENT SOLUTIONS MANAGER. PT AWAKENS TO NAME, CONFUSED, ANSWERS SOME QUESTIONS APPROP. BACK TO REST DURING ASSESSMENT. R ARM WITH INCISIONS/SWELLING NOTED. DURBIN CATH PATENT AND DRAINING CLEAR, YELLOW URINE. IVFS INFUSING TO L PICC - SEE FLOWSHEET. ALARMS ON AND C/L IN REACH.
--- NOTE | 2019-08-07 19:30 | NUR ---
REASSESSMENT PER FLOWSHEET, PT AWAKENS TO NAME, NO SIGN OF DISTRESS. CONFUSED. VSS. PT BACK TO REST EASILY. R ARM NOTED. GIFTY PATENT. ALARMS ON. C/L IN REACH.
--- NOTE | 2019-08-07 21:30 | NUR ---
NO VISITORS. PT RESTING QUEITLY, NO SIGN OF DISTRESS.
--- NOTE | 2019-08-07 23:05 | NUR ---
REASSESSMENT PER FLOWSHEET. NO ACUTE CHANGES. PT AWAKENS EASILY, ANSWERING SOME QUESTIONS APPROP. REORIENTED TO SITUATION/DATE/TIME BY NURSE. DENIES NEEDS. C/L IN REACH. ALARMS ON.
[2019-08-08] VITALS (27 sets, daily range): BP systolic 105–152; BP diastolic 52–95
--- NOTE | 2019-08-08 01:08 | NUR ---
RESTING QUIETLY ON BIPAP PER MD ORDER. VSS, ALARMS ON.
--- NOTE | 2019-08-08 03:00 | NUR ---
REASSESSMENT PER FLOWSHEET, NO ACUTE CHANGES. PT WITH BIPAP ON. AWAKENS TO NAME. STILL PLEASANTLY CONFUSED. REPOSITIONED UP IN BED TO R SIDE. ALARMS ON AND C/L IN REACH.
--- NOTE | 2019-08-08 03:45 | NUR ---
XRAY HERE. PT UP TO W/C FOR PA/LAT. C/O DIZZINESS AND SOB. POX TO 78% AND HR TO 116. BACK TO BED. R.T. HERE AND PT PLACED ON NON-REBREATER PER MD ORDER AND O2 SAT CAME UP TO 96% QUICKLY AND PT REPORTED "FEELING MUCH BETTER". ALARMS ON. WILL CONT CLOSE MONITORING.
[2019-08-08 05:14] LABS: BASOPHILS 0 % (0-2); EOSINOPHILS 0 % (0-7); HEMATOCRIT 31.5 % (42.0-54.0); HEMOGLOBIN 9.5 g/dL (13.5-17.5); IMMATURE GRANULOCYTES 0.2 % (0-5); MCH 29.6 pg (26.0-34.0); MCHC 30.2 g/dL (31.0-37.0); MEAN PLATELET VOLUME 9.7 fL (7.4-10.4); NEUTROPHILS 89.8 % (40-80); PLATELET COUNT 320 10x3/uL (130-400); RBC 3.21 10x6/uL (4.20-6.10); RDW 16.7 % (11.5-14.5)
[2019-08-08 05:15] LABS: MCV 98.1 fL (80.0-100.0); WBC 5.3 10x3/uL (4.8-10.8)
[2019-08-08 05:52] LABS: ALBUMIN 2.3 g/dL (3.4-5.0); ALKALINE PHOSPHATASE 412 U/L (46-116); ALT (SGPT) 15 U/L (10-68); BILIRUBIN - TOTAL 0.29 mg/dL (0.2-1.3); CALC OSMOLALITY 292 mosm/kg (275-300); CALCIUM 8.3 mg/dL (8.5-10.1); CARBON DIOXIDE 39.8 mmol/L (21.0-32.0); CHLORIDE - SERUM 101 mmol/L (98-107); CREATININE - SERUM 0.8 mg/dL (0.6-1.3); GLUCOSE 147 mg/dL (74-106); POTASSIUM - SERUM 3.6 mmol/L (3.5-5.1); PROTEIN - SERUM 6.3 g/dL (6.4-8.2); SODIUM 145 mmol/L (136-145); UREA NITROGEN 14 mg/dL (7-18); eGFR NON AFRICAN AMERICAN > 90 mL/min (90-120)
--- NOTE | 2019-08-08 10:15 | NUR ---
PAGED TO NOTIFY ABOUT CONSULT. NO RESPONSE WILL CONTINUE TO MONITOR.
--- NOTE | 2019-08-08 14:55 | NUR ---
NOTIFIED ABOUT THE PT HEART RATE. CARDIZEM STOPED AND AFTERNOON DOSE HELD. WILL CONTINUE TO MONITOR PT.
--- NOTE | 2019-08-08 19:10 | NUR ---
REC'D TO CARE, BS REPORT DONE. SEE RESERVOIR ENGINEERING MANAGER. PT AWAKE AND ORIENTED AT THIS TIME. VSS. PT WATCHING TV. DENIES NEEDS. ALARMS ON AND C/L IN USE.
--- NOTE | 2019-08-08 20:30 | NUR ---
COMPLETE BATH AND LINEN CHANGE DONE. DURBIN-CARE DONE. LOTION TO DRY SKIN. ROM R ARM AND ELEVATED ON PILLOW
--- NOTE | 2019-08-08 21:10 | NUR ---
ADMIN PO MEDS PER MD ORDERS.
--- NOTE | 2019-08-08 21:30 | NUR ---
STERILE DSG CHANGE TO L UPPER ARM PICC PER HOSPITAL PROTOCOL. NO REDNESS OR SWELLING NOTED.
--- NOTE | 2019-08-08 21:39 | NUR ---
STERILE DSG CHANGE TO R UPPER ARM PICC PER HOSPITAL POLICY.
--- NOTE | 2019-08-08 22:37 | NUR ---
BIPAP ON SINCE 2199, NOW PT PULLING IT OFF AND REFUSING TO WEAR IT. STATES "ITS HURTING MY HEAD" NO CONFUSION NOTED AND OTHERWISE COOPERATIVE.
--- NOTE | 2019-08-08 23:15 | NUR ---
REASSESSMENT PER FLOWSHEET. NO ACUTE CHANGES. REPOSITIONED UP IN BED TO L SIDE. C/L IN REACH.
--- NOTE | 2019-08-08 23:57 | NUR ---
DR. WHITE NOTIFIED OF PT C/L R SHOULDER PAIN. NEW ORDERS REC'D FOR PERCOCET AND BUMEX.
[2019-08-09] VITALS (11 sets, daily range): BP systolic 114–178; BP diastolic 53–98; BMI 27.6
--- NOTE | 2019-08-09 01:35 | NUR ---
ADMISSION HX COMPLETED - PT ANSWERING QUESTIONS APPROP. STATES DAUGHTER WILL BRING MEDICINES FROM HOME TO CLARIFY HOME MED LIST.
[2019-08-09] MEDS ORDERED: BROVANA15 MCG/2 M INH (01:40)
[2019-08-09] MEDS ORDERED: PERCOCET 5-3251 TAB PO (01:51)
--- NOTE | 2019-08-09 03:10 | NUR ---
REASSESSMENT PER FLOWSHEET, NO ACUTE CHANGES. RESTS FOR BRIEF PERIODS AND WILL WEAR BIPAP OFF AND ON. VSS. NO SIGN OF DISTRESS. C/L IN REACH. ALARMS ON.
--- NOTE | 2019-08-09 05:30 | NUR ---
PT RESTING JERONIMO MAJANOS. AM LAB DRAWN.
[2019-08-09 05:41] LABS: BASOPHILS 0 % (0-2); EOSINOPHILS 0 % (0-7); HEMATOCRIT 29.3 % (42.0-54.0); HEMOGLOBIN 8.9 g/dL (13.5-17.5); IMMATURE GRANULOCYTES 0.2 % (0-5); LYMPHOCYTES 4.4 % (15-50); MCH 29.4 pg (26.0-34.0); MCHC 30.4 g/dL (31.0-37.0); MCV 96.7 fL (80.0-100.0); MEAN PLATELET VOLUME 10.2 fL (7.4-10.4); MONOCYTES 2.2 % (2-11); NEUTROPHILS 93.2 % (40-80); PLATELET COUNT 322 10x3/uL (130-400); RBC 3.03 10x6/uL (4.20-6.10); RDW 16.9 % (11.5-14.5); WBC 12.8 10x3/uL (4.8-10.8)
[2019-08-09 05:59] LABS: ALBUMIN 2.4 g/dL (3.4-5.0); ALKALINE PHOSPHATASE 382 U/L (46-116); ALT (SGPT) 13 U/L (10-68); BILIRUBIN - TOTAL 0.34 mg/dL (0.2-1.3); CALCIUM 8.1 mg/dL (8.5-10.1); CHLORIDE - SERUM 101 mmol/L (98-107); CREATININE - SERUM 0.9 mg/dL (0.6-1.3); GLUCOSE 160 mg/dL (74-106); PROTEIN - SERUM 6.3 g/dL (6.4-8.2); SODIUM 144 mmol/L (136-145); eGFR NON AFRICAN AMERICAN 87 mL/min (90-120)
[2019-08-09 06:05] LABS: CALC OSMOLALITY 292 mosm/kg (275-300); UREA NITROGEN 22 mg/dL (7-18)
[2019-08-09 06:06] LABS: CARBON DIOXIDE 41.2 mmol/L (21.0-32.0)
--- NOTE | 2019-08-09 07:00 | NUR ---
REPORT RECEVEID FROM THE OFF GOING RN. SEE ASSESSMENT IN THE PTS FLOW SHEET. LEFT ARM SURIGIAL INCISIONS GRADUATE RESEARCH ASSISTANT AND WELL APPROXIMATED. AFIB NOTED. PT DENIES PAIN AT THIS TIME INSTRUCTED TO USE IS 10X'S/H. PT PULLS ABOUT 1000 ON HIS IS. FC NOTED WITH CLEAR, YELLOW URINE. CALL LIGHT IN REACH. WILL CONT POC.
--- NOTE | 2019-08-09 08:11 | NUR ---
BREAKFAST AND AM MEDICATION GIVEN. NO ISSUES.
--- NOTE | 2019-08-09 10:15 | NUR ---
FAMILY MEMBER CALLED THE PT AND PT BECAME UPSET AND WANTING TO GO HOME. EXPLAINED POC TO THE PT AND PT BECAME CALM AND COOPERATIVE. CALL LIGHT IN REACH. WILL CONT POC.
--- NOTE | 2019-08-09 10:30 | NUR ---
SPOKE WITH BENITA RODRÍGUEZ. UPDATED HER THAT THE PTS HEART RATE IS 74 AFIB BUT PT REMAINS HTN. SHE STATED TO NOT START THE CARDIZEM GTT AND TO START IV HYDRALAZINE 5MG Q6H PRN SBP >160.
--- NOTE | 2019-08-09 10:38 | NUR ---
DR WHITE ROUNDING OK TO TRANSFER TO THE FLOOR.
--- NOTE | 2019-08-09 13:24 | NUR ---
SPOKE WITH DR CHAVEZ. HE IS AWARE OF CONSULT. ORDER XRAY FOR ARM AND HE STATED HE WILL SEE TUESDAY.
--- NOTE | 2019-08-09 15:30 | NUR ---
LACEY RICKS PAGED RT TRANSFER. SHE IS LOOKING FOR A ROOM.
--- NOTE | 2019-08-09 16:20 | NUR ---
REPORT CALLED INTO [facility] ON [facility]. PT TRANSFERED TO ROOM 2226 IN A STABLE CONDITION.
--- NOTE | 2019-08-09 16:53 | NUR ---
OT NOTE: PT COMPLETED BED MOB TASKS WITH CGA. PT COMPLETED EOB SITTING BALANCE WITH SBA. PT COMPLETED UE AROM AX WITH LUE. PT COMPLETED HAND HYGIENE WITH SETUP. [phone] THANK YOU, ANTONIA DURÁN
--- NOTE | 2019-08-09 17:39 | MORECARE ---
CASE MANAGEMENT DISCHARGE SUMMARY PATIENT: TREV JERRY UNIT: [id number] ADM DATE: 08/07/19 AGE: 74 : 44 SEX: M ROOM/BED: D.2226 AUTHOR: ANDRIY NGUYEN PHYSICIAN: REFERRING PHYSICIAN: KVNG WHITE MD DATE OF SERVICE: 08/09/19 Discharge Plan Patient Name: TREV JERRY Facility: [facility]:[place] : 1945 Planned Disposition: Home with Home Health Anticipated Discharge Date: Discharge Date: Expected LOS: Initial Reviewer: [email or web address] Initial Review Date: 08/09/2019 Generated: 08/09/19 6:39 pm Patient Name: TREV JERRY Page [phone] at 1732 All edits/amendments must be made on the electronic document DICTATION DATE: 08/09/191738 CAPACITY PLANNING ENGINEER: FAVIAN 08/09/191738 RPT#: [id number] [place] DATE: STATUS: ADM IN [facility] [address] [place] [address] END OF REPORT
--- NOTE | 2019-08-09 17:46 | MORECARE ---
CASE MANAGEMENT DISCHARGE SUMMARY PATIENT: TREV JERRY UNIT: [id number] ADM DATE: 08/07/19 AGE: 74 : 44 SEX: M ROOM/BED: D.2226 AUTHOR: WENDYDOC PHYSICIAN: REFERRING PHYSICIAN: KVNG WHITE MD DATE OF SERVICE: 08/09/19 Discharge Plan Patient Name: TREV JERRY Facility: [facility]:[place] : 1945 Planned Disposition: Home with Home Health Anticipated Discharge Date: Discharge Date: Expected LOS: Initial Reviewer: [email or web address] Initial Review Date: 08/09/2019 Generated: 08/09/19 6:46 pm Comments DCP- Discharge Planning Updated by [email or web address]: Carol Olivares on 08/09/19 4:[address] Patient Name: TREV JERRY Admission Status: ER Accout number: [id number] Admission Date: 08-07-2019 : 1945 Admission Diagnosis: Attending: KVNG WHITE Current LOS: 2 Anticipated DC Date: Planned Disposition: Home with Home Health Primary Insurance: [employer] ADV Discharge Planning Comments: CM met with patient at bedside after explaining CM role and obtaining verbal consent. Patient lives at home with his daughter and her where he is independent with his care and plans to return there upon discharge. Patient feels this would be a safe discharge. CM discussed availability / needs of home health and medical equipment. Patient states he has everything he needs at home. [facility] is his provider and plans to resume with their care. HERMINIA signed. Patient denies any discharge needs at this time. Patient states he will have his family drive him home upon discharge. CM will continue to follow and assist as needed with discharge planning / needs. Phlebotomist Lab Assistant: Carol Olivares DCPIA - Discharge Planning Initial Assessment Updated by [email or web address]: Carol Olivares on 08/09/19 5:39 pm * Is the patient Alert and Oriented? Yes * How many steps to enter\exit or inside your home? * [facility]CP [facility] * Preadmission Environment Home with Family * ADLs Independent * Other Equipment HOME 02 / PORTABLE, NEBULIZER, CPAP, SHOWER CHAIR, BSC, WALKER, W/C * List name and contact numbers for known caregivers / representatives who currently or will assist patient after discharge: BIANCA JERRY - SON MANJIT JERRY - BROTHER - [phone] * Verbal permission to speak to the caregivers and representatives has been obtained from the patient. Yes * Community resources currently utilized Home Health * Please name any agencies selected above. [facility] * Additional services required to return to the preadmission environment? No * Can the patient safely return to the preadmission environment? Yes * Has this patient been hospitalized within the prior 30 days at any hospital? Yes Last DP export: 08/09/19 4:39 Patient Name: TREV JERRY Page [id number] at 1742 All edits/amendments must be made on the electronic document DICTATION DATE: 08/09/191745 CONSTRUCTION COORDINATOR: FAVIAN 08/09/191745 RPT#: [id number] DC DATE: STATUS: ADM IN [facility] [address] [place] [address] END OF REPORT
--- NOTE | 2019-08-09 20:00 | NUR ---
ALERT RESTING IN BED, DENIES PAIN OR NEEDS AT THIS TIME, SEE SHIFT ASSESSMENT, CALL LIGHT IN REACH
[2019-08-10 00:30] VITALS: BP 124/63
[2019-08-10 05:00] VITALS: BP 130/65
[2019-08-10 06:17] LABS: BASOPHILS 0 % (0-2); EOSINOPHILS 0 % (0-7); HEMATOCRIT 32.5 % (42.0-54.0); HEMOGLOBIN 9.7 g/dL (13.5-17.5); IMMATURE GRANULOCYTES 0.4 % (0-5); LYMPHOCYTES 4.3 % (15-50); MCH 28.8 pg (26.0-34.0); MCHC 29.8 g/dL (31.0-37.0); MCV 96.4 fL (80.0-100.0); MEAN PLATELET VOLUME 10.2 fL (7.4-10.4); MONOCYTES 3.6 % (2-11); NEUTROPHILS 91.7 % (40-80); PLATELET COUNT 340 10x3/uL (130-400); RBC 3.37 10x6/uL (4.20-6.10); RDW 17.6 % (11.5-14.5); WBC 11.2 10x3/uL (4.8-10.8)
[2019-08-10 06:45] LABS: ALBUMIN 2.8 g/dL (3.4-5.0); ALKALINE PHOSPHATASE 420 U/L (46-116); BILIRUBIN - TOTAL 0.33 mg/dL (0.2-1.3); CALC OSMOLALITY 294 mosm/kg (275-300); CALCIUM 8.1 mg/dL (8.5-10.1); CHLORIDE - SERUM 99 mmol/L (98-107); CREATININE - SERUM 0.9 mg/dL (0.6-1.3); GLUCOSE 130 mg/dL (74-106); MAGNESIUM - SERUM 2.1 mg/dL (1.8-2.4); PROTEIN - SERUM 6.4 g/dL (6.4-8.2); SODIUM 145 mmol/L (136-145); UREA NITROGEN 24 mg/dL (7-18); eGFR NON AFRICAN AMERICAN 87 mL/min (90-120)
[2019-08-10 06:48] LABS: ALT (SGPT) 24 U/L (10-68); CARBON DIOXIDE 40.3 mmol/L (21.0-32.0); POTASSIUM - SERUM 2.9 mmol/L (3.5-5.1)
[2019-08-10 08:51] VITALS: BP 120/60
--- NOTE | 2019-08-10 09:00 | NUR ---
ALERT AND ORIENTED X3. BREATH SOUNDS DIMINISHED X4 WITH O2 2. N/C. TELEMETRY INTACT. PICC NOTED TO LUE WITH NO S.S OF INFECTION. NO PERIPHERAL EDEMA NOTED AT THIS TIME. ENCOURAGED TO USE CALL LIGHT FOR ASSIST.
[2019-08-10 12:22] VITALS: BP 127/77
--- NOTE | 2019-08-10 16:25 | NUR ---
OT NOTE: UPON ENTERING ROOM, URINE NOTED IN SEVERAL AREAS OF FLOOR. KNIGHT NOTIFIED MATERIAL PLANNING ANALYST, HOUSEKEEPING, AND NURSING. PT VERY UNSTEADY AT BEGINNING OF SESSION. PT REQUIRED SBA FOR EOB SITTING. PT IMPROVE ONCE UP AND ORIENTED. PT REQUIRED MIN A FOR SIT TO STAND . PT RUE AAROM TO ELBOW AND WRIST. PT COMPLETED HAIR GROOMING WITH SETUP AND FACE WASH WITH SETUP. [phone] THANK YOU, ANTONIA DURÁN
[2019-08-10 17:02] VITALS: BP 118/62
[2019-08-10 17:46] VITALS: Ht 189.2 cm; Wt 99.0 kg
--- NOTE | 2019-08-10 19:15 | NUR ---
PATIENT ALERT AND ORIENTED WITH HOB RAISED TO 35 DEGREE ANGLE. PATIENT WEARING 02 AT 2 L VIA NASAL CANNULA. WATCHING TV WITH NO DISTRESS NOTED AT THIS TIME. HAS A LEFT UPPER ARM PICC LINE THAT IS SALINE LOCKED AT THIS TIME. DENIES FURTHER NEEDS AT THIS TIME. CALL LIGHT IN REACH. CPOC.
[2019-08-10 21:00] VITALS: BP 130/65
[2019-08-11 01:17] VITALS: BP 122/60
[2019-08-11 04:50] VITALS: BP 132/58
[2019-08-11 07:40] LABS: BASOPHILS 0 % (0-2); EOSINOPHILS 0 % (0-7); HEMATOCRIT 33.8 % (42.0-54.0); HEMOGLOBIN 10.4 g/dL (13.5-17.5); IMMATURE GRANULOCYTES 0.2 % (0-5); LYMPHOCYTES 7.7 % (15-50); MCH 29.4 pg (26.0-34.0); MCHC 30.8 g/dL (31.0-37.0); MCV 95.5 fL (80.0-100.0); MEAN PLATELET VOLUME 9.8 fL (7.4-10.4); MONOCYTES 6.1 % (2-11); PLATELET COUNT 321 10x3/uL (130-400); RBC 3.54 10x6/uL (4.20-6.10); RDW 17.1 % (11.5-14.5); WBC 10.3 10x3/uL (4.8-10.8)
[2019-08-11 07:53] LABS: ALKALINE PHOSPHATASE 426 U/L (46-116); BILIRUBIN - TOTAL 0.47 mg/dL (0.2-1.3); CALC OSMOLALITY 290 mosm/kg (275-300); CALCIUM 8.4 mg/dL (8.5-10.1); CARBON DIOXIDE 39.9 mmol/L (21.0-32.0); CHLORIDE - SERUM 98 mmol/L (98-107); CREATININE - SERUM 0.8 mg/dL (0.6-1.3); GLUCOSE 114 mg/dL (74-106); MAGNESIUM - SERUM 2.1 mg/dL (1.8-2.4); POTASSIUM - SERUM 3.4 mmol/L (3.5-5.1); PROTEIN - SERUM 7.2 g/dL (6.4-8.2); SODIUM 143 mmol/L (136-145); UREA NITROGEN 26 mg/dL (7-18); eGFR NON AFRICAN AMERICAN > 90 mL/min (90-120)
[2019-08-11 07:54] LABS: ALT (SGPT) 84 U/L (10-68)
--- NOTE | 2019-08-11 09:00 | NUR ---
ALERT AND ORIENTED X4. BREATH SOUNDS DIMINISHED TO BLQ POSTERIOR.O2 2L N/C. INCISION SITE INTACT TO RUE W/O ANY S/S OF INFECTION. TELEMETRY INTACT. ENCOURAGED TO USE CALL LIGHT FOR ASSIST.
[2019-08-11 09:01] VITALS: BP 104/87
[2019-08-11 12:51] VITALS: BP 141/74
[2019-08-11 17:01] VITALS: BP 125/72
[2019-08-11 20:00] VITALS: BP 128/76
[2019-08-12] VITALS: BP 153/95
[2019-08-12 04:00] VITALS: BP 134/74
[2019-08-12 06:29] LABS: BASOPHILS 0 % (0-2); EOSINOPHILS 1.2 % (0-7); HEMATOCRIT 37.3 % (42.0-54.0); HEMOGLOBIN 11.4 g/dL (13.5-17.5); IMMATURE GRANULOCYTES 0.2 % (0-5); LYMPHOCYTES 15.5 % (15-50); MCH 28.9 pg (26.0-34.0); MCHC 30.6 g/dL (31.0-37.0); MCV 94.7 fL (80.0-100.0); MONOCYTES 7.4 % (2-11); NEUTROPHILS 75.7 % (40-80); PLATELET COUNT 342 10x3/uL (130-400); RBC 3.94 10x6/uL (4.20-6.10); RDW 16.8 % (11.5-14.5); WBC 8.8 10x3/uL (4.8-10.8)
[2019-08-12 06:43] LABS: ALBUMIN 2.9 g/dL (3.4-5.0); ALKALINE PHOSPHATASE 402 U/L (46-116); ALT (SGPT) 65 U/L (10-68); BILIRUBIN - TOTAL 0.43 mg/dL (0.2-1.3); CALC OSMOLALITY 284 mosm/kg (275-300); CALCIUM 8.5 mg/dL (8.5-10.1); CHLORIDE - SERUM 99 mmol/L (98-107); CREATININE - SERUM 0.9 mg/dL (0.6-1.3); GLUCOSE 91 mg/dL (74-106); MAGNESIUM - SERUM 2.2 mg/dL (1.8-2.4); POTASSIUM - SERUM 3.9 mmol/L (3.5-5.1); PROTEIN - SERUM 6.9 g/dL (6.4-8.2); SODIUM 141 mmol/L (136-145); UREA NITROGEN 25 mg/dL (7-18); eGFR NON AFRICAN AMERICAN 87 mL/min (90-120)
[2019-08-12 09:06] VITALS: BP 115/69
[2019-08-12] MEDS ORDERED: CARDIZEM120 MG PO (10:56)
[2019-08-12] MEDS ORDERED: PULMICORT0.5 MG/21 UPD (10:58)
[2019-08-12 12:20] VITALS: BP 126/77
--- NOTE | 2019-08-12 13:45 | NUR ---
PICC LINE INTACT TO LUE AND DISCHARGING WITH FOR OPTENTIAL CONTINUATION OF IV ABX THERAPY. PT AND FAMILY VERBALIZED UNDERSTANDING OF DISCHARGE INSTRUCTIONS. STABLE AT TIME OF DISCHARGE.
--- NOTE | 2019-08-12 18:04 | NUR ---
LATE ENTRY 1315 CM VISITED THE PATIENT AT THE BEDSIDE. HE IS COGNIZANT OF DISCHARGE TO HOME AND ANXIOUS TO GO. HIS SON-IN-LAW IS AT THE BEDSIDE TO PROVIDE TRANSPORTATION. CM DISCUSS DISCHARGE IMM. PATIENT STATED HE UNDERSTOOD. SIGNATURE OBTAINED AT 1325 0N 08/12/19. SIGNED COPY TO THE PATIENT. SIGNED COPY TO THE HARD COVER CHART. THE PATIENT HAD BEEN ON HOME IVAB PLAN THRU 08/16/2019 WITH [facility]. THE IVAB THERAPY RELATED TO HIS ARM FRACTURE WERE DC'D. ORTHO HAD STATED TO CONTINUE. FP HAD DC'S IVAB. CM EXPLAINED TO THE PATIENT THAT [facility] WOULD BE FOLLOWING UP W/ [facility]. TC TO [facility] TO ADVISE OF DISCHARGE AND ISSUE W/ IVAB THERAPY. SPOKE WITH BRENDA ARNDT, RAISED PRINTER. FAXED CLINICAL AND DISCHARGE INSTRUCTIONS AND MED LIST. TC TO [facility]. SPOKE W/ JJ. EXPLAINED ISSUE RELATED TO HOME IVAB PLAN FROM [facility] ID DEPT. CM FAXED MED LIST AND DISCHARGE MED LIST TO [phone]. JJ'S FUNERAL HOME ATTENDANT WILL FOLLOW UP IN THE AM W/ [facility] AND DETERMINE THE PLAN WHETHER TO RESTART IVAB THERAPY. THE PATIENT HAS INFUSION DME AND MEDICATIONS AT HIS HOME FROM [facility].
== END 2019-08-12 13:45 | disposition home health service (06) | DRG 291 ==
LOC: D.ER 14:28 → D.MS 16:25 → D.CVICU 16:25 → D.MS 08-09 16:55
PROVIDERS: Family Medicine; ADMIT Internal Medicine Nephrology; ATTEND Internal Medicine Nephrology
DX: I11.0 Hypertensive heart disease with heart failure (principal); J96.22 Acute and chronic respiratory failure with hypercapnia; J96.21 Acute and chronic respiratory failure with hypoxia; G93.41 Metabolic encephalopathy; I48.20 Chronic atrial fibrillation, unspecified; S42.351K Displaced comminuted fracture of shaft of humerus, right arm, subsequent encounter for fracture with nonunion; I50.33 Acute on chronic diastolic (congestive) heart failure; D53.9 Nutritional anemia, unspecified; E03.9 Hypothyroidism, unspecified; E78.5 Hyperlipidemia, unspecified; I25.10 Atherosclerotic heart disease of native coronary artery without angina pectoris; M54.9 Dorsalgia, unspecified; F41.8 Other specified anxiety disorders; M19.90 Unspecified osteoarthritis, unspecified site; J44.9 Chronic obstructive pulmonary disease, unspecified

== ENCOUNTER → 2019-08-20 10:24 | Outpatient (CLI) | payer MEDICARE, MEDICAID ==
[2019-08-10 17:46] VITALS: BMI 27.6
[~2019-08-20 10:24] MED LIST changes: +MORPHINE SULFAT15 M4 PO; +PERCOCET 5-3251 TAB PO; +ROCEPHIN 1 GM/D51 G1 IVP
[2019-08-20 11:54] LABS: BASOPHILS 0.1 % (0-2); HEMATOCRIT 32.5 % (42.0-54.0); HEMOGLOBIN 10.2 g/dL (13.5-17.5); IMMATURE GRANULOCYTES 0.2 % (0-5); LYMPHOCYTES 6.7 % (15-50); MCH 29.3 pg (26.0-34.0); MCHC 31.4 g/dL (31.0-37.0); MCV 93.4 fL (80.0-100.0); MEAN PLATELET VOLUME 10.7 fL (7.4-10.4); MONOCYTES 8.6 % (2-11); NEUTROPHILS 82.4 % (40-80); PLATELET COUNT 324 10x3/uL (130-400); RBC 3.48 10x6/uL (4.20-6.10); RDW 16.3 % (11.5-14.5)
[2019-08-20 12:00] LABS: CREATININE - SERUM 0.9 mg/dL (0.6-1.3); VANCOMYCIN - TROUGH 18.1 ug/mL (10.0-20.0)
== END | disposition home or self-care (01) ==
LOC: D.LABREF 10:24
PROVIDERS: ATTEND Internal Medicine Infectious Disease
DX: M86.8X1 Other osteomyelitis, shoulder (principal); S42.351K Displaced comminuted fracture of shaft of humerus, right arm, subsequent encounter for fracture with nonunion; Z51.81 Encounter for therapeutic drug level monitoring; Z79.2 Long term (current) use of antibiotics

== ENCOUNTER → 2019-08-27 11:20 | Outpatient (CLI) | payer MEDICARE, MEDICAID ==
[2019-08-10 17:46] VITALS: BMI 27.6
[2019-08-27 11:55] LABS: BASOPHILS 0.1 % (0-2); EOSINOPHILS 3.2 % (0-7); HEMATOCRIT 32.4 % (42.0-54.0); IMMATURE GRANULOCYTES 0.3 % (0-5); LYMPHOCYTES 8.4 % (15-50); MCH 28.5 pg (26.0-34.0); MCHC 30.9 g/dL (31.0-37.0); MCV 92.3 fL (80.0-100.0); MEAN PLATELET VOLUME 10.4 fL (7.4-10.4); MONOCYTES 6.9 % (2-11); NEUTROPHILS 81.1 % (40-80); PLATELET COUNT 337 10x3/uL (130-400); RBC 3.51 10x6/uL (4.20-6.10); RDW 16.1 % (11.5-14.5); WBC 9.8 10x3/uL (4.8-10.8)
[2019-08-27 12:12] LABS: CREATININE - SERUM 0.8 mg/dL (0.6-1.3); VANCOMYCIN - TROUGH 5.7 ug/mL (10.0-20.0)
== END | disposition home or self-care (01) ==
LOC: D.LABREF 11:20
DX: T84.50XA Infection and inflammatory reaction due to unspecified internal joint prosthesis, initial encounter (principal); M86.8X1 Other osteomyelitis, shoulder

== ENCOUNTER 2020-03-02 14:06 | Inpatient (IN) | payer MEDICARE ==
[~2020-03-02] VITALS: Ht 189.2 cm; Wt 86.4 kg
--- NOTE | ~2020-03-02 | EC ---
PATIENT:TREV JERRY DATE OF SERVICE: 03/02/20 SEX: M MEDICAL RECORD: [id number] DATE OF : [birth year] LOCATION:D.M2 D.213 AGE OF PATIENT: 74 ADMISSION DATE: 03/02/20 REFERRING PHYSICIAN: INTERPRETING PHYSICIAN: JEN SANDOVAL MD ECHOCARDIOGRAM REPORT ECHO CHARGES 4 ECHO COMPLETE Date: 03/04/20 CLINICAL DIAGNOSIS: SOB ECHOCARDIOGRAPHIC MEASUREMENTS (adult normal given) AC root (d.<3.7cm) 3.7 cm LV Septum d (<1.2 cm> 1.4 cm Valve Excursion 2.0 cm LV Septum (systole) 1.6 cm Left Atria (s.<4.0cm> 3.4 cm LVPW d(<1.2cm) 1.6 cm RV (d.<2.3cm) cm LVPW (sytole) 1.7 cm LV diastole(<5.6CM) 4.1 cm MV E-F(>70mm/sec) cm LV systole 3.1 cm LVOT Diameter cm MV exc.(>10mm) cm Est.ejection fraction (50-75%) % DOPPLER: LVIT cm/sec A cm/sec E cm/sec LA cm/sec RVSP 20.5 mmHg LVOT cm/sec AOP1/2T m/s Asc. Ao cm/sec RVOT 51 cm/sec RA cm/sec PA 69 cm/sec AV Gradient Peak mmHg AV Mean mmHg AV Area cm MV Gradient Peak mmHg MV Mean mmHg MV Area cm COMMENTS: Nursery School Teacher: Padmini [facility] Pattern Marker: 3 Dr. Pantoja TAPE# PACS Pericardial Effusion N DATE OF SERVICE: Adequate 2D, color flow imaging, spectral Doppler, and M-Mode. LVH is present. LV internal dimension is normal. Wall motion is normal. EF is greater than or equal to 55%. Aortic valve is tricuspid. No evidence of stenosis by Doppler interrogation. Left atrium is normal. Mitral valve shows no prolapse. Trivial MR. Right-sided chambers are grossly normal. Trivial TR. TRANSINT:[id number] Voice Confirmation ID: [id number] DOCUMENT ID: [id number] ECHOCARDIOGRAM REPORT [id number] TREV JERRY JEN SANDOVAL MD CC: [id number] DICTATION DATE: 03/04/20 1228 AUTOMOTIVE PARTS CLERK: 03/04/20 1302 ADM IN [facility] [address] [place] [address]
[~2020-03-02 14:06] MED LIST changes: +CARDIZEM60 MG PO
[2020-03-02 14:28] VITALS: BP 122/57
[2020-03-02 14:32] LABS: BASOPHILS 0.3 % (0-2); EOSINOPHILS 4.4 % (0-7); HEMATOCRIT 45.9 % (42.0-54.0); HEMOGLOBIN 14.4 g/dL (13.5-17.5); IMMATURE GRANULOCYTES 0.3 % (0-5); LYMPHOCYTES 25.3 % (15-50); MCH 31.6 pg (26.0-34.0); MCHC 31.4 g/dL (31.0-37.0); MCV 100.7 fL (80.0-100.0); MEAN PLATELET VOLUME 10.7 fL (7.4-10.4); MONOCYTES 7.4 % (2-11); NEUTROPHILS 62.3 % (40-80); PLATELET COUNT 175 10x3/uL (130-400); RBC 4.56 10x6/uL (4.20-6.10); WBC 7.8 10x3/uL (4.8-10.8)
[2020-03-02 14:40] LABS: APTT 50.1 SECONDS (22.8-39.4); INR 1.34 (0.85-1.17); PROTIME 16.5 SECONDS (11.6-15.0)
[2020-03-02 15:04] LABS: ALBUMIN 3.4 g/dL (3.4-5.0); ALKALINE PHOSPHATASE 114 U/L (30-120); ALT (SGPT) 22 U/L (10-68); BILIRUBIN - TOTAL 0.54 mg/dL (0.2-1.3); CALCIUM 8.7 mg/dL (8.5-10.1); CHLORIDE - SERUM 99 mmol/L (98-107); CKMB 1.1 U/L (0.0-3.6); CREATINE KINASE 78 UL (21-232); CREATININE - SERUM 1.2 mg/dL (0.6-1.3); MAGNESIUM - SERUM 2.1 mg/dL (1.8-2.4); POTASSIUM - SERUM 4.7 mmol/L (3.5-5.1); PROTEIN - SERUM 7.2 g/dL (6.4-8.2); SODIUM 138 mmol/L (136-145); UREA NITROGEN 23 mg/dL (7-18); eGFR NON AFRICAN AMERICAN 63 mL/min (90-120)
[2020-03-02 15:05] LABS: CALC OSMOLALITY 282 mosm/kg (275-300); GLUCOSE 153 mg/dL (74-106)
[2020-03-02 15:07] LABS: TROPONIN-I < 0.017 ng/mL (0.000-0.060)
--- NOTE | 2020-03-02 18:02 | NUR ---
PT ARRIVED VIAWHEELCHAIR, ALERT AND ORIENTED, UP WITHOUT ASSIST.
[2020-03-02 18:06] VITALS: BP 120/64
--- NOTE | 2020-03-02 19:10 | NUR ---
PT BROUGHT FOOD AND DRINK DENIES OTHER NEEDS AT THIS TIME. BED LOW AND LOCKED ANS CALL LIGHT IS WITH PT
[2020-03-02 20:30] VITALS: BP 117/66
--- NOTE | 2020-03-02 23:59 | NUR ---
HEARD PT PATTIE OUT WHEN I WHENT TO THE ROOM THE PT WAS DEMANDING MORE XANAX ...HE STAES HE WANTS TO LEAVE IF I DONT GET HIM 2 MORE XANAX ATTEMPTS TO REASON WITH PT FAIL HE SAID HE WILL SIGN AMA
[2020-03-03 04:41] VITALS: BP 129/77
[2020-03-03 05:52] LABS: BASOPHILS 0.1 % (0-2); EOSINOPHILS 4.1 % (0-7); HEMATOCRIT 48.6 % (42.0-54.0); HEMOGLOBIN 15.2 g/dL (13.5-17.5); LYMPHOCYTES 20.5 % (15-50); MCH 31.7 pg (26.0-34.0); MCHC 31.3 g/dL (31.0-37.0); MCV 101.5 fL (80.0-100.0); MEAN PLATELET VOLUME 10.8 fL (7.4-10.4); MONOCYTES 9.5 % (2-11); NEUTROPHILS 65.8 % (40-80); PLATELET COUNT 204 10x3/uL (130-400); RBC 4.79 10x6/uL (4.20-6.10); WBC 8.3 10x3/uL (4.8-10.8)
[2020-03-03 07:06] LABS: ALBUMIN 3.8 g/dL (3.4-5.0); ALKALINE PHOSPHATASE 122 U/L (30-120); ALT (SGPT) 23 U/L (10-68); BILIRUBIN - TOTAL 0.52 mg/dL (0.2-1.3); CALC OSMOLALITY 277 mosm/kg (275-300); CHLORIDE - SERUM 96 mmol/L (98-107); CREATINE KINASE 58 UL (21-232); CREATININE - SERUM 1.1 mg/dL (0.6-1.3); GLUCOSE 109 mg/dL (74-106); MAGNESIUM - SERUM 2.1 mg/dL (1.8-2.4); POTASSIUM - SERUM 4.4 mmol/L (3.5-5.1); SODIUM 137 mmol/L (136-145); UREA NITROGEN 20 mg/dL (7-18); eGFR NON AFRICAN AMERICAN 69 mL/min (90-120)
[2020-03-03 07:17] LABS: TROPONIN-I < 0.017 ng/mL (0.000-0.060)
[2020-03-03 07:19] LABS: CARBON DIOXIDE 41.9 mmol/L (21.0-32.0)
[2020-03-03 09:32] VITALS: BP 123/84; BMI 24.8
[2020-03-03 10:55] VITALS: BP 123/84; Ht 189.2 cm; Wt 86.4 kg
--- NOTE | 2020-03-03 11:15 | NUR ---
ADMISSION ASSESSMENT DONE. PATIENT INCONT. OF URINE. CLEANED UP, NEW LINENS AND DEPENDS PLACED ON PATIENT ALONG WITH NON SKID SOCKS AND BRYSON MAT ALARM WHICH IS TURNED ON AND IN USE. CALL LIGHT PLACED IN LAP. INSTRUCTED TO CALL FOR ASSISTANCE. STATES TO UNDERSTANDING.
[2020-03-03 13:40] VITALS: BP 130/65
[2020-03-03 16:11] LABS: UDS - AMPHET NEGATIVE QUAL (NEGATIVE); UDS - BARB NEGATIVE QUAL (NEGATIVE); UDS - BENZO POSITIVE QUAL (NEGATIVE); UDS - COCAINE NEGATIVE QUAL (NEGATIVE); UDS - OPIATE NEGATIVE QUAL (NEGATIVE); UDS - PCP NEGATIVE QUAL (NEGATIVE); UDS - THC NEGATIVE QUAL (NEGATIVE)
[2020-03-03 16:14] LABS: BILIRUBIN NEGATIVE (NEGATIVE); GLUCOSE NEGATIVE (NEGATIVE); KETONE NEGATIVE (NEGATIVE); NITRITE NEGATIVE (NEGATIVE); SPECIFIC GRAVITY 1.015 (1.005-1.020); UROBILINOGEN NORMAL (NORMAL)
[2020-03-03 16:19] LABS: BASOPHILS 0.4 % (0-2); EOSINOPHILS 5.2 % (0-7); HEMATOCRIT 46.8 % (42.0-54.0); HEMOGLOBIN 14.7 g/dL (13.5-17.5); IMMATURE GRANULOCYTES 0.3 % (0-5); LYMPHOCYTES 24.5 % (15-50); MCH 31.7 pg (26.0-34.0); MCHC 31.4 g/dL (31.0-37.0); MCV 101.1 fL (80.0-100.0); MEAN PLATELET VOLUME 10.6 fL (7.4-10.4); MONOCYTES 11.1 % (2-11); NEUTROPHILS 58.5 % (40-80); PLATELET COUNT 179 10x3/uL (130-400); RBC 4.63 10x6/uL (4.20-6.10); RDW 14.9 % (11.5-14.5); WBC 6.9 10x3/uL (4.8-10.8)
[2020-03-03 16:46] LABS: CALC OSMOLALITY 277 mosm/kg (275-300); CALCIUM 8.9 mg/dL (8.5-10.1); CHLORIDE - SERUM 96 mmol/L (98-107); GLUCOSE 104 mg/dL (74-106); POTASSIUM - SERUM 4.3 mmol/L (3.5-5.1); SODIUM 137 mmol/L (136-145); UREA NITROGEN 25 mg/dL (7-18); eGFR NON AFRICAN AMERICAN 77 mL/min (90-120)
[2020-03-03 16:56] LABS: CARBON DIOXIDE 41.2 mmol/L (21.0-32.0)
--- NOTE | 2020-03-03 19:00 | NUR ---
EVENING ROUNDS COMPLETE. PT LAYING IN BED. NO SIGNS OF DISTRESS. AAOX4. PT DENIES ANY PAIN OR NEEDS AT THIS TIME. CL IN REACH, BED IN LOWEST POSITION.
--- NOTE | 2020-03-03 19:08 | NUR ---
WEAPONS OFFICER [employer] REPORTED TO ME PT HAS WHITE STUFF IN MOUTH. PT HAS HOME MED ALPRAZOLAM AND PREGABLIN. TOOK HOME MEDS AND PUT THEM IN PT'S OWN HOMEMED ENVELOPE AND TAKEN TO PHARMACY.
--- NOTE | 2020-03-03 19:21 | NUR ---
RADIOLOGY CT TECHNOLOGIST REPORTED TO ME PT HAS WHITE STUFF IN MOUTH. PT HAS HOME MED ALPRAZOLAM AND PREGABLIN. TOOK HOME MEDS AND COUNTED THEM AND PLACED THEM IN A PATIENTS ON OWN MED ENVELOPE WITH JEREMI WEIR. ENVELOPE PLACED ON TOP OF CASSETTE. CALLED PHARMACY AND STATED TO THEM IT IS ON TOP OF THE CASSETTE AND THEY STATED THEY WILL COME GET IT.
[2020-03-03 21:32] VITALS: BP 104/59
[2020-03-04 00:30] VITALS: BP 105/54
[2020-03-04 04:00] VITALS: BP 97/69
[2020-03-04 06:13] LABS: BASOPHILS 0.3 % (0-2); HEMATOCRIT 50.1 % (42.0-54.0); HEMOGLOBIN 15.9 g/dL (13.5-17.5); IMMATURE GRANULOCYTES 0.1 % (0-5); LYMPHOCYTES 27.7 % (15-50); MCH 31.9 pg (26.0-34.0); MCHC 31.7 g/dL (31.0-37.0); MCV 100.6 fL (80.0-100.0); MEAN PLATELET VOLUME 10.6 fL (7.4-10.4); MONOCYTES 8.8 % (2-11); NEUTROPHILS 58.1 % (40-80); PLATELET COUNT 197 10x3/uL (130-400); RBC 4.98 10x6/uL (4.20-6.10); RDW 14.9 % (11.5-14.5); WBC 7.5 10x3/uL (4.8-10.8)
[2020-03-04 06:39] LABS: ANION GAP 4.9 mmol/L (8-16); CALCIUM 9.9 mg/dL (8.5-10.1); CREATININE - SERUM 1.2 mg/dL (0.6-1.3); POTASSIUM - SERUM 4.4 mmol/L (3.5-5.1)
[2020-03-04 07:18] LABS: CARBON DIOXIDE 43.5 mmol/L (21.0-32.0)
--- NOTE | 2020-03-04 07:30 | NUR ---
PT LAYING SUPINE, RR EVEN AND UNLABORED ON 2L NC. NO DISTRESS NOTED. URINAL EMPTIED WITH CLEAR, YELLOW URINE NOTED. CALL LIGHT WITHIN REACH. BED IN LOWEST POSITION. BED ALARM ON AND FUNCTIONING PROPERLY. WILL CONTINUE TO MONITOR.
[2020-03-04 09:28] VITALS: BP 118/62
[2020-03-04 12:09] VITALS: BP 102/69
[2020-03-04 15:35] VITALS: BP 126/59
--- NOTE | 2020-03-04 15:43 | NUR ---
Rehab Note- Acute Inpatient Rehab prescreen order received. The patient has [employer] insurance and will require a PreAuth prior to an inpatient acute rehab stay. Will need a PT & OT Eval for PreAuth process. Will continue to follow at this time. Thank you for this referral! Janeth Faustin RN Clinical Liaison, [facility] Rehab
[2020-03-04 22:32] VITALS: BP 108/61
[2020-03-05 01:55] VITALS: BP 102/56
[2020-03-05 06:23] LABS: BASOPHILS 0.4 % (0-2); EOSINOPHILS 4.2 % (0-7); HEMATOCRIT 48.2 % (42.0-54.0); HEMOGLOBIN 15.6 g/dL (13.5-17.5); IMMATURE GRANULOCYTES 0.1 % (0-5); MCH 31.9 pg (26.0-34.0); MCHC 32.4 g/dL (31.0-37.0); MONOCYTES 9.4 % (2-11); NEUTROPHILS 62.9 % (40-80); PLATELET COUNT 196 10x3/uL (130-400); RBC 4.89 10x6/uL (4.20-6.10); RDW 15.3 % (11.5-14.5); WBC 8.1 10x3/uL (4.8-10.8)
[2020-03-05 06:33] LABS: MCV 98.6 fL (80.0-100.0)
[2020-03-05 06:50] LABS: ANION GAP 6.2 mmol/L (8-16); CALCIUM 9.6 mg/dL (8.5-10.1); CREATININE - SERUM 1.3 mg/dL (0.6-1.3); POTASSIUM - SERUM 4.1 mmol/L (3.5-5.1)
[2020-03-05 06:55] LABS: CARBON DIOXIDE 42.9 mmol/L (21.0-32.0)
[2020-03-05 07:01] VITALS: BP 98/63
--- NOTE | 2020-03-05 07:25 | NUR ---
PT SITTING UP IN BED, RR EVEN AND UNLABORED ON 2L NC. DENIES NEEDS OR PAIN AT THIS TIME. CALL LIGHT WITHIN REACH. BED IN LOWEST POSITION. WILL CONTINUE TO MONITOR.
[2020-03-05 10:14] VITALS: BP 91/67
[2020-03-05] MEDS ORDERED: FUROSEMIDE20 MG PO (12:55)
[2020-03-05] MEDS ORDERED: K-DUR20 MEQ PO (12:56)
--- NOTE | 2020-03-05 13:58 | NUR ---
Nutrition Follow-up: Eating well. Ate 100% of breakfast this AM. Noted plans to d/c today. Diet: Cardiac Wt: 190# (03/03) Last BM: 03/05 Labs reviewed Meds noted: Protonix, Lasix, KDur, Remeron -Monitor wt; noted daily wts ordered. -RD following.
--- NOTE | 2020-03-05 15:49 | NUR ---
I have reviewed this patient and I concur with the Shift Assessment completed by the Licensed Practical Nurse today this shift.
--- NOTE | 2020-03-05 16:03 | MORECARE ---
CASE MANAGEMENT DISCHARGE SUMMARY PATIENT: TREV JERRY UNIT: [id number] ADM DATE: 03/02/20 AGE: 74 : 44 SEX: M ROOM/BED: D.2135 AUTHOR: ANDRIY NGUYEN PHYSICIAN: REFERRING PHYSICIAN: LEONA TANG MD DATE OF SERVICE: 03/05/20 Discharge Plan Patient Name: TREV JERRY [facility] [facility] 1945 Planned Disposition: Home Anticipated Discharge Date: Discharge Date: Expected LOS: Initial Reviewer: [email or web address] Initial Review Date: 03/02/2020 Generated: 03/05/20 5:02 pm Coverage Notice Reviewer: [email or web address] Diana Jackson Notice Issued Date-Time: 03/05/2020 15:55 Notice Type: Patient Choice Letter Notice Delivered To: Patient Relationship to Patient: Concrete Wall Grinder Operator Name: Delivery Method: HAND - Hand Delivered Rosibel Days: Prior Verbal Notification: Recipient Understood Notice: Yes Recipient Signature: Yes Med Rec Note Co-signed by Attending: Coverage Notice Comment: declination for hh/rehab and resumption of [facility] Reviewer: [email or web address] Diana Jackson Notice Issued Date-Time: 03/05/2020 15:50 Notice Type: IM Discharge Notice Notice Delivered To: Patient Relationship to Patient: Concrete Wall Grinder Operator Name: Delivery Method: HAND - Hand Delivered Rosibel Days: Prior Verbal Notification: Recipient Understood Notice: Yes Recipient Signature: Yes Med Rec Note Co-signed by Attending: Coverage Notice Comment: DC IMM delivered, explained, signed by the patient, and placed in chart. Signed form also left with the patient. Patient Name: TREV JERRY Page [phone] at 1603 All edits/amendments must be made on the electronic document DICTATION DATE: 03/05/20 160 SENIOR ENLISTED ADVISOR: FAVIAN 03/05/20 160 RPT#: [id number] DC DATE: STATUS: ADM IN [facility] [address] [place] [address] END OF REPORT
--- NOTE | 2020-03-05 16:12 | MORECARE ---
CASE MANAGEMENT DISCHARGE SUMMARY PATIENT: TREV JERRY UNIT: [id number] ADM DATE: 03/02/20 AGE: 74 : 44 SEX: M ROOM/BED: D.2135 AUTHOR: ANDRIY NGUYEN PHYSICIAN: REFERRING PHYSICIAN: LEONA TANG MD DATE OF SERVICE: 03/05/20 Discharge Plan Patient Name: TREV JERRY Facility: [facility]:[place] : 1945 Planned Disposition: Home Anticipated Discharge Date: Discharge Date: Expected LOS: Initial Reviewer: [email or web address] Initial Review Date: 03/02/2020 Generated: 03/05/20 5:11 pm Comments DCP- Discharge Planning Updated by [email or web address]: Lilo Jackson on 03/05/20 3:[address] Patient Name: TREV JERRY Admission Status: ER Accout number: [id number] Admission Date: 03-02-2020 : 1945 Admission Diagnosis:CHEST PAIN, UNSPECIFIED Attending: LEONA TANG Current LOS: 3 Anticipated DC Date: Planned Disposition: Home Primary Insurance: [employer] ADV Discharge Planning Comments: CM met with patient to complete initial dc planning assessment. CM educated patient on the CM role and verbal consent given by patient to complete assessment. CM verified patient's address, phone number, and emergency contact phone numbers. Patient lives at home with his dtr Autumn. At discharge patient plans to return home and feels this is a safe discharge. CM discussed availability of home health, rehab services, and medical equipment. Pt has home and portable 02 with [facility]. Frank signed for resumption. Pt declined HH or ip rehab. Patient denied known discharge needs at this time. Transportation provider at discharge will be Autumn. CM will continue to follow and will assist as needed with dc plans/needs. Audiovisual Technician: Lilo Jackson Coverage Notice Reviewer: [email or web address] - Lilo Jackson Notice Issued Date-Time: 03/05/2020 15:55 Notice Type: Patient Choice Letter Notice Delivered To: Patient Relationship to Patient: Hospitality Coordinator Name: Delivery Method: HAND - Hand Delivered Rosibel Days: Prior Verbal Notification: Recipient Understood Notice: Yes Recipient Signature: Yes Med Rec Note Co-signed by Attending: Coverage Notice Comment: declination for hh/rehab and resumption of [facility] Reviewer: [email or web address] Diana Jackson Notice Issued Date-Time: 03/05/2020 15:50 Notice Type: IM Discharge Notice Notice Delivered To: Patient Relationship to Patient: Hospitality Coordinator Name: Delivery Method: HAND - Hand Delivered Rosibel Days: Prior Verbal Notification: Recipient Understood Notice: Yes Recipient Signature: Yes Med Rec Note Co-signed by Attending: Coverage Notice Comment: DC IMM delivered, explained, signed by the patient, and placed in chart. Signed form also left with the patient. Last DP export: 03/05/20 3:03 p Patient Name: TREV JERRY Page [phone] at 1612 All edits/amendments must be made on the electronic document DICTATION DATE: 03/05/20 161 AGRICULTURAL EDUCATION INSTRUCTOR: FAVIAN 03/05/20 1611 RPT#: [id number] DC DATE: STATUS: ADM IN [facility] [address] [place] [address] END OF REPORT
--- NOTE | 2020-03-05 18:06 | NUR ---
MEDICATIONS RECIEVED FROM PHARMACY, PT AND FAMILY STATED ALL MEDICATIONS PRESENT. D/C INSTRUCTIONS REVIEWED WITH PT AND FAMILY. BOTH VERBALIZED AGREEMENT. IV D/C WITH CATHETER TIP INTACT. LEFT VIA WHEELCHAIR TO PERSONAL VEHICLE.
== END 2020-03-05 18:08 | disposition home or self-care (01) | DRG 291 ==
LOC: D.ER 14:06 → D.M2 16:29
PROVIDERS: Emergency Medicine; Family Medicine; ADMIT Family Medicine; ATTEND Family Medicine
DX: I11.0 Hypertensive heart disease with heart failure (principal); G93.41 Metabolic encephalopathy; I48.20 Chronic atrial fibrillation, unspecified; J44.1 Chronic obstructive pulmonary disease with (acute) exacerbation; I50.33 Acute on chronic diastolic (congestive) heart failure; D75.89 Other specified diseases of blood and blood-forming organs; E03.9 Hypothyroidism, unspecified; I25.10 Atherosclerotic heart disease of native coronary artery without angina pectoris; D64.9 Anemia, unspecified; F41.8 Other specified anxiety disorders; E78.5 Hyperlipidemia, unspecified; Z99.81 Dependence on supplemental oxygen